=== PATIENT | female | born 1955 | race Caucasian/White ===

== ENCOUNTER → 2016-11-11 | Outpatient (CLI) | payer MEDICARE ==
--- NOTE | 2016-11-11 15:21 | XR ---
EXAMINATION TYPE: XR ankle complete RT DATE OF EXAM: 11/11/2016 2:45 PM CLINICAL HISTORY: Right ankle pain. TECHNIQUE: Frontal, lateral and oblique images of the right ankle are obtained. COMPARISON: None. FINDINGS: There is no acute fracture/dislocation evident in the right ankle. Some well-corticated o ssific fragments are medial malleolus likely reflect product of old avulsion type fracture. Similar s mall fracture fragments suspected near level of lateral malleolus favor old but are age indeterminate . The ankle mortise appears mildly narrowed medially . There is moderate subcutaneous edema with more focal moderate swelling over the lateral malleolus. Moderate inferior calcaneal spur is noted. IMPRESSION: There is diffuse subcutaneous edema and more focal lateral soft tissue swelling, there i s suspected old avulsion type fracture from the medial malleolus and more age indeterminate avulsion type fracture from the lateral malleolus. Ankle mortise asymmetry is noted raising concern for underl sol ligamentous tear.
== END | disposition home or self-care (01) ==
LOC: RADXRMAIN 14:11
PROVIDERS: ATTEND Family Medicine
DX: M79.89 Other specified soft tissue disorders (principal); R60.0 Localized edema; R93.7 Abnormal findings on diagnostic imaging of other parts of musculoskeletal system

== ENCOUNTER → 2016-11-14 | Outpatient (CLI) | payer MEDICARE ==
--- NOTE | 2016-11-14 15:05 | US ---
EXAMINATION TYPE: US venous doppler duplex LE RT DATE OF EXAM: 11/14/2016 2:55 PM COMPARISON: NONE CLINICAL HISTORY: M79.661 PAIN IN RT LOWER LIMB. SIDE PERFORMED: Right VESSELS IMAGED: External Iliac Vein (EIV) Common Femoral Vein Deep Femoral Vein Greater Saphenous Vein * Femoral Vein Popliteal Vein Small Saphenous Vein * Proximal Calf Veins (* superficial vessels) TECHNOLOGIST IMPRESSION: morbidly obese patient Right Leg: Negative for DVT No popliteal fossa lesion is seen. IMPRESSION: THIS EXAMINATION IS NEGATIVE FOR DVT WITHIN THE RIGHT LEG.
== END | disposition home or self-care (01) ==
LOC: RADUSWWP 14:13
PROVIDERS: ATTEND Family Medicine
DX: M79.661 Pain in right lower leg (principal); E66.01 Morbid (severe) obesity due to excess calories

== ENCOUNTER → 2016-11-25 | Outpatient (CLI) | payer MEDICARE | LOC: LABWHC1 13:54 | PROVIDERS: ATTEND Orthopaedic Surgery | DX: E55.9 Vitamin D deficiency, unspecified (principal) | CPT/HCPCS: 36415; 82306 ==

== ENCOUNTER → 2016-11-28 | Outpatient (CLI) | payer MEDICARE ==
[2016-11-28 11:35] LABS: Bilirubin, Delta 0.3 mg/dL (0.0-0.2); Total Bilirubin 1.3 mg/dL (0.2-1.3); Total Protein 7.3 g/dL (6.3-8.2)
== END | disposition home or self-care (01) ==
LOC: LABWHC1 10:35
PROVIDERS: ATTEND Family Medicine
DX: E78.00 Pure hypercholesterolemia, unspecified (principal); Z79.899 Other long term (current) drug therapy
CPT/HCPCS: 36415; 80061; 80076

== ENCOUNTER 2017-02-27 15:20 | Emergency (ER) | payer MEDICARE ==
[2017-02-27 15:41] VITALS: RESP 18
[2017-02-27] MEDS ORDERED: SODIUM CHLORIDE 0.9% 500 ML IV STA (16:07)
[2017-02-27 16:23] LABS: Basophils % (A) 0 %; CH 30.7; CHCM 32.3; Eosinophils # (A) 0.2 k/uL (0-0.7); Eosinophils % (A) 2 %; HCT 47.7 % (34.0-46.0); HDW 2.19; HGB 15.4 gm/dL (11.4-16.0); Luc # (Auto) 0.32; Luc % (Auto) 3; Lymphocytes % (A) 18 %; MCH 30.9 pg (25.0-35.0); MCHC 32.3 g/dL (31.0-37.0); MCV 95.6 fL (80.0-100.0); Mean Platelet Volume 7.7; Monocytes # (A) 0.9 k/uL (0-1.0); Monocytes % (A) 8 %; Neutrophils # (A) 7.6 k/uL (1.3-7.7); Neutrophils % (A) 69 %; RBC 4.99 m/uL (3.80-5.40); RDW 13.7 % (11.5-15.5); WBC (Perox) 10.81
[2017-02-27] MEDS ORDERED: ONDANSETRON 4 MG/2 ML VIAL IVP STA ×2 (16:28→18:44)
[2017-02-27] MEDS ORDERED: HYDROmorphone 1 MG/ML 1 ML SYRINGE IVP STA (16:28)
--- NOTE | 2017-02-27 16:35 | ED ---
Abdominal Pain HPI - General Chief Complaint: Abdominal Pain Stated Complaint: abdominal pain Time Seen by Provider: 02/27/17 16:06 Source: patient, RN notes reviewed Mode of arrival: ambulatory Limitations: no limitations - History of Present Illness Initial Comments: 61-year-old female presents emergency Department with chief complaint of abdominal pain. Patient states she felt some problems last week but states over the last 23 days she's had severe left lower quadrant abdominal pain with nausea vomiting. Patient states that she has a history of obstruction states it feels very similar in same spot. Patient states that she's had multiple surgeries secondary to cancer. Patient denies fever, chills, chest pain, shortness breath, diarrhea. She states that she did have 2 small hard stools. Patient denies any dysuria or hematuria. - Related Data Home Medications Medication Instructions Recorded Confirmed HYDROcodone/APAP 10-325MG [[place] 1 tab PO QID PRN 09/29/14 02/27/17 10-325] Calcium Carbonate/Vitamin D3 1 tab PO DAILY 02/27/17 02/27/17 [Calcium 600-Vit D3 400 Caplet] Previous Rx's Medication Instructions Recorded Dicyclomine [Bentyl] 20 mg PO TID #30 tablet 02/27/17 Allergies Allergy/AdvReac Type Severity Reaction Status Date / Time estrogens, conjugated Allergy severe Verified 02/27/17 15:53 [From Premarin] hand spasms Penicillins Allergy Rash/Hives Verified 02/27/17 15:53 tramadol HCl [From Ultram] Allergy Rash/Hives Verified 02/27/17 15:53 adhesive tape AdvReac Rash/Hives Verified 02/27/17 15:53 oxycodone AdvReac confusion Verified 02/27/17 15:53 and claustrophobia pregabalin [From Lyrica] AdvReac severe Verified 02/27/17 15:53 night terrors Review of Systems ROS Statement: Those systems with pertinent positive or pertinent negative responses have been documented in the HPI. ROS Other: All systems not noted in ROS Statement are negative. Past Medical History Past Medical History: Coronary Artery Disease (CAD), Cancer, Chest Pain / Angina , Heart Failure, GERD/Reflux, Hyperlipidemia, Memory Impairment, Myocardial Infarction ([place]), Osteoarthritis (OA), Pneumonia Additional Past Medical History / Comment(s): anemia, in wheelchair-to have lt hip replaced Thursday at [facility].OCC INCONT OF URINE, CHF WAS PREVIOUSLY CHARTED PT DOES'NT HAVE KNOWLEDGE OF THIS. ovarian cancer 1995 Last Myocardial Infarction Date:: 03/20/14 History of Any Multi-Drug Resistant Organisms: None Reported Past Surgical History: Bariatric Surgery, Heart Catheterization With Stent, Hernia Repair, Hysterectomy, Orthopedic Surgery Additional Past Surgical History / Comment(s): pannectomy during hernia repair, C5-C6 implant,sciatic ablation, DANNY KNEE REPLACMENTS, LT HIP COMPLETELY REBIULT , RT HIP REPLACEMENT.COLONOSOCPY, SKIN CANCER ON FACE REMOVED. PREVIOUS H&P FROM 2013 STATED HX BARIATRI SX- PT DENIES danny hip Past Anesthesia/Blood Transfusion Reactions: No Reported Reaction Date of Last Stent Placement:: 03/23/2014 Past Psychological History: Anxiety Smoking Status: Former smoker Past Alcohol Use History: None Reported Past Drug Use History: None Reported - Past Family History Father Family Medical History: Liver Disease Additional Family Medical History / Comment(s): alcoholic cirrhosis Mother Family Medical History: CVA/TIA Additional Family Medical History / Comment(s): complications from a hernia that went unreported. Son(s) Family Medical History: Asthma Sister(s) Family Medical History: Cancer Additional Family Medical History / Comment(s): breast General Exam Limitations: no limitations General appearance: alert, in no apparent distress, obese Respiratory exam: Present: normal lung sounds bilaterally. Absent: respiratory distress, wheezes, rales, rhonchi, stridor Cardiovascular Exam: Present: regular rate, normal rhythm, normal heart sounds. Absent: systolic murmur, diastolic murmur, rubs, gallop, clicks GI/Abdominal exam: Present: soft, tenderness (Moderate left lower quadrant tenderness), normal bowel sounds. Absent: distended, guarding, rebound, rigid Back exam: Absent: CVA tenderness (R), CVA tenderness (L) Neurological exam: Present: alert, oriented X3, CN II-XII intact Skin exam: Present: warm, dry, intact, normal color. Absent: rash Course Vital Signs 02/27/17 02/27/17 15:37 17:42 Temperature 97.7 F Pulse Rate 82 85 Respiratory 18 18 Rate Blood Pressure 131/77 131/77 O2 Sat by Pulse 97 97 Oximetry Medical Decision Making - Medical Decision Making 61-year-old female presented emergency department for left lower quadrant abdominal pain. There is no acute evidence of diverticulitis or bowel obstruction. Patient may be having bowel spasm. Patient will be discharged at this time case was discussed with Dr. Caro. Return parameters were discussed - Lab Data Result diagrams: 02/27/17 16:15 02/27/17 16:50 Lab Results 02/27/17 02/27/17 Range/Units 16:15 16:50 WBC 11.0 H (3.8-10.6) k/uL RBC 4.99 (3.80-5.40) m/uL Hgb 15.4 (11.4-16.0) gm/dL Hct 47.7 H (34.0-46.0) % MCV 95.6 (80.0-100.0) fL MCH 30.9 (25.0-35.0) pg MCHC 32.3 (31.0-37.0) g/dL RDW 13.7 (11.5-15.5) % Plt Count 205 (150-450) k/uL Neutrophils % 69 % Lymphocytes % 18 % Monocytes % 8 % Eosinophils % 2 % Basophils % 0 % Neutrophils # 7.6 (1.3-7.7) k/uL Lymphocytes # 2.0 (1.0-4.8) k/uL Monocytes # 0.9 (0-1.0) k/uL Eosinophils # 0.2 (0-0.7) k/uL Basophils # 0.0 (0-0.2) k/uL Sodium 142 (137-145) mmol/L Potassium 4.5 (3.5-5.1) mmol/L Chloride 109 H (98-107) mmol/L Carbon Dioxide 23 (22-30) mmol/L Anion Gap 10 mmol/L BUN 18 H (7-17) mg/dL Creatinine 0.80 (0.52-1.04) mg/dL Est GFR (MDRD) Af Amer >60 (>60 ml/min/1.73 sqM) Est GFR (MDRD) Non-Af >60 (>60 ml/min/1.73 sqM) Glucose 74 (74-99) mg/dL Calcium 8.8 (8.4-10.2) mg/dL Total Bilirubin 1.6 H (0.2-1.3) mg/dL AST 27 (14-36) U/L ALT 33 (9-52) U/L Alkaline Phosphatase 110 (38-126) U/L Total Protein 6.9 (6.3-8.2) g/dL Albumin 4.1 (3.5-5.0) g/dL Amylase <30 L (30-110) U/L Lipase 34 (23-300) U/L Disposition Clinical Impression: Abdominal pain Disposition: HOME SELF-CARE Condition: Stable Instructions: Abdominal Pain (ED) Additional Instructions: Please return to the Emergency Department if symptoms worsen or any other concerns. Prescriptions: Dicyclomine [Bentyl] 20 mg PO TID #30 tablet Referrals: Woody Pinedo MD [Primary Care Provider] - 1-2 days Time of Disposition: 19:11
[2017-02-27 17:27] LABS: ALT 33 U/L (9-52); AST 27 U/L (14-36); Alkaline Phosphatase 110 U/L (38-126); Amylase <30 U/L (30-110); Anion Gap 10 mmol/L; Blood Urea Nitrogen 18 mg/dL (7-17); Calcium 8.8 mg/dL (8.4-10.2); Carbon Dioxide 23 mmol/L (22-30); Chloride 109 mmol/L (98-107); Glucose 74 mg/dL (74-99); Non-African American GFR(MDRD) >60 (>60 ml/min/1.73 sqM); Potassium 4.5 mmol/L (3.5-5.1); Sodium 142 mmol/L (137-145); Total Bilirubin 1.6 mg/dL (0.2-1.3); Total Protein 6.9 g/dL (6.3-8.2)
--- NOTE | 2017-02-27 17:32 | XR ---
EXAMINATION TYPE: XR KUB DATE OF EXAM: 02/27/2017 COMPARISON: 06/28/2016 HISTORY: Abdominal pain TECHNIQUE: 2 views FINDINGS: There is no sign of intestinal obstruction or pneumoperitoneum. Fecal pattern is normal. Th ere are bilateral hip prosthesis. Lung bases are clear of consolidation. There are no pathologic calc ifications over the kidneys. There are numerous surgical clips in the pelvis. IMPRESSION: Nonacute abdomen. No change.
[2017-02-27] MEDS ORDERED: RX INFO: IV CONTRAST WAS GIVEN 1 EACH MISC MISCELLANE PRN (17:34)
--- NOTE | 2017-02-27 18:33 | CT ---
EXAMINATION TYPE: CT abdomen pelvis w con DATE OF EXAM: 02/27/2017 COMPARISON: 06/24/2016 HISTORY: Left lower quadrant pain with nausea and vomiting. CT DLP: 3835.40 mGycm Automated exposure control for dose reduction was used. TECHNIQUE: Helical acquisition of images was performed from the lung bases through the pelvis. CONTRAST: Performed without Oral Contrast and with IV Contrast, patient injected with 100 mL of Omnipaque 300. FINDINGS: The lung bases are clear. There is no pleural effusion. Liver spleen pancreas appear normal. Bile sindy ts are not dilated. Gallbladder is distended. I see no gallbladder wall thickening. Urographic there is no adrenal mass. Kidneys show satisfactory contrast opacification. There is no hydronephrosis. The re is no retroperitoneal adenopathy. There is no ascites. There is metal artifact from the bilateral hip prosthesis. Bladder is obscured by the metal artifact. I see no intestinal wall thickening. There are no dilated loops. Appendix appears normal. I see no fo verito bony destructive process. There is 10% anterior wedging of L2 vertebral body. Heart is enlarged. IMPRESSION: THERE IS OLD MILD COMPRESSION FRACTURE OF L2. MILD ATHEROSCLEROTIC VASCULAR DISEASE. CARDIOMEGALY. NO RMAL APPENDIX. NO SIGN OF ACUTE ABDOMEN AND PELVIS. NO ADVERSE CHANGE COMPARED TO OLD EXAM. THERE IS PROBABLY SOME SIGMOID DIVERTICULOSIS WITHOUT SIGN OF DIVERTICULITIS.
[2017-02-27 19:44] VITALS: BP 107/54; PULSE 73; TEMP 97.2
== END 2017-02-27 19:42 | disposition home or self-care (01) ==
LOC: EC 15:20
DX: R10.32 Left lower quadrant pain (principal); R11.2 Nausea with vomiting, unspecified; Z87.891 Personal history of nicotine dependence; Z79.899 Other long term (current) drug therapy; Z88.0 Allergy status to penicillin; Z88.5 Allergy status to narcotic agent; Z88.8 Allergy status to other drugs, medicaments and biological substances; Z91.09 Other allergy status, other than to drugs and biological substances
CPT/HCPCS: 36415; 80053; 82150; 83690; 85025; 74000; 74177; 99284; 96374; 96375; 96376; 96361; J2405; J1170; Q9967

== ENCOUNTER → 2017-09-09 | Outpatient (CLI) | payer MEDICARE ==
--- NOTE | 2017-09-10 00:09 | MR ---
EXAMINATION TYPE: MR foot RT wo/w con DATE OF EXAM: 09/09/2017 COMPARISON: NONE HISTORY: Osteomyelitis right great toe. Pain and infection, Gadavist 13ml CONTRAST: Standard multiplanar, multisequence MRI departmental protocol utilizing 13 mL intravenous Gadavist ga dolinium contrast. FINDINGS: There is moderate subcutaneous edema on the dorsum of the entire foot. There is subcutaneou s edema on the anterior lower leg. There is a plantar calcaneal spur. Plantar fascia is intact. The m etatarsals are intact. The signal pattern in the big toe is fairly normal without evidence of any fra cture or bone edema. There is mild soft tissue swelling around the end of the big toe. There is narro wing of first MP joint space with mild spurring. There is a small effusion of the first MP joint. I s ee no pathologic enhancement. IMPRESSION: Exam fails to demonstrate evidence of osteomyelitis. There is some osteoarthritis and synovitis evide nt at the first MP joint. No fracture. Subcutaneous edema and fluid seen on the dorsum of the foot. M ild soft tissue swelling around the end of the big toe. Plantar calcaneal spurring.
== END | disposition home or self-care (01) ==
LOC: RADMRIMAIN 17:06
PROVIDERS: ATTEND Family Medicine
DX: M19.071 Primary osteoarthritis, right ankle and foot (principal); M65.871 Other synovitis and tenosynovitis, right ankle and foot; R60.0 Localized edema
CPT/HCPCS: 73720; A9581

== ENCOUNTER → 2018-08-16 | Outpatient (CLI) | payer MEDICARE ==
[2018-08-16 14:39] LABS: Basophils % (A) 0 %; Eosinophils # (A) 0.2 k/uL (0-0.7); Eosinophils % (A) 2 %; HCT 46.1 % (34.0-46.0); HGB 14.5 gm/dL (11.4-16.0); Lymphocytes # (A) 1.7 k/uL (1.0-4.8); Lymphocytes % (A) 21 %; MCH 29.7 pg (25.0-35.0); MCHC 31.4 g/dL (31.0-37.0); MCV 94.4 fL (80.0-100.0); Mean Platelet Volume 7.4; Monocytes # (A) 0.5 k/uL (0-1.0); Monocytes % (A) 6 %; Neutrophils # (A) 5.6 k/uL (1.3-7.7); Neutrophils % (A) 68 %; Platelet Count 213 k/uL (150-450); RBC 4.88 m/uL (3.80-5.40); RDW 13.6 % (11.5-15.5); WBC 8.2 k/uL (3.8-10.6)
[2018-08-16 18:47] LABS: Albumin 4.2 g/dL (3.80-4.90); Albumin/Globulin Ratio 1.91 (1.20-2.10); Anion Gap 6.6 mmol/L (4.00-12.00); Calcium 9.4 mg/dL (8.7-10.3); Carbon Dioxide 30.4 mmol/L (21.6-31.8); Globulin 2.2 g/dL (2.1-3.7); LDL Cholesterol,Calculated 104.2 mg/dL (0.0-131.0); Potassium 4.7 mmol/L (3.5-5.5); Total Bilirubin 1.1 mg/dL (0.3-1.2); Total Protein 6.4 g/dL (6.2-8.2); VLDL Calculation 20.8 mg/dL (5.00-40.00)
[2018-08-16 18:54] LABS: T4, Free (Free Thyroxine) 1.1 ng/dL (0.80-1.80)
== END ==
LOC: LABWHC1 13:20
PROVIDERS: ATTEND Family Medicine
DX: E78.00 Pure hypercholesterolemia, unspecified (principal); I10 Essential (primary) hypertension; I25.2 Old myocardial infarction; Z79.899 Other long term (current) drug therapy
CPT/HCPCS: 36415; 80053; 80061; 84439; 84443; 85025

== ENCOUNTER → 2019-01-27 | Outpatient (CLI) | payer MEDICARE ==
--- NOTE | 2019-01-27 15:54 | XR ---
EXAMINATION TYPE: XR cervical spine comp DATE OF EXAM: 01/27/2019 TECHNIQUE: Frontal, lateral, oblique, swimmers, and open mouth view of the cervical spine are obtaine d. HISTORY: S13.9XXA sprain of neck. Neck pain after fall on 01/16/2019. COMPARISON: 05/27/2011 FINDINGS: The cervical spine is visualized in its entirety from C1 thru the top of T1 level. There i s persistent grade 1 anterolisthesis of C4 and C5 as seen on the prior exam of 2010. Anterior cervica l fusion device traverses the C5-C6 vertebral level with large protuberant osteophyte of C4 developed in the interim. Intervertebral disc space narrowing at the postsurgical site is seen with multilevel uncovertebral hypertrophy and facet arthropathy. No abnormal prevertebral soft tissue swelling is se en. No malalignment within the remainder of the cervical spine. The oblique images demonstrate neural foraminal narrowing at C4-C5 and C5-C6 on the right and at C5-C 6 on the left at least moderate. Incidentally noted left carotid atherosclerosis. Lung apices are poo rly visualized. C1-C2 articulation is within normal limits. IMPRESSION: No acute fracture of the cervical spine. Chronic malalignment and postsurgical change of the mid cervical spine. Degenerative disc disease has worsened in the interim creating at least mode rate multilevel neural foraminal narrowing.
== END ==
LOC: RADXRMAIN 14:46
PROVIDERS: ATTEND Family Medicine
DX: M48.02 Spinal stenosis, cervical region (principal); M50.30 Other cervical disc degeneration, unspecified cervical region
CPT/HCPCS: 72050

== ENCOUNTER → 2019-05-19 | Outpatient (CLI) | payer MEDICARE ==
[2019-05-19 12:44] LABS: Basophils # (A) 0.1 k/uL (0-0.2); Basophils % (A) 1 %; Eosinophils # (A) 0.2 k/uL (0-0.7); Eosinophils % (A) 2 %; HCT 44.6 % (34.0-46.0); HGB 14.1 gm/dL (11.4-16.0); Lymphocytes # (A) 1.6 k/uL (1.0-4.8); Lymphocytes % (A) 21 %; MCH 29.8 pg (25.0-35.0); MCHC 31.7 g/dL (31.0-37.0); MCV 94.1 fL (80.0-100.0); Mean Platelet Volume 7.6; Monocytes # (A) 0.6 k/uL (0-1.0); Monocytes % (A) 8 %; Neutrophils % (A) 65 %; Platelet Count 217 k/uL (150-450); RBC 4.74 m/uL (3.80-5.40); RDW 13.8 % (11.5-15.5); WBC 7.7 k/uL (3.8-10.6)
--- NOTE | 2019-05-19 13:04 | XR ---
EXAMINATION TYPE: XR lumbar spine 2 or 3V DATE OF EXAM: 05/19/2019 CLINICAL HISTORY: Low back pain TECHNIQUE: Frontal and lateral images of the lumbar spine are obtained. COMPARISON: X-ray from November 07, 2014. CT abdomen and pelvis from February 27, 2017. FINDINGS: There are 5 lumbar type vertebral bodies redemonstrated. There is persistent mild compress ion type fracture deformity involving the anterior and superior endplates at L2 level. There is strai ghtening of lumbar spine. Mild to moderate disc space narrowing L2-L3 level is present. Mild to moder ate multilevel anterior and lateral spurring. Numerous surgical clips overlie the bilateral upper pel vis along the iliac vessel distribution. IMPRESSION: As above.
[2019-05-19 19:04] LABS: African American GFR (CKD) 78.3 (60.0-200.0); Anion Gap 9.2 mmol/L (4.00-12.00); BUN/Creat Ratio 23.33 Ratio (12.00-20.00); Calcium 9.1 mg/dL (8.7-10.3); Carbon Dioxide 29.8 mmol/L (21.6-31.8); Potassium 4.7 mmol/L (3.5-5.5)
== END ==
LOC: LABWHC1 12:10
PROVIDERS: ATTEND Family Medicine
DX: S32.000A Wedge compression fracture of unspecified lumbar vertebra, initial encounter for closed fracture (principal); E66.01 Morbid (severe) obesity due to excess calories; I10 Essential (primary) hypertension; E78.00 Pure hypercholesterolemia, unspecified; F33.1 Major depressive disorder, recurrent, moderate; Z79.891 Long term (current) use of opiate analgesic
CPT/HCPCS: 36415; 72100; 80048; 82306; 85025

== ENCOUNTER → 2019-11-05 | Outpatient (CLI) | payer OTHER | END | disposition home or self-care (01) | LOC: RADMRIMAIN 14:51 | PROVIDERS: ATTEND Orthopaedic Surgery | DX: Z53.9 Procedure and treatment not carried out, unspecified reason (principal) ==

== ENCOUNTER → 2021-06-05 | Outpatient (CLI) | payer MEDICARE ==
--- NOTE | 2021-06-06 12:15 | XR ---
EXAMINATION TYPE: XR humerus RT DATE OF EXAM: 06/05/2021 COMPARISON: NONE HISTORY: 65-year-old female M79.601 TECHNIQUE: 2 views FINDINGS: Moderate degenerative change AC joint with joint space narrowing. On the view centered at the humerus , there appears to be Jaclyn general exchange of the glenohumeral joint and loss of the subacromial spa ce. No acute fracture. Degenerative change at the radiocapitellar and ulnotrochlear joints as well wi th small joint effusion likely reactive. IMPRESSION: 1. Suspect moderate rotator cuff arthropathy at the shoulder along with moderate AC joint OA. 2. Additional underlying radiocapitellar and ulnotrochlear joint OA at the elbow. A small elbow joint effusion is probably reactive. 3. No acute osseous abnormality seen.
== END | disposition home or self-care (01) ==
LOC: RADXRMAIN 17:23
PROVIDERS: ATTEND Family Medicine
DX: M19.011 Primary osteoarthritis, right shoulder (principal); M25.421 Effusion, right elbow

== ENCOUNTER 2021-10-20 16:52 | Inpatient (IN) | payer MEDICARE ==
[2021-10-20] MEDS ORDERED: DEXAMETHASONE SOD PHOSPHATE 10 MG/ML 1 ML VIAL IV STA (17:48)
[2021-10-20] MEDS ORDERED: ACETAMINOPHEN TAB 500 MG TAB PO STA (17:48)
[2021-10-20] MEDS ORDERED: SODIUM CHLORIDE 0.9% 1,000 ML IV STA (17:48)
[2021-10-20] MEDS ORDERED: diphenhydrAMINE 50 MG/ML 1 ML VIAL IVP STA (17:48)
[2021-10-20] MEDS ORDERED: METOCLOPRAMIDE 5 MG/ML 2 ML VIAL IVP STA (17:48)
--- NOTE | 2021-10-20 17:48 | ED ---
Headache HPI - General Chief Complaint: Headache Stated Complaint: Headache Time Seen by Provider: 10/20/21 17:15 Mode of arrival: wheelchair Limitations: no limitations - History of Present Illness Initial Comments: EKG 6-year-old female with past history of coronary artery disease, hyperlipidemia presents to the emergency department with headache. She was seen in the emergency department yesterday for nausea vomiting abdominal pain. Workup was unremarkable and the patient was sent home. Patient continued to have nausea. She developed a headache today. Describes it as global without visual changes. Also has some neck pain. Patient found to have a fever upon hospital arrival. Oxygenation also low. She is saturating 87% on room air. Patient denies any sick contacts. She is not vaccinated against Covid. Was not evaluated for Covid yesterday. She denies any unilateral numbness or weakness. Does have some chest pressure. No cough. Patient does admittedly feel short of breath. No other alleviating, precipitating or modifying factors - Related Data Home Medications Medication Instructions Recorded Confirmed HYDROcodone/APAP 10-325MG [[place] 1 tab PO Q6H PRN 09/29/14 10/20/21 10-325] [place] Vitamin 1 tab PO DAILY 10/19/21 10/20/21 Turmeric Root Extract [Turmeric] 500 mg PO DAILY 10/19/21 10/20/21 [place] 4 1 tab PO DAILY 10/19/21 10/20/21 Zinc 50 mg PO DAILY 10/19/21 10/20/21 Previous Rx's Medication Instructions Recorded Ondansetron [Zofran] 4 mg PO Q8HR PRN #10 tab 10/19/21 Allergies Allergy/AdvReac Type Severity Reaction Status Date / Time estrogens, conjugated Allergy severe Verified 10/20/21 17:03 [From Premarin] hand spasms Penicillins Allergy Rash/Hives Verified 10/20/21 17:03 tramadol HCl [From Ultram] Allergy Rash/Hives Verified 10/20/21 17:03 adhesive tape AdvReac Rash/Hives Verified 10/20/21 17:03 oxycodone AdvReac confusion Verified 10/20/21 17:03 and claustrophobia pregabalin [From Lyrica] AdvReac severe Verified 10/20/21 17:03 night terrors Review of Systems ROS Statement: Those systems with pertinent positive or pertinent negative responses have been documented in the HPI. ROS Other: All systems not noted in ROS Statement are negative. Past Medical History Past Medical History: Coronary Artery Disease (CAD), Cancer, Chest Pain / Angina, Heart Failure, GERD/Reflux, Hyperlipidemia, Memory Impairment, Myocardial Infarction ([place]), Osteoarthritis (OA), Pneumonia Additional Past Medical History / Comment(s): anemia, in wheelchair-to have lt hip replaced Thursday at [facility].OCC INCONT OF URINE, CHF WAS PREVIOUSLY CHARTED PT DOES'NT HAVE KNOWLEDGE OF THIS. ovarian cancer 1995. Wound on Right great toe Last Myocardial Infarction Date:: 03/20/14 History of Any Multi-Drug Resistant Organisms: None Reported Past Surgical History: Bariatric Surgery, Heart Catheterization With Stent, Hernia Repair, Hysterectomy, Orthopedic Surgery Additional Past Surgical History / Comment(s): pannectomy during hernia repair,C5-C6 implant,sciatic ablation, DANNY KNEE REPLACMENTS, LT HIP COMPLETELY REBIULT, RT HIP REPLACEMENT.COLONOSOCPY, SKIN CANCER ON FACE REMOVED. PREVIOUS H&P FROM 2013 STATED HX BARIATRI SX- PT DENIES danny hip Past Anesthesia/Blood Transfusion Reactions: No Reported Reaction Date of Last Stent Placement:: 03/23/2014 Past Psychological History: Anxiety Smoking Status: Never smoker Past Alcohol Use History: None Reported Past Drug Use History: None Reported - Past Family History Father Family Medical History: Liver Disease Additional Family Medical History / Comment(s): alcoholic cirrhosis Mother Family Medical History: CVA/TIA Additional Family Medical History / Comment(s): complications from a hernia that went unreported. Son(s) Family Medical History: Asthma Sister(s) Family Medical History: Cancer Additional Family Medical History / Comment(s): breast General Exam Limitations: no limitations Course Vital Signs 10/20/21 10/20/21 10/20/21 17:03 17:37 17:38 Temperature 100.5 F H Pulse Rate 85 Respiratory 20 Rate Blood Pressure 150/85 O2 Sat by Pulse 91 L 88 L 93 L Oximetry 10/20/21 18:04 Temperature Pulse Rate 77 Respiratory 18 Rate Blood Pressure 161/75 O2 Sat by Pulse 97 Oximetry Medical Decision Making - Medical Decision Making Upon arrival patient is placed in room 2. Thorough history and physical exam was performed. IV access is established and the patient was given a liter bolus of normal saline, 10 mg Reglan, 25 mg of Benadryl, 10 mg of dexamethasone and a gram of Tylenol. Patient does have laboratory studies as she is not reporting chest pain. Troponin is negative. Covid is detected. Chest x-ray is limited due to patient's body habitus however demonstrates no acute process. CT of the brain feels demonstrate any acute intracranial process. As the patient is hypoxic I did recommend admission. Spoke with Dr. Pinedo who agreed to admit the patient. - Lab Data Result diagrams: 10/20/21 17:55 10/20/21 17:55 Lab Results 10/20/21 10/20/21 10/20/21 Range/Units 17:18 17:55 17:55 WBC 4.5 (3.8-10.6) k/uL RBC 4.71 (3.80-5.40) m/uL Hgb 15.0 (11.4-16.0) gm/dL Hct 46.2 H (34.0-46.0) % MCV 98.1 (80.0-100.0) fL MCH 31.8 (25.0-35.0) pg MCHC 32.4 (31.0-37.0) g/dL RDW 13.7 (11.5-15.5) % Plt Count 195 (150-450) k/uL MPV 8.5 Neutrophils % 67 % Lymphocytes % 14 % Monocytes % 14 % Eosinophils % 0 % Basophils % 1 % Neutrophils # 3.0 (1.3-7.7) k/uL Lymphocytes # 0.6 L (1.0-4.8) k/uL Monocytes # 0.6 (0-1.0) k/uL Eosinophils # 0.0 (0-0.7) k/uL Basophils # 0.0 (0-0.2) k/uL PT 10.1 (9.0-12.0) sec INR 0.9 (<1.2) APTT 24.8 (22.0-30.0) sec Sodium (137-145) mmol/L Potassium (3.5-5.1) mmol/L Chloride (98-107) mmol/L Carbon Dioxide (22-30) mmol/L Anion Gap mmol/L BUN (7-17) mg/dL Creatinine (0.52-1.04) mg/dL Est GFR (CKD-EPI)AfAm (>60 ml/min/1.73 sqM) Est GFR (CKD-EPI)NonAf (>60 ml/min/1.73 sqM) Glucose (74-99) mg/dL Plasma Lactic Acid Guilherme (0.7-2.0) mmol/L Calcium (8.4-10.2) mg/dL Magnesium (1.6-2.3) mg/dL Total Bilirubin (0.2-1.3) mg/dL AST (14-36) U/L ALT (4-34) U/L Alkaline Phosphatase (38-126) U/L Troponin I (0.000-0.034) ng/mL Total Protein (6.3-8.2) g/dL Albumin (3.5-5.0) g/dL Coronavirus (PCR) Detected A (Not Detectd) 10/20/21 10/20/21 10/20/21 Range/Units 17:55 17:55 17:55 WBC (3.8-10.6) k/uL RBC (3.80-5.40) m/uL Hgb (11.4-16.0) gm/dL Hct (34.0-46.0) % MCV (80.0-100.0) fL MCH (25.0-35.0) pg MCHC (31.0-37.0) g/dL RDW (11.5-15.5) % Plt Count (150-450) k/uL MPV Neutrophils % % Lymphocytes % % Monocytes % % Eosinophils % % Basophils % % Neutrophils # (1.3-7.7) k/uL Lymphocytes # (1.0-4.8) k/uL Monocytes # (0-1.0) k/uL Eosinophils # (0-0.7) k/uL Basophils # (0-0.2) k/uL PT (9.0-12.0) sec INR (<1.2) APTT (22.0-30.0) sec Sodium 139 (137-145) mmol/L Potassium 4.3 (3.5-5.1) mmol/L Chloride 103 (98-107) mmol/L Carbon Dioxide 29 (22-30) mmol/L Anion Gap 7 mmol/L BUN 12 (7-17) mg/dL Creatinine 0.87 (0.52-1.04) mg/dL Est GFR (CKD-EPI)AfAm 80 (>60 ml/min/1.73 sqM) Est GFR (CKD-EPI)NonAf 69 (>60 ml/min/1.73 sqM) Glucose 122 H (74-99) mg/dL Plasma Lactic Acid Guilherme 1.1 (0.7-2.0) mmol/L Calcium 7.8 L (8.4-10.2) mg/dL Magnesium 1.9 (1.6-2.3) mg/dL Total Bilirubin 0.6 (0.2-1.3) mg/dL AST 39 H (14-36) U/L ALT 26 (4-34) U/L Alkaline Phosphatase 109 (38-126) U/L Troponin I <0.012 (0.000-0.034) ng/mL Total Protein 7.1 (6.3-8.2) g/dL Albumin 3.7 (3.5-5.0) g/dL Coronavirus (PCR) (Not Detectd) - EKG Data EKG Comments: Twelve-lead EKG demonstrates a sinus rhythm with a ventricular rate of 72. IL interval 129. QRS 103. QTC of 416. No acute ST segment elevations or depressions concerning for ischemic changes. Disposition Clinical Impression: Headache, COVID-19, Pyrexia, Hypoxia Disposition: ADMITTED IP TO THIS HOSP Condition: Stable Is patient prescribed a controlled substance at d/c from ED?: No Referrals: Woody Pinedo MD [Primary Care Provider] - 1-2 days Decision to Admit Reason: Admit from EC Decision Date: 10/20/21 Decision Time: 19:34
[2021-10-20 18:15] LABS: INR 0.9 (<1.2); Partial Thromboplastin Time 24.8 sec (22.0-30.0); Prothrombin Time 10.1 sec (9.0-12.0)
[2021-10-20 18:16] LABS: Basophils % (A) 1 %; Eosinophils % (A) 0 %; HCT 46.2 % (34.0-46.0); Lymphocytes # (A) 0.6 k/uL (1.0-4.8); Lymphocytes % (A) 14 %; MCH 31.8 pg (25.0-35.0); MCHC 32.4 g/dL (31.0-37.0); MCV 98.1 fL (80.0-100.0); Mean Platelet Volume 8.5; Monocytes # (A) 0.6 k/uL (0-1.0); Monocytes % (A) 14 %; Neutrophils % (A) 67 %; Platelet Count 195 k/uL (150-450); RBC 4.71 m/uL (3.80-5.40); RDW 13.7 % (11.5-15.5); WBC 4.5 k/uL (3.8-10.6)
[2021-10-20 18:18] LABS: Albumin 3.7 g/dL (3.5-5.0); Calcium 7.8 mg/dL (8.4-10.2); Magnesium 1.9 mg/dL (1.6-2.3); Potassium 4.3 mmol/L (3.5-5.1); Total Bilirubin 0.6 mg/dL (0.2-1.3); Total Protein 7.1 g/dL (6.3-8.2)
--- NOTE | 2021-10-20 19:08 | XR ---
EXAMINATION TYPE: XR chest 1V portable DATE OF EXAM: 10/20/2021 COMPARISON: 06/26/2016 HISTORY: Pneumonia TECHNIQUE: Single view FINDINGS: Exam limited by patient size. There is no sign of heart failure or confluent pneumonic infi ltrate. Costophrenic angles are fairly clear. Bony thorax appears intact. IMPRESSION: No active cardiopulmonary disease. Limited exam.
--- NOTE | 2021-10-20 19:27 | CT ---
EXAMINATION TYPE: CT brain wo con DATE OF EXAM: 10/20/2021 COMPARISON: 12/05/2011 HISTORY: Headache. CT DLP: 1127.4 mGycm Automated exposure control for dose reduction was used. Images of the brain obtained without contrast. Ventricles have normal size. There is no mass effect or midline shift. There is no sign of intracrani al hemorrhage. The calvarium is intact there is normal aeration of the mastoid sinuses. The skull bas e is intact. IMPRESSION: Negative CT scan of the brain.
[2021-10-20] MEDS ORDERED: IBUPROFEN 400 MG TAB PO PRN (19:34)
[2021-10-20] MEDS ORDERED: ACETAMINOPHEN TAB 325 MG TAB PO PRN (19:34)
[2021-10-20] MEDS ORDERED: NALOXONE 0.4 MG/ML 1 ML VIAL IV PRN (19:34)
[2021-10-20] MEDS ORDERED: ONDANSETRON 4 MG/2 ML VIAL IVP PRN (19:34)
[2021-10-20] MEDS: PANTOPRAZOLE 40 MG/10 ML VIAL IV SCH (20:54)
[2021-10-20] MEDS: HYDROcodone/APAP 10-325MG 1 EACH TAB PO PRN (21:39)
[2021-10-21] MEDS: SODIUM CHLORIDE 0.9% 1,000 ML IV SCH ×2 (02:55→12:38)
[2021-10-21] MEDS: HYDROcodone/APAP 10-325MG 1 EACH TAB PO PRN ×2 (03:02→08:26)
[2021-10-21 06:10] VITALS: RESP 18
[2021-10-21] MEDS: PANTOPRAZOLE 40 MG/10 ML VIAL IV SCH (08:03)
[2021-10-21] MEDS ORDERED: NON FORMULARY DRUG (Turmeric Root Extract [Turmeric] 500 MG Capsule) PO SCH (09:00)
[2021-10-21] MEDS ORDERED: DEXAMETHASONE SOD PHOSPHATE 10 MG/ML 1 ML VIAL IVP SCH (09:00)
[2021-10-21] MEDS ORDERED: ZINC SULFATE 220 MG CAP PO SCH (09:00)
[2021-10-21] MEDS ORDERED: VITA PO SCH (09:00)
[2021-10-21] MEDS ORDERED: MULTIVITAMINS, THERA 1 EACH TAB PO SCH (09:00)
[2021-10-21 09:06] LABS: Basophils # (A) 0.02 X 10*3/uL (0.00-0.10); Basophils % (A) 0.5 %; Eosinophils # (A) 0 X 10*3/uL (0.04-0.35); Eosinophils % (A) 0 %; HCT 48.6 % (37.2-46.3); HGB 14.5 g/dL (12.0-15.0); Immature Grans, Automated 2.4 %; Lymphocytes # (A) 0.65 X 10*3/uL (0.90-5.00); Lymphocytes % (A) 17.1 %; MCH 29.9 pg (27.0-32.0); MCHC 29.8 g/dL (32.0-37.0); MCV 100.2 fL (80.0-97.0); Mean Platelet Volume 11.2 fL (9.5-12.2); Monocytes # (A) 0.55 X 10*3/uL (0.20-1.00); Monocytes % (A) 14.4 %; NRBC Per 100 WBC 0 /100 WBCS (0.0-0.0); Neutrophils % (A) 65.6 %; Platelet Count 162 X 10*3/uL (140-440); RBC 4.85 X 10*6/uL (4.10-5.20); RDW 13.8 % (11.5-14.5); WBC 3.81 X 10*3/uL (4.50-10.00)
[2021-10-21 09:10] LABS: African American GFR (CKD) 76.7 (60.0-200.0); Anion Gap 12.7 mmol/L (10.00-18.00); BUN/Creat Ratio 12.22 Ratio (12.00-20.00); Calcium 7.6 mg/dL (8.7-10.3); Carbon Dioxide 24.3 mmol/L (20.0-27.5); Non-African American GFR(CKD) 66.2 (60.0-200.0); Potassium 4.7 mmol/L (3.5-5.5)
--- NOTE | 2021-10-21 10:53 | P.CNPUL ---
History of Present Illness Consult date: 10/21/21 Requesting physician: Woody Pinedo Reason for consult: dyspnea, cough, pneumonia, abnormal CXR/CT, other Chief complaint: Shortness of breath, nausea, headache, vomiting. History of present illness: Pulmonary consult dated 10/21/2021. 66-year-old female with a history of CAD, hyperlipidemia, who presented to the emergency department on 10/20/21, with severe headache. The patient was seen in the emergency department the day before, nausea, vomiting, and abdominal pain. Her workup was apparently negative and she was discharged home. Because of worsening headache, and ongoing vomiting, she came back to the hospital to be evaluated. Upon arrival, her saturations were low, 87% on room air. She is currently not vaccinated. She did test positive for coronavirus. She was not tested on her first trip to the emergency room. The patient in the emergency room, room 21. That is where I see her. Currently she is on 2 L nasal cannula. She is not in any respiratory distress. She's not receiving any IV fluids. The patient feels a bit better today than she did yesterday. White count is 3.81, hemoglobin 14.5, hematocrit 48.6, platelet count 162,000. Sodium is 139, potassium 4.7, chlorides 102, due to 24, anion gap 13, BUN 11, creatinine 0.9. Calcium 7.6. Troponin was negative 3. Testing for coronavirus was positive. Brain computed tomography scan was negative. Chest x-ray showed no active cardiopulmonary disease. Review of Systems REVIEW OF SYSTEMS: CONSTITUTIONAL: Weakness. NEUROLOGIC: Headache. HEENT: [ Negative.] CARDIAC: [Negative.] PULMONARY: Mild shortness of breath. GI: Nausea and vomiting, and dehydration. : [Negative.] RHEUMATOLOGIC: [ Negative.] IMMUNOLOGIC: [ Negative.] ENDOCRINE: [Negative. ] DERMATOLOGIC: [Negative.] Past Medical History Past Medical History: Coronary Artery Disease (CAD), Cancer, Chest Pain / Angina, Heart Failure, GERD/Reflux, Hyperlipidemia, Memory Impairment, Myocardial Infarction ([place]), Osteoarthritis (OA), Pneumonia Additional Past Medical History / Comment(s): anemia, in wheelchair-to have lt hip replaced Thursday at [facility].OCC INCONT OF URINE, CHF WAS PREVIOUSLY CHARTED PT DOES'NT HAVE KNOWLEDGE OF THIS. ovarian cancer 1995. Wound on Right great toe Last Myocardial Infarction Date:: 03/20/14 History of Any Multi-Drug Resistant Organisms: None Reported Past Surgical History: Bariatric Surgery, Heart Catheterization With Stent, Hernia Repair, Hysterectomy, Orthopedic Surgery Additional Past Surgical History / Comment(s): pannectomy during hernia repair,C5-C6 implant,sciatic ablation, DANNY KNEE REPLACMENTS, LT HIP COMPLETELY REBIULT, RT HIP REPLACEMENT.COLONOSOCPY, SKIN CANCER ON FACE REMOVED. PREVIOUS H&P FROM 2013 STATED HX BARIATRI SX- PT DENIES danny hip Past Anesthesia/Blood Transfusion Reactions: No Reported Reaction Date of Last Stent Placement:: 03/23/2014 Past Psychological History: Anxiety Smoking Status: Never smoker Past Alcohol Use History: None Reported Past Drug Use History: None Reported - Past Family History Father Family Medical History: Liver Disease Additional Family Medical History / Comment(s): alcoholic cirrhosis Mother Family Medical History: CVA/TIA Additional Family Medical History / Comment(s): complications from a hernia that went unreported. Son(s) Family Medical History: Asthma Sister(s) Family Medical History: Cancer Additional Family Medical History / Comment(s): breast Medications and Allergies Home Medications Medication Instructions Recorded Confirmed Type HYDROcodone/APAP 10-325MG [[place] 1 tab PO Q6H PRN 09/29/14 10/20/21 History 10-325] Ondansetron [Zofran] 4 mg PO Q8HR PRN #10 tab 10/19/21 10/20/21 Rx [place] Vitamin 1 tab PO DAILY 10/19/21 10/20/21 History Turmeric Root Extract [Turmeric] 500 mg PO DAILY 10/19/21 10/20/21 History Idania 4 1 tab PO DAILY 10/19/21 10/20/21 History Zinc 50 mg PO DAILY 10/19/21 10/20/21 History Allergies Allergy/AdvReac Type Severity Reaction Status Date / Time estrogens, conjugated Allergy severe Verified 10/20/21 17:03 [From Premarin] hand spasms Penicillins Allergy Rash/Hives Verified 10/20/21 17:03 tramadol HCl [From Ultram] Allergy Rash/Hives Verified 10/20/21 17:03 adhesive tape AdvReac Rash/Hives Verified 10/20/21 17:03 oxycodone AdvReac confusion Verified 10/20/21 17:03 and claustrophobia pregabalin [From Lyrica] AdvReac severe Verified 10/20/21 17:03 night terrors Physical Exam Osteopathic Statement: *. No significant issues noted on an osteopathic structural exam other than those noted in the History and Physical/Consult. Vitals: Vital Signs Temp Pulse Resp BP Pulse Ox 10/21/21 06:08 72 18 133/74 75 L 10/21/21 03:09 66 20 133/74 93 L 10/21/21 00:58 80 18 159/88 94 L 10/20/21 23:42 79 18 149/77 94 L 10/20/21 22:16 72 18 144/75 95 10/20/21 20:47 65 16 165/76 95 10/20/21 19:59 88 18 171/69 94 L 10/20/21 19:27 97 18 161/75 96 10/20/21 18:04 77 18 161/75 97 10/20/21 17:38 93 L 10/20/21 17:37 88 L 10/20/21 17:03 100.5 F H 85 20 150/85 91 L Intake and Output 10/20/21 10/21/21 10/21/21 22:59 06:59 14:59 Other: Weight 156.489 kg No acute distress, oriented 3. No evidence of respiratory difficulty such as use of accessory muscles or conversational dyspnea. The patient is on 2 L. HEENT examination is grossly unremarkable. Neck supple. Full range of motion. No adenopathy thyromegaly or neck vein distention. Cardiovascular examination reveals regular rhythm rate. S1-S2 normal. No S3 or S4. No discernible murmur noted. Heart sounds are bit distant. Heart rate 72 bpm. Lungs reveal mostly clear breath sounds. Minimal scattered rhonchi. No wheezes or crackles. Breath sounds equal. 2 L saturation is 94%. Abdomen soft bowel sounds are heard. No masses or tenderness. Extremities are intact. No cyanosis clubbing or edema. Skin is without rash or lesion. Neurologic examination is brief but nonfocal. Results - Laboratory Findings CBC and BMP: 10/21/21 06:06 10/21/21 06:06 PT/INR, D-dimer PT 10.1 sec (9.0-12.0) 10/20/21 17:55 INR 0.9 (<1.2) 10/20/21 17:55 Abnormal lab findings: Abnormal Labs 10/20/21 10/20/21 10/20/21 17:18 17:55 17:55 WBC Hct 46.2 H MCV MCHC Immature Gran # Lymphocytes # 0.6 L Eosinophils # Glucose 122 H Calcium 7.8 L AST 39 H Coronavirus (PCR) Detected A 10/21/21 10/21/21 06:06 06:06 WBC 3.81 L Hct 48.6 H MCV 100.2 H MCHC 29.8 L Immature Gran # 0.09 H Lymphocytes # 0.65 L Eosinophils # 0 L Glucose 142 H Calcium 7.6 L AST Coronavirus (PCR) - Diagnostic Findings Chest x-ray: image reviewed Assessment and Plan Assessment: Coronavirus infection, with minimal pulmonary issues, and a normal chest x-ray. CAD, with previous stent placement. History of bariatric surgery. History of ovarian cancer, 1995. History of CHF. History of gastroesophageal reflux disease. History of hyperlipidemia. History of memory impairment. History of myocardial infarction, 2013. Plan: Plan dated 10/21/2021. The patient is not really having much or any lung issues at this time. I note that the patient is on Decadron. The patient's also receiving Reglan, and Zofran for her nausea and vomiting. The patient's 2 L saturation is in the mid 90s. Lung sounds are relatively clear. Chest x-ray shows no active pulmonary disease. We will continue to follow make recommendations where appropriate. Not sure why the patient is actually being admitted to the hospital. Time with Patient: Greater than 30
[2021-10-21] MEDS ORDERED: ASCORBIC ACID 500 MG TAB PO SCH (12:15)
[2021-10-21] MEDS ORDERED: CHOLECALCIFEROL 25 MCG (1000 IU) TABLET PO SCH (12:15)
[2021-10-21 13:07] VITALS: BP 138/73; PULSE 71; TEMP 97.8
[2021-10-22] MEDS ORDERED: PANTOPRAZOLE 40 MG TABLET PO SCH (07:30)
--- NOTE | 2021-10-22 10:53 | P.HPIM ---
History of Present Illness H&P Date: 10/21/21 Chief Complaint: Dyspnea, headache History and Physical and Discharge Summary: This is a 66-year-old female with past medical history of CAD, gastroesophageal reflux disease, morbid obesity, ovarian cancer, and multiple other medical issues presented to the ER with complaints of worsening shortness of breath, headache and some nausea. On admission, respiratory rate 18-20, O2 sats of 88- 91% on room air, 2-3 L of nasal cannula later required to maintain O2 sats in the 90s which has since been weaned off. T-max 100.5, currently afebrile, WBC 3.81. Coronavirus PCR detected. Chest x-ray reported no active cardiopulmonary disease . Brain CT reported negative. Hemoglobin 14.5, platelets 162, normal INR, Electrolytes within normal limits. Received IV fluid hydration, covid cocktail initiated. Troponins negative 3, EKG reporting sinus rhythm, incomplete right bundle branch block. Evaluated and cleared by pulmonary. Review of Systems ROS Statement: Those systems with pertinent positive or pertinent negative responses have been documented in the HPI. ROS Other: All systems not noted in ROS Statement are negative. Past Medical History Past Medical History: Coronary Artery Disease (CAD), Cancer, Chest Pain / Angina, GERD/Reflux, Hyperlipidemia, Memory Impairment, Myocardial Infarction ([place]), Osteoarthritis (OA), Pneumonia Additional Past Medical History / Comment(s): Ovarian cancer with total hyst erctomy/BSO, compression lumbar fracture/chronic R lower back pain, diverticular disease, SBO, anemia, occasional urine incontinence. Last Myocardial Infarction Date:: 03/20/14 History of Any Multi-Drug Resistant Organisms: None Reported Past Surgical History: Heart Catheterization With Stent, Hernia Repair, Hysterectomy, Orthopedic Surgery Additional Past Surgical History / Comment(s): Total bilateral hip replacements, bilateral total knee replacements, C5-6 surgeries, ventral hernia repair with panniculectomy, colonosocpy, hysterectomy with bilateral BSO. Past Anesthesia/Blood Transfusion Reactions: No Reported Reaction Additional Past Anesthesia/Blood Transfusion Reaction / Comment(s): Stupor for days after Date of Last Stent Placement:: 03/23/2014 Smoking Status: Former smoker - Past Family History Father Family Medical History: Liver Disease Additional Family Medical History / Comment(s): alcoholic cirrhosis Mother Family Medical History: CVA/TIA Additional Family Medical History / Comment(s): complications from a hernia that went unreported. Son(s) Family Medical History: Asthma Sister(s) Family Medical History: Cancer Additional Family Medical History / Comment(s): breast Medications and Allergies Home Medications Medication Instructions Recorded Confirmed Type HYDROcodone/APAP 10-325MG [[employer] 1 tab PO Q6H PRN 09/29/14 10/20/21 History 10-325] Ondansetron [Zofran] 4 mg PO Q8HR PRN #10 tab 10/19/21 10/20/21 Rx [place] Vitamin 1 tab PO DAILY 10/19/21 10/20/21 History Turmeric Root Extract [Turmeric] 500 mg PO DAILY 10/19/21 10/20/21 History Idania 4 1 tab PO DAILY 10/19/21 10/20/21 History Albuterol Inhaler [Ventolin Hfa 2 puff INHALATION RT-QID PRN #8 gm 10/21/21 Rx Inhaler] Ascorbic Acid [Vitamin C] 500 mg PO BID #60 tab 10/21/21 Rx Aspirin EC [Ecotrin Low Dose] 81 mg PO DAILY 60 Days #60 tab 10/21/21 Rx Cholecalciferol [Vitamin D3 (25 50 mcg PO DAILY #30 tablet 10/21/21 Rx Mcg = 1000 Iu)] Zinc Sulfate [Orazinc] 220 mg PO DAILY #30 cap 10/21/21 Rx Allergies Allergy/AdvReac Type Severity Reaction Status Date / Time estrogens, conjugated Allergy severe Verified 10/20/21 17:03 [From Premarin] hand spasms Penicillins Allergy Rash/Hives Verified 10/20/21 17:03 tramadol HCl [From Ultram] Allergy Rash/Hives Verified 10/20/21 17:03 adhesive tape AdvReac Rash/Hives Verified 10/20/21 17:03 oxycodone AdvReac confusion Verified 10/20/21 17:03 and claustrophobia pregabalin [From Lyrica] AdvReac severe Verified 10/20/21 17:03 night terrors Physical Exam Vitals: Vital Signs Temp Pulse Pulse Resp BP BP Pulse Ox 10/21/21 13:00 97.8 F 71 18 138/73 92 L 10/21/21 06:08 72 18 133/74 75 L 10/21/21 03:09 66 20 133/74 93 L 10/21/21 00:58 80 18 159/88 94 L 10/20/21 23:42 79 18 149/77 94 L 10/20/21 22:16 72 18 144/75 95 10/20/21 20:47 65 16 165/76 95 10/20/21 19:59 88 18 171/69 94 L 10/20/21 19:27 97 18 161/75 96 10/20/21 18:04 77 18 161/75 97 10/20/21 17:38 93 L 10/20/21 17:37 88 L 10/20/21 17:03 100.5 F H 85 20 150/85 91 L Intake and Output 10/20/21 10/21/21 10/21/21 22:59 06:59 14:59 Other: Weight 156.489 kg 156.489 kg PHYSICAL EXAM: VITAL SIGNS: [As above] GENERAL: Sitting up in stretcher, in no acute distress. HEENT: Conjunctivae normal. eyes normal. NECK: No JVD. No thyroid enlargement. No LNs CARDIOVASCULAR: S1, S2 regular. No murmur RESPIRATION: Essentially clear, mild scattered rhonchi, bilateral diminished bases. ABDOMEN: Soft, nontender. No guarding. no masses palpable. No ascites, No hepatosplenomegaly.Bowel sounds heard. LEGS: No edema. no swelling. PSYCHIATRY: Alert and oriented X3, mood and affect normal. NERVOUS SYSTEM: Cranial N 2-12 grossly normal. Moves all 4 limbs.No focal deficits.Strength and sensation grossly intact. Skin: Warm and dry, no rash. Results CBC & Chem 7: 10/21/21 06:06 10/21/21 06:06 Labs: Abnormal Lab Results - Last 24 Hours (Table) 10/20/21 10/20/21 10/20/21 Range/Units 17:18 17:55 17:55 WBC (4.50-10.00) X 10*3/uL Hct 46.2 H (34.0-46.0) % MCV (80.0-97.0) fL MCHC (32.0-37.0) g/dL Immature Gran # (0.00-0.04) X 10*3/uL Lymphocytes # 0.6 L (1.0-4.8) k/uL Eosinophils # (0.04-0.35) X 10*3/uL Glucose 122 H (74-99) mg/dL Calcium 7.8 L (8.4-10.2) mg/dL AST 39 H (14-36) U/L Coronavirus (PCR) Detected A (Not Detectd) 10/21/21 10/21/21 Range/Units 06:06 06:06 WBC 3.81 L (4.50-10.00) X 10*3/uL Hct 48.6 H (34.0-46.0) % MCV 100.2 H (80.0-97.0) fL MCHC 29.8 L (32.0-37.0) g/dL Immature Gran # 0.09 H (0.00-0.04) X 10*3/uL Lymphocytes # 0.65 L (1.0-4.8) k/uL Eosinophils # 0 L (0.04-0.35) X 10*3/uL Glucose 142 H (74-99) mg/dL Calcium 7.6 L (8.4-10.2) mg/dL AST (14-36) U/L Coronavirus (PCR) (Not Detectd) Thrombosis Risk Factor Assmnt - Choose All That Apply Any of the Below Risk Factors Present?: Yes Each Factor Represents 1 point: Obesity (BMI >25), Serious lung disease incl. pneumonia (< 1month) Other Risk Factors: Yes Each Risk Factor Represents 2 Points: Age 61-74 years, Malignancy Other congenital or acquired thrombophilia - If yes, enter type in comment: No Thrombosis Risk Factor Assessment Total Risk Factor Score: 6 Thrombosis Risk Factor Assessment Level: High Risk Assessment and Plan Assessment: Acute Covid infection Acute hypoxic respiratory failure secondary to the above, resolved. Currently maintaining O2 sats of 94% on room air. CAD, Hx of [place],stenting Chronic systolic heart failure Hypertension Hyperlipidemia Gastroesophageal reflux disease Morbid obesity, BMI 59.2 Osteoarthritis Former nicotine dependence History of ovarian cancer Plan: Continue on current medication regime, monitoring and symptomatically treatment. Patient reports she has a good support system at home, her adult son lives with her and is able to assist her. Significant clinical improvement. Currently denies nausea vomiting or diarrhea. Denies chest pain, palpitations or shortness of breath. Denies lightheadedness, dizziness or focal deficits. Patient will be discharged home today in a stable condition with guarded prognosis on Covid cocktail with the Tele Visits every other day with Dr. Almeida until office visit next week. Discharge Medication List HYDROcodone/APAP 10-325MG [[employer] 10-325] 1 tab PO Q6H PRN 09/29/14 [History] Ondansetron [Zofran] 4 mg PO Q8HR PRN #10 tab 10/19/21 [Rx] [place] Vitamin 1 tab PO DAILY 10/19/21 [History] Turmeric Root Extract [Turmeric] 500 mg PO DAILY 10/19/21 [History] Idania 4 1 tab PO DAILY 10/19/21 [History] Albuterol Inhaler [Ventolin Hfa Inhaler] 2 puff INHALATION RT-QID PRN #8 gm 10/21/21 [Rx] Ascorbic Acid [Vitamin C] 500 mg PO BID #60 tab 10/21/21 [Rx] Aspirin EC [Ecotrin Low Dose] 81 mg PO DAILY 60 Days #60 tab 10/21/21 [Rx] Cholecalciferol [Vitamin D3 (25 Mcg = 1000 Iu)] 50 mcg PO DAILY #30 tablet 10/21/21 [Rx] Zinc Sulfate [Orazinc] 220 mg PO DAILY #30 cap 10/21/21 [Rx] Dexamethasone [Decadron] 6 mg PO DAILY #8 tablet 10/22/21 [Rx] The impression and plan of care has been dictated as directed. : I performed a history and examination of this patient, discussed the same with the dictator. I agree with the dictator's note ,documented as a scribe. Any additional findings or plans will be noted.
== END 2021-10-21 15:17 | disposition home or self-care (01) | DRG 177 ==
LOC: EC 16:52 → 4SSUR 19:34
PROVIDERS: ADMIT Family Medicine; ATTEND Family Medicine
PROC: 3E0333Z Introduction of Anti-inflammatory into Peripheral Vein, Percutaneous Approach (ICD-10-PCS; principal; 2021-10-20)
DX: U07.1 COVID-19 (principal); J96.01 Acute respiratory failure with hypoxia; Z68.43 Body mass index [BMI] 50.0-59.9, adult; I50.22 Chronic systolic (congestive) heart failure; E66.01 Morbid (severe) obesity due to excess calories; E78.5 Hyperlipidemia, unspecified; I25.2 Old myocardial infarction; I11.0 Hypertensive heart disease with heart failure; I25.10 Atherosclerotic heart disease of native coronary artery without angina pectoris; I45.10 Unspecified right bundle-branch block; K21.9 Gastro-esophageal reflux disease without esophagitis; M19.90 Unspecified osteoarthritis, unspecified site; R41.3 Other amnesia; Z79.82 Long term (current) use of aspirin; Z79.899 Other long term (current) drug therapy; Z82.3 Family history of stroke; Z82.5 Family history of asthma and other chronic lower respiratory diseases; Z85.43 Personal history of malignant neoplasm of ovary; Z85.828 Personal history of other malignant neoplasm of skin; Z87.891 Personal history of nicotine dependence; Z90.710 Acquired absence of both cervix and uterus; Z96.643 Presence of artificial hip joint, bilateral; Z96.653 Presence of artificial knee joint, bilateral; Z98.84 Bariatric surgery status; Z88.0 Allergy status to penicillin; Z88.5 Allergy status to narcotic agent; Z88.8 Allergy status to other drugs, medicaments and biological substances; Z95.5 Presence of coronary angioplasty implant and graft
CPT/HCPCS: 36415; 70450; 71045; 80048; 80053; 83605; 83735; 84484; 85025; 85610; 85730; 87635; 93005; 96361; 96374; 96375; 99285

== ENCOUNTER 2021-10-25 17:43 | Emergency (ER) | payer MEDICARE ==
[2021-10-25] MEDS ORDERED: DICYCLOMINE 10 MG/ML 2 ML AMP IM STA (18:23)
[2021-10-25] MEDS ORDERED: ONDANSETRON 4 MG/2 ML VIAL IVP STA (18:23)
[2021-10-25] MEDS ORDERED: SODIUM CHLORIDE 0.9% 1,000 ML IV STA (18:23)
[2021-10-25 18:51] LABS: Albumin 3.4 g/dL (3.5-5.0); Calcium 6.6 mg/dL (8.4-10.2); Potassium 3.7 mmol/L (3.5-5.1); Total Bilirubin 0.6 mg/dL (0.2-1.3); Total Protein 6.7 g/dL (6.3-8.2)
[2021-10-25 19:05] LABS: C Reactive Protein 13.6 mg/dL (<1.0)
[2021-10-25 19:14] LABS: Basophils % (A) 1 %; Eosinophils % (A) 0 %; HCT 47.1 % (34.0-46.0); HGB 15.4 gm/dL (11.4-16.0); Lymphocytes # (A) 0.8 k/uL (1.0-4.8); Lymphocytes % (A) 16 %; MCH 31.2 pg (25.0-35.0); MCHC 32.7 g/dL (31.0-37.0); MCV 95.4 fL (80.0-100.0); Mean Platelet Volume 9.1; Monocytes # (A) 0.5 k/uL (0-1.0); Monocytes % (A) 10 %; Neutrophils # (A) 3.4 k/uL (1.3-7.7); Neutrophils % (A) 71 %; Platelet Count 129 k/uL (150-450); RBC 4.94 m/uL (3.80-5.40); RDW 13.9 % (11.5-15.5); WBC 4.8 k/uL (3.8-10.6)
--- NOTE | 2021-10-25 19:36 | ED ---
General Adult HPI - General Chief complaint: Nausea/Vomiting/Diarrhea Stated complaint: Covid+ Time Seen by Provider: 10/25/21 18:01 Source: EMS Mode of arrival: EMS Limitations: no limitations - History of Present Illness Initial comments: 66-year-old female patient diagnosed with COVID-19 on 10/20/21 presents today for evaluation of increased shortness of breath, vomiting, and diarrhea. She was discharged from the hospital on Thursday after a two day stay for hypoxia. She states that the day after she was discharged she felt very dry and felt like it was making it more difficult to breathe. States that she was given imodium today for diarrhea but has not taken it yet. States she has had minimal food and fluids due to nausea. She reports cough. Denies any chest pain. Denies leg pain or swelling. Patient denies any recent rash, abdominal pain, constipation, back pain, numbness, tingling, dizziness, weakness, hematuria, dysuria, urinary urgency, urinary frequency, headache, visual changes, or any other complaints. - Related Data Home Medications Medication Instructions Recorded Confirmed HYDROcodone/APAP 10-325MG [[place] 1 tab PO Q6H PRN 09/29/14 10/20/21 10-325] [place] Vitamin 1 tab PO DAILY 10/19/21 10/20/21 Turmeric Root Extract [Turmeric] 500 mg PO DAILY 10/19/21 10/20/21 Idania 4 1 tab PO DAILY 10/19/21 10/20/21 Previous Rx's Medication Instructions Recorded Ondansetron [Zofran] 4 mg PO Q8HR PRN #10 tab 10/19/21 Albuterol Inhaler [Ventolin Hfa 2 puff INHALATION RT-QID PRN #8 gm 10/21/21 Inhaler] Ascorbic Acid [Vitamin C] 500 mg PO BID #60 tab 10/21/21 Aspirin EC [Ecotrin Low Dose] 81 mg PO DAILY 60 Days #60 tab 10/21/21 Cholecalciferol [Vitamin D3 (25 50 mcg PO DAILY #30 tablet 10/21/21 Mcg = 1000 Iu)] Zinc Sulfate [Orazinc] 220 mg PO DAILY #30 cap 10/21/21 Dexamethasone [Decadron] 6 mg PO DAILY #8 tablet 10/22/21 Ondansetron [Zofran ODT] 4 mg PO Q8HR PRN #20 tab 10/25/21 Allergies Allergy/AdvReac Type Severity Reaction Status Date / Time estrogens, conjugated Allergy severe Verified 10/25/21 18:15 [From Premarin] hand spasms Penicillins Allergy Rash/Hives Verified 10/25/21 18:15 tramadol HCl [From Ultram] Allergy Rash/Hives Verified 10/25/21 18:15 adhesive tape AdvReac Rash/Hives Verified 10/25/21 18:15 oxycodone AdvReac confusion Verified 10/25/21 18:15 and claustrophobia pregabalin [From Lyrica] AdvReac severe Verified 10/25/21 18:15 night terrors Review of Systems ROS Statement: Those systems with pertinent positive or pertinent negative responses have been documented in the HPI. ROS Other: All systems not noted in ROS Statement are negative. Past Medical History Past Medical History: Coronary Artery Disease (CAD), Cancer, Chest Pain / Angina, GERD/Reflux, Hyperlipidemia, Memory Impairment, Myocardial Infarction ([place]), Osteoarthritis (OA), Pneumonia Additional Past Medical History / Comment(s): Ovarian cancer with total hysterctomy/BSO, compression lumbar fracture/chronic R lower back pain, diverticular disease, SBO, anemia, occasional urine incontinence. Last Myocardial Infarction Date:: 03/20/14 History of Any Multi-Drug Resistant Organisms: None Reported Past Surgical History: Heart Catheterization With Stent, Hernia Repair, Hysterectomy, Orthopedic Surgery Additional Past Surgical History / Comment(s): Total bilateral hip replacements, bilateral total knee replacements, C5-6 surgeries, ventral hernia repair with panniculectomy, colonosocpy, hysterectomy with bilateral BSO. Past Anesthesia/Blood Transfusion Reactions: No Reported Reaction Additional Past Anesthesia/Blood Transfusion Reaction / Comment(s): Stupor for d ays after Date of Last Stent Placement:: 03/23/2014 Past Psychological History: Anxiety, Depression Smoking Status: Former smoker Past Alcohol Use History: Rare Past Drug Use History: None Reported - Past Family History Father Family Medical History: Liver Disease Additional Family Medical History / Comment(s): alcoholic cirrhosis Mother Family Medical History: CVA/TIA Additional Family Medical History / Comment(s): complications from a hernia that went unreported. Son(s) Family Medical History: Asthma Sister(s) Family Medical History: Cancer Additional Family Medical History / Comment(s): breast General Exam Limitations: no limitations General appearance: alert, in no apparent distress, other (This is a well developed, well nourished adult female in mild respiratory distress.) ENT exam: Present: normal exam, normal oropharynx, mucous membranes moist Respiratory exam: Present: normal lung sounds bilaterally, other (tachypnea). Absent: respiratory distress, wheezes, rales, rhonchi, stridor Cardiovascular Exam: Present: regular rate, normal rhythm, normal heart sounds. Absent: systolic murmur, diastolic murmur, rubs, gallop, clicks GI/Abdominal exam: Present: soft, normal bowel sounds. Absent: distended, tenderness, guarding, rebound, rigid Neurological exam: Present: alert, oriented X3, CN II-XII intact Psychiatric exam: Present: normal affect, normal mood Skin exam: Present: warm, dry, intact, normal color. Absent: rash Course Vital Signs 10/25/21 10/25/21 10/25/21 18:09 19:37 21:33 Temperature 101.1 F H 98.6 F Pulse Rate 90 90 84 Respiratory 22 22 16 Rate Blood Pressure 138/77 124/70 124/70 O2 Sat by Pulse 93 L 95 97 Oximetry Medical Decision Making - Medical Decision Making 66 year-old female patient presents to the emergency department for evaluation of increased shortness of breath, vomiting, and diarrhea. She was recently admitted after being diagnosed with COVID-19. Physical examination does reveal tachypnea, able to speak only 2-3 word sentences. Mucous membranes are dry. She was febrile upon arrival. Labs reviewed and showed elevated LDH and CRP. Chest xray shows increased interstitial densities. He is given IV fluids. Nausea medication. No vomiting since arrival. Plan was to admit to the hospital, I did speak to Dr. Almeida who refused admission believes patient would be best treated at home. I did give prescription for zofran for vomiting. She is instructed to start with clear liquid diet and advance as tolerated. Return par ameters were discussed in detail. She verbalizes understanding and agrees with this plan. My attending is Dr. Jeffrey. - Lab Data Result diagrams: 10/25/21 18:33 10/25/21 18:33 Lab Results 10/25/21 10/25/21 Range/Units 18:33 18:33 WBC 4.8 (3.8-10.6) k/uL RBC 4.94 (3.80-5.40) m/uL Hgb 15.4 (11.4-16.0) gm/dL Hct 47.1 H (34.0-46.0) % MCV 95.4 (80.0-100.0) fL MCH 31.2 (25.0-35.0) pg MCHC 32.7 (31.0-37.0) g/dL RDW 13.9 (11.5-15.5) % Plt Count 129 L (150-450) k/uL MPV 9.1 Neutrophils % 71 % Lymphocytes % 16 % Monocytes % 10 % Eosinophils % 0 % Basophils % 1 % Neutrophils # 3.4 (1.3-7.7) k/uL Lymphocytes # 0.8 L (1.0-4.8) k/uL Monocytes # 0.5 (0-1.0) k/uL Eosinophils # 0.0 (0-0.7) k/uL Basophils # 0.0 (0-0.2) k/uL Sodium 138 (137-145) mmol/L Potassium 3.7 (3.5-5.1) mmol/L Chloride 101 (98-107) mmol/L Carbon Dioxide 27 (22-30) mmol/L Anion Gap 10 mmol/L BUN 17 (7-17) mg/dL Creatinine 0.92 (0.52-1.04) mg/dL Est GFR (CKD-EPI)AfAm 75 (>60 ml/min/1.73 sqM) Est GFR (CKD-EPI)NonAf 65 (>60 ml/min/1.73 sqM) Glucose 105 H (74-99) mg/dL Calcium 6.6 L (8.4-10.2) mg/dL Total Bilirubin 0.6 (0.2-1.3) mg/dL AST 58 H (14-36) U/L ALT 31 (4-34) U/L Alkaline Phosphatase 97 (38-126) U/L Lactate Dehydrogenase 850 H (313-618) U/L C-Reactive Protein 13.6 H (<1.0) mg/dL Total Protein 6.7 (6.3-8.2) g/dL Albumin 3.4 L (3.5-5.0) g/dL Lipase 188 (23-300) U/L - Radiology Data Radiology results: report reviewed, image reviewed 1 view of the chest is obtained. Report was reviewed in its entirety, impression by Dr. Whiting shows evidence for some volume loss on the left side with some probably atelectasis in the left lower lobe. There is increased pulmonary interstitial density compared to old exam. Limited exam due to patient's size. No obvious heart failure. Disposition Clinical Impression: COVID-19, Vomiting Disposition: HOME SELF-CARE Condition: Good Instructions (If sedation given, give patient instructions): Coronavirus Disease 2019 (COVID-19), Acute Nausea and Vomiting (ED) Additional Instructions: Take medications as directed. Start clear liquids and advance as tolerated. Follow-up with the primary care physician for recheck in 1-2 days. Return to the emergency department for any new, worsening, or concerning symptoms. Prescriptions: Ondansetron [Zofran ODT] 4 mg PO Q8HR PRN #20 tab PRN Reason: Nausea Is patient prescribed a controlled substance at d/c from ED?: No Referrals: Woody Pinedo MD [Primary Care Provider] - 1-2 days Time of Disposition: 22:29
[2021-10-25 19:39] VITALS: TEMP 98.6
[2021-10-25] MEDS ORDERED: IBUPROFEN 600 MG TAB PO STA (19:40)
[2021-10-25] MEDS ORDERED: ACETAMINOPHEN TAB 500 MG TAB PO STA (19:40)
--- NOTE | 2021-10-25 20:26 | XR ---
EXAMINATION TYPE: XR chest 1V DATE OF EXAM: 10/25/2021 COMPARISON: 10/20/2021 HISTORY: Short of breath TECHNIQUE: FINDINGS: Heart size is normal. Heart appears shifted to the left side. There is coarse interstitial density in the lungs. Bony thorax appears intact. Exam limited by patient size. There is slight blunt ing left costophrenic angle. IMPRESSION: There is evidence for some volume loss on the left side with probably atelectasis in the left lower lobe. There is increased pulmonary interstitial density compared to old exam. Limited exam due to patient's size. No obvious heart failure.
[2021-10-25 23:23] VITALS: BP 128/77; PULSE 73; RESP 18
== END 2021-10-26 00:06 | disposition home or self-care (01) ==
LOC: EC 17:43
DX: U07.1 COVID-19 (principal); I25.10 Atherosclerotic heart disease of native coronary artery without angina pectoris; K21.9 Gastro-esophageal reflux disease without esophagitis; E78.5 Hyperlipidemia, unspecified; I25.2 Old myocardial infarction; M19.90 Unspecified osteoarthritis, unspecified site; F41.9 Anxiety disorder, unspecified; F32.A Depression, unspecified; Z79.82 Long term (current) use of aspirin; Z88.1 Allergy status to other antibiotic agents; Z88.0 Allergy status to penicillin; Z88.5 Allergy status to narcotic agent; Z85.43 Personal history of malignant neoplasm of ovary; Z90.710 Acquired absence of both cervix and uterus; Z96.643 Presence of artificial hip joint, bilateral; Z96.653 Presence of artificial knee joint, bilateral; Z87.891 Personal history of nicotine dependence
CPT/HCPCS: 99285; 96374; 96361; 96372; 36415; 80053; 83615; 83690; 85025; 86140; 71045; J0500; J2405

== ENCOUNTER 2021-10-30 13:17 | Inpatient (IN) | payer MEDICARE ==
[2021-10-30] MEDS ORDERED: ALBUTEROL HFA INHALER INHALATION STA (13:38)
[2021-10-30] MEDS ORDERED: ALBUTEROL HFA INHALER INHALATION PRN (13:38)
--- NOTE | 2021-10-30 13:41 | ED ---
General Adult HPI - General Stated complaint: [place] Time Seen by Provider: 10/30/21 13:28 Source: patient, RN notes reviewed, old records reviewed Mode of arrival: EMS Limitations: no limitations - History of Present Illness Initial comments: Patient is a pleasant 66-year-old female presenting to the emergency department difficulty breathing. Onset of symptoms was over 10 days ago. Patient was diagnosed with COVID-19 infection 10 days ago. Since have progressively worsened over the last few days. Patient has not been eating or drinking well. Patient has mild cough. He should does feel more short of breath. Patient has been very fatigued. Patient does have loss of taste and smell. EMS found oxygen saturation in the 70s. - Related Data Home Medications Medication Instructions Recorded Confirmed HYDROcodone/APAP 10-325MG [[place] 1 tab PO Q6H PRN 09/29/14 10/30/21 10-325] [place] Vitamin 1 tab PO DAILY 10/19/21 10/30/21 Turmeric Root Extract [Turmeric] 500 mg PO DAILY 10/19/21 10/30/21 [place] 4 1 tab PO DAILY 10/19/21 10/30/21 Loperamide [Imodium] 2 - 4 mg PO QID PRN 10/30/21 10/30/21 Nitrofurantoin Monohyd/M-Cryst 100 mg PO BID 10/30/21 10/30/21 [Macrobid] Previous Rx's Medication Instructions Recorded Albuterol Inhaler [Ventolin Hfa 2 puff INHALATION RT-QID PRN #8 gm 10/21/21 Inhaler] Ascorbic Acid [Vitamin C] 500 mg PO BID #60 tab 10/21/21 Aspirin EC [Ecotrin Low Dose] 81 mg PO DAILY 60 Days #60 tab 10/21/21 Cholecalciferol [Vitamin D3 (25 50 mcg PO DAILY #30 tablet 10/21/21 Mcg = 1000 Iu)] Zinc Sulfate [Orazinc] 220 mg PO DAILY #30 cap 10/21/21 Dexamethasone [Decadron] 6 mg PO DAILY #8 tablet 10/22/21 Ondansetron [Zofran ODT] 4 mg PO Q8HR PRN #20 tab 10/25/21 Allergies Allergy/AdvReac Type Severity Reaction Status Date / Time estrogens, conjugated Allergy severe Verified 10/30/21 14:18 [From Premarin] hand spasms Penicillins Allergy Rash/Hives Verified 10/30/21 14:18 tramadol HCl [From Ultram] Allergy Rash/Hives Verified 10/30/21 14:18 adhesive tape AdvReac Rash/Hives Verified 10/30/21 14:18 oxycodone AdvReac confusion Verified 10/30/21 14:18 and claustrophobia pregabalin [From Lyrica] AdvReac severe Verified 10/30/21 14:18 night terrors Review of Systems ROS Statement: Those systems with pertinent positive or pertinent negative responses have been documented in the HPI. ROS Other: All systems not noted in ROS Statement are negative. Constitutional: Denies: fever Eyes: Denies: eye pain ENT: Denies: ear pain Respiratory: Reports: cough, dyspnea Cardiovascular: Denies: chest pain Endocrine: Reports: fatigue Gastrointestinal: Denies: vomiting Genitourinary: Denies: dysuria Musculoskeletal: Denies: back pain Skin: Denies: rash Neurological: Denies: weakness Past Medical History Past Medical History: Coronary Artery Disease (CAD), Cancer, Chest Pain / Angina , GERD/Reflux, Hyperlipidemia, Memory Impairment, Myocardial Infarction ([place]), Osteoarthritis (OA), Pneumonia Additional Past Medical History / Comment(s): Ovarian cancer with total hysterctomy/BSO, compression lumbar fracture/chronic R lower back pain, diverticular disease, SBO, anemia, occasional urine incontinence. Last Myocardial Infarction Date:: 03/20/14 History of Any Multi-Drug Resistant Organisms: None Reported Past Surgical History: Heart Catheterization With Stent, Hernia Repair, Hyster ectomy, Orthopedic Surgery Additional Past Surgical History / Comment(s): Total bilateral hip replacements, bilateral total knee replacements, C5-6 surgeries, ventral hernia repair with panniculectomy, colonosocpy, hysterectomy with bilateral BSO. Past Anesthesia/Blood Transfusion Reactions: No Reported Reaction Additional Past Anesthesia/Blood Transfusion Reaction / Comment(s): Stupor for days after Date of Last Stent Placement:: 03/23/2014 Past Psychological History: Anxiety, Depression Smoking Status: Former smoker Past Alcohol Use History: Rare Past Drug Use History: None Reported - Past Family History Father Family Medical History: Liver Disease Additional Family Medical History / Comment(s): alcoholic cirrhosis Mother Family Medical History: CVA/TIA Additional Family Medical History / Comment(s): complications from a hernia that went unreported. Son(s) Family Medical History: Asthma Sister(s) Family Medical History: Cancer Additional Family Medical History / Comment(s): breast General Exam Limitations: no limitations General appearance: alert Head exam: Present: normocephalic Eye exam: Present: normal appearance Neck exam: Present: normal inspection Respiratory exam: Present: wheezes (Mild except), other (Patient with mild respiratory distress when oxygen was taken off to assess pulse ox) Cardiovascular Exam: Present: regular rate, normal rhythm GI/Abdominal exam: Present: soft. Absent: tenderness Extremities exam: Present: normal inspection Neurological exam: Present: alert Psychiatric exam: Present: normal affect, normal mood Skin exam: Present: normal color Course Vital Signs 10/30/21 10/30/21 10/30/21 13:44 14:30 15:00 Temperature 98.8 F Pulse Rate 101 H 96 Respiratory 28 H 29 H 27 H Rate Blood Pressure 109/64 97/76 O2 Sat by Pulse 81 L 93 L Oximetry 10/30/21 16:00 Temperature Pulse Rate 96 Respiratory 25 H Rate Blood Pressure 122/94 O2 Sat by Pulse 95 Oximetry EKG Findings - EKG Comments: EKG Findings:: Sinus tachycardia 101. AK 135. QRS 99. QT 357. QTC 4:15. Normal axis. Normal QRS. No acute ST change. Medical Decision Making - Medical Decision Making Patient reevaluated and updated. Patient is improved with high flow nasal cannula. Case discussed with Dr. Pinedo, who will admit his patient. - Lab Data Result diagrams: 10/30/21 14:10 10/30/21 14:10 Lab Results 10/30/21 10/30/21 10/30/21 Range/Units 14:10 14:10 14:10 WBC 7.0 (3.8-10.6) k/uL RBC 4.93 (3.80-5.40) m/uL Hgb 15.2 (11.4-16.0) gm/dL Hct 47.9 H (34.0-46.0) % MCV 97.3 (80.0-100.0) fL MCH 30.9 (25.0-35.0) pg MCHC 31.8 (31.0-37.0) g/dL RDW 14.2 (11.5-15.5) % Plt Count 188 (150-450) k/uL MPV 8.8 Neutrophils % 81 % Lymphocytes % 10 % Monocytes % 5 % Eosinophils % 1 % Basophils % 1 % Neutrophils # 5.7 (1.3-7.7) k/uL Lymphocytes # 0.7 L (1.0-4.8) k/uL Monocytes # 0.4 (0-1.0) k/uL Eosinophils # 0.0 (0-0.7) k/uL Basophils # 0.1 (0-0.2) k/uL PT 10.8 (9.0-12.0) sec INR 1.0 (<1.2) APTT 25.1 (22.0-30.0) sec D-Dimer 1.66 H (<0.60) mg/L FEU Sodium 140 (137-145) mmol/L Potassium 3.9 (3.5-5.1) mmol/L Chloride 100 (98-107) mmol/L Carbon Dioxide 29 (22-30) mmol/L Anion Gap 11 mmol/L BUN 26 H (7-17) mg/dL Creatinine 1.38 H (0.52-1.04) mg/dL Est GFR (CKD-EPI)AfAm 46 (>60 ml/min/1.73 sqM) Est GFR (CKD-EPI)NonAf 40 (>60 ml/min/1.73 sqM) Glucose 102 H (74-99) mg/dL Lactic Ac Sepsis Rflx Plasma Lactic Acid [place] (0.7-2.0) mmol/L Calcium 6.5 L (8.4-10.2) mg/dL Magnesium 2.0 (1.6-2.3) mg/dL Total Bilirubin 1.1 (0.2-1.3) mg/dL AST 79 H (14-36) U/L ALT 41 H (4-34) U/L Alkaline Phosphatase 106 (38-126) U/L Lactate Dehydrogenase 1713 H (313-618) U/L C-Reactive Protein 32.8 H (<1.0) mg/dL Total Protein 7.0 (6.3-8.2) g/dL Albumin 3.5 (3.5-5.0) g/dL 10/30/21 10/30/21 Range/Units 14:10 14:42 WBC (3.8-10.6) k/uL RBC (3.80-5.40) m/uL Hgb (11.4-16.0) gm/dL Hct (34.0-46.0) % MCV (80.0-100.0) fL MCH (25.0-35.0) pg MCHC (31.0-37.0) g/dL RDW (11.5-15.5) % Plt Count (150-450) k/uL MPV Neutrophils % % Lymphocytes % % Monocytes % % Eosinophils % % Basophils % % Neutrophils # (1.3-7.7) k/uL Lymphocytes # (1.0-4.8) k/uL Monocytes # (0-1.0) k/uL Eosinophils # (0-0.7) k/uL Basophils # (0-0.2) k/uL PT (9.0-12.0) sec INR (<1.2) APTT (22.0-30.0) sec D-Dimer (<0.60) mg/L FEU Sodium (137-145) mmol/L Potassium (3.5-5.1) mmol/L Chloride (98-107) mmol/L Carbon Dioxide (22-30) mmol/L Anion Gap mmol/L BUN (7-17) mg/dL Creatinine (0.52-1.04) mg/dL Est GFR (CKD-EPI)AfAm (>60 ml/min/1.73 sqM) Est GFR (CKD-EPI)NonAf (>60 ml/min/1.73 sqM) Glucose (74-99) mg/dL Lactic Ac Sepsis Rflx Y Plasma Lactic Acid [place] 2.2 H* (0.7-2.0) mmol/L Calcium (8.4-10.2) mg/dL Magnesium (1.6-2.3) mg/dL Total Bilirubin (0.2-1.3) mg/dL AST (14-36) U/L ALT (4-34) U/L Alkaline Phosphatase (38-126) U/L Lactate Dehydrogenase (313-618) U/L C-Reactive Protein (<1.0) mg/dL Total Protein (6.3-8.2) g/dL Albumin (3.5-5.0) g/dL - Radiology Data Radiology results: report reviewed (CT negative for pulmonary embolism. Interstitial pneumonia.), image reviewed (Chest x-ray shows bilateral interstitial changes) Disposition Clinical Impression: COVID-19, Hypoxia Disposition: ADMITTED IP TO THIS HOSP Is patient prescribed a controlled substance at d/c from ED?: No Referrals: Woody Pinedo MD [Primary Care Provider] - 1-2 days Decision Time: 17:24
[2021-10-30 14:21] LABS: Basophils # (A) 0.1 k/uL (0-0.2); Basophils % (A) 1 %; Eosinophils % (A) 1 %; HCT 47.9 % (34.0-46.0); HGB 15.2 gm/dL (11.4-16.0); Lymphocytes # (A) 0.7 k/uL (1.0-4.8); Lymphocytes % (A) 10 %; MCH 30.9 pg (25.0-35.0); MCHC 31.8 g/dL (31.0-37.0); MCV 97.3 fL (80.0-100.0); Mean Platelet Volume 8.8; Monocytes # (A) 0.4 k/uL (0-1.0); Monocytes % (A) 5 %; Neutrophils # (A) 5.7 k/uL (1.3-7.7); Neutrophils % (A) 81 %; Platelet Count 188 k/uL (150-450); RBC 4.93 m/uL (3.80-5.40); RDW 14.2 % (11.5-15.5)
[2021-10-30 14:39] LABS: Partial Thromboplastin Time 25.1 sec (22.0-30.0); Prothrombin Time 10.8 sec (9.0-12.0)
[2021-10-30 14:40] LABS: Albumin 3.5 g/dL (3.5-5.0); Calcium 6.5 mg/dL (8.4-10.2); Potassium 3.9 mmol/L (3.5-5.1); Total Bilirubin 1.1 mg/dL (0.2-1.3)
[2021-10-30] MEDS: ALBUTEROL HFA INHALER INHALATION SCH ×2 (14:44→20:51)
--- NOTE | 2021-10-30 15:10 | XR ---
EXAMINATION TYPE: XR chest 1V portable DATE OF EXAM: 10/30/2021 COMPARISON: 10/25/2021 INDICATION: Dyspnea TECHNIQUE: Single frontal view of the chest is obtained. FINDINGS: The heart size is upper limits of normal. The pulmonary vasculature is normal. Diffuse increased central lung markings are present. Correlate for atypical pneumonia. Findings may b e slightly progressive from comparison. IMPRESSION: 1. Progressive mild scattered bilateral lung infiltrates. Correlate for atypical pneumonia.
[2021-10-30 15:12] LABS: C Reactive Protein 32.8 mg/dL (<1.0)
--- NOTE | 2021-10-30 17:07 | CT ---
EXAMINATION TYPE: CT angio chest DATE OF EXAM: 10/30/2021 4:52 PM COMPARISON: Same-day radiograph. HISTORY: Dyspnea. CT DLP: 778.7 mGycm Automated exposure control for dose reduction was used. CONTRAST: CTA scan of the thorax is performed with IV Contrast, patient injected with 80 mL of Isovue 370, pulm onary embolism protocol. MIP images are created and reviewed. FINDINGS: LUNGS: There are bilateral diffuse moderate to marked patchy groundglass opacities. There is no pleur al effusion or pneumothorax seen. The tracheobronchial tree is patent. MEDIASTINUM: There is limited evaluation of the pulmonary artery segmental and subsegmental branches. No CT evidence for central pulmonary embolism. There are no greater than 1 cm hilar or mediastinal lymph nodes. No pericardial effusion is seen. OTHER: Hepatic steatosis seen. No additional significant abnormality is seen. IMPRESSION: NO ACUTE PE WITHIN THE LIMITATIONS OF THE STUDY. FINDINGS CONSISTENT WITH ATYPICAL PNEUMONIA, INCLUDING COVID.
[2021-10-30] MEDS ORDERED: NALOXONE 0.4 MG/ML 1 ML VIAL IV PRN (17:24)
[2021-10-30] MEDS: DEXAMETHASONE SOD PHOSPHATE 10 MG/ML 1 ML VIAL IVP SCH (18:21)
[2021-10-30] MEDS: PANTOPRAZOLE 40 MG/10 ML VIAL IVP SCH (18:21)
[2021-10-30] MEDS: SODIUM CHLORIDE 0.9% 1,000 ML IV SCH (18:21)
[2021-10-30] MEDS: ASCORBIC ACID 500 MG TAB PO SCH (21:04)
[2021-10-31] MEDS: ALBUTEROL HFA INHALER INHALATION SCH ×3 (02:14→17:00)
[2021-10-31 07:23] LABS: Basophils # (A) 0.1 k/uL (0-0.2); Basophils % (A) 1 %; Eosinophils % (A) 0 %; HCT 45.7 % (34.0-46.0); HGB 14.4 gm/dL (11.4-16.0); Hypochromasia Slight; Lymphocytes # (A) 0.3 k/uL (1.0-4.8); Lymphocytes % (A) 5 %; MCH 30.7 pg (25.0-35.0); MCHC 31.6 g/dL (31.0-37.0); MCV 97.4 fL (80.0-100.0); Mean Platelet Volume 9.4; Monocytes # (A) 0.3 k/uL (0-1.0); Monocytes % (A) 6 %; Neutrophils # (A) 5.3 k/uL (1.3-7.7); Neutrophils % (A) 87 %; Platelet Count 179 k/uL (150-450); RBC 4.69 m/uL (3.80-5.40); RDW 13.6 % (11.5-15.5); WBC 6.2 k/uL (3.8-10.6)
[2021-10-31 07:43] LABS: Calcium 6.5 mg/dL (8.4-10.2); Magnesium 2.2 mg/dL (1.6-2.3); Potassium 4.6 mmol/L (3.5-5.1)
--- NOTE | 2021-10-31 08:48 | P.CNPUL ---
History of Present Illness Consult date: 10/31/21 Reason for consult: dyspnea, cough, hypoxemia, abnormal CXR/CT Chief complaint: Weakness, shortness of breath, cough History of present illness: This is 66-year-old white female patient of Dr. Torin Pinedo with history of COVID-19 infection, patient was briefly hospitalized and was discharged home on 10/21/2021. During her last admission chest x-ray showed no evidence of acute cardiopulmonary disease, and patient did not require oxygen at discharge. She was discharged home to complete 8 more days of Decadron. Patient has extensive medical history including coronary artery disease with previous stenting, hype rlipidemia, previous history of myocardial infarction, liver/reflux, history of ovarian cancer status post total hysterectomy, compression fracture of the lumbar vertebrae, and chronic back pain, patient is able to walk but does use a wheelchair to get around for the most part, osteoarthritis a previous history of bilateral hip replacements and bilateral knee replacements, anxiety, depression, remote history of smoking but no history of chronic lung disease. Patient states after she went home she was extremely weak she had trouble getting around the house, and she had little to no help at home from her son. Reports worsening shortness of breath, fever, ongoing diarrhea. Denied any nausea or vomiting, no compressive chest pain swelling or tenderness in calves. She was brought into the hospital by EMS for evaluation. She has a mild cough, she has a poor appetite, ongoing fatigue, she has loss of taste and smell. EMS found oxygen saturation in the 70s. Her chest x-ray in the emergency department with progressive mild scattered bilateral lung infiltrates the possibility of atypica l pneumonia. Admission blood work showed a white count of 7.0, hemoglobin of 15.2, platelet count of 188, d-dimer of 1.66, electrolytes are within normal limits, BUN is 26 creatinine 1.38, mild lactic acidosis with a lactic acid of 2.2, ferritin of 883, AST of 79, [place] 41[place] [address], CRP is 32.8, pro calcitonin level was 0.20. Patient tested negative for COVID-19 by PCR test. CTA chest was completed, showing no acute pulmonary embolism within the limitations of the study, and lung windows showed bilateral diffuse moderate to marked patchy round glass opacities. Patient was started on Decadron 6 blood gram daily, multivitamins, inhaled bronchodilators, she was given IV hydration, she is awake alert this morning she is currently on 10 L of oxygen, she is short of breath with exertion but appears to be in no acute distress. She remains weak and she still having diarrhea. No abdominal pain, abdomen is nontender. Review of Systems All systems: negative Constitutional: Reports anorexia, Reports fever, Reports malaise, Reports poor appetite, Reports weakness, Denies chills Eyes: denies blurred vision, denies pain Ears, nose, mouth and throat: Denies headache, Denies sore throat Cardiovascular: Denies chest pain, Denies shortness of breath Respiratory: Reports cough, Reports dyspnea Gastrointestinal: Denies abdominal pain, Denies diarrhea, Denies nausea, Denies vomiting Genitourinary: Denies dysuria, Denies hematuria Musculoskeletal: Denies myalgias Integumentary: Denies pruritus, Denies rash Neurological: Denies numbness, Denies weakness Psychiatric: Denies anxiety, Denies depression Endocrine: Denies fatigue, Denies weight change Past Medical History Past Medical History: Coronary Artery Disease (CAD), Cancer, Chest Pain / Angina, GERD/Reflux, Hyperlipidemia, Memory Impairment, Myocardial Infarction ([place]), Osteoarthritis (OA), Pneumonia Additional Past Medical History / Comment(s): Ovarian cancer with total hysterctomy/BSO, compression lumbar fracture/chronic R lower back pain, diverticular disease, SBO, anemia, occasional urine incontinence. Last Myocardial Infarction Date:: 03/20/14 History of Any Multi-Drug Resistant Organisms: None Reported Past Surgical History: Heart Catheterization With Stent, Hernia Repair, Hysterectomy, Orthopedic Surgery Additional Past Surgical History / Comment(s): Total bilateral hip replacements, bilateral total knee replacements, C5-6 surgeries, ventral hernia repair with panniculectomy, colonosocpy, hysterectomy with bilateral BSO. Past Anesthesia/Blood Transfusion Reactions: No Reported Reaction Additional Past Anesthesia/Blood Transfusion Reaction / Comment(s): Stupor for days after Date of Last Stent Placement:: 03/23/2014 Past Psychological History: Anxiety, Depression Additional Psychological History / Comment(s): Pt recently had an adult son move in with her. Pt uses a cane or walker. She does not drive, family member takes her to appts. Smoking Status: Never smoker Past Alcohol Use History: Rare Additional Past Alcohol Use History / Comment(s): occasional drink on special occasions and communion, SMOKED OFF AND ON FROM TEEANGER TO TWENTIES. Past Drug Use History: None Reported - Past Family History Father Family Medical History: Liver Disease Additional Family Medical History / Comment(s): alcoholic cirrhosis Mother Family Medical History: CVA/TIA Additional Family Medical History / Comment(s): complications from a hernia that went unreported. Son(s) Family Medical History: Asthma Sister(s) Family Medical History: Cancer Additional Family Medical History / Comment(s): breast Medications and Allergies Home Medications Medication Instructions Recorded Confirmed Type HYDROcodone/APAP 10-325MG [[place] 1 tab PO Q6H PRN 09/29/14 10/30/21 History 10-325] [place] Vitamin 1 tab PO DAILY 10/19/21 10/30/21 History Turmeric Root Extract [Turmeric] 500 mg PO DAILY 10/19/21 10/30/21 History Idania 4 1 tab PO DAILY 10/19/21 10/30/21 History Albuterol Inhaler [Ventolin Hfa 2 puff INHALATION RT-QID PRN #8 gm 10/21/21 10/30/21 Rx Inhaler] Ascorbic Acid [Vitamin C] 500 mg PO BID #60 tab 10/21/21 10/30/21 Rx Aspirin EC [Ecotrin Low Dose] 81 mg PO DAILY 60 Days #60 tab 10/21/21 10/30/21 Rx Cholecalciferol [Vitamin D3 (25 50 mcg PO DAILY #30 tablet 10/21/21 10/30/21 Rx Mcg = 1000 Iu)] Zinc Sulfate [Orazinc] 220 mg PO DAILY #30 cap 10/21/21 10/30/21 Rx Dexamethasone [Decadron] 6 mg PO DAILY #8 tablet 10/22/21 10/30/21 Rx Ondansetron [Zofran ODT] 4 mg PO Q8HR PRN #20 tab 10/25/21 10/30/21 Rx Loperamide [Imodium] 2 - 4 mg PO QID PRN 10/30/21 10/30/21 History Nitrofurantoin Monohyd/M-Cryst 100 mg PO BID 10/30/21 10/30/21 History [Macrobid] Allergies Allergy/AdvReac Type Severity Reaction Status Date / Time estrogens, conjugated Allergy severe Verified 10/30/21 14:18 [From Premarin] hand spasms Penicillins Allergy Rash/Hives Verified 10/30/21 14:18 tramadol HCl [From Ultram] Allergy Rash/Hives Verified 10/30/21 14:18 adhesive tape AdvReac Rash/Hives Verified 10/30/21 14:18 oxycodone AdvReac confusion Verified 10/30/21 14:18 and claustrophobia pregabalin [From Lyrica] AdvReac severe Verified 10/30/21 14:18 night terrors Physical Exam Vitals: Vital Signs Temp Pulse Pulse Resp BP BP Pulse Ox 10/31/21 04:00 98.7 F 88 18 128/64 95 10/31/21 02:16 90 L 10/31/21 01:56 88 20 10/30/21 23:31 91 L 10/30/21 23:04 88 20 106/77 93 L 10/30/21 20:00 98.8 F 90 20 98/57 92 L 10/30/21 18:00 89 22 100/49 96 10/30/21 17:41 98.8 F 90 20 98/57 92 L 10/30/21 16:00 96 25 H 122/94 95 10/30/21 15:00 96 27 H 97/76 93 L 10/30/21 14:30 29 H 10/30/21 13:44 98.8 F 101 H 28 H 109/64 81 L Intake and Output 10/30/21 10/31/21 10/31/21 22:59 06:59 14:59 Intake Total 540 250 Balance 540 250 Intake: Oral 540 Blood Product 250 Other: # Voids 1 Weight 156.489 kg GENERAL EXAM: Alert, very pleasant, 66-year-old morbidly obese white female, on 10 L of oxygen, mildly short of breath, with a dry cough, short of breath with exertion but in no acute distress HEAD: Normocephalic/atraumatic. EYES: Normal reaction of pupils, equal size. Conjunctiva pink, sclera white. NOSE: Clear with pink turbinates. THROAT: No erythema or exudates. NECK: No masses, no JVD, no thyroid enlargement, no adenopathy. CHEST: No chest wall deformity. Symmetrical expansion. LUNGS: Equal air entry with fine basilar crackles CVS: Regular rate and rhythm, normal S1 and S2, no gallops, no murmurs, no rubs ABDOMEN: Soft, nontender. No hepatosplenomegaly, normal bowel sounds, no guarding or rigidity. EXTREMITIES: No clubbing, no edema, no cyanosis, 2+ pulses and upper and lower extremities. MUSCULOSKELETAL: Muscle strength and tone normal. SPINE: No scoliosis or deformity SKIN: No rashes CENTRAL NERVOUS SYSTEM: Alert and oriented -3. No focal deficits, tone is normal in all 4 extremities. PSYCHIATRIC: Alert and oriented -3. Appropriate affect. Intact judgment and insight. Results - Laboratory Findings CBC and BMP: 10/31/21 06:49 10/31/21 06:49 PT/INR, D-dimer PT 10.8 sec (9.0-12.0) 10/30/21 14:10 INR 1.0 (<1.2) 10/30/21 14:10 D-Dimer 1.66 mg/L FEU (<0.60) H 10/30/21 14:10 Abnormal lab findings: Abnormal Labs 10/30/21 10/30/21 10/30/21 14:10 14:10 14:10 Hct 47.9 H Lymphocytes # 0.7 L D-Dimer 1.66 H BUN 26 H Creatinine 1.38 H Glucose 102 H Plasma Lactic Acid Guilherme Calcium 6.5 L Ferritin 883.0 H AST 79 H ALT 41 H Lactate Dehydrogenase 1713 H C-Reactive Protein 32.8 H Procalcitonin 10/30/21 10/30/21 10/31/21 14:10 14:10 06:49 Hct Lymphocytes # 0.3 L D-Dimer BUN Creatinine Glucose Plasma Lactic Acid Guilherme 2.2 H* Calcium Ferritin AST ALT Lactate Dehydrogenase C-Reactive Protein Procalcitonin 0.20 H 10/31/21 06:49 Hct Lymphocytes # D-Dimer BUN 25 H Creatinine 1.19 H Glucose 171 H Plasma Lactic Acid Guilherme Calcium 6.5 L Ferritin AST ALT Lactate Dehydrogenase C-Reactive Protein Procalcitonin - Diagnostic Findings Chest x-ray: report reviewed, image reviewed CT scan - chest: report reviewed, image reviewed Assessment and Plan Plan: #1. Acute Hypoxic respiratory failure related to COVID 19 pneumonia. Symptom onset was greater than 10 days ago, patient is outside the window for Remdesivir or Sotrovimab. Patient had a recent hospitalization for COVID-19 infection with symptoms of nausea vomiting and diarrhea,. Patient's chest x-ray during her last admission showed no acute cardiopulmonary disease, she was discharged home on 10/21/2021 and did not require oxygen at discharge. Patient was discharged home to complete a day course of Decadron. Patient is a non-vaccinated adult. #2. Weakness, fatigue, diarrhea related to recent history of COVID-19 infection #3. Limited inflammatory markers related to COVID-19 infection #4. Acute kidney injury related to dehydration and diarrhea #5. Mild lactic acidosis related to dehydration improved with fluid resuscitation #6. Morbid obesity with BMI 57.4 kg/m #7. Coronary artery disease with previous stenting #8. History of ovarian cancer status post total hysterectomy #9. Chronic back pain #10. History of compression fractures of lumbar vertebrae #11. Gait dysfunction, patient is wheelchair bound for the most part #12. HyperLipidemia #13. Remote history of smoking #14. GERD/reflux #15. Anxiety and depression Plan: Continue Decadron 6 mg daily Continue multivitamins We will add Lovenox 40 mg daily We'll obtain follow-up inflammatory markers and a d-dimer We'll obtain lower extremity Dopplers Continue IV hydration Send a stool for C. diff Continue to follow her clinical course and make recommendations accordingly I performed a history & physical examination of the patient and discussed their management with my nurse practitioner, Sydnee Mar. I reviewed the nurse practitioner's note and agree with the documented findings and plan of care. Lung sounds are positive for diffuse crackles throughout the lung [place]. The findings and the impression was discussed with the patient. I attest to the documentation by the nurse practitioner. I have personally seen and examined the patient, performed the documentation and the assessment and plan as written. Number of minutes spent on the visit: [20] Time with Patient: Greater than 30
[2021-10-31 08:52] LABS: Basophils # (A) 0.1 k/uL (0-0.2); Basophils % (A) 2 %; Eosinophils % (A) 0 %; HCT 47.7 % (34.0-46.0); HGB 15.3 gm/dL (11.4-16.0); Lymphocytes # (A) 0.3 k/uL (1.0-4.8); Lymphocytes % (A) 5 %; MCH 31.3 pg (25.0-35.0); MCHC 32.1 g/dL (31.0-37.0); MCV 97.2 fL (80.0-100.0); Monocytes # (A) 0.3 k/uL (0-1.0); Monocytes % (A) 6 %; Neutrophils # (A) 4.8 k/uL (1.3-7.7); Neutrophils % (A) 85 %; Platelet Count 170 k/uL (150-450); RBC 4.91 m/uL (3.80-5.40); RDW 13.7 % (11.5-15.5); WBC 5.6 k/uL (3.8-10.6)
[2021-10-31 09:12] LABS: Albumin 3.4 g/dL (3.5-5.0); Calcium 6.5 mg/dL (8.4-10.2); Potassium 4.3 mmol/L (3.5-5.1)
[2021-10-31] MEDS: ENOXAPARIN 40 MG/0.4 ML SYRINGE SQ SCH (09:16)
[2021-10-31] MEDS: PANTOPRAZOLE 40 MG/10 ML VIAL IVP SCH (09:16)
[2021-10-31] MEDS: DEXAMETHASONE SOD PHOSPHATE 10 MG/ML 1 ML VIAL IVP SCH (09:16)
[2021-10-31] MEDS: SODIUM CHLORIDE 0.9% 1,000 ML IV SCH (09:16)
[2021-10-31] MEDS: ASCORBIC ACID 500 MG TAB PO SCH ×2 (09:17→20:49)
[2021-10-31] MEDS: CHOLECALCIFEROL 25 MCG (1000 IU) TABLET PO SCH (09:17)
[2021-10-31] MEDS: ASPIRIN 81 MG PO SCH (09:17)
[2021-10-31] MEDS: ZINC SULFATE 220 MG CAP PO SCH (09:17)
[2021-10-31 09:42] LABS: C Reactive Protein 33.7 mg/dL (<1.0)
--- NOTE | 2021-10-31 11:54 | US ---
EXAMINATION TYPE: US venous doppler duplex LE BI DATE OF EXAM: 10/31/2021 8:59 AM COMPARISON: Right lower extremity 11/14/2016 CLINICAL HISTORY: 66-year-old female elevated d-dimer, COVID infection. SIDE PERFORMED: Bilateral TECHNIQUE: The lower extremity deep venous system is examined utilizing real time linear array sonog summer with graded compression, doppler sonography and color-flow sonography. Striping Machine Operator notes: Exam done portable on covid patient FINDINGS: VESSELS IMAGED: Common Femoral Vein Deep Femoral Vein Greater Saphenous Vein * Femoral Vein Popliteal Vein Small Saphenous Vein * Proximal Calf Veins (* superficial vessels) Striping Machine Operator notes:Difficult and limited study due to morbidly obese patient Bilateral EIV, GSV, CFV and DFV not seen due to patient body habitus, bilateral femoral vein compre ssions not done due to patient unable to tolerate pressure Right Leg: Visualized portions appear negative for DVT Left Leg: Visualized portions appear negative for DVT IMPRESSION: 1. Portable exam with further limitations as above. 2. Unable to adequately evaluate the bilateral EIV, GSV, CFV, and DFV. 3. No DVT visualized within the femoral vein down into the upper calf on either side.
--- NOTE | 2021-10-31 14:19 | P.HPIM ---
History of Present Illness H&P Date: 10/31/21 Chief Complaint: Worsening dyspnea, recent covid This is a 66-year-old female with past medical history of recent covid, , CAD, gastroesophageal reflux disease, morbid obesity, ovarian cancer, and multiple other medical issues presented to the ER with complaints of worsening shortness of breath. Recently admitted with Covid, respiratory status stable, did not require any oxygen ,discharged on Covid cocktail including Decadron. Reporting she had no help at home from her son, reporting multiple social issues being addressed by case management/social work. Shortness of breath worsened, loss of taste and smell with appetite decreased, developed diarrhea. Denies nausea vomiting or abdominal pain. EMS per ER reported O2 sat of the 70s. Chest x-ray reported progressive mild scattered bilateral lung infiltrates with possibility of atypical pneumonia. Chest CTA Limited study, reported negative for PE, bilateral diffuse moderate to marked patchy groundglass opacity's, no pleural effusion. Doppler pending. Afebrile, WBC WNL, hemoglobin 15.2, platelets 188, d-dimer 166, electrolytes WNL, BUN 26, creatinine 1.38( baseline 0.9), lactic acid 2.2, ferritin 883, AST 79, ALT 41, LDH 1713, CRP 32.8, pro- calcitonin 0.2. [place] virus PCR reported negative. Covid cocktail initiated including Decadron IV, IV fluid hydration. Currently maintaining O2 sats in the 90s on 10 L high flow nasal cannula. Review of Systems ROS Statement: Those systems with pertinent positive or pertinent negative responses have been documented in the HPI. ROS Other: All systems not noted in ROS Statement are negative. Past Medical History Past Medical History: Coronary Artery Disease (CAD), Cancer, Chest Pain / Angina, GERD/Reflux, Hyperlipidemia, Memory Impairment, Myocardial Infarction ([place]), Osteoarthritis (OA), Pneumonia Additional Past Medical History / Comment(s): Ovarian cancer with total hysterctomy/BSO, compression lumbar fracture/chronic R lower back pain, diverticular disease, SBO, anemia, occasional urine incontinence. Last Myocardial Infarction Date:: 03/20/14 History of Any Multi-Drug Resistant Organisms: None Reported Past Surgical History: Heart Catheterization With Stent, Hernia Repair, Hysterectomy, Orthopedic Surgery Additional Past Surgical History / Comment(s): Total bilateral hip replacements, bilateral total knee replacements, C5-6 surgeries, ventral hernia repair with panniculectomy, colonosocpy, hysterectomy with bilateral BSO. Past Anesthesia/Blood Transfusion Reactions: No Reported Reaction Additional Past Anesthesia/Blood Transfusion Reaction / Comment(s): Stupor for days after Date of Last Stent Placement:: 03/23/2014 Past Psychological History: Anxiety, Depression Additional Psychological History / Comment(s): Pt recently had an adult son move in with her. Pt uses a cane or walker. She does not drive, family member takes her to [facility]. Smoking Status: Never smoker Past Alcohol Use History: Rare Additional Past Alcohol Use History / Comment(s): occasional drink on special occasions and communion, SMOKED OFF AND ON FROM TEEANGER TO TWENTIES. Past Drug Use History: None Reported - Past Family History Father Family Medical History: Liver Disease Additional Family Medical History / Comment(s): alcoholic cirrhosis Mother Family Medical History: CVA/TIA Additional Family Medical History / Comment(s): complications from a hernia that went unreported. Son(s) Family Medical History: Asthma Sister(s) Family Medical History: Cancer Additional Family Medical History / Comment(s): breast Medications and Allergies Home Medications Medication Instructions Recorded Confirmed Type HYDROcodone/APAP 10-325MG [[place] 1 tab PO Q6H PRN 09/29/14 10/30/21 History 10-325] [place] Vitamin 1 tab PO DAILY 10/19/21 10/30/21 History Turmeric Root Extract [Turmeric] 500 mg PO DAILY 10/19/21 10/30/21 History [place] 4 1 tab PO DAILY 10/19/21 10/30/21 History Albuterol Inhaler [Ventolin Hfa 2 puff INHALATION RT-QID PRN #8 gm 10/21/21 10/30/21 Rx Inhaler] Ascorbic Acid [Vitamin C] 500 mg PO BID #60 tab 10/21/21 10/30/21 Rx Aspirin EC [Ecotrin Low Dose] 81 mg PO DAILY 60 Days #60 tab 10/21/21 10/30/21 Rx Cholecalciferol [Vitamin D3 (25 50 mcg PO DAILY #30 tablet 10/21/21 10/30/21 Rx Mcg = 1000 Iu)] Zinc Sulfate [Orazinc] 220 mg PO DAILY #30 cap 10/21/21 10/30/21 Rx Dexamethasone [Decadron] 6 mg PO DAILY #8 tablet 10/22/21 10/30/21 Rx Ondansetron [Zofran ODT] 4 mg PO Q8HR PRN #20 tab 10/25/21 10/30/21 Rx Loperamide [Imodium] 2 - 4 mg PO QID PRN 10/30/21 10/30/21 History Nitrofurantoin Monohyd/M-Cryst 100 mg PO BID 10/30/21 10/30/21 History [Macrobid] Allergies Allergy/AdvReac Type Severity Reaction Status Date / Time estrogens, conjugated Allergy severe Verified 10/30/21 14:18 [From Premarin] hand spasms Penicillins Allergy Rash/Hives Verified 10/30/21 14:18 tramadol HCl [From Ultram] Allergy Rash/Hives Verified 10/30/21 14:18 adhesive tape AdvReac Rash/Hives Verified 10/30/21 14:18 oxycodone AdvReac confusion Verified 10/30/21 14:18 and claustrophobia pregabalin [From Lyrica] AdvReac severe Verified 10/30/21 14:18 night terrors Physical Exam Vitals: Vital Signs Temp Pulse Pulse Resp BP BP Pulse Ox 10/31/21 04:00 98.7 F 88 18 128/64 95 10/31/21 02:16 90 L 10/31/21 01:56 88 20 10/30/21 23:31 91 L 10/30/21 23:04 88 20 106/77 93 L 10/30/21 20:00 98.8 F 90 20 98/57 92 L 10/30/21 18:00 89 22 100/49 96 10/30/21 17:41 98.8 F 90 20 98/57 92 L 10/30/21 16:00 96 25 H 122/94 95 10/30/21 15:00 96 27 H 97/76 93 L 10/30/21 14:30 29 H 10/30/21 13:44 98.8 F 101 H 28 H 109/64 81 L Intake and Output 10/30/21 10/31/21 10/31/21 22:59 06:59 14:59 Intake Total 540 250 240 Output Total 250 Balance 540 250 -10 Intake: Oral 540 240 Blood Product 250 Output: Urine 250 Other: # Voids 1 Weight 156.489 kg PHYSICAL EXAM: VITAL SIGNS: [As above] GENERAL: Sitting up in bed, respiratory effort increased HEENT: Conjunctivae normal. eyes normal. NECK: No JVD. No thyroid enlargement. No LNs CARDIOVASCULAR: S1, S2 regular. No murmur RESPIRATION: Coarse, bilateral diminished bases with fine bibasilar crackles. ABDOMEN: Soft, nontender. No guarding. no masses palpable. No ascites, No hepatosplenomegaly.Bowel sounds heard. LEGS: No edema. no swelling. PSYCHIATRY: Alert and oriented X3, mood and affect normal. NERVOUS SYSTEM: Cranial N 2-12 grossly normal. Moves all 4 limbs.No focal deficits.Strength and sensation grossly intact. Skin: Warm and dry, no rash. Results CBC & Chem 7: 10/31/21 08:35 10/31/21 08:35 Labs: Abnormal Lab Results - Last 24 Hours (Table) 10/30/21 10/30/21 10/30/21 Range/Units 14:10 14:10 14:10 Hct 47.9 H (34.0-46.0) % Lymphocytes # 0.7 L (1.0-4.8) k/uL D-Dimer 1.66 H (<0.60) mg/L FEU BUN 26 H (7-17) mg/dL Creatinine 1.38 H (0.52-1.04) mg/dL Glucose 102 H (74-99) mg/dL Plasma Lactic Acid Guilherme (0.7-2.0) mmol/L Calcium 6.5 L (8.4-10.2) mg/dL Ferritin 883.0 H (10.0-291.0) ng/mL AST 79 H (14-36) U/L ALT 41 H (4-34) U/L Lactate Dehydrogenase 1713 H (313-618) U/L C-Reactive Protein 32.8 H (<1.0) mg/dL Albumin (3.5-5.0) g/dL Procalcitonin (0.02-0.09) ng/mL 10/30/21 10/30/21 10/31/21 Range/Units 14:10 14:10 06:49 Hct (34.0-46.0) % Lymphocytes # 0.3 L (1.0-4.8) k/uL D-Dimer (<0.60) mg/L FEU BUN (7-17) mg/dL Creatinine (0.52-1.04) mg/dL Glucose (74-99) mg/dL Plasma Lactic Acid Guilherme 2.2 H* (0.7-2.0) mmol/L Calcium (8.4-10.2) mg/dL Ferritin (10.0-291.0) ng/mL AST (14-36) U/L ALT (4-34) U/L Lactate Dehydrogenase (313-618) U/L C-Reactive Protein (<1.0) mg/dL Albumin (3.5-5.0) g/dL Procalcitonin 0.20 H (0.02-0.09) ng/mL 10/31/21 10/31/21 10/31/21 Range/Units 06:49 08:35 08:35 Hct 47.7 H (34.0-46.0) % Lymphocytes # 0.3 L (1.0-4.8) k/uL D-Dimer 1.59 H (<0.60) mg/L FEU BUN 25 H (7-17) mg/dL Creatinine 1.19 H (0.52-1.04) mg/dL Glucose 171 H (74-99) mg/dL Plasma Lactic Acid Guilherme (0.7-2.0) mmol/L Calcium 6.5 L (8.4-10.2) mg/dL Ferritin (10.0-291.0) ng/mL AST (14-36) U/L ALT (4-34) U/L Lactate Dehydrogenase (313-618) U/L C-Reactive Protein (<1.0) mg/dL Albumin (3.5-5.0) g/dL Procalcitonin (0.02-0.09) ng/mL 10/31/21 Range/Units 08:35 Hct (34.0-46.0) % Lymphocytes # (1.0-4.8) k/uL D-Dimer (<0.60) mg/L FEU BUN 26 H (7-17) mg/dL Creatinine 1.25 H (0.52-1.04) mg/dL Glucose 209 H (74-99) mg/dL Plasma Lactic Acid Guilherme (0.7-2.0) mmol/L Calcium 6.5 L (8.4-10.2) mg/dL Ferritin (10.0-291.0) ng/mL AST 60 H (14-36) U/L ALT 39 H (4-34) U/L Lactate Dehydrogenase 1410 H (313-618) U/L C-Reactive Protein 33.7 H (<1.0) mg/dL Albumin 3.4 L (3.5-5.0) g/dL Procalcitonin (0.02-0.09) ng/mL Thrombosis Risk Factor Assmnt - Choose All That Apply Any of the Below Risk Factors Present?: Yes Each Factor Represents 1 point: Abnormal pulmonary function (COPD) Other Risk Factors: Yes Each Risk Factor Represents 2 Points: Age 61-74 years Other congenital or acquired thrombophilia - If yes, enter type in comment: No Thrombosis Risk Factor Assessment Total Risk Factor Score: 3 Thrombosis Risk Factor Assessment Level: Moderate Risk Assessment and Plan Assessment: Acute hypoxic respiratory failure related to recent covid 19 pneumonia on . Nonvaccinated. Acute renal failure secondary to dehydration Lactic acidosis, mild secondary to all the above, improved with IV fluids CAD, Hx of OR,stenting Chronic systolic heart failure Hypertension Hyperlipidemia Gastroesophageal reflux disease Morbid obesity, BMI 57.4 Osteoarthritis Former nicotine dependence History of ovarian cancer Gait dysfunction, wheelchair-bound Plan: Continue on current medication regime ,monitoring and symptomatic treatment. Diarrhea, stool for C. diff pending. Maintain IV fluid hydration .Covid cocktail initiated. PPI for GI prophylaxis. Lovenox for DVT prophylaxis. Evaluated by pulmonary with recommendations noted and appreciated. Case management/social work assisting with social issues. PT/OT. Prognosis guarded given multiple complex medical issues. The impression and plan of care has been dictated as directed. : I performed a history and examination of this patient, discussed the same with the dictator. I agree with the dictator's note ,documented as a scribe. Any additional findings or plans will be noted.
[2021-11-01] MEDS: HYDROcodone/APAP 10-325MG 1 EACH TAB PO PRN ×2 (02:36→08:28)
[2021-11-01] MEDS: SODIUM CHLORIDE 0.9% 1,000 ML IV SCH (04:24)
[2021-11-01] MEDS: PANTOPRAZOLE 40 MG/10 ML VIAL IVP SCH (08:28)
[2021-11-01] MEDS: DEXAMETHASONE SOD PHOSPHATE 10 MG/ML 1 ML VIAL IVP SCH (08:28)
[2021-11-01] MEDS: ASPIRIN 81 MG PO SCH (08:29)
[2021-11-01] MEDS: CHOLECALCIFEROL 25 MCG (1000 IU) TABLET PO SCH (08:29)
[2021-11-01] MEDS: ASCORBIC ACID 500 MG TAB PO SCH ×2 (08:29→21:30)
[2021-11-01] MEDS: ENOXAPARIN 40 MG/0.4 ML SYRINGE SQ SCH (08:29)
[2021-11-01] MEDS: ZINC SULFATE 220 MG CAP PO SCH (08:29)
[2021-11-01 08:53] LABS: Basophils # (A) 0.1 k/uL (0-0.2); Basophils % (A) 1 %; Eosinophils % (A) 0 %; HCT 48.8 % (34.0-46.0); HGB 15.3 gm/dL (11.4-16.0); Hypochromasia Moderate; Lymphocytes # (A) 0.4 k/uL (1.0-4.8); Lymphocytes % (A) 5 %; MCH 30.9 pg (25.0-35.0); MCHC 31.3 g/dL (31.0-37.0); MCV 98.7 fL (80.0-100.0); Monocytes # (A) 0.6 k/uL (0-1.0); Monocytes % (A) 7 %; Neutrophils # (A) 7.1 k/uL (1.3-7.7); Neutrophils % (A) 84 %; Platelet Count 223 k/uL (150-450); RBC 4.95 m/uL (3.80-5.40); WBC 8.4 k/uL (3.8-10.6)
[2021-11-01 09:11] LABS: Albumin 3.4 g/dL (3.5-5.0); Calcium 6.8 mg/dL (8.4-10.2); Potassium 4.4 mmol/L (3.5-5.1); Total Bilirubin 0.9 mg/dL (0.2-1.3); Total Protein 6.9 g/dL (6.3-8.2)
[2021-11-01] MEDS: ALBUTEROL HFA INHALER INHALATION SCH ×5 (09:35→20:40)
[2021-11-01 09:56] LABS: C Reactive Protein 20.6 mg/dL (<1.0)
--- NOTE | 2021-11-01 14:16 | P.PN ---
<Sydnee Mar M - Last Filed: 11/01/21 14:05> Subjective Progress Note Date: 11/01/21 Principal diagnosis: Dyspnea, hypoxia This is 66-year-old white female patient of Dr. Torin Pinedo with history of COVID-19 infection, patient was briefly hospitalized and was discharged home on 10/21/2021. During her last admission chest x-ray showed no evidence of acute cardiopulmonary disease, and patient did not require oxygen at discharge. She was discharged home to complete 8 more days of Decadron. Patient has extensive medical history including coronary artery disease with previous stenting, hyperlipidemia, previous history of myocardial infarction, liver/reflux, history of ovarian cancer status post total hysterectomy, compression fracture of the lumbar vertebrae, and chronic back pain, patient is able to walk but does use a wheelchair to get around for the most part, osteoarthritis a previous history of bilateral hip replacements and bilateral knee replacements, anxiety, depression, remote history of smoking but no history of chronic lung disease. Patient states after she went home she was extremely weak she had trouble getting around the house, and she had little to no help at home from her son. Reports worsening shortness of breath, fever, ongoing diarrhea. Denied any nausea or vomiting, no compressive chest pain swelling or tenderness in calves. She was brought into the hospital by EMS for evaluation. She has a mild cough, she has a poor appetite, ongoing fatigue, she has loss of taste and smell. EMS found oxygen saturation in the 70s. Her chest x-ray in the emergency department with progressive mild scattered bilateral lung infiltrates the possibility of atypical pneumonia. Admission blood work showed a white count of 7.0, hemoglobin of 15.2, platelet count of 188, d-dimer of 1.66, electrolytes are within normal limits, BUN is 26 creatinine 1.38, mild lactic acidosis with a lactic acid of 2.2, ferritin of 883, AST of 79, [place] 41[place] [address], CRP is 32.8, pro calcitonin level was 0.20. Patient tested negative for COVID-19 by PCR test. CTA chest was completed, showing no acute pulmonary embolism within the limitations of the study, and lung windows showed bilateral diffuse moderate to marked patchy round glass opacities. Patient was started on Decadron 6 blood gram daily, multivitamins, inhaled bronchodilators, she was given IV hydration, she is awake alert this morning she is currently on 10 L of oxygen, she is short of breath with exertion but appears to be in no acute distress. She remains weak and she still having diarrhea. No abdominal pain, abdomen is nontender. On 11/01/2021 patient seen in follow-up on selective care unit. She still remains on high flow oxygen, at 15 L/m, and 100 percent nonrebreather mask, does not appear to be in any acute distress, mild dry cough, low-grade fevers with a temp of 99.1F. No complaints of chest discomfort, she is awake and alert, she was able to get up in the chair with physical therapy, breathing comfortably. Lungs reveal diminished breath sounds with some minimal crackles at bilateral bases, his labs have been reviewed with blood cell count is 8.4, hemoglobin is 15.3, d-dimer is improving and is down to 1.16, electrolytes are within normal limits, BUN is 38 and creatinine is 1.54, her renal function has further worsened. She states her diarrhea has improved and she has not had any diarrhea episodes while in the hospital. Currently remains on Decadron 6 mg daily, she is on prophylactic Lovenox, CTA chest and lower extremity Dopplers were negative for PE or DVT within the limitations of the study. Inflammatory markers are still quite elevated, with LDH of 1336 and CRP of 20.6, patient's proBNP was within normal limits at 118. Her appetite remains suboptimal, she states she is able to consume cold and soft consistencies. But has had no nausea vomiting or diarrhea since in the hospital. Objective - Vital Signs Vital signs: Vital Signs Temp 99.1 F 11/01/21 12:00 Pulse 89 11/01/21 12:00 Resp 26 H 11/01/21 12:00 BP 126/68 11/01/21 12:00 Pulse Ox 89 L 11/01/21 09:35 Intake & Output 10/31/21 11/01/21 11/01/21 18:59 06:59 18:59 Intake Total 1450 485 Output Total 450 Balance 1000 485 Intake: Intake, IV Titration 250 Amount Sodium Chloride 0.9% 1, 250 000 ml @ 25 mls/hr IV . Q24H [facility] Rx#:[id number] Oral 1200 485 Output: Urine 450 Other: Voiding Method Bedside Commode # Voids 1 1 - Exam GENERAL EXAM: Alert, very pleasant, 66-year-old morbidly obese white female, 100% nonrebreather, mildly short of breath, with a dry cough, short of breath with exertion but in no acute distress HEAD: Normocephalic/atraumatic. EYES: Normal reaction of pupils, equal size. Conjunctiva pink, sclera white. NOSE: Clear with pink turbinates. THROAT: No erythema or exudates. NECK: No masses, no JVD, no thyroid enlargement, no adenopathy. CHEST: No chest wall deformity. Symmetrical expansion. LUNGS: Equal air entry with fine basilar crackles CVS: Regular rate and rhythm, normal S1 and S2, no gallops, no murmurs, no rubs ABDOMEN: Soft, nontender. No hepatosplenomegaly, normal bowel sounds, no guarding or rigidity. EXTREMITIES: No clubbing, no edema, no cyanosis, 2+ pulses and upper and lower extremities. MUSCULOSKELETAL: Muscle strength and tone normal. SPINE: No scoliosis or deformity SKIN: No rashes CENTRAL NERVOUS SYSTEM: Alert and oriented -3. No focal deficits, tone is normal in all 4 extremities. PSYCHIATRIC: Alert and oriented -3. Appropriate affect. Intact judgment and insight. - Labs CBC & Chem 7: 11/01/21 08:04 11/01/21 08:04 Labs: Abnormal Lab Results - Last 24 Hours (Table) 10/31/21 11/01/21 11/01/21 Range/Units 08:35 08:04 08:04 Hct 48.8 H (34.0-46.0) % Lymphocytes # 0.4 L (1.0-4.8) k/uL D-Dimer 1.16 H (<0.60) mg/L FEU BUN (7-17) mg/dL Creatinine (0.52-1.04) mg/dL Glucose (74-99) mg/dL Calcium (8.4-10.2) mg/dL Ferritin 860.0 H (10.0-291.0) ng/mL AST (14-36) U/L ALT (4-34) U/L Lactate Dehydrogenase (313-618) U/L C-Reactive Protein (<1.0) mg/dL Albumin (3.5-5.0) g/dL 11/01/21 Range/Units 08:04 Hct (34.0-46.0) % Lymphocytes # (1.0-4.8) k/uL D-Dimer (<0.60) mg/L FEU BUN 38 H (7-17) mg/dL Creatinine 1.54 H (0.52-1.04) mg/dL Glucose 153 H (74-99) mg/dL Calcium 6.8 L (8.4-10.2) mg/dL Ferritin (10.0-291.0) ng/mL AST 49 H (14-36) U/L ALT 38 H (4-34) U/L Lactate Dehydrogenase 1336 H (313-618) U/L C-Reactive Protein 20.6 H (<1.0) mg/dL Albumin 3.4 L (3.5-5.0) g/dL Assessment and Plan Plan: #1. Acute Hypoxic respiratory failure related to COVID 19 pneumonia. Symptom onset was greater than 10 days ago, patient is outside the window for Remdesivir or Sotrovimab. Patient had a recent hospitalization for COVID-19 infection with symptoms of nausea vomiting and diarrhea,. Patient's chest x-ray during her last admission showed no acute cardiopulmonary disease, she was discharged home on 10/21/2021 and did not require oxygen at discharge. Patient was discharged home to complete a day course of Decadron. Patient is a non-vaccinated adult. #2. Weakness, fatigue, diarrhea related to recent history of COVID-19 infection #3. Limited inflammatory markers related to COVID-19 infection #4. Acute kidney injury related to dehydration and diarrhea #5. Mild lactic acidosis related to dehydration improved with fluid resuscitation #6. Morbid obesity with BMI 57.4 kg/m #7. Coronary artery disease with previous stenting #8. History of ovarian cancer status post total hysterectomy #9. Chronic back pain #10. History of compression fractures of lumbar vertebrae #11. Gait dysfunction, patient is wheelchair bound for the most part #12. HyperLipidemia #13. Remote history of smoking #14. GERD/reflux #15. Anxiety and depression Plan: Continue current medical treatment Continue Decadron 6 mg daily Continue multivitamins Continue Lovenox 40 mg daily Today's labs reviewed CTA chest lower extremity Dopplers reviewed We'll add IV fluids at 75 ML per hour We'll continue to follow clinical course I performed a history & physical examination of the patient and discussed their management with my nurse practitioner, Sydnee Mar. I reviewed the nurse practitioner's note and agree with the documented findings and plan of care. Lung sounds are positive for diffuse crackles throughout the lung [place]. The findings and the impression was discussed with the patient. I attest to the documentation by the nurse practitioner. I have personally seen and examined the patient, performed the documentation and the assessment and plan as written. Number of minutes spent on the visit: [10] Time with Patient: Less than 30 <Alonzo Landa - Last Filed: 11/01/21 19:01> Objective - Vital Signs Vital signs: Vital Signs Temp 98.9 F 11/01/21 16:00 Pulse 85 11/01/21 16:00 Resp 24 11/01/21 16:00 BP 153/75 11/01/21 16:00 Pulse Ox 89 L 11/01/21 16:00 Intake & Output 11/01/21 11/01/21 11/02/21 06:59 18:59 06:59 Intake Total 485 700 Balance 485 700 Intake: Intake, IV Titration 500 Amount Sodium Chloride 0.9% 1, 500 000 ml @ 75 mls/hr IV . [id number] [facility] Rx#:[id number] Oral 485 200 Other: Voiding Method Bedside Commode # Voids 1 2 - Labs CBC & Chem 7: 11/01/21 08:04 11/01/21 08:04 Labs: Abnormal Lab Results - Last 24 Hours (Table) 10/31/21 11/01/21 11/01/21 Range/Units 08:35 08:04 08:04 Hct 48.8 H (34.0-46.0) % Lymphocytes # 0.4 L (1.0-4.8) k/uL D-Dimer 1.16 H (<0.60) mg/L FEU BUN (7-17) mg/dL Creatinine (0.52-1.04) mg/dL Glucose (74-99) mg/dL Calcium (8.4-10.2) mg/dL Ferritin 860.0 H (10.0-291.0) ng/mL AST (14-36) U/L ALT (4-34) U/L Lactate Dehydrogenase (313-618) U/L C-Reactive Protein (<1.0) mg/dL Albumin (3.5-5.0) g/dL 11/01/21 Range/Units 08:04 Hct (34.0-46.0) % Lymphocytes # (1.0-4.8) k/uL D-Dimer (<0.60) mg/L FEU BUN 38 H (7-17) mg/dL Creatinine 1.54 H (0.52-1.04) mg/dL Glucose 153 H (74-99) mg/dL Calcium 6.8 L (8.4-10.2) mg/dL Ferritin 766.0 H (10.0-291.0) ng/mL AST 49 H (14-36) U/L ALT 38 H (4-34) U/L Lactate Dehydrogenase 1336 H (313-618) U/L C-Reactive Protein 20.6 H (<1.0) mg/dL Albumin 3.4 L (3.5-5.0) g/dL Assessment and Plan Plan: This is a joint evaluation was done along with the nurse practitioner. This evaluation was done more than 20 minutes. The patient is a case of COVID 19 pneumonia. The patient is still on Decadron and she is also on Lovenox 40 mg subcu on a daily basis. CT angiogram of the lower extremity Dopplers showed no this of any pulmonary embolism or DVT. The patient is stable for now. The patient was having some limited diarrhea and acute kidney injury and for that reason IV fluids was also added at a normal saline at the rate of 75 mL an hour. Monitor renal function. Monitor respiratory status. We'll continue to follow.
--- NOTE | 2021-11-01 14:40 | P.PN ---
Subjective Progress Note Date: 11/01/21 This is a 66-year-old female with past medical history of recent covid, , CAD, gastroesophageal reflux disease, morbid obesity, ovarian cancer, and multiple other medical issues presented to the ER with complaints of worsening shortness of breath. Recently admitted with Covid, respiratory status stable, did not require any oxygen ,discharged on Covid cocktail including Decadron. Reporting she had no help at home from her son, reporting multiple social issues being addressed by case management/social work. Shortness of breath worsened, loss of taste and smell with appetite decreased, developed diarrhea. Denies nausea vomiting or abdominal pain. EMS per ER reported O2 sat of the 70s. Chest x-ray reported progressive mild scattered bilateral lung infiltrates with possibility of atypical pneumonia. Chest CTA Limited study, reported negative for PE, bilateral diffuse moderate to marked patchy groundglass opacity's, no pleural effusion. Doppler pending. Afebrile, WBC WNL, hemoglobin 15.2, platelets 188, d-dimer 166, electrolytes WNL, BUN 26, creatinine 1.38( baseline 0.9), lactic acid 2.2, ferritin 883, AST 79, ALT 41, LDH 1713, CRP 32.8, pro- calcitonin 0.2. [place] virus PCR reported negative. Covid cocktail initiated including Decadron IV, IV fluid hydration. Currently maintaining O2 sats in the 90s on 10 L high flow nasal cannula. 11/01/2021 maintaining O2 sats in the high 80s on 15 L high flow nasal cannula with nonrebreather mask on standby, while attempting to eat bites of breakfast. Denies nausea, vomiting or diarrhea-none since admission. T-max 99.1, normal WB C. Renal function worsening, BUN 38, creatinine 1.54. Inflammatory markers : d-dimer, LDH and CRP elevated and decreasing with ferritin pending. ProBNP within normal limits. AST, ALT trending down. Denies chest pain, palpitations or chest pressure. Doppler of Lower extremities reviewed. Objective - Vital Signs Vital signs: Vital Signs Temp 99.1 F 11/01/21 12:00 Pulse 89 11/01/21 12:00 Resp 26 H 11/01/21 12:00 BP 126/68 11/01/21 12:00 Pulse Ox 89 L 11/01/21 09:35 Intake & Output 10/31/21 11/01/21 11/01/21 18:59 06:59 18:59 Intake Total 1450 485 Output Total 450 Balance 1000 485 Intake: Intake, IV Titration 250 Amount Sodium Chloride 0.9% 1, 250 000 ml @ 25 mls/hr IV . Q24H [facility] Rx#:[id number] Oral 1200 485 Output: Urine 450 Other: Voiding Method Bedside Commode # Voids 1 1 - Exam PHYSICAL EXAM: VITAL SIGNS: [As above] GENERAL: Alert and oriented 3, Sitting up in chair, respiratory effort increased HEENT: Conjunctivae normal. eyes normal. NECK: No JVD. No thyroid enlargement. No LNs CARDIOVASCULAR: S1, S2 regular. No murmur RESPIRATION: Coarse, bilateral diminished bases with fine bibasilar crackles. ABDOMEN: Soft, nontender. No guarding. no masses palpable. Positive Bowel sounds. LEGS: No edema. no swelling. NERVOUS SYSTEM: Cranial N 2-12 grossly normal. Moves all 4 limbs.No focal deficits.Strength and sensation grossly intact. Skin: Warm and dry, no rash. - Labs CBC & Chem 7: 11/01/21 08:04 11/01/21 08:04 Labs: Abnormal Lab Results - Last 24 Hours (Table) 10/31/21 11/01/21 11/01/21 Range/Units 08:35 08:04 08:04 Hct 48.8 H (34.0-46.0) % Lymphocytes # 0.4 L (1.0-4.8) k/uL D-Dimer 1.16 H (<0.60) mg/L FEU BUN (7-17) mg/dL Creatinine (0.52-1.04) mg/dL Glucose (74-99) mg/dL Calcium (8.4-10.2) mg/dL Ferritin 860.0 H (10.0-291.0) ng/mL AST (14-36) U/L ALT (4-34) U/L Lactate Dehydrogenase (313-618) U/L C-Reactive Protein (<1.0) mg/dL Albumin (3.5-5.0) g/dL 11/01/21 Range/Units 08:04 Hct (34.0-46.0) % Lymphocytes # (1.0-4.8) k/uL D-Dimer (<0.60) mg/L FEU BUN 38 H (7-17) mg/dL Creatinine 1.54 H (0.52-1.04) mg/dL Glucose 153 H (74-99) mg/dL Calcium 6.8 L (8.4-10.2) mg/dL Ferritin (10.0-291.0) ng/mL AST 49 H (14-36) U/L ALT 38 H (4-34) U/L Lactate Dehydrogenase 1336 H (313-618) U/L C-Reactive Protein 20.6 H (<1.0) mg/dL Albumin 3.4 L (3.5-5.0) g/dL Assessment and Plan Assessment: Acute hypoxic respiratory failure related to recent covid 19 pneumonia on . Nonvaccinated. Acute renal failure secondary to dehydration, Lactic acidosis, mild secondary to all the above, improved with IV fluids CAD, Hx of [place],stenting Chronic systolic heart failure Hypertension Hyperlipidemia Gastroesophageal reflux disease Morbid obesity, BMI 57.4 Osteoarthritis Former nicotine dependence History of ovarian cancer Gait dysfunction, wheelchair-bound Plan: Continue on current medication regime ,monitoring and symptomatic treatment. Worsening renal function, IV fluid hydration increased. Continue on Covid cocktail, PPI, lovenox. Prognosis guarded given multiple complex medical issues. The impression and plan of care has been dictated as directed. : I performed a history and examination of this patient, discussed the same with the dictator. I agree with the dictator's note ,documented as a scribe. Any additional findings or plans will be noted.
[2021-11-02] MEDS: SODIUM CHLORIDE 0.9% 1,000 ML IV SCH ×2 (00:06→23:30)
[2021-11-02] MEDS: HYDROcodone/APAP 10-325MG 1 EACH TAB PO PRN (01:20)
[2021-11-02] MEDS: PANTOPRAZOLE 40 MG TABLET PO SCH (06:24)
[2021-11-02] MEDS: ALBUTEROL HFA INHALER INHALATION SCH ×4 (07:39→20:14)
[2021-11-02] MEDS: CHOLECALCIFEROL 25 MCG (1000 IU) TABLET PO SCH (09:40)
[2021-11-02] MEDS: ZINC SULFATE 220 MG CAP PO SCH (09:40)
[2021-11-02] MEDS: ASPIRIN 81 MG PO SCH (09:40)
[2021-11-02] MEDS: ENOXAPARIN 40 MG/0.4 ML SYRINGE SQ SCH (09:40)
[2021-11-02] MEDS: ASCORBIC ACID 500 MG TAB PO SCH ×2 (09:40→20:29)
[2021-11-02] MEDS: DEXAMETHASONE SOD PHOSPHATE 10 MG/ML 1 ML VIAL IVP SCH ×2 (09:40→20:29)
[2021-11-02 09:48] LABS: Calcium 6.7 mg/dL (8.4-10.2); Potassium 4.5 mmol/L (3.5-5.1)
--- NOTE | 2021-11-02 10:43 | P.PN ---
Subjective This is a 66-year-old female with past medical history of recent covid, , CAD, gastroesophageal reflux disease, morbid obesity, ovarian cancer, and multiple other medical issues presented to the ER with complaints of worsening shortness of breath. Recently admitted with Covid, respiratory status stable, did not require any oxygen ,discharged on Covid cocktail including Decadron. Reporting she had no help at home from her son, reporting multiple social issues being addressed by case management/social work. Shortness of breath worsened, loss of taste and smell with appetite decreased, developed diarrhea. Denies nausea vomiting or abdominal pain. EMS per ER reported O2 sat of the 70s. Chest x-ray reported progressive mild scattered bilateral lung infiltrates with possibility of atypical pneumonia. Chest CTA Limited study, reported negative for PE, bilateral diffuse moderate to marked patchy groundglass opacity's, no pleural effusion. Doppler pending. Afebrile, WBC WNL, hemoglobin 15.2, platelets 188, d-dimer 166, electrolytes WNL, BUN 26, creatinine 1.38( baseline 0.9), lactic acid 2.2, ferritin 883, AST 79, ALT 41, LDH 1713, CRP 32.8, pro- calcitonin 0.2. [place]berg virus PCR reported negative. Covid cocktail initiated including Decadron IV, IV fluid hydration. Currently maintaining O2 sats in the 90s on 10 L high flow nasal cannula. 11/01/2021 maintaining O2 sats in the high 80s on 15 L high flow nasal cannula with nonrebreather mask on standby, while attempting to eat bites of breakfast. Denies nausea, vomiting or diarrhea-none since admission. T-max 99.1, normal WBC. Renal function worsening, BUN 38, creatinine 1.54. Inflammatory markers : d-dimer, LDH and CRP elevated and decreasing with ferritin pending. ProBNP within normal limits. AST, ALT trending down. Denies chest pain, palpitations or chest pressure. Doppler of Lower extremities reviewed. 11/02/2021: Significantly morbidly obese 66-year-old female is well-known to me. She is not immunized for Covid. She was positive several weeks ago. She has now developed a significant Covid 19 pneumonia. Patient remains on airflow high flow nasal cannula oxygen along with a nonrebreather mask. Using both of these her pulse oximetry was 92%. She is eating little but thirsty. She denies any chest pains or pressures. She is complaining of neck and back pain. Heart rate is controlled sinus rhythm and regular, respiratory rate is slightly elevated. Blood pressure stable. I's and O's show intake of 1485 ML's. Her weight is 156.49 kg. Laboratory studies show chemistries with a BUN 30 and creatinine 1.24 today. GFR is now 45. Other labs are pending for this morning. Pulmonology consult from yesterday was reviewed. She remains on albuterol along with vitamin C and D and zinc and dexamethasone. She is anticoagulated with Lovenox 40 mg daily. She has [place] ordered for pain. Protonix for GI prophylaxis. Objective - Vital Signs Vital signs: Vital Signs Temp 97.9 F 11/01/21 20:00 Pulse 83 11/02/21 04:00 Resp 25 H 11/02/21 04:00 BP 167/82 11/02/21 04:00 Pulse Ox 89 L 11/02/21 07:39 Intake & Output 11/01/21 11/02/21 11/02/21 18:59 06:59 18:59 Intake Total 700 1485 Balance 700 1485 Intake: Intake, IV Titration 500 1000 Amount Sodium Chloride 0.9% 1, 500 1000 000 ml @ 75 mls/hr IV . [id number] [facility] Rx#:[id number] Oral 200 485 Other: Voiding Method Bedside Commode # Voids 2 1 - Exam GENERAL: Alert and oriented 3, lying in the left lateral decubitus position respiratory effort increased, airvo and nonrebreather in place NECK: No JVD. No thyroid enlargement. No LNs CARDIOVASCULAR: S1, S2 regular. No murmur RESPIRATION: Coarse, bilateral diminished bases with fine bibasilar crackles. ABDOMEN: Soft, nontender. No guarding. no masses palpable. Positive Bowel sounds. LEGS: No edema. no swelling. NERVOUS SYSTEM: Cranial N 2-12 grossly normal. Moves all 4 limbs.No focal deficits.Strength and sensation grossly intact. Skin: Warm and dry, no rash. - Labs CBC & Chem 7: 11/01/21 08:04 11/02/21 09:21 Labs: Abnormal Lab Results - Last 24 Hours (Table) 11/01/21 11/02/21 Range/Units 08:04 09:21 BUN 39 H (7-17) mg/dL Creatinine 1.24 H (0.52-1.04) mg/dL Glucose 111 H (74-99) mg/dL Calcium 6.7 L (8.4-10.2) mg/dL Ferritin 766.0 H (10.0-291.0) ng/mL Assessment and Plan (1) Acute respiratory failure with hypoxia Current Visit: Yes Status: Acute Code(s): J96.01 - ACUTE RESPIRATORY FAILURE WITH HYPOXIA SNOMED Code(s): 21276492 (2) Pneumonia due to COVID-19 virus Current Visit: Yes Status: Acute Code(s): U07.1 - COVID-19; J12.82 - PNEUMONIA DUE TO CORONAVIRUS DISEASE 2018 SNOMED Code(s): 169553007867445000 (3) Acute renal failure Current Visit: Yes Status: Acute Code(s): N17.9 - ACUTE KIDNEY FAILURE, UNSPECIFIED SNOMED Code(s): 12387697 (4) COVID-19 Current Visit: Yes Status: Acute Code(s): U07.1 - COVID-19 SNOMED Code(s): 940151739 (5) CAD (coronary artery disease) Current Visit: No Status: Acute Code(s): I25.10 - ATHSCL HEART DISEASE OF [place] CORONARY ARTERY W/O ANG PCTRS SNOMED Code(s): 35068145 (6) H/O myocardial infarction, greater than 8 weeks Current Visit: Yes Status: Acute Code(s): I25.2 - OLD MYOCARDIAL INFARCTION SNOMED Code(s): 4550514 (7) Morbid obesity with BMI of 50.0-59.9, adult Current Visit: Yes Status: Acute Code(s): E66.01 - MORBID (SEVERE) OBESITY DUE TO EXCESS CALORIES; Z68.43 - BODY MASS INDEX [BMI] 50.0-59.9, ADULT SNOMED Code(s): 306130590 (8) H/O ovarian cancer Current Visit: Yes Status: Acute Code(s): Z85.43 - PERSONAL HISTORY OF MALIGNANT NEOPLASM OF [place] SNOMED Code(s): 303225551 (9) Gait abnormality Current Visit: Yes Status: Acute Code(s): R26.9 - UNSPECIFIED ABNORMALITIES OF GAIT AND MOBILITY SNOMED Code(s): 36227997 (10) Wheelchair dependence Current Visit: Yes Status: Acute Code(s): Z99.3 - DEPENDENCE ON WHEELCHAIR SNOMED Code(s): 504357240 (11) GERD (gastroesophageal reflux disease) Current Visit: Yes Status: Acute Code(s): K21.9 - GASTRO-ESOPHAGEAL REFLUX DISEASE WITHOUT ESOPHAGITIS SNOMED Code(s): 671316716 (12) Essential (primary) hypertension Current Visit: Yes Status: Acute Code(s): I10 - ESSENTIAL (PRIMARY) HYPERTENSION SNOMED Code(s): 32092823 (13) Mixed hyperlipidemia Current Visit: Yes Status: Acute Code(s): E78.2 - MIXED HYPERLIPIDEMIA SNOMED Code(s): 814312353 Plan: I will add lidocaine patches to her painful areas of her neck and back. In an attempt to help with inflammation generated by COVID-19, I'll start her on colchicine 0.6 mg twice a day She'll continue on Gentle IV Fluid Rehydration. She'll Continue Anticoagulation with Lovenox. She'll Continue [place] for Pain. She'll Continue on Current Cocktail Vitamin C D and Zinc along with Dexamethasone. Wait on Further Recommendations Pulmonology. She'll Repeat Labs in A.M. She'll Be Reevaluated Next 24 Hours.
[2021-11-02 12:34] LABS: Glucose,Whole Blood 119 mg/dL (75-99)
--- NOTE | 2021-11-02 12:58 | P.PN ---
Subjective Progress Note Date: 11/02/21 This is 66-year-old white female patient of Dr. Torin Pinedo with history of COVID-19 infection, patient was briefly hospitalized and was discharged home on 10/21/2021. During her last admission chest x-ray showed no evidence of acute cardiopulmonary disease, and patient did not require oxygen at discharge. She was discharged home to complete 8 more days of Decadron. Patient has extensive medical history including coronary artery disease with previous stenting, hyperlipidemia, previous history of myocardial infarction, liver/reflux, history of ovarian cancer status post total hysterectomy, compression fracture of the lumbar vertebrae, and chronic back pain, patient is able to walk but does use a wheelchair to get around for the most part, osteoarthritis a previous history of bilateral hip replacements and bilateral knee replacements, anxiety, depression, remote history of smoking but no history of chronic lung disease. Patient states after she went home she was extremely weak she had trouble getting around the house, and she had little to no help at home from her son. Reports worse savana shortness of breath, fever, ongoing diarrhea. Denied any nausea or vomiting, no compressive chest pain swelling or tenderness in calves. She was brought into the hospital by EMS for evaluation. She has a mild cough, she has a poor appetite, ongoing fatigue, she has loss of taste and smell. EMS found oxygen saturation in the 70s. Her chest x-ray in the emergency department with progressive mild scattered bilateral lung infiltrates the possibility of atypical pneumonia. Admission blood work showed a white count of 7.0, hemoglobin of 15.2, platelet count of 188, d-dimer of 1.66, electrolytes are within normal limits, BUN is 26 creatinine 1.38, mild lactic acidosis with a lactic acid of 2.2, ferritin of 883, AST of 79, ALT 41[place] [address], CRP is 32.8, pro calcitonin level was 0.20. Patient tested negative for COVID-19 by PCR test. CTA chest was completed, showing no acute pulmonary embolism within the limitations of the study, and lung windows showed bilateral diffuse moderate to marked patchy round glass opacities. Patient was started on Decadron 6 blood gram daily, multivitamins, inhaled bronchodilators, she was given IV hydration, she is awake alert this morning she is currently on 10 L of oxygen, she is short of breath with exertion but appears to be in no acute distress. She remains weak and she still having diarrhea. No abdominal pain, abdomen is nontender. On 11/01/2021 patient seen in follow-up on selective care unit. She still remains on high flow oxygen, at 15 L/m, and 100 percent nonrebreather mask, does not appear to be in any acute distress, mild dry cough, low-grade fevers with a temp of 99.1F. No complaints of chest discomfort, she is awake and alert, she was able to get up in the chair with physical therapy, breathing comfortably. Lungs reveal diminished breath sounds with some minimal crackles at bilateral bases, his labs have been reviewed with blood cell count is 8.4, hemoglobin is 15.3, d-dimer is improving and is down to 1.16, electrolytes are within normal limits, BUN is 38 and creatinine is 1.54, her renal function has further worsened. She states her diarrhea has improved and she has not had any diarrhea episodes while in the hospital. Currently remains on Decadron 6 mg daily, she is on prophylactic Lovenox, CTA chest and lower extremity Dopplers were negative for PE or DVT within the limitations of the study. Inflammatory markers are still quite elevated, with LDH of 1336 and CRP of 20.6, patient's proBNP was within normal limits at 118. Her appetite remains suboptimal, she states she is able to consume cold and soft consistencies. But has had no nausea vomiting or diarrhea since in the hospital. On today's evaluation of 11/02/2021, the patient is still struggling with her breathing. The patient remains on a high flow oxygen at 15 L along with 100% nonrebreather facemask. She has short of breath at rest. She is short of breath while talking long sentences and she easily desaturates yet she recover speech is able to maintain a pulse ox is above 88%. She remains on Decadron. No nausea. No vomiting. No diarrhea for now. No abdominal pain. The patient had developed an acute kidney injury yesterday and the creatinine was up to 1.54 and then it dropped to 1.24 and the rest of the electrodes are all within normal limits. In terms of the inflammatory markers, the patient had a elevated LDH level of 1336 and the CRP level was at 20.6. Bilirubin was at 0.9. D-dimer is at 1.16. Altered mentation. No other complaints otherwise speech is obese elderly female patient with a body mass index of 57.4. Venous Dopplers obtained on 10/31/2021 were negative and the patient had a CT angiogram at time of admission that was also negative for any pulmonary embolism that showed some cardiomegaly with diffuse bilateral pulmonary infiltrates consistent with COVID 90 related pneumonia Objective - Vital Signs Vital signs: Vital Signs Temp 97.7 F 11/02/21 08:00 Pulse 86 11/02/21 08:00 Resp 24 11/02/21 08:00 BP 107/68 11/02/21 08:00 Pulse Ox 90 L 11/02/21 08:00 Intake & Output 11/01/21 11/02/21 11/02/21 18:59 06:59 18:59 Intake Total 700 1485 Balance 700 1485 Intake: Intake, IV Titration 500 1000 Amount Sodium Chloride 0.9% 1, 500 1000 000 ml @ 75 mls/hr IV . [id number] [facility] Rx#:[id number] Oral 200 485 Other: Voiding Method Bedside Commode # Voids 2 1 - Exam GENERAL EXAM: Alert, very pleasant, 66-year-old morbidly obese white female, 100% nonrebreather, mildly short of breath, with a dry cough, short of breath with exertion but in no acute distress HEAD: Normocephalic/atraumatic. EYES: Normal reaction of pupils, equal size. Conjunctiva pink, sclera white. NOSE: Clear with pink turbinates. THROAT: No erythema or exudates. NECK: No masses, no JVD, no thyroid enlargement, no adenopathy. CHEST: No chest wall deformity. Symmetrical expansion. LUNGS: Equal air entry with fine basilar crackles CVS: Regular rate and rhythm, normal S1 and S2, no gallops, no murmurs, no rubs ABDOMEN: Soft, nontender. No hepatosplenomegaly, normal bowel sounds, no guarding or rigidity. EXTREMITIES: No clubbing, no edema, no cyanosis, 2+ pulses and upper and lower extremities. MUSCULOSKELETAL: Muscle strength and tone normal. SPINE: No scoliosis or deformity SKIN: No rashes CENTRAL NERVOUS SYSTEM: Alert and oriented -3. No focal deficits, tone is normal in all 4 extremities. PSYCHIATRIC: Alert and oriented -3. Appropriate affect. Intact judgment and insight. - Labs CBC & Chem 7: 11/01/21 08:04 11/02/21 09:21 Labs: Abnormal Lab Results - Last 24 Hours (Table) 11/01/21 11/02/21 11/02/21 Range/Units 08:04 09:21 12:32 BUN 39 H (7-17) mg/dL Creatinine 1.24 H (0.52-1.04) mg/dL Glucose 111 H (74-99) mg/dL POC Glucose (mg/dL) 119 H (75-99) mg/dL Calcium 6.7 L (8.4-10.2) mg/dL Ferritin 766.0 H (10.0-291.0) ng/mL Assessment and Plan Plan: #1. Acute Hypoxic respiratory failure related to COVID 19 pneumonia. Symptom onset was greater than 10 days ago, patient is outside the window for Remdesivir or Sotrovimab. Patient had a recent hospitalization for COVID-19 infection with symptoms of nausea vomiting and diarrhea,. Patient's chest x-ray during her last admission showed no acute cardiopulmonary disease, she was discharged home on 10/21/2021 and did not require oxygen at discharge. Patient was discharged home to complete a day course of Decadron. Patient is a non-vaccinated adult. Inflammatory markers are elevated including LDH. The patient continues to be hypoxic requiring high flow oxygen in addition to 100% on a beta facemasks. Clinically stable, yet the condition is quite borderline and the patient desaturates easily with mobility and activity. #2. Weakness, fatigue, diarrhea related to recent history of COVID-19 infection #3. Limited inflammatory markers related to COVID-19 infection #4. Acute kidney injury related to dehydration and diarrhea, creatinine is impr oving on today's evaluation #5. Mild lactic acidosis related to dehydration improved with fluid re suscitation #6. Morbid obesity with BMI 57.4 kg/m #7. Coronary artery disease with previous stenting #8. History of ovarian cancer status post total hysterectomy #9. Chronic back pain #10. History of compression fractures of lumbar vertebrae #11. Gait dysfunction, patient is wheelchair bound for the most part #12. HyperLipidemia #13. Remote history of smoking #14. GERD/reflux #15. Anxiety and depression Plan Continue Decadron increase the dose up to 6 mg IV every 12 hours. Start the patient on Baricitinib per protocol Keep the patient on high flow oxygen at 15 L along with 100% nonrebreather facemask May need to transfer to ICU if there is any worsening her respiratory status Continue on Lovenox 40 mg subcu every 24 hours monitor inflammatory markers Continue IV fluids and the patient's renal function continues to improve as the patient is recovering from acute kidney injury We'll continue to follow make further recommendations based on her progress.
[2021-11-02] MEDS: INSULIN ASPART (NovoLOG) 100 UNIT/ML VIAL SQ SCH ×3 (13:16→20:56)
[2021-11-02] MEDS: BARICITINIB 2 MG TABLET PO SCH (13:47)
[2021-11-02] MEDS: LIDOCAINE 5% PATCH TOPICAL SCH (13:48)
[2021-11-02] MEDS: COLCHICINE 0.6 MG EACH PO SCH ×2 (13:48→20:29)
[2021-11-02 16:36] LABS: Glucose,Whole Blood 170 mg/dL (75-99)
[2021-11-02 20:51] LABS: Glucose,Whole Blood 152 mg/dL (75-99)
[2021-11-02 22:14] LABS: Glucose,Whole Blood 151 mg/dL (75-99)
[2021-11-03] MEDS: DEXMEDETOMIDINE/0.9% NACL(PMX) 400 MCG in EMPTY BAG 1 BAG IV SCH ×6 (00:27→21:36)
[2021-11-03 03:36] LABS: ABG Base Excess 5.8 mmol/L; ABG HCO3 30 mmol/L (21-25); ABG Oxygen Saturation 88.9 % (94-97); ABG PCO2 44 mmHg (35-45); ABG PH 7.45 (7.35-7.45); ABG TCO2 31 mmol/L (19-24); Allen Test Performed? Yes
[2021-11-03 03:40] LABS: ABG PO2 55 mmHg (83-108)
[2021-11-03] MEDS: HYDROcodone/APAP 10-325MG 1 EACH TAB PO PRN (03:53)
[2021-11-03 04:21] LABS: Appearance,Urine Cloudy (Clear); Bacteria,Urine Occasional /hpf; Bilirubin,Urine Negative (Negative); Blood,Urine Large (Negative); Color,Urine Yellow; Glucose,Urine (UA) Negative (Negative); Ketones,Urine Trace (Negative); Leukocyte Esterase,Urine Large (Negative); Mucus,Urine Rare /hpf; Nitrite,Urine Negative (Negative); Protein,Urine 1+ (Negative); RBC,Urine 49 /hpf (0-5); Specific Gravity,Urine 1.019 (1.001-1.035); Squamous Epithelial Cell,Urine 3 /hpf (0-4); Urobilinogen,Urine <2.0 mg/dL (<2.0); WBC,Urine >182 /hpf (0-5)
[2021-11-03 06:25] LABS: Basophils % (A) 0 %; Eosinophils % (A) 0 %; HGB 14.5 gm/dL (11.4-16.0); Hypochromasia Slight; Lymphocytes # (A) 0.4 k/uL (1.0-4.8); Lymphocytes % (A) 5 %; MCH 30.9 pg (25.0-35.0); MCHC 31.4 g/dL (31.0-37.0); MCV 98.4 fL (80.0-100.0); Mean Platelet Volume 9.1; Monocytes # (A) 0.5 k/uL (0-1.0); Monocytes % (A) 6 %; Neutrophils # (A) 7.4 k/uL (1.3-7.7); Neutrophils % (A) 86 %; Platelet Count 237 k/uL (150-450); RBC 4.68 m/uL (3.80-5.40); RDW 13.9 % (11.5-15.5); WBC 8.6 k/uL (3.8-10.6)
[2021-11-03] MEDS: PANTOPRAZOLE 40 MG TABLET PO SCH (06:30)
[2021-11-03 06:42] LABS: Albumin 3.2 g/dL (3.5-5.0); Calcium 6.5 mg/dL (8.4-10.2); Total Bilirubin 1.2 mg/dL (0.2-1.3); Total Protein 6.7 g/dL (6.3-8.2)
[2021-11-03 06:42] LABS: Glucose,Whole Blood 205 mg/dL (75-99)
[2021-11-03] MEDS: INSULIN ASPART (NovoLOG) 100 UNIT/ML VIAL SQ SCH ×3 (06:43→18:48)
[2021-11-03 07:30] LABS: C Reactive Protein 14.4 mg/dL (<1.0)
--- NOTE | 2021-11-03 07:46 | XR ---
EXAMINATION TYPE: XR chest 1V DATE OF EXAM: 11/03/2021 COMPARISON: Chest x-ray and CT dated 10/30/2021 HISTORY: Shortness of breath TECHNIQUE: Single frontal view of the chest is obtained. FINDINGS: There has been progression of bilateral airspace disease. No evident pneumothorax or pleur al effusion. The heart is obscured but thought to be enlarged. Bones are unchanged. IMPRESSION: Correlate for pneumonia, edema not excluded
[2021-11-03] MEDS: ASPIRIN 81 MG PO SCH ×2 (07:47→09:25)
[2021-11-03] MEDS: CHOLECALCIFEROL 25 MCG (1000 IU) TABLET PO SCH ×2 (07:47→09:25)
[2021-11-03] MEDS: ASCORBIC ACID 500 MG TAB PO SCH ×3 (07:48→20:21)
[2021-11-03] MEDS: ENOXAPARIN 40 MG/0.4 ML SYRINGE SQ SCH (07:48)
[2021-11-03] MEDS: BARICITINIB 2 MG TABLET PO SCH ×2 (07:48→09:25)
[2021-11-03] MEDS: DEXAMETHASONE SOD PHOSPHATE 10 MG/ML 1 ML VIAL IVP SCH ×2 (07:48→20:18)
[2021-11-03] MEDS: ZINC SULFATE 220 MG CAP PO SCH ×2 (07:48→09:25)
[2021-11-03] MEDS: COLCHICINE 0.6 MG EACH PO SCH ×3 (07:49→20:21)
[2021-11-03] MEDS ORDERED: FUROSEMIDE 10 MG/ML 2 ML VIAL IV ONE (08:15)
[2021-11-03] MEDS: ALBUTEROL HFA INHALER INHALATION SCH ×4 (08:20→20:08)
[2021-11-03 09:46] LABS: Appearance,Urine Cloudy (Clear); Bacteria,Urine Many /hpf; Bilirubin,Urine Negative (Negative); Blood,Urine Large (Negative); Color,Urine Yellow; Glucose,Urine (UA) Negative (Negative); Hyaline Casts,Urine 19 /lpf (0-2); Ketones,Urine Negative (Negative); Leukocyte Esterase,Urine Large (Negative); Mucus,Urine Occasional /hpf; Nitrite,Urine Negative (Negative); Protein,Urine 1+ (Negative); RBC,Urine 88 /hpf (0-5); Squamous Epithelial Cell,Urine 1 /hpf (0-4); WBC,Urine >182 /hpf (0-5)
--- NOTE | 2021-11-03 11:17 | P.PN ---
Subjective This is a 66-year-old female with past medical history of recent covid, , CAD, gastroesophageal reflux disease, morbid obesity, ovarian cancer, and multiple other medical issues presented to the ER with complaints of worsening shortness of breath. Recently admitted with Covid, respiratory status stable, did not require any oxygen ,discharged on Covid cocktail including Decadron. Reporting she had no help at home from her son, reporting multiple social issues being addressed by case management/social work. Shortness of breath worsened, loss of taste and smell with appetite decreased, developed diarrhea. Denies nausea vomiting or abdominal pain. EMS per ER reported O2 sat of the 70s. Chest x-ray reported progressive mild scattered bilateral lung infiltrates with possibility of atypical pneumonia. Chest CTA Limited study, reported negative for PE, bilateral diffuse moderate to marked patchy groundglass opacity's, no pleural effusion. Doppler pending. Afebrile, WBC WNL, hemoglobin 15.2, platelets 188, d-dimer 166, electrolytes WNL, BUN 26, creatinine 1.38( baseline 0.9), lactic acid 2.2, ferritin 883, AST 79, ALT 41, LDH 1713, CRP 32.8, pro- calcitonin 0.2. [place] virus PCR reported negative. Covid cocktail initiated including Decadron IV, IV fluid hydration. Currently maintaining O2 sats in the 90s on 10 L high flow nasal cannula. 11/01/2021 maintaining O2 sats in the high 80s on 15 L high flow nasal cannula with nonrebreather mask on standby, while attempting to eat bites of breakfast. Denies nausea, vomiting or diarrhea-none since admission. T-max 99.1, normal WBC. Renal function worsening, BUN 38, creatinine 1.54. Inflammatory markers : d-dimer, LDH and CRP elevated and decreasing with ferritin pending. ProBNP within normal limits. AST, ALT trending down. Denies chest pain, palpitations or chest pressure. Doppler of Lower extremities reviewed. 11/02/2021: Significantly morbidly obese 66-year-old female is well-known to me. She is not immunized for Covid. She was positive several weeks ago. She has now developed a significant Covid 19 pneumonia. Patient remains on airflow high flow nasal cannula oxygen along with a nonrebreather mask. Using both of these her pulse oximetry was 92%. She is eating little but thirsty. She denies any chest pains or pressures. She is complaining of neck and back pain. Heart rate is controlled sinus rhythm and regular, respiratory rate is slightly elevated. Blood pressure stable. I's and O's show intake of 1485 ML's. Her weight is 156.49 kg. Laboratory studies show chemistries with a BUN 30 and creatinine 1.24 today. GFR is now 45. Other labs are pending for this morning. Pulmonology consult from yesterday was reviewed. She remains on albuterol along with vitamin C and D and zinc and dexamethasone. She is anticoagulated with Lovenox 40 mg daily. She has [place] ordered for pain. Protonix for GI prophylaxis. 11/03/2021: Patient is now sedated in the intensive care unit. She is on nonrebreather and AIRVO high flow nasal cannula oxygen.She had made herself a DNR and does not wish to be intubated. Her family is aware. Vital show the pulse in the 50s, respiratory rate is in the upper 20s and shallow slightly tachypnea. Blood pressure remains stable. Pulse oximetry is 87% currently on 100% FiO2. I's and O shoe she is receiving normal saline at 75 mL, Dexmedetomidine drip for agitation, no balance is 40 ML's in. CBC this morning shows anicteric sclerae 0.6, he mowed 14.5, platelets are 237. D-dimer 1.97, chemistries were essentially normal exception of a BUN 33. Calcium 6.5, lactate dehydrogenase 1829, CRP 14.4, urinalysis shows large leukocyte occasional mucus and hyaline casts, many bacteria. Chest x-ray morning shows percussion of bilateral airspace disease She remains on albuterol, my aunts, Rocephin now for coverage, code cocktail, dexamethasone, [place] for anticoagulation, NovoLog scale and lidocaine patch for pain, and pantoprazole for GI prophylaxis. She is clearly sedated but will open her eyes when speaking to her. She is mumbling when answering me. Objective - Vital Signs Vital signs: Vital Signs Temp 97.6 F 11/03/21 08:00 Pulse 52 L 11/03/21 10:00 Resp 28 H 11/03/21 10:00 BP 154/102 11/03/21 10:00 Pulse Ox 87 L 11/03/21 10:00 Intake & Output 11/02/21 11/03/21 11/03/21 18:59 06:59 18:59 Intake Total 269.668 130.332 Output Total 120 500 90 Balance -120 -230.332 40.332 Intake: IV 140 60 Sodium Chloride 0.9% 1, 140 60 000 ml @ 20 mls/hr IV . Q24H [facility] Rx#:[id number] Intake, IV Titration 129.668 70.332 Amount Dexmedetomidine/0.9% NaCl 129.668 70.332 (Pmx) 400 mcg In Empty Bag 1 bag @ 0.2 MCG/KG/HR 7.824 mls/hr IV .[id number] [facility] Rx#:[id number] Output: Urine 120 500 90 Other: Voiding Method External Catheter Indwelling Catheter - Exam GENERAL: Somnolent, but arousable, morbidly obese female currently on airvo and nonrebreather in place NECK: No JVD. No thyroid enlargement. No LNs CARDIOVASCULAR: S1, S2 regular. No murmur RESPIRATION: Coarse, bilateral diminished bases with fine bibasilar crackles. Significantly decreased air exchange. ABDOMEN: Soft, nontender. No guarding. no masses palpable. Positive Bowel sounds. LEGS: No edema. no swelling. NERVOUS SYSTEM: Patient is sedated but opens her eyes and looks at me when spoken to. She seems to be moving all her extremities. Sternal rub does elicit a response Skin: Warm and dry, no rash. - Labs CBC & Chem 7: 11/03/21 05:51 11/03/21 05:51 Labs: Abnormal Lab Results - Last 24 Hours (Table) 11/02/21 11/02/21 11/02/21 Range/Units 09:21 12:32 16:34 Lymphocytes # (1.0-4.8) k/uL D-Dimer (<0.60) mg/L FEU ABG pO2 (83-108) mmHg ABG HCO3 (21-25) mmol/L ABG Total CO2 (19-24) mmol/L ABG O2 Saturation (94-97) % Chloride (98-107) mmol/L BUN (7-17) mg/dL Glucose (74-99) mg/dL POC Glucose (mg/dL) 119 H 170 H (75-99) mg/dL Calcium (8.4-10.2) mg/dL AST (14-36) U/L Lactate Dehydrogenase (313-618) U/L C-Reactive Protein (<1.0) mg/dL Albumin (3.5-5.0) g/dL Procalcitonin 0.11 H (0.02-0.09) ng/mL Urine Appearance (Clear) Urine Protein (Negative) Urine Ketones (Negative) Urine Blood (Negative) Ur Leukocyte Esterase (Negative) Urine RBC (0-5) /hpf Urine WBC (0-5) /hpf Urine WBC Clumps (None) /hpf Urine Bacteria (None) /hpf Hyaline Casts (0-2) /lpf Urine Mucus (None) /hpf 11/02/21 11/02/21 11/03/21 Range/Units 20:47 22:11 03:29 Lymphocytes # (1.0-4.8) k/uL D-Dimer (<0.60) mg/L FEU ABG pO2 55 L* (83-108) mmHg ABG HCO3 30 H (21-25) mmol/L ABG Total CO2 31 H (19-24) mmol/L ABG O2 Saturation 88.9 L (94-97) % Chloride (98-107) mmol/L BUN (7-17) mg/dL Glucose (74-99) mg/dL POC Glucose (mg/dL) 152 H 151 H (75-99) mg/dL Calcium (8.4-10.2) mg/dL AST (14-36) U/L Lactate Dehydrogenase (313-618) U/L C-Reactive Protein (<1.0) mg/dL Albumin (3.5-5.0) g/dL Procalcitonin (0.02-0.09) ng/mL Urine Appearance (Clear) Urine Protein (Negative) Urine Ketones (Negative) Urine Blood (Negative) Ur Leukocyte Esterase (Negative) Urine RBC (0-5) /hpf Urine WBC (0-5) /hpf Urine WBC Clumps (None) /hpf Urine Bacteria (None) /hpf Hyaline Casts (0-2) /lpf Urine Mucus (None) /hpf 11/03/21 11/03/21 11/03/21 Range/Units 03:40 05:43 05:51 Lymphocytes # (1.0-4.8) k/uL D-Dimer 1.97 H (<0.60) mg/L FEU ABG pO2 (83-108) mmHg ABG HCO3 (21-25) mmol/L ABG Total CO2 (19-24) mmol/L ABG O2 Saturation (94-97) % Chloride 109 H (98-107) mmol/L BUN 33 H (7-17) mg/dL Glucose 225 H (74-99) mg/dL POC Glucose (mg/dL) (75-99) mg/dL Calcium 6.5 L (8.4-10.2) mg/dL AST 43 H (14-36) U/L Lactate Dehydrogenase 1829 H (313-618) U/L C-Reactive Protein 14.4 H (<1.0) mg/dL Albumin 3.2 L (3.5-5.0) g/dL Procalcitonin (0.02-0.09) ng/mL Urine Appearance Cloudy H (Clear) Urine Protein 1+ H (Negative) Urine Ketones Trace H (Negative) Urine Blood Large H (Negative) Ur Leukocyte Esterase Large H (Negative) Urine RBC 49 H (0-5) /hpf Urine WBC >182 H (0-5) /hpf Urine WBC Clumps Few H (None) /hpf Urine Bacteria Occasional H (None) /hpf Hyaline Casts (0-2) /lpf Urine Mucus Rare H (None) /hpf 11/03/21 11/03/21 11/03/21 Range/Units 05:51 06:40 09:12 Lymphocytes # 0.4 L (1.0-4.8) k/uL D-Dimer (<0.60) mg/L FEU ABG pO2 (83-108) mmHg ABG HCO3 (21-25) mmol/L ABG Total CO2 (19-24) mmol/L ABG O2 Saturation (94-97) % Chloride (98-107) mmol/L BUN (7-17) mg/dL Glucose (74-99) mg/dL POC Glucose (mg/dL) 205 H (75-99) mg/dL Calcium (8.4-10.2) mg/dL AST (14-36) U/L Lactate Dehydrogenase (313-618) U/L C-Reactive Protein (<1.0) mg/dL Albumin (3.5-5.0) g/dL Procalcitonin (0.02-0.09) ng/mL Urine Appearance Cloudy H (Clear) Urine Protein 1+ H (Negative) Urine Ketones (Negative) Urine Blood Large H (Negative) Ur Leukocyte Esterase Large H (Negative) Urine RBC 88 H (0-5) /hpf Urine WBC >182 H (0-5) /hpf Urine WBC Clumps Many H (None) /hpf Urine Bacteria Many H (None) /hpf Hyaline Casts 19 H (0-2) /lpf Urine Mucus Occasional H (None) /hpf Assessment and Plan (1) Acute respiratory failure with hypoxia Current Visit: Yes Status: Acute Code(s): J96.01 - ACUTE RESPIRATORY FAILURE WITH HYPOXIA SNOMED Code(s): 52048485 (2) Pneumonia due to COVID-19 virus Current Visit: Yes Status: Acute Code(s): U07.1 - COVID-19; J12.82 - PNEUMONIA DUE TO CORONAVIRUS DISEASE 2018 SNOMED Code(s): 305480097761655238 (3) Acute renal failure Current Visit: Yes Status: Acute Code(s): N17.9 - ACUTE KIDNEY FAILURE, UN SPECIFIED SNOMED Code(s): 51461356 (4) COVID-19 Current Visit: Yes Status: Acute Code(s): U07.1 - COVID-19 SNOMED Code(s): 305169212 (5) CAD (coronary artery disease) Current Visit: No Status: Acute Code(s): I25.10 - ATHSCL HEART DISEASE OF [place] CORONARY ARTERY W/O ANG PCTRS SNOMED Code(s): 53805203 (6) H/O myocardial infarction, greater than 8 weeks Current Visit: Yes Status: Acute Code(s): I25.2 - OLD MYOCARDIAL INFARCTION SNOMED Code(s): 9767334 (7) Morbid obesity with BMI of 50.0-59.9, adult Current Visit: Yes Status: Acute Code(s): E66.01 - MORBID (SEVERE) OBESITY DUE TO EXCESS CALORIES; Z68.43 - BODY MASS INDEX [BMI] 50.0-59.9, ADULT SNOMED Code(s): 503804741 (8) H/O ovarian cancer Current Visit: Yes Status: Acute Code(s): Z85.43 - PERSONAL HISTORY OF MALIGNANT NEOPLASM OF [place] SNOMED Code(s): 562394551 (9) Gait abnormality Current Visit: Yes Status: Acute Code(s): R26.9 - UNSPECIFIED ABNORMALITIES OF GAIT AND MOBILITY SNOMED Code(s): 16829632 (10) Wheelchair dependence Current Visit: Yes Status: Acute Code(s): Z99.3 - DEPENDENCE ON WHEELCHAIR SNOMED Code(s): 602274293 (11) GERD (gastroesophageal reflux disease) Current Visit: Yes Status: Acute Code(s): K21.9 - GASTRO-ESOPHAGEAL REFLUX DISEASE WITHOUT ESOPHAGITIS SNOMED Code(s): 139065594 (12) Essential (primary) hypertension Current Visit: Yes Status: Acute Code(s): I10 - ESSENTIAL (PRIMARY) HYPERTENSION SNOMED Code(s): 17802229 (13) Mixed hyperlipidemia Current Visit: Yes Status: Acute Code(s): E78.2 - MIXED HYPERLIPIDEMIA SNOMED Code(s): 223093710 Plan: She'll continue on Gentle IV Fluid Rehydration. She'll Continue Anticoagulation with Lovenox. She'll Continue on Current Cocktail Vitamin C D and Zinc along with Dexamethasone, Olumiiant. She'll remain on the Rocephin for about a coverage of possible UTI. She continues on Precedex for sedation She remains on insulin scale for hyperglycemia related to steroid use. Wait on Further Recommendations Pulmonology. She'll Repeat Labs in A.M. She'll Be Reevaluated Next 24 Hours. She has a very poor prognosis and she is aware that make her own decisions to make herself a DO NOT RESUSCITATE and has refused intubation.
[2021-11-03 14:00] LABS: Glucose,Whole Blood 188 mg/dL (75-99)
--- NOTE | 2021-11-03 14:15 | P.PN ---
Subjective Progress Note Date: 11/03/21 This is 66-year-old white female patient of Dr. Torin Pinedo with history of COVID-19 infection, patient was briefly hospitalized and was discharged home on 10/21/2021. During her last admission chest x-ray showed no evidence of acute cardiopulmonary disease, and patient did not require oxygen at discharge. She was discharged home to complete 8 more days of Decadron. Patient has extensive medical history including coronary artery disease with previous stenting, hyperlipidemia, previous history of myocardial infarction, liver/reflux, history of ovarian cancer status post total hysterectomy, compression fracture of the lumbar vertebrae, and chronic back pain, patient is able to walk but does use a wheelchair to get around for the most part, osteoarthritis a previous history of bilateral hip replacements and bilateral knee replacements, anxiety, depression, remote history of smoking but no history of chronic lung disease. Patient states after she went home she was extremely weak she had trouble getting around the house, and she had little to no help at home from her son. Reports worse savana shortness of breath, fever, ongoing diarrhea. Denied any nausea or vomiting, no compressive chest pain swelling or tenderness in calves. She was brought into the hospital by EMS for evaluation. She has a mild cough, she has a poor appetite, ongoing fatigue, she has loss of taste and smell. EMS found oxygen saturation in the 70s. Her chest x-ray in the emergency department with progressive mild scattered bilateral lung infiltrates the possibility of atypical pneumonia. Admission blood work showed a white count of 7.0, hemoglobin of 15.2, platelet count of 188, d-dimer of 1.66, electrolytes are within normal limits, BUN is 26 creatinine 1.38, mild lactic acidosis with a lactic acid of 2.2, ferritin of 883, AST of 79, ALT 41[place] [address], CRP is 32.8, pro calcitonin level was 0.20. Patient tested negative for COVID-19 by PCR test. CTA chest was completed, showing no acute pulmonary embolism within the limitations of the study, and lung windows showed bilateral diffuse moderate to marked patchy round glass opacities. Patient was started on Decadron 6 blood gram daily, multivitamins, inhaled bronchodilators, she was given IV hydration, she is awake alert this morning she is currently on 10 L of oxygen, she is short of breath with exertion but appears to be in no acute distress. She remains weak and she still having diarrhea. No abdominal pain, abdomen is nontender. On 11/01/2021 patient seen in follow-up on selective care unit. She still remains on high flow oxygen, at 15 L/m, and 100 percent nonrebreather mask, does not appear to be in any acute distress, mild dry cough, low-grade fevers with a temp of 99.1F. No complaints of chest discomfort, she is awake and alert, she was able to get up in the chair with physical therapy, breathing comfortably. Lungs reveal diminished breath sounds with some minimal crackles at bilateral bases, his labs have been reviewed with blood cell count is 8.4, hemoglobin is 15.3, d-dimer is improving and is down to 1.16, electrolytes are within normal limits, BUN is 38 and creatinine is 1.54, her renal function has further worsened. She states her diarrhea has improved and she has not had any diarrhea episodes while in the hospital. Currently remains on Decadron 6 mg daily, she is on prophylactic Lovenox, CTA chest and lower extremity Dopplers were negative for PE or DVT within the limitations of the study. Inflammatory markers are still quite elevated, with LDH of 1336 and CRP of 20.6, patient's proBNP was within normal limits at 118. Her appetite remains suboptimal, she states she is able to consume cold and soft consistencies. But has had no nausea vomiting or diarrhea since in the hospital. On today's evaluation of 11/02/2021, the patient is still struggling with her breathing. The patient remains on a high flow oxygen at 15 L along with 100% nonrebreather facemask. She has short of breath at rest. She is short of breath while talking long sentences and she easily desaturates yet she recover speech is able to maintain a pulse ox is above 88%. She remains on Decadron. No nausea. No vomiting. No diarrhea for now. No abdominal pain. The patient had developed an acute kidney injury yesterday and the creatinine was up to 1.54 and then it dropped to 1.24 and the rest of the electrodes are all within normal limits. In terms of the inflammatory markers, the patient had a elevated LDH level of 1336 and the CRP level was at 20.6. Bilirubin was at 0.9. D-dimer is at 1.16. Altered mentation. No other complaints otherwise speech is obese elderly female patient with a body mass index of 57.4. Venous Dopplers obtained on 10/31/2021 were negative and the patient had a CT angiogram at time of admission that was also negative for any pulmonary embolism that showed some cardiomegaly with diffuse bilateral pulmonary infiltrates consistent with COVID 90 related pneumonia 09/02/2022, the patient got transferred to the intensive care unit for further monitoring. Mother the patient was becoming more restless, agitated, nervous, anxious, and at times she was unable to retain Dr. therapeutic she was offered. Note that the patient is currently on Vapotherm 60 L with an FiO2 of 90% in addition to 100% nonrebreather facemask and a chest x-ray showing diffuse bilateral pulmonary infiltrate. I told that the patient was ultimately going to get intubated. I initiated a conversation with her about intubation mechanical ventilation. The patient declined. We made also focal to 2 of her sisters and both of them supported the patient's decision of not being intubated or placed on a mechanical ventilator. As such, for [place] status is DO NOT INTUBATE. As noted, the patient has been poor morbidly obese with a BMI of 57.4. The patient is on Precedex for agitation and she is currently running at a dose of 0.6 mcg/kg per minute. She is on normal saline at the rate of 20 mL an hour. Inflammatory markers continued to be elevated and LDH level is 1829, CRP level is at 14, d-dimer is at 1.97. Blood gases from yesterday showed a pH of 7.45 with a pCO2 of 44 and pO2 of 55. Her current pulse ox is around 88-89%. IV access needs to be status regarding her ongoing need for treatment and poor IV access. She remains on Decadron. She remains on Baricitinib. She remains on Lovenox for DVT prophylaxis. Mental status is adequate for now. No focal neurological deficits for now. Objective - Vital Signs Vital signs: Vital Signs Temp 98.7 F 11/03/21 12:00 Pulse 60 11/03/21 14:00 Resp 37 H 11/03/21 14:00 BP 165/104 11/03/21 14:00 Pulse Ox 88 L 11/03/21 14:00 Intake & Output 11/02/21 11/03/21 11/03/21 18:59 06:59 18:59 Intake Total 269.668 330.332 Output Total 120 500 840 Balance -120 -230.332 -509.668 Intake: IV 140 160 Sodium Chloride 0.9% 1, 140 160 000 ml @ 20 mls/hr IV . Q24H [facility] Rx#:[id number] Intake, IV Titration 129.668 170.332 Amount Dexmedetomidine/0.9% NaCl 129.668 170.332 (Pmx) 400 mcg In Empty Bag 1 bag @ 0.2 MCG/KG/HR 7.824 mls/hr IV .[id number] [facility] Rx#:[id number] Output: Urine 120 500 840 Other: Voiding Method External Catheter Indwelling Catheter - Exam GENERAL EXAM: Alert, very pleasant, 66-year-old morbidly obese white female, 100% nonrebreather, in addition to Vapotherm for nasal cannula. She is anxious and she is on Precedex for now. Her breathing is labored. She is tachypneic. She is able to maintain a pulse ox above 85%. Respiratory rate is in the mid 30s. HEAD: Normocephalic/atraumatic. EYES: Normal reaction of pupils, equal size. Conjunctiva pink, sclera white. NOSE: Clear with pink turbinates. THROAT: No erythema or exudates. NECK: No masses, no JVD, no thyroid enlargement, no adenopathy. CHEST: No chest wall deformity. Symmetrical expansion. LUNGS: Equal air entry with fine basilar crackles CVS: Regular rate and rhythm, normal S1 and S2, no gallops, no murmurs, no rubs ABDOMEN: Soft, nontender. No hepatosplenomegaly, normal bowel sounds, no guard ing or rigidity. EXTREMITIES: No clubbing, no edema, no cyanosis, 2+ pulses and upper and lower extremities. MUSCULOSKELETAL: Muscle strength and tone normal. SPINE: No scoliosis or deformity SKIN: No rashes CENTRAL NERVOUS SYSTEM: Alert and oriented -3. No focal deficits, tone is normal in all 4 extremities. PSYCHIATRIC: Alert and oriented -3. Appropriate affect. Intact judgment and insight. - Labs CBC & Chem 7: 11/03/21 05:51 11/03/21 05:51 Labs: Abnormal Lab Results - Last 24 Hours (Table) 11/02/21 11/02/21 11/02/21 Range/Units 09:21 16:34 20:47 Lymphocytes # (1.0-4.8) k/uL D-Dimer (<0.60) mg/L FEU ABG pO2 (83-108) mmHg ABG HCO3 (21-25) mmol/L ABG Total CO2 (19-24) mmol/L ABG O2 Saturation (94-97) % Chloride (98-107) mmol/L BUN (7-17) mg/dL Glucose (74-99) mg/dL POC Glucose (mg/dL) 170 H 152 H (75-99) mg/dL Calcium (8.4-10.2) mg/dL Ferritin (10.0-291.0) ng/mL AST (14-36) U/L Lactate Dehydrogenase (313-618) U/L C-Reactive Protein (<1.0) mg/dL Albumin (3.5-5.0) g/dL Procalcitonin 0.11 H (0.02-0.09) ng/mL Urine Appearance (Clear) Urine Protein (Negative) Urine Ketones (Negative) Urine Blood (Negative) Ur Leukocyte Esterase (Negative) Urine RBC (0-5) /hpf Urine WBC (0-5) /hpf Urine WBC Clumps (None) /hpf Urine Bacteria (None) /hpf Hyaline Casts (0-2) /lpf Urine Mucus (None) /hpf 11/02/21 11/03/21 11/03/21 Range/Units 22:11 03:29 03:40 Lymphocytes # (1.0-4.8) k/uL D-Dimer (<0.60) mg/L FEU ABG pO2 55 L* (83-108) mmHg ABG HCO3 30 H (21-25) mmol/L ABG Total CO2 31 H (19-24) mmol/L ABG O2 Saturation 88.9 L (94-97) % Chloride (98-107) mmol/L BUN (7-17) mg/dL Glucose (74-99) mg/dL POC Glucose (mg/dL) 151 H (75-99) mg/dL Calcium (8.4-10.2) mg/dL Ferritin (10.0-291.0) ng/mL AST (14-36) U/L Lactate Dehydrogenase (313-618) U/L C-Reactive Protein (<1.0) mg/dL Albumin (3.5-5.0) g/dL Procalcitonin (0.02-0.09) ng/mL Urine Appearance Cloudy H (Clear) Urine Protein 1+ H (Negative) Urine Ketones Trace H (Negative) Urine Blood Large H (Negative) Ur Leukocyte Esterase Large H (Negative) Urine RBC 49 H (0-5) /hpf Urine WBC >182 H (0-5) /hpf Urine WBC Clumps Few H (None) /hpf Urine Bacteria Occasional H (None) /hpf Hyaline Casts (0-2) /lpf Urine Mucus Rare H (None) /hpf 11/03/21 11/03/21 11/03/21 Range/Units 05:43 05:51 05:51 Lymphocytes # 0.4 L (1.0-4.8) k/uL D-Dimer 1.97 H (<0.60) mg/L FEU ABG pO2 (83-108) mmHg ABG HCO3 (21-25) mmol/L ABG Total CO2 (19-24) mmol/L ABG O2 Saturation (94-97) % Chloride 109 H (98-107) mmol/L BUN 33 H (7-17) mg/dL Glucose 225 H (74-99) mg/dL POC Glucose (mg/dL) (75-99) mg/dL Calcium 6.5 L (8.4-10.2) mg/dL Ferritin 743.0 H (10.0-291.0) ng/mL AST 43 H (14-36) U/L Lactate Dehydrogenase 1829 H (313-618) U/L C-Reactive Protein 14.4 H (<1.0) mg/dL Albumin 3.2 L (3.5-5.0) g/dL Procalcitonin (0.02-0.09) ng/mL Urine Appearance (Clear) Urine Protein (Negative) Urine Ketones (Negative) Urine Blood (Negative) Ur Leukocyte Esterase (Negative) Urine RBC (0-5) /hpf Urine WBC (0-5) /hpf Urine WBC Clumps (None) /hpf Urine Bacteria (None) /hpf Hyaline Casts (0-2) /lpf Urine Mucus (None) /hpf 11/03/21 11/03/21 11/03/21 Range/Units 06:40 09:12 13:59 Lymphocytes # (1.0-4.8) k/uL D-Dimer (<0.60) mg/L FEU ABG pO2 (83-108) mmHg ABG HCO3 (21-25) mmol/L ABG Total CO2 (19-24) mmol/L ABG O2 Saturation (94-97) % Chloride (98-107) mmol/L BUN (7-17) mg/dL Glucose (74-99) mg/dL POC Glucose (mg/dL) 205 H 188 H (75-99) mg/dL Calcium (8.4-10.2) mg/dL Ferritin (10.0-291.0) ng/mL AST (14-36) U/L Lactate Dehydrogenase (313-618) U/L C-Reactive Protein (<1.0) mg/dL Albumin (3.5-5.0) g/dL Procalcitonin (0.02-0.09) ng/mL Urine Appearance Cloudy H (Clear) Urine Protein 1+ H (Negative) Urine Ketones (Negative) Urine Blood Large H (Negative) Ur Leukocyte Esterase Large H (Negative) Urine RBC 88 H (0-5) /hpf Urine WBC >182 H (0-5) /hpf Urine WBC Clumps Many H (None) /hpf Urine Bacteria Many H (None) /hpf Hyaline Casts 19 H (0-2) /lpf Urine Mucus Occasional H (None) /hpf Assessment and Plan Plan: #1. Acute Hypoxic respiratory failure related to COVID 19 pneumonia. This patient has elevated inflammatory markers. She presented to us with worsening hypoxic respiratory failure and the patient got transferred to the intensive care unit yesterday on Vapotherm 60 L with an FiO2 of 90% in addition to 100% on facemask. The patient's breathing is labored. I was contemplating intubation mechanical ventilation. The patient made decision of DO NOT INTUBATE code status and this has been also confirmed and discussed with her family members including 2 of her sisters. As such, the patient is currently on Decadron and Baricitinib. Chest x-ray still showing diffuse bilateral pulmonary infiltrates. She'll been managed with noninvasive modes of oxygenation including BiPAP if needed. For now, she remains on Vapotherm Airvo in addition to 100% on a beta facemasks. #2. Weakness, fatigue, diarrhea related to recent history of COVID-19 infection #3. Elevated inflammatory markers related to COVID-19 infection #4. Acute kidney injury related to dehydration and diarrhea, creatinine is improving and the creatinine is normalizing. #5. Mild lactic acidosis related to dehydration improved with fluid resuscitation #6. Morbid obesity with BMI 57.4 kg/m #7. Coronary artery disease with previous stenting #8. History of ovarian cancer status post total hysterectomy #9. Chronic back pain #10. History of compression fractures of lumbar vertebrae #11. Gait dysfunction, patient is wheelchair bound for the most part #12. HyperLipidemia #13. Remote history of smoking #14. GERD/reflux #15. Anxiety and depression Plan Continue Decadron6 mg IV every 12 hours. Baricitinib per protocol Lovenox 40 mg subcu for DVT prophylaxis Monitor inflammatory markers Keep the patient on high flow oxygen at 15 L along with 100% nonrebreather facemask May need to transfer to ICU if there is any worsening her respiratory status Patient was transferred to the intensive care unit for further monitoring Renal function is improved Decided to go with a DO NOT INTUBATE CODE STATUS Prognosis poor baseline above-mentioned comorbidities. We'll continue day treatment and will use noninvasive modes of oxygenation including BiPAP if needed. Case has been discussed with the family including the sisters We'll continue to follow make further recommendations based on her progress. Very critical situation, high likelihood for further clinical decompensation. This critically care evaluation was done and more than 30 minutes. Time with Patient: Greater than 30
[2021-11-03] MEDS: LIDOCAINE 5% PATCH TOPICAL SCH (17:44)
[2021-11-03 18:15] LABS: Glucose,Whole Blood 175 mg/dL (75-99)
[2021-11-03] MEDS: MORPHINE SULFATE 2 MG/ML SYRINGE IVP PRN ×2 (21:33→23:39)
[2021-11-04 00:01] LABS: Glucose,Whole Blood 164 mg/dL (75-99)
[2021-11-04] MEDS: INSULIN ASPART (NovoLOG) 100 UNIT/ML VIAL SQ SCH ×5 (00:02→23:28)
[2021-11-04] MEDS: SODIUM CHLORIDE 0.9% 1,000 ML IV SCH ×2 (01:31→21:05)
[2021-11-04] MEDS: ENALAPRILAT 1.25 MG/ML 1 ML VIAL IVP PRN ×4 (01:36→21:00)
[2021-11-04] MEDS: MORPHINE SULFATE 2 MG/ML SYRINGE IVP PRN ×9 (02:03→23:19)
[2021-11-04] MEDS: DEXMEDETOMIDINE/0.9% NACL(PMX) 400 MCG in EMPTY BAG 1 BAG IV SCH ×7 (02:31→23:18)
[2021-11-04 06:32] LABS: Glucose,Whole Blood 175 mg/dL (75-99)
[2021-11-04] MEDS: PANTOPRAZOLE 40 MG TABLET PO SCH (07:05)
[2021-11-04 07:18] LABS: Basophils % (A) 0 %; Eosinophils % (A) 0 %; HCT 50.6 % (34.0-46.0); Hypochromasia Slight; Lymphocytes # (A) 0.4 k/uL (1.0-4.8); Lymphocytes % (A) 3 %; MCH 31.4 pg (25.0-35.0); MCHC 31.6 g/dL (31.0-37.0); MCV 99.2 fL (80.0-100.0); Mean Platelet Volume 9.4; Monocytes # (A) 0.6 k/uL (0-1.0); Monocytes % (A) 5 %; Neutrophils # (A) 10.1 k/uL (1.3-7.7); Neutrophils % (A) 89 %; Platelet Count 218 k/uL (150-450); RDW 13.7 % (11.5-15.5); WBC 11.3 k/uL (3.8-10.6)
[2021-11-04 07:42] LABS: Calcium 6.9 mg/dL (8.4-10.2); Potassium 4.9 mmol/L (3.5-5.1)
[2021-11-04] MEDS: ALBUTEROL HFA INHALER INHALATION SCH ×4 (08:09→20:11)
[2021-11-04] MEDS: PANTOPRAZOLE 40 MG/10 ML VIAL IVP SCH (08:57)
[2021-11-04] MEDS: SODIUM CHLORIDE 0.45% 1,000 ML IV SCH ×2 (09:00→21:04)
--- NOTE | 2021-11-04 09:03 | P.PN ---
<Sydnee Mar M - Last Filed: 11/04/21 09:03> Subjective Progress Note Date: 11/04/21 Principal diagnosis: Dyspnea, hypoxia This is 66-year-old white female patient of Dr. Torin Pinedo with history of COVID-19 infection, patient was briefly hospitalized and was discharged home on 10/21/2021. During her last admission chest x-ray showed no evidence of acute cardiopulmonary disease, and patient did not require oxygen at discharge. She was discharged home to complete 8 more days of Decadron. Patient has extensive medical history including coronary artery disease with previous stenting, hyperlipidemia, previous history of myocardial infarction, liver/reflux, history of ovarian cancer status post total hysterectomy, compression fracture of the lumbar vertebrae, and chronic back pain, patient is able to walk but does use a wheelchair to get around for the most part, osteoarthritis a previous history of bilateral hip replacements and bilateral knee replacements, anxiety, depression, remote history of smoking but no history of chronic lung disease. Patient states after she went home she was extremely weak she had trouble getting around the house, and she had little to no help at home from her son. Reports worsening shortness of breath, fever, ongoing diarrhea. Denied any nausea or vomiting, no compressive chest pain swelling or tenderness in calves. She was brought into the hospital by EMS for evaluation. She has a mild cough, she has a poor appetite, ongoing fatigue, she has loss of taste and smell. EMS found oxygen saturation in the 70s. Her chest x-ray in the emergency department with progressive mild scattered bilateral lung infiltrates the possibility of atypical pneumonia. Admission blood work showed a white count of 7.0, hemoglobin of 15.2, platelet count of 188, d-dimer of 1.66, electrolytes are within normal limits, BUN is 26 creatinine 1.38, mild lactic acidosis with a lactic acid of 2.2, ferritin of 883, AST of 79, [place] 41[place] [address], CRP is 32.8, pro calcitonin level was 0.20. Patient tested negative for COVID-19 by PCR test. CTA chest was completed, showing no acute pulmonary embolism within the limitations of the study, and lung windows showed bilateral diffuse moderate to marked patchy round glass opacities. Patient was started on Decadron 6 blood gram daily, multivitamins, inhaled bronchodilators, she was given IV hydration, she is awake alert this morning she is currently on 10 L of oxygen, she is short of breath with exertion but appears to be in no acute distress. She remains weak and she still having diarrhea. No abdominal pain, abdomen is nontender. On 11/01/2021 patient seen in follow-up on selective care unit. She still remains on high flow oxygen, at 15 L/m, and 100 percent nonrebreather mask, does not appear to be in any acute distress, mild dry cough, low-grade fevers with a temp of 99.1F. No complaints of chest discomfort, she is awake and alert, she was able to get up in the chair with physical therapy, breathing comfortably. Lungs reveal diminished breath sounds with some minimal crackles at bilateral bases, his labs have been reviewed with blood cell count is 8.4, hemoglobin is 15.3, d-dimer is improving and is down to 1.16, electrolytes are within normal limits, BUN is 38 and creatinine is 1.54, her renal function has further worsened. She states her diarrhea has improved and she has not had any diarrhea episodes while in the hospital. Currently remains on Decadron 6 mg daily, she is on prophylactic Lovenox, CTA chest and lower extremity Dopplers were negative for PE or DVT within the limitations of the study. Inflammatory markers are still quite elevated, with LDH of 1336 and CRP of 20.6, patient's proBNP was within normal limits at 118. Her appetite remains suboptimal, she states she is able to consume cold and soft consistencies. But has had no nausea vomiting or diarrhea since in the hospital. On today's evaluation of 11/02/2021, the patient is still struggling with her breathing. The patient remains on a high flow oxygen at 15 L along with 100% nonrebreather facemask. She has short of breath at rest. She is short of breath while talking long sentences and she easily desaturates yet she recover speech is able to maintain a pulse ox is above 88%. She remains on Decadron. No nausea. No vomiting. No diarrhea for now. No abdominal pain. The patient had developed an acute kidney injury yesterday and the creatinine was up to 1.54 and then it dropped to 1.24 and the rest of the electrodes are all within normal limits. In terms of the inflammatory markers, the patient had a elevated LDH level of 1336 and the CRP level was at 20.6. Bilirubin was at 0.9. D-dimer is at 1.16. Altered mentation. No other complaints otherwise speech is obese el bryant female patient with a body mass index of 57.4. Venous Dopplers obtained on 10/31/2021 were negative and the patient had a CT angiogram at time of admission that was also negative for any pulmonary embolism that showed some cardiomegaly with diffuse bilateral pulmonary infiltrates consistent with COVID 90 related pneumonia 11/03/2021, the patient got transferred to the intensive care unit for further monitoring. Mother the patient was becoming more restless, agitated, nervous, anxious, and at times she was unable to retain DrCassius molina she was offered. Note that the patient is currently on Vapotherm 60 L with an FiO2 of 90% in addition to 100% nonrebreather facemask and a chest x-ray showing diffuse bilateral pulmonary infiltrate. I told that the patient was ultimately going to get intubated. I initiated a conversation with her about intubation mechanical ventilation. The patient declined. We made also focal to 2 of her sisters and both of them supported the patient's decision of not being intubated or placed on a mechanical ventilator. As such, for Baker status is DO NOT INTUBATE. As noted, the patient has been poor morbidly obese with a BMI of 57.4. The patient is on Precedex for agitation and she is currently running at a dose of 0.6 mcg/kg per minute. She is on normal saline at the rate of 20 mL an hour. Inflammatory markers continued to be elevated and LDH level is 1829, CRP level is at 14, d-dimer is at 1.97. Blood gases from yesterday showed a pH of 7.45 with a pCO2 of 44 and pO2 of 55. Her current pulse ox is around 88-89%. IV access needs to be status regarding her ongoing need for treatment and poor IV access. She remains on Decadron. She remains on Baricitinib. She remains on Lovenox for DVT prophylaxis. Mental status is adequate for now. No focal neurological deficits for now. On 11/04/2021 patient seen in follow-up in the intensive care unit, she remains on BiPAP support with pressures of 14 and 7 and FiO2 100%, and her pulse ox is ranging between 84-86%. Patient is lethargic, but easily arousable to voice, she is currently on Precedex at 0.7 mics per kilo per minute, and 0.9 normal saline at a rate of 20 ML per hour. In the last 48 hours patient's hypoxia and dyspnea have significantly worsened, patient was transferred to the intensive care unit, patient was ready on dexamethasone 6 program daily which was increa sed to twice daily, patient was started on Baricitinib and Rocephin for possible urinary tract infection. Inflammatory markers are still elevated on yesterday's labs, today's labs are still pending, yesterday's chest x-ray showing significant bilateral airspace disease related to recent history of COVID-19 pneumonia. Patient is requesting a break from the BiPAP support. She has tolerated BiPAP support fairly well, but she is tachypneic, she is anxious, her respiratory rate is 32, tidal volume is 407, minute ventilation is 13.2. She has made herself a DO NOT RESUSCITATE, we'll continue supportive treatment at this time, we'll give the patient break off BiPAP and place her on Airvo today. Today's labs have been reviewed White blood cell count is 11.3, hemoglobin is 16, platelet count is 218, lymphocyte count of 0.4, serum sodium is 147, potassium is 4.9, chloride is 111, B1 is 41, creatinine is 1.02, LFTs were improving on yesterday's labs, progesterone level was negative at 0.11, ur inalysis showed evidence of a urinary tract infection by urine cultures are still pending at this time. Intake has been extremely poor prior to presentation to the hospital, in addition patient was having diarrhea which has improved while in the hospital. However oral intake has remained significantly diminished especially since the patient went on BiPAP support. Objective - Vital Signs Vital signs: Vital Signs Temp 98.4 F 11/04/21 04:00 Pulse 46 L 11/04/21 07:00 Resp 31 H 11/04/21 07:00 BP 171/82 11/04/21 07:00 Pulse Ox 87 L 11/04/21 07:00 Intake & Output 11/03/21 11/04/21 11/04/21 18:59 06:59 18:59 Intake Total 510.332 461.691 20 Output Total 1050 900 75 Balance -539.668 -438.309 -55 Weight 157 kg Intake: IV 240 240 20 Sodium Chloride 0.9% 1, 240 240 20 000 ml @ 20 mls/hr IV . Q24H [facility] Rx#:[id number] Intake, IV Titration 270.332 221.691 Amount Dexmedetomidine/0.9% NaCl 270.332 221.691 (Pmx) 400 mcg In Empty Bag 1 bag @ 0.2 MCG/KG/HR 7.824 mls/hr IV .[id number] [facility] Rx#:[id number] Output: Urine 1050 900 75 Other: Voiding Method Indwelling Catheter Indwelling Catheter - Exam GENERAL EXAM: Alert, anxious 66-year-old morbidly obese white female, on BIpap support at 14/7, 100% short of breath with exertion but in no acute distress HEAD: Normocephalic/atraumatic. EYES: Normal reaction of pupils, equal size. Conjunctiva pink, sclera white. NOSE: Clear with pink turbinates. THROAT: No erythema or exudates. NECK: No masses, no JVD, no thyroid enlargement, no adenopathy. CHEST: No chest wall deformity. Symmetrical expansion. LUNGS: Equal air entry with fine basilar crackles CVS: Regular rate and rhythm, normal S1 and S2, no gallops, no murmurs, no rubs ABDOMEN: Soft, nontender. No hepatosplenomegaly, normal bowel sounds, no guarding or rigidity. EXTREMITIES: No clubbing, no edema, no cyanosis, 2+ pulses and upper and lower extremities. MUSCULOSKELETAL: Muscle strength and tone normal. SPINE: No scoliosis or deformity SKIN: No rashes CENTRAL NERVOUS SYSTEM: Alert and oriented -3. No focal deficits, tone is normal in all 4 extremities. PSYCHIATRIC: Alert and oriented -3. Appropriate affect. Intact judgment and insight. - Labs CBC & Chem 7: 11/04/21 06:26 11/04/21 06:26 Labs: Abnormal Lab Results - Last 24 Hours (Table) 11/03/21 11/03/21 11/03/21 Range/Units 05:51 09:12 13:59 WBC (3.8-10.6) k/uL Hct (34.0-46.0) % Neutrophils # (1.3-7.7) k/uL Lymphocytes # (1.0-4.8) k/uL Sodium (137-145) mmol/L Chloride (98-107) mmol/L BUN (7-17) mg/dL Glucose (74-99) mg/dL POC Glucose (mg/dL) 188 H (75-99) mg/dL Calcium (8.4-10.2) mg/dL Ferritin 743.0 H (10.0-291.0) ng/mL Urine Appearance Cloudy H (Clear) Urine Protein 1+ H (Negative) Urine Blood Large H (Negative) Ur Leukocyte Esterase Large H (Negative) Urine RBC 88 H (0-5) /hpf Urine WBC >182 H (0-5) /hpf Urine WBC Clumps Many H (None) /hpf Urine Bacteria Many H (None) /hpf Hyaline Casts 19 H (0-2) /lpf Urine Mucus Occasional H (None) /hpf 11/03/21 11/03/21 11/04/21 Range/Units 18:13 23:58 06:26 WBC 11.3 H (3.8-10.6) k/uL Hct 50.6 H (34.0-46.0) % Neutrophils # 10.1 H (1.3-7.7) k/uL Lymphocytes # 0.4 L (1.0-4.8) k/uL Sodium (137-145) mmol/L Chloride (98-107) mmol/L BUN (7-17) mg/dL Glucose (74-99) mg/dL POC Glucose (mg/dL) 175 H 164 H (75-99) mg/dL Calcium (8.4-10.2) mg/dL Ferritin (10.0-291.0) ng/mL Urine Appearance (Clear) Urine Protein (Negative) Urine Blood (Negative) Ur Leukocyte Esterase (Negative) Urine RBC (0-5) /hpf Urine WBC (0-5) /hpf Urine WBC Clumps (None) /hpf Urine Bacteria (None) /hpf Hyaline Casts (0-2) /lpf Urine Mucus (None) /hpf 11/04/21 11/04/21 Range/Units 06:26 06:29 WBC (3.8-10.6) k/uL Hct (34.0-46.0) % Neutrophils # (1.3-7.7) k/uL Lymphocytes # (1.0-4.8) k/uL Sodium 147 H (137-145) mmol/L Chloride 111 H (98-107) mmol/L BUN 41 H (7-17) mg/dL Glucose 188 H (74-99) mg/dL POC Glucose (mg/dL) 175 H (75-99) mg/dL Calcium 6.9 L (8.4-10.2) mg/dL Ferritin (10.0-291.0) ng/mL Urine Appearance (Clear) Urine Protein (Negative) Urine Blood (Negative) Ur Leukocyte Esterase (Negative) Urine RBC (0-5) /hpf Urine WBC (0-5) /hpf Urine WBC Clumps (None) /hpf Urine Bacteria (None) /hpf Hyaline Casts (0-2) /lpf Urine Mucus (None) /hpf Microbiology - Last 24 Hours (Table) 11/03/21 03:40 Urine Culture - Preliminary Urine,Voided Assessment and Plan Plan: #1. Acute Hypoxic respiratory failure related to COVID 19 pneumonia. Symptom onset was greater than 10 days ago, patient is outside the window for Remdesivir or Sotrovimab. Patient had a recent hospitalization for COVID-19 infection with symptoms of nausea vomiting and diarrhea,. Patient's chest x-ray during her last admission showed no acute cardiopulmonary disease, she was discharged home on 10/21/2021 and did not require oxygen at discharge. Patient was discharged home to complete a day course of Decadron. Patient is a non-vaccinated adult. Patient had worsening in her breathing and was started on Baricitinib #2. Weakness, fatigue, diarrhea related to recent history of COVID-19 infection #3. Limited inflammatory markers related to COVID-19 infection #4. Acute kidney injury related to dehydration and diarrhea #5. Mild lactic acidosis related to dehydration improved with fluid resuscitation #6. Morbid obesity with BMI 57.4 kg/m #7. Coronary artery disease with previous stenting #8. History of ovarian cancer status post total hysterectomy #9. Chronic back pain #10. History of compression fractures of lumbar vertebrae #11. Gait dysfunction, patient is wheelchair bound for the most part #12. HyperLipidemia #13. Remote history of smoking #14. GERD/reflux #15. Anxiety and depression #16. Possible urinary tract infection, urine culture is pending, patient is covered with Rocephin Plan: Continue current medical treatment Continue Decadron 6 mg twice daily Continue multivitamins Continue Lovenox 40 mg daily Today's labs reviewed change IV fluids to 0.45 at 75 ml/hr obtain midline IV catheters Continue with Rocephin, awaiting urine culture Continue Baricitinib Will give patient a break off BiPap, try Airvo Code status a DNR continue supportive treatment Prognosis is extremely guarded I performed a history & physical examination of the patient and discussed their management with my nurse practitioner, Sydnee Mar. I reviewed the nurse practitioner's note and agree with the documented findings and plan of care. Lung sounds are positive for diffuse crackles throughout the lung [place]. The findings and the impression was discussed with the patient. I attest to the documentation by the nurse practitioner. I have personally seen and examined the patient, performed the documentation and the assessment and plan as written. Number of minutes spent on the visit: [10] Time with Patient: Less than 30 <Alonzo Landa - Last Filed: 11/04/21 10:05> Objective - Vital Signs Vital signs: Vital Signs Temp 98.5 F 11/04/21 08:00 Pulse 64 11/04/21 09:00 Resp 40 H 11/04/21 09:00 BP 179/89 11/04/21 09:00 Pulse Ox 82 L 11/04/21 09:00 Intake & Output 11/03/21 11/04/21 11/04/21 18:59 06:59 18:59 Intake Total 510.332 461.691 101.373 Output Total 1050 900 75 Balance -539.668 -438.309 26.373 Weight 157 kg Intake: IV 240 240 20 Sodium Chloride 0.9% 1, 240 240 20 000 ml @ 20 mls/hr IV . Q24H [facility] Rx#:[id number] Intake, IV Titration 270.332 221.691 81.373 Amount Dexmedetomidine/0.9% NaCl 270.332 221.691 81.373 (Pmx) 400 mcg In Empty Bag 1 bag @ 0.2 MCG/KG/HR 7.824 mls/hr IV .[id number] [facility] Rx#:[id number] Output: Urine 1050 900 75 Other: Voiding Method Indwelling Catheter Indwelling Catheter - Labs CBC & Chem 7: 11/04/21 06:26 11/04/21 06:26 Labs: Abnormal Lab Results - Last 24 Hours (Table) 02/11/03/21 11/03/21 Range/Units 05:51 09:12 13:59 WBC (3.8-10.6) k/uL Hct (34.0-46.0) % Neutrophils # (1.3-7.7) k/uL Lymphocytes # (1.0-4.8) k/uL Sodium (137-145) mmol/L Chloride (98-107) mmol/L BUN (7-17) mg/dL Glucose (74-99) mg/dL POC Glucose (mg/dL) 188 H (75-99) mg/dL Calcium (8.4-10.2) mg/dL Ferritin 743.0 H (10.0-291.0) ng/mL Urine Appearance Cloudy H (Clear) Urine Protein 1+ H (Negative) Urine Blood Large H (Negative) Ur Leukocyte Esterase Large H (Negative) Urine RBC 88 H (0-5) /hpf Urine WBC >182 H (0-5) /hpf Urine WBC Clumps Many H (None) /hpf Urine Bacteria Many H (None) /hpf Hyaline Casts 19 H (0-2) /lpf Urine Mucus Occasional H (None) /hpf 11/03/21 11/03/21 11/04/21 Range/Units 18:13 23:58 06:26 WBC 11.3 H (3.8-10.6) k/uL Hct 50.6 H (34.0-46.0) % Neutrophils # 10.1 H (1.3-7.7) k/uL Lymphocytes # 0.4 L (1.0-4.8) k/uL Sodium (137-145) mmol/L Chloride (98-107) mmol/L BUN (7-17) mg/dL Glucose (74-99) mg/dL POC Glucose (mg/dL) 175 H 164 H (75-99) mg/dL Calcium (8.4-10.2) mg/dL Ferritin (10.0-291.0) ng/mL Urine Appearance (Clear) Urine Protein (Negative) Urine Blood (Negative) Ur Leukocyte Esterase (Negative) Urine RBC (0-5) /hpf Urine WBC (0-5) /hpf Urine WBC Clumps (None) /hpf Urine Bacteria (None) /hpf Hyaline Casts (0-2) /lpf Urine Mucus (None) /hpf 11/04/21 11/04/21 Range/Units 06:26 06:29 WBC (3.8-10.6) k/uL Hct (34.0-46.0) % Neutrophils # (1.3-7.7) k/uL Lymphocytes # (1.0-4.8) k/uL Sodium 147 H (137-145) mmol/L Chloride 111 H (98-107) mmol/L BUN 41 H (7-17) mg/dL Glucose 188 H (74-99) mg/dL POC Glucose (mg/dL) 175 H (75-99) mg/dL Calcium 6.9 L (8.4-10.2) mg/dL Ferritin (10.0-291.0) ng/mL Urine Appearance (Clear) Urine Protein (Negative) Urine Blood (Negative) Ur Leukocyte Esterase (Negative) Urine RBC (0-5) /hpf Urine WBC (0-5) /hpf Urine WBC Clumps (None) /hpf Urine Bacteria (None) /hpf Hyaline Casts (0-2) /lpf Urine Mucus (None) /hpf Microbiology - Last 24 Hours (Table) 11/03/21 03:40 Urine Culture - Preliminary Urine,Voided Assessment and Plan Plan: There is a joint evaluation was done along with a nurse practitioner. I personally evaluated the patient along with the nurse hazardous material technician her. I was involved in every decision making in this patient. I fully agree on the assessment and plan that was sent for by the nurse practitioner. This information was done for more than 20 minutes. The patient's condition is critical for now. High likelihood that the patient may decompensated further as the patient's respiratory status is very borderline on the BiPAP. She confirmed to me that she wants a DNR/DNI CODE STATUS. In fact she did not want also the BiPAP. Based on that, I decided to put her back on a combination of Airvo and 100% on a beta facemasks. This may be potentially suboptimal and the patient may desaturate. However, she categorically declined the BiPAP. She is awake and conscious. She had a considered to end-of-life care there is any further decompensation respiratory status. This evaluation was done and more than 25 minutes. Medication was reviewed.
[2021-11-04] MEDS: ASCORBIC ACID 500 MG TAB PO SCH ×2 (09:19→21:01)
[2021-11-04] MEDS: BARICITINIB 2 MG TABLET PO SCH (09:19)
[2021-11-04] MEDS: ASPIRIN 81 MG PO SCH (09:19)
[2021-11-04] MEDS: ZINC SULFATE 220 MG CAP PO SCH (09:20)
[2021-11-04] MEDS: LIDOCAINE 5% PATCH TOPICAL SCH (09:20)
[2021-11-04] MEDS: COLCHICINE 0.6 MG EACH PO SCH ×2 (09:20→21:01)
[2021-11-04] MEDS: CHOLECALCIFEROL 25 MCG (1000 IU) TABLET PO SCH (09:20)
[2021-11-04] MEDS: DEXAMETHASONE SOD PHOSPHATE 10 MG/ML 1 ML VIAL IVP SCH ×2 (09:22→21:00)
[2021-11-04] MEDS: ENOXAPARIN 40 MG/0.4 ML SYRINGE SQ SCH (09:22)
--- NOTE | 2021-11-04 12:23 | P.PN ---
Subjective Progress Note Date: 11/04/21 This is a 66-year-old female with past medical history of recent covid, , CAD, gastroesophageal reflux disease, morbid obesity, ovarian cancer, and multiple other medical issues presented to the ER with complaints of worsening shortness of breath. Recently admitted with Covid, respiratory status stable, did not require any oxygen ,discharged on Covid cocktail including Decadron. Reporting she had no help at home from her son, reporting multiple social issues being addressed by case management/social work. Shortness of breath worsened, loss of taste and smell with appetite decreased, developed diarrhea. Denies nausea vomiting or abdominal pain. EMS per ER reported O2 sat of the 70s. Chest x-ray reported progressive mild scattered bilateral lung infiltrates with possibility of atypical pneumonia. Chest CTA Limited study, reported negative for PE, bilateral diffuse moderate to marked patchy groundglass opacity's, no pleural effusion. Doppler pending. Afebrile, WBC WNL, hemoglobin 15.2, platelets 188, d-dimer 166, electrolytes WNL, BUN 26, creatinine 1.38( baseline 0.9), lactic acid 2.2, ferritin 883, AST 79, ALT 41, LDH 1713, CRP 32.8, pro- calcitonin 0.2. Greenberg virus PCR reported negative. Covid cocktail initiated including Decadron IV, IV fluid hydration. Currently maintaining O2 sats in the 90s on 10 L high flow nasal cannula. 11/01/2021 maintaining O2 sats in the high 80s on 15 L high flow nasal cannula with nonrebreather mask on standby, while attempting to eat bites of breakfast. Denies nausea, vomiting or diarrhea-none since admission. T-max 99.1, normal WB C. Renal function worsening, BUN 38, creatinine 1.54. Inflammatory markers : d-dimer, LDH and CRP elevated and decreasing with ferritin pending. ProBNP within normal limits. AST, ALT trending down. Denies chest pain, palpitations or chest pressure. Doppler of Lower extremities reviewed. 11/04/2021 remains on BiPAP support, 14/7, 100% FiO2, maintaining O2 sats currently in the low 80s. Tachypneic. Maintained on Precedex, covid regimine, Baricitinib . Empiric Rocephin, urine culture pending. Afebrile, WBC 11.3. Hemoglobin 16, platelets 218. Sodium 146, potassium 4.9, chloride 111, bicarb 28, BUN 41, creatinine 1.02. Objective - Vital Signs Vital signs: Vital Signs Temp 98.5 F 11/04/21 08:00 Pulse 56 L 11/04/21 11:00 Resp 36 H 11/04/21 11:00 BP 157/83 11/04/21 11:00 Pulse Ox 81 L 11/04/21 11:00 Intake & Output 11/03/21 11/04/21 11/04/21 18:59 06:59 18:59 Intake Total 510.332 461.691 266.373 Output Total 1050 900 300 Balance -539.668 -438.309 -33.627 Weight 157 kg Intake: IV 240 240 60 Sodium Chloride 0.9% 1, 240 240 60 000 ml @ 20 mls/hr IV . Q24H [facility] Rx#:[id number] Intake, IV Titration 270.332 221.691 206.373 Amount Dexmedetomidine/0.9% NaCl 270.332 221.691 81.373 (Pmx) 400 mcg In Empty Bag 1 bag @ 0.2 MCG/KG/HR 7.824 mls/hr IV .[id number] [facility] Rx#:[id number] Sodium Chloride 0.45% 1, 75 000 ml @ 75 mls/hr IV . [id number] [facility] Rx#:[id number] cefTRIAXone 1 gm In 50 Sodium Chloride 0.9% 50 ml @ 100 mls/hr IVPB Q24HR [facility] Rx#:[id number] Output: Urine 1050 900 300 Other: Voiding Method Indwelling Catheter Indwelling Catheter Indwelling Catheter - Exam PHYSICAL EXAM: VITAL SIGNS: [As above] GENERAL: Lethargic, Alert and oriented 3, Sitting up in bed, anxious,respiratory effort increased HEENT: Conjunctivae normal. eyes normal. NECK: No JVD. No thyroid enlargement. No LNs CARDIOVASCULAR: S1, S2 regular. No murmur RESPIRATION: Coarse, bilateral diminished bases with fine bibasilar crackles. ABDOMEN: Soft, nontender. No guarding. no masses palpable. Positive Bowel sounds. LEGS: No edema. no swelling. NERVOUS SYSTEM: Cranial N 2-12 grossly normal.No focal deficits.Strength and sensation grossly intact. Skin: Warm and dry, no rash. - Labs CBC & Chem 7: 11/04/21 06:26 11/04/21 06:26 Labs: Abnormal Lab Results - Last 24 Hours (Table) 11/03/21 11/03/21 11/03/21 Range/Units 05:51 13:59 18:13 WBC (3.8-10.6) k/uL Hct (34.0-46.0) % Neutrophils # (1.3-7.7) k/uL Lymphocytes # (1.0-4.8) k/uL Sodium (137-145) mmol/L Chloride (98-107) mmol/L BUN (7-17) mg/dL Glucose (74-99) mg/dL POC Glucose (mg/dL) 188 H 175 H (75-99) mg/dL Calcium (8.4-10.2) mg/dL Ferritin 743.0 H (10.0-291.0) ng/mL 11/03/21 11/04/21 11/04/21 Range/Units 23:58 06:26 06:26 WBC 11.3 H (3.8-10.6) k/uL Hct 50.6 H (34.0-46.0) % Neutrophils # 10.1 H (1.3-7.7) k/uL Lymphocytes # 0.4 L (1.0-4.8) k/uL Sodium 147 H (137-145) mmol/L Chloride 111 H (98-107) mmol/L BUN 41 H (7-17) mg/dL Glucose 188 H (74-99) mg/dL POC Glucose (mg/dL) 164 H (75-99) mg/dL Calcium 6.9 L (8.4-10.2) mg/dL Ferritin (10.0-291.0) ng/mL 11/04/21 Range/Units 06:29 WBC (3.8-10.6) k/uL Hct (34.0-46.0) % Neutrophils # (1.3-7.7) k/uL Lymphocytes # (1.0-4.8) k/uL Sodium (137-145) mmol/L Chloride (98-107) mmol/L BUN (7-17) mg/dL Glucose (74-99) mg/dL POC Glucose (mg/dL) 175 H (75-99) mg/dL Calcium (8.4-10.2) mg/dL Ferritin (10.0-291.0) ng/mL Microbiology - Last 24 Hours (Table) 11/03/21 03:40 Urine Culture - Preliminary Urine,Voided Assessment and Plan Assessment: Acute hypoxic respiratory failure related to recent covid 19 pneumonia on . Nonvaccinated. Acute renal failure secondary to dehydration, Lactic acidosis, mild secondary to all the above, improved with IV fluids CAD, Hx of [place],stenting Chronic systolic heart failure Hypertension Hyperlipidemia Gastroesophageal reflux disease Morbid obesity, BMI 57.4 Osteoarthritis Former nicotine dependence History of ovarian cancer Gait dysfunction, wheelchair-bound No code Plan: Continue on current medication regime ,monitoring and symptomatic treatment. Covid cocktail, Baricitinib. Midline placement pending .empiric antibiotics, urine culture pending .maintain supportive care, patient is a no code .ICU management as per shoulder boner. Prognosis guarded given multiple complex medical issues. The impression and plan of care has been dictated as directed. : I performed a history and examination of this patient, discussed the same with the dictator. I agree with the dictator's note ,documented as a scribe. Any additional findings or plans will be noted.
[2021-11-04 12:37] LABS: Glucose,Whole Blood 134 mg/dL (75-99)
[2021-11-04 18:22] LABS: Glucose,Whole Blood 175 mg/dL (75-99)
[2021-11-04 23:26] LABS: Glucose,Whole Blood 147 mg/dL (75-99)
[2021-11-05] MEDS: MORPHINE SULFATE 2 MG/ML SYRINGE IVP PRN ×9 (01:14→20:42)
[2021-11-05] MEDS: DEXMEDETOMIDINE/0.9% NACL(PMX) 400 MCG in EMPTY BAG 1 BAG IV SCH ×7 (02:51→22:26)
[2021-11-05] MEDS: ENALAPRILAT 1.25 MG/ML 1 ML VIAL IVP PRN ×3 (02:51→20:42)
--- NOTE | 2021-11-05 06:07 | XR ---
EXAMINATION TYPE: XR chest 1V DATE OF EXAM: 11/05/2021 CLINICAL HISTORY: Difficulty breathing and covid progress study. TECHNIQUE: Single AP portable semiupright view of the chest is obtained. COMPARISON: Chest x-ray from 2 days earlier and older studies. FINDINGS: Persistent bilateral multifocal and confluent increased opacities redemonstrated. Cardiac silhouette size is stable and within normal limits. Partial visualization of anterior fusion plate in the cervical spine. IMPRESSION: Bilateral multifocal and confluent opacities consistent with edema and/or infiltrates. No significant change from most recent x-ray.
[2021-11-05 06:32] LABS: Glucose,Whole Blood 164 mg/dL (75-99)
[2021-11-05] MEDS: INSULIN ASPART (NovoLOG) 100 UNIT/ML VIAL SQ SCH ×3 (06:33→19:27)
[2021-11-05 06:34] LABS: Basophils # (A) 0.1 k/uL (0-0.2); Basophils % (A) 0 %; Eosinophils # (A) 0.1 k/uL (0-0.7); Eosinophils % (A) 1 %; HCT 52.8 % (34.0-46.0); HGB 16.8 gm/dL (11.4-16.0); Lymphocytes # (A) 0.3 k/uL (1.0-4.8); Lymphocytes % (A) 2 %; MCH 30.8 pg (25.0-35.0); MCHC 31.7 g/dL (31.0-37.0); MCV 97.2 fL (80.0-100.0); Mean Platelet Volume 9.4; Monocytes # (A) 0.5 k/uL (0-1.0); Monocytes % (A) 4 %; Neutrophils % (A) 91 %; Platelet Count 164 k/uL (150-450); RBC 5.44 m/uL (3.80-5.40); RDW 13.3 % (11.5-15.5); WBC 13.2 k/uL (3.8-10.6)
[2021-11-05 06:53] LABS: Albumin 3.3 g/dL (3.5-5.0); Calcium 6.8 mg/dL (8.4-10.2); Total Bilirubin 1.9 mg/dL (0.2-1.3); Total Protein 7.4 g/dL (6.3-8.2)
[2021-11-05 07:41] LABS: C Reactive Protein 18.7 mg/dL (<1.0)
[2021-11-05] MEDS: ENOXAPARIN 40 MG/0.4 ML SYRINGE SQ SCH (08:20)
[2021-11-05] MEDS: ALBUTEROL HFA INHALER INHALATION SCH ×4 (09:44→19:39)
[2021-11-05] MEDS: ASCORBIC ACID 500 MG TAB PO SCH ×2 (10:15→19:28)
[2021-11-05] MEDS: ASPIRIN 81 MG PO SCH (10:16)
[2021-11-05] MEDS: BARICITINIB 2 MG TABLET PO SCH (10:17)
[2021-11-05] MEDS: DEXAMETHASONE SOD PHOSPHATE 10 MG/ML 1 ML VIAL IVP SCH ×2 (10:19→19:33)
[2021-11-05] MEDS: CHOLECALCIFEROL 25 MCG (1000 IU) TABLET PO SCH (10:19)
[2021-11-05] MEDS: COLCHICINE 0.6 MG EACH PO SCH ×2 (10:19→19:28)
[2021-11-05] MEDS: PANTOPRAZOLE 40 MG/10 ML VIAL IVP SCH (10:20)
[2021-11-05] MEDS: ZINC SULFATE 220 MG CAP PO SCH (10:20)
[2021-11-05] MEDS: LIDOCAINE 5% PATCH TOPICAL SCH (10:46)
--- NOTE | 2021-11-05 11:48 | P.PN ---
Subjective Progress Note Date: 11/05/21 This is 66-year-old white female patient of Dr. Torin Pinedo with history of COVID-19 infection, patient was briefly hospitalized and was discharged home on 10/21/2021. During her last admission chest x-ray showed no evidence of acute cardiopulmonary disease, and patient did not require oxygen at discharge. She was discharged home to complete 8 more days of Decadron. Patient has extensive medical history including coronary artery disease with previous stenting, hyperlipidemia, previous history of myocardial infarction, liver/reflux, history of ovarian cancer status post total hysterectomy, compression fracture of the lumbar vertebrae, and chronic back pain, patient is able to walk but does use a wheelchair to get around for the most part, osteoarthritis a previous history of bilateral hip replacements and bilateral knee replacements, anxiety, depression, remote history of smoking but no history of chronic lung disease. Patient states after she went home she was extremely weak she had trouble getting around the house, and she had little to no help at home from her son. Reports worse savana shortness of breath, fever, ongoing diarrhea. Denied any nausea or vomiting, no compressive chest pain swelling or tenderness in calves. She was brought into the hospital by EMS for evaluation. She has a mild cough, she has a poor appetite, ongoing fatigue, she has loss of taste and smell. EMS found oxygen saturation in the 70s. Her chest x-ray in the emergency department with progressive mild scattered bilateral lung infiltrates the possibility of atypical pneumonia. Admission blood work showed a white count of 7.0, hemoglobin of 15.2, platelet count of 188, d-dimer of 1.66, electrolytes are within normal limits, BUN is 26 creatinine 1.38, mild lactic acidosis with a lactic acid of 2.2, ferritin of 883, AST of 79, ALT 41[place] [address], CRP is 32.8, pro calcitonin level was 0.20. Patient tested negative for COVID-19 by PCR test. CTA chest was completed, showing no acute pulmonary embolism within the limitations of the study, and lung windows showed bilateral diffuse moderate to marked patchy round glass opacities. Patient was started on Decadron 6 blood gram daily, multivitamins, inhaled bronchodilators, she was given IV hydration, she is awake alert this morning she is currently on 10 L of oxygen, she is short of breath with exertion but appears to be in no acute distress. She remains weak and she still having diarrhea. No abdominal pain, abdomen is nontender. On 11/01/2021 patient seen in follow-up on selective care unit. She still remains on high flow oxygen, at 15 L/m, and 100 percent nonrebreather mask, does not appear to be in any acute distress, mild dry cough, low-grade fevers with a temp of 99.1F. No complaints of chest discomfort, she is awake and alert, she was able to get up in the chair with physical therapy, breathing comfortably. Lungs reveal diminished breath sounds with some minimal crackles at bilateral bases, his labs have been reviewed with blood cell count is 8.4, hemoglobin is 15.3, d-dimer is improving and is down to 1.16, electrolytes are within normal limits, BUN is 38 and creatinine is 1.54, her renal function has further worsened. She states her diarrhea has improved and she has not had any diarrhea episodes while in the hospital. Currently remains on Decadron 6 mg daily, she is on prophylactic Lovenox, CTA chest and lower extremity Dopplers were negative for PE or DVT within the limitations of the study. Inflammatory markers are still quite elevated, with LDH of 1336 and CRP of 20.6, patient's proBNP was within normal limits at 118. Her appetite remains suboptimal, she states she is able to consume cold and soft consistencies. But has had no nausea vomiting or diarrhea since in the hospital. On today's evaluation of 11/02/2021, the patient is still struggling with her breathing. The patient remains on a high flow oxygen at 15 L along with 100% nonrebreather facemask. She has short of breath at rest. She is short of breath while talking long sentences and she easily desaturates yet she recover speech is able to maintain a pulse ox is above 88%. She remains on Decadron. No nausea. No vomiting. No diarrhea for now. No abdominal pain. The patient had developed an acute kidney injury yesterday and the creatinine was up to 1.54 and then it dropped to 1.24 and the rest of the electrodes are all within normal limits. In terms of the inflammatory markers, the patient had a elevated LDH level of 1336 and the CRP level was at 20.6. Bilirubin was at 0.9. D-dimer is at 1.16. Altered mentation. No other complaints otherwise speech is obese elderly female patient with a body mass index of 57.4. Venous Dopplers obtained on 10/31/2021 were negative and the patient had a CT angiogram at time of admission that was also negative for any pulmonary embolism that showed some cardiomegaly with diffuse bilateral pulmonary infiltrates consistent with COVID 90 related pneumonia 11/03/2021, the patient got transferred to the intensive care unit for further monitoring. Mother the patient was becoming more restless, agitated, nervous, anxious, and at times she was unable to retain Dr. therapeutic she was offered. Note that the patient is currently on Vapotherm 60 L with an FiO2 of 90% in addition to 100% nonrebreather facemask and a chest x-ray showing diffuse bilateral pulmonary infiltrate. I told that the patient was ultimately going to get intubated. I initiated a conversation with her about intubation mechanical ventilation. The patient declined. We made also focal to 2 of her sisters and both of them supported the patient's decision of not being intubated or placed on a mechanical ventilator. As such, for [place] status is DO NOT INTUBATE. As noted, the patient has been poor morbidly obese with a BMI of 57.4. The patient is on Precedex for agitation and she is currently running at a dose of 0.6 mcg/kg per minute. She is on normal saline at the rate of 20 mL an hour. Inflammatory markers continued to be elevated and LDH level is 1829, CRP level is at 14, d-dimer is at 1.97. Blood gases from yesterday showed a pH of 7.45 with a pCO2 of 44 and pO2 of 55. Her current pulse ox is around 88-89%. IV access needs to be status regarding her ongoing need for treatment and poor IV access. She remains on Decadron. She remains on Baricitinib. She remains on Lovenox for DVT prophylaxis. Mental status is adequate for now. No focal neurological deficits for now. On 11/04/2021 patient seen in follow-up in the intensive care unit, she remains on BiPAP support with pressures of 14 and 7 and FiO2 100%, and her pulse ox is ranging between 84-86%. Patient is lethargic, but easily arousable to voice, she is currently on Precedex at 0.7 mics per kilo per minute, and 0.9 normal saline at a rate of 20 ML per hour. In the last 48 hours patient's hypoxia and dyspnea have significantly worsened, patient was transferred to the intensive care unit, patient was ready on dexamethasone 6 program daily which was increased to twice daily, patient was started on Baricitinib and Rocephin for possible urinary tract infection. Inflammatory markers are still elevated on yesterday's labs, today's labs are still pending, yesterday's chest x-ray showing significant bilateral airspace disease related to recent history of COVID-19 pneumonia. Patient is requesting a break from the BiPAP support. She has tolerated BiPAP support fairly well, but she is tachypneic, she is anxious, her respiratory rate is 32, tidal volume is 407, minute ventilation is 13.2. S he has made herself a DO NOT RESUSCITATE, we'll continue supportive treatment at this time, we'll give the patient break off BiPAP and place her on Airvo today. Today's labs have been reviewed White blood cell count is 11.3, hemoglobin is 16, platelet count is 218, lymphocyte count of 0.4, serum sodium is 147, potassium is 4.9, chloride is 111, B1 is 41, creatinine is 1.02, LFTs were improving on yesterday's labs, progesterone level was negative at 0.11, urinalysis showed evidence of a urinary tract infection by urine cultures are still pending at this time. Intake has been extremely poor prior to presentation to the hospital, in addition patient was having diarrhea which has improved while in the hospital. However oral intake has remained significantly diminished especially since the patient went on BiPAP support. 11/05/2021, I'm seeing this patient for a follow-up. The patient is doing poorly and her poor condition has been essentially unchanged over the past 24 hours. As mentioned earlier, the patient was unable to tolerate the BiPAP and she was adamant of removing her BiPAP. She also wanted a DO NOT INTUBATE CODE STATUS. Based on that, we offered her high flow oxygen through an Airvo with 60 L and an FiO2 of 90% in addition to 100% on a beta facemasks. The patient was more comfortable on the setting and the patient is able to achieve a pulse ox between 8182%. She is tachypneic. Respiratory rate remains high. She is confused. She continues to say that she wants help. Her family arrived and I had a lengthy discussion with the son over the phone. He truly understand the situation. The patient carries a very poor prognosis of the patient had diffuse pneumonia with COVID 19 and the patient's has decompensated significantly during this current hospitalization and currently she is on a combination of Airvo and nonrebreather 100% full face mask. Meanwhile, the patient continues to be treated with a combination of Decadron and Baricitinib. Decadron dose of the modified to include a dose of 600 g IV every 12 hours. The chest x-ray showing diffuse bilateral pulmonary infiltrates with probably an 7 worsening compared to yesterday. Meanwhile, the d-dimer is high at 31, LDH level is 2949 and a CRP level is 18.7 and all of the inflammatory markers a higher compared to yesterday and today before. The echoes at 13.2. Sodium is at 143. He has a 30 with a creatinine of 0.8. The patient is on Precedex 0.7 microvascular kilogram per minute for increased anxiety and agitation. Incentive the patient is requiring morphine 2 mg every 2 hours to control her agitation. She is moving all 4 extremities without any limitation. She is weak. She is tired and lethargic. She is tachypneic and obviously an ongoing respiratory distress. Unable to take oral intake or food. She is afebrile. Urine culture showed Proteus mirabilis and the patient is currently on IV Rocephin. Objective - Vital Signs Vital signs: Vital Signs Temp 99.0 F 11/05/21 08:00 Pulse 59 L 11/05/21 11:33 Resp 33 H 11/05/21 11:33 BP 179/104 11/05/21 11:33 Pulse Ox 84 L 11/05/21 11:33 Intake & Output 11/04/21 11/05/21 11/05/21 18:59 06:59 18:59 Intake Total 4216.065 8816.075 448.133 Output Total 2440 1595 775 Balance -1313.315 -302.925 -326.867 Weight 149.5 kg Intake: IV 60 Sodium Chloride 0.9% 1, 60 000 ml @ 20 mls/hr IV . Q24H [facility] Rx#:[id number] Intake, IV Titration 8405.776 0304.075 448.133 Amount Dexmedetomidine/0.9% NaCl 266.685 392.075 98.133 (Pmx) 400 mcg In Empty Bag 1 bag @ 0.2 MCG/KG/HR 7.824 mls/hr IV .[id number] [facility] Rx#:[id number] Sodium Chloride 0.45% 1, 750 900 300 000 ml @ 75 mls/hr IV . [id number] [facility] Rx#:[id number] cefTRIAXone 1 gm In 50 50 Sodium Chloride 0.9% 50 ml @ 100 mls/hr IVPB Q24HR [facility] Rx#:[id number] Output: Urine 2440 1595 775 Other: Voiding Method Indwelling Catheter Indwelling Catheter Indwelling Catheter - Exam GENERAL EXAM: Alert, very pleasant, 66-year-old morbidly obese white female, 100% nonrebreather, in addition to Vapotherm for nasal cannula. She is anxious and she is on Precedex for now. Her breathing is labored. She is tachypneic. She is able to maintain a pulse ox above 85%. Respiratory rate is in the high 30s and low 40s HEAD: Normocephalic/atraumatic. EYES: Normal reaction of pupils, equal size. Conjunctiva pink, sclera white. NOSE: Clear with pink turbinates. THROAT: No erythema or exudates. NECK: No masses, no JVD, no thyroid enlargement, no adenopathy. CHEST: No chest wall deformity. Symmetrical expansion. LUNGS: Equal air entry with fine basilar crackles CVS: Regular rate and rhythm, normal S1 and S2, no gallops, no murmurs, no rubs ABDOMEN: Soft, nontender. No hepatosplenomegaly, normal bowel sounds, no guarding or rigidity. EXTREMITIES: No clubbing, no edema, no cyanosis, 2+ pulses and upper and lower extremities. MUSCULOSKELETAL: Muscle strength and tone normal. SPINE: No scoliosis or deformity SKIN: No rashes CENTRAL NERVOUS SYSTEM: The patient is confused. The patient is moving all 4 extremities. No focal neurological deficit at this point in time. PSYCHIATRIC: Confused - Labs CBC & Chem 7: 11/05/21 06:02 11/05/21 06:02 Labs: Abnormal Lab Results - Last 24 Hours (Table) 11/04/21 11/04/21 11/04/21 Range/Units 12:35 18:20 23:24 WBC (3.8-10.6) k/uL RBC (3.80-5.40) m/uL Hgb (11.4-16.0) gm/dL Hct (34.0-46.0) % Neutrophils # (1.3-7.7) k/uL Lymphocytes # (1.0-4.8) k/uL D-Dimer (<0.60) mg/L FEU BUN (7-17) mg/dL Glucose (74-99) mg/dL POC Glucose (mg/dL) 134 H 175 H 147 H (75-99) mg/dL Calcium (8.4-10.2) mg/dL Total Bilirubin (0.2-1.3) mg/dL AST (14-36) U/L Alkaline Phosphatase (38-126) U/L Lactate Dehydrogenase (313-618) U/L C-Reactive Protein (<1.0) mg/dL Albumin (3.5-5.0) g/dL 11/05/21 11/05/21 11/05/21 Range/Units 06:02 06:02 06:02 WBC 13.2 H (3.8-10.6) k/uL RBC 5.44 H (3.80-5.40) m/uL Hgb 16.8 H (11.4-16.0) gm/dL Hct 52.8 H (34.0-46.0) % Neutrophils # 12.0 H (1.3-7.7) k/uL Lymphocytes # 0.3 L (1.0-4.8) k/uL D-Dimer 31.31 H (<0.60) mg/L FEU BUN 33 H (7-17) mg/dL Glucose 184 H (74-99) mg/dL POC Glucose (mg/dL) (75-99) mg/dL Calcium 6.8 L (8.4-10.2) mg/dL Total Bilirubin 1.9 H (0.2-1.3) mg/dL AST 41 H (14-36) U/L Alkaline Phosphatase 145 H (38-126) U/L Lactate Dehydrogenase 2949 H (313-618) U/L C-Reactive Protein 18.7 H (<1.0) mg/dL Albumin 3.3 L (3.5-5.0) g/dL 11/05/21 Range/Units 06:30 WBC (3.8-10.6) k/uL RBC (3.80-5.40) m/uL Hgb (11.4-16.0) gm/dL Hct (34.0-46.0) % Neutrophils # (1.3-7.7) k/uL Lymphocytes # (1.0-4.8) k/uL D-Dimer (<0.60) mg/L FEU BUN (7-17) mg/dL Glucose (74-99) mg/dL POC Glucose (mg/dL) 164 H (75-99) mg/dL Calcium (8.4-10.2) mg/dL Total Bilirubin (0.2-1.3) mg/dL AST (14-36) U/L Alkaline Phosphatase (38-126) U/L Lactate Dehydrogenase (313-618) U/L C-Reactive Protein (<1.0) mg/dL Albumin (3.5-5.0) g/dL Microbiology - Last 24 Hours (Table) 11/03/21 03:40 Urine Culture - Final Urine,Voided Proteus mirabilis Assessment and Plan Plan: #1. Acute Hypoxic respiratory failure related to COVID 19 pneumonia. Symptom onset was greater than 10 days ago, patient is outside the window for Remdesivir or Sotrovimab. The patient progressively got worse and patient is currently on a hypoxic respiratory failure requiring a combination of Airvo and 100% on a beta facemasks. Unfortunately, she is barely able to oxygenate above 80%. She was given a combination of Decadron Baricitinib. Inflammatory markers remain quite elevated. The patient remains short of breath, tachypneic, hypoxic, and restless and agitated. She is on Precedex and she is requiring morphine to control her agitation or restlessness. She is confused. She has declined BiPAP and she is also declined intubation mechanical ventilation. Chest x-ray showing diffuse bilateral pulmonary infiltrates. There is a concern for UTI and for that reason the patient will be taken off the Baricitinib. The patient is already on IV Rocephin. #2. Weakness, fatigue, diarrhea related to recent history of COVID-19 infection #3. Elevatedinflammatory markers related to COVID-19 infection versus the UTI as the patient was found to have Proteus mirabilis UTI #4. Acute kidney injury related to dehydration and diarrhea, improved and the patient is currently diagnosed having an acute UTI #5. Mild lactic acidosis related to dehydration improved with fluid resuscitation #6. Morbid obesity with BMI 57.4 kg/m #7. Coronary artery disease with previous stenting #8. History of ovarian cancer status post total hysterectomy #9. Chronic back pain #10. History of compression fractures of lumbar vertebrae #11. Gait dysfunction, patient is wheelchair bound for the most part #12. HyperLipidemia #13. Remote history of smoking #14. GERD/reflux #15. Anxiety and depression #16. UTI with Proteus mirabilis Plan: Keep the Airvo at 6 cm of Abilify to 100% Keep 100% nonrebreather facemask Continue the supportive care Continue Decadron 6 mg twice daily Continue multivitamins d-dimer is quite elevated and I am going to increase the Lovenox dose to 75 mg by mouth twice a day which is the therapeutic dose Discontinue Baricitinib as the patient has underlying UTI Continue with IV Rocephin Continue half-normal saline at the rate of 75 mL an hour and sodium levels improved Code status a DNR continue supportive treatment Prognosis is extremely guarded Had a lengthy discussion with her son over the phone and explained the situa tion. He was very understanding. We'll continue to follow picture be kept in ICU. Care is a very poor prognosis based on above-mentioned comorbidities. Critically care evaluation that was done and more than 30 minutes. Time with Patient: Greater than 30
[2021-11-05] MEDS: SODIUM CHLORIDE 0.45% 1,000 ML IV SCH (11:53)
[2021-11-05 12:51] LABS: Glucose,Whole Blood 165 mg/dL (75-99)
[2021-11-05] MEDS ORDERED: LORazepam 2 MG/ML INJ IV STA (13:14)
--- NOTE | 2021-11-05 14:12 | P.PN ---
Subjective Progress Note Date: 11/05/21 This is a 66-year-old female with past medical history of recent covid, , CAD, gastroesophageal reflux disease, morbid obesity, ovarian cancer, and multiple other medical issues presented to the ER with complaints of worsening shortness of breath. Recently admitted with Covid, respiratory status stable, did not require any oxygen ,discharged on Covid cocktail including Decadron. Reporting she had no help at home from her son, reporting multiple social issues being addressed by case management/social work. Shortness of breath worsened, loss of taste and smell with appetite decreased, developed diarrhea. Denies nausea vomiting or abdominal pain. EMS per ER reported O2 sat of the 70s. Chest x-ray reported progressive mild scattered bilateral lung infiltrates with possibility of atypical pneumonia. Chest CTA Limited study, reported negative for PE, bilateral diffuse moderate to marked patchy groundglass opacity's, no pleural effusion. Doppler pending. Afebrile, WBC WNL, hemoglobin 15.2, platelets 188, d-dimer 166, electrolytes WNL, BUN 26, creatinine 1.38( baseline 0.9), lactic acid 2.2, ferritin 883, AST 79, ALT 41, LDH 1713, CRP 32.8, pro- calcitonin 0.2. Greenberg virus PCR reported negative. Covid cocktail initiated including Decadron IV, IV fluid hydration. Currently maintaining O2 sats in the 90s on 10 L high flow nasal cannula. 11/01/2021 maintaining O2 sats in the high 80s on 15 L high flow nasal cannula with nonrebreather mask on standby, while attempting to eat bites of breakfast. Denies nausea, vomiting or diarrhea-none since admission. T-max 99.1, normal WB C. Renal function worsening, BUN 38, creatinine 1.54. Inflammatory markers : d-dimer, LDH and CRP elevated and decreasing with ferritin pending. ProBNP within normal limits. AST, ALT trending down. Denies chest pain, palpitations or chest pressure. Doppler of Lower extremities reviewed. 11/04/2021 remains on BiPAP support, 14/7, 100% FiO2, maintaining O2 sats currently in the low 80s. Tachypneic. Maintained on Precedex, covid regimine, Baricitinib . Empiric Rocephin, urine culture pending. Afebrile, WBC 11.3. Hemoglobin 16, platelets 218. Sodium 146, potassium 4.9, chloride 111, bicarb 28, BUN 41, creatinine 1.02. 11/05/2021 continues on Covid Cocktail. maintained on Airvo and 100% Ventimask, as patient unable to tolerate wearing BiPAP, maintaining O2 sats in the low 80s. Chest x-ray reporting bilateral multifocal, confluent increased opacities consistent with edema and/or infiltrates. Tachypneic, respiratory rate in the 30s, hypertensive, bradycardic-heart rates in the 50s. T-max 99.9, WBC 13.2, urine culture reporting Proteus Mirabilis. hemoglobin 16.8, platelets 164. Inflammatory markers increasing, D-dimer 31.31, LDH 2949, CRP 18.7. Pro- calcitonin 0.09. T bili increased to 1.9, AST 41 ALT 27, alk phos 145. Objective - Vital Signs Vital signs: Vital Signs Temp 99.0 F 11/05/21 08:00 Pulse 62 11/05/21 13:00 Resp 36 H 11/05/21 13:00 BP 184/103 11/05/21 13:00 Pulse Ox 84 L 11/05/21 13:00 Intake & Output 11/04/21 11/05/21 11/05/21 18:59 06:59 18:59 Intake Total 6998.110 5751.075 622.765 Output Total 2440 1595 1025 Balance -1313.315 -302.925 -402.235 Weight 149.5 kg Intake: IV 60 Sodium Chloride 0.9% 1, 60 000 ml @ 20 mls/hr IV . Q24H [facility] Rx#:[id number] Intake, IV Titration 4253.121 4249.075 622.765 Amount Dexmedetomidine/0.9% NaCl 266.685 392.075 197.765 (Pmx) 400 mcg In Empty Bag 1 bag @ 0.2 MCG/KG/HR 7.824 mls/hr IV .[id number] [facility] Rx#:[id number] Sodium Chloride 0.45% 1, 750 900 375 000 ml @ 75 mls/hr IV . [id number] [facility] Rx#:[id number] cefTRIAXone 1 gm In 50 50 Sodium Chloride 0.9% 50 ml @ 100 mls/hr IVPB Q24HR [facility] Rx#:[id number] Output: Urine 2440 1595 1025 Other: Voiding Method Indwelling Catheter Indwelling Catheter Indwelling Catheter - Exam PHYSICAL EXAM: VITAL SIGNS: [As above] GENERAL: Lethargic, Confused, restless, anxious,respiratory effort increased HEENT: Conjunctivae normal. eyes normal. NECK: No JVD. No thyroid enlargement. No LNs CARDIOVASCULAR: S1, S2 regular. No murmur RESPIRATION: Coarse, bilateral diminished bases with fine bibasilar crackles. ABDOMEN: Soft, nontender. No guarding. no masses palpable. Positive Bowel sounds. LEGS: No edema. no swelling. NERVOUS SYSTEM: Cranial N 2-12 grossly normal.No focal deficits.Strength and sensation grossly intact. Skin: Warm and dry, no rash. - Labs CBC & Chem 7: 11/05/21 06:02 11/05/21 06:02 Labs: Abnormal Lab Results - Last 24 Hours (Table) 11/04/21 11/04/21 11/05/21 Range/Units 18:20 23:24 06:02 WBC 13.2 H (3.8-10.6) k/uL RBC 5.44 H (3.80-5.40) m/uL Hgb 16.8 H (11.4-16.0) gm/dL Hct 52.8 H (34.0-46.0) % Neutrophils # 12.0 H (1.3-7.7) k/uL Lymphocytes # 0.3 L (1.0-4.8) k/uL D-Dimer (<0.60) mg/L FEU BUN (7-17) mg/dL Glucose (74-99) mg/dL POC Glucose (mg/dL) 175 H 147 H (75-99) mg/dL Calcium (8.4-10.2) mg/dL Total Bilirubin (0.2-1.3) mg/dL AST (14-36) U/L Alkaline Phosphatase (38-126) U/L Lactate Dehydrogenase (313-618) U/L C-Reactive Protein (<1.0) mg/dL Albumin (3.5-5.0) g/dL 11/05/21 11/05/21 11/05/21 Range/Units 06:02 06:02 06:30 WBC (3.8-10.6) k/uL RBC (3.80-5.40) m/uL Hgb (11.4-16.0) gm/dL Hct (34.0-46.0) % Neutrophils # (1.3-7.7) k/uL Lymphocytes # (1.0-4.8) k/uL D-Dimer 31.31 H (<0.60) mg/L FEU BUN 33 H (7-17) mg/dL Glucose 184 H (74-99) mg/dL POC Glucose (mg/dL) 164 H (75-99) mg/dL Calcium 6.8 L (8.4-10.2) mg/dL Total Bilirubin 1.9 H (0.2-1.3) mg/dL AST 41 H (14-36) U/L Alkaline Phosphatase 145 H (38-126) U/L Lactate Dehydrogenase 2949 H (313-618) U/L C-Reactive Protein 18.7 H (<1.0) mg/dL Albumin 3.3 L (3.5-5.0) g/dL 11/05/21 Range/Units 12:39 WBC (3.8-10.6) k/uL RBC (3.80-5.40) m/uL Hgb (11.4-16.0) gm/dL Hct (34.0-46.0) % Neutrophils # (1.3-7.7) k/uL Lymphocytes # (1.0-4.8) k/uL D-Dimer (<0.60) mg/L FEU BUN (7-17) mg/dL Glucose (74-99) mg/dL POC Glucose (mg/dL) 165 H (75-99) mg/dL Calcium (8.4-10.2) mg/dL Total Bilirubin (0.2-1.3) mg/dL AST (14-36) U/L Alkaline Phosphatase (38-126) U/L Lactate Dehydrogenase (313-618) U/L C-Reactive Protein (<1.0) mg/dL Albumin (3.5-5.0) g/dL Microbiology - Last 24 Hours (Table) 11/03/21 03:40 Urine Culture - Final Urine,Voided Proteus mirabilis Assessment and Plan Assessment: Acute hypoxic respiratory failure related to recent covid 19 pneumonia on . Nonvaccinated. Worsening. Acute renal failure secondary to dehydration, Acute UTI with Proteus Mirabilis. Lactic acidosis, mild secondary to all the above, improved with IV fluids CAD, Hx of [place],stenting Chronic systolic heart failure Hypertension Hyperlipidemia Gastroesophageal reflux disease Morbid obesity, BMI 57.4 Osteoarthritis Former nicotine dependence History of ovarian cancer Gait dysfunction, wheelchair-bound No code, no CPR, no intubation. Declining BiPAP. Plan: Continue on current medication regime ,monitoring and symptomatic treatment. Covid cocktail, Lovenox increased, antibiotics.maintain supportive care, patient is a no code .ICU management as per oil well perforator operator. Prognosis poor, given multiple complex medical issues. The impression and plan of care has been dictated as directed. : I performed a history and examination of this patient, discussed the same with the dictator. I agree with the dictator's note ,documented as a scribe. Any additional findings or plans will be noted.
[2021-11-05 17:51] LABS: Glucose,Whole Blood 167 mg/dL (75-99)
[2021-11-05] MEDS: ENOXAPARIN 80 MG/0.8 ML SYRINGE SQ SCH (19:33)
[2021-11-05] MEDS: LORazepam 2 MG/ML INJ IV PRN ×2 (19:33→22:22)
[2021-11-06 00:12] LABS: Glucose,Whole Blood 184 mg/dL (75-99)
[2021-11-06] MEDS: SODIUM CHLORIDE 0.9% 1,000 ML IV SCH ×2 (00:12→20:16)
[2021-11-06] MEDS: INSULIN ASPART (NovoLOG) 100 UNIT/ML VIAL SQ SCH ×5 (00:13→23:30)
[2021-11-06] MEDS: DEXMEDETOMIDINE/0.9% NACL(PMX) 400 MCG in EMPTY BAG 1 BAG IV SCH ×7 (01:58→20:21)
[2021-11-06] MEDS: MORPHINE SULFATE 2 MG/ML SYRINGE IVP PRN (02:34)
[2021-11-06] MEDS: SODIUM CHLORIDE 0.45% 1,000 ML IV SCH ×3 (02:35→17:42)
[2021-11-06 04:55] LABS: Glucose,Whole Blood 169 mg/dL (75-99)
[2021-11-06 05:56] LABS: Basophils # (A) 0.1 k/uL (0-0.2); Basophils % (A) 1 %; Eosinophils # (A) 0.1 k/uL (0-0.7); Eosinophils % (A) 0 %; HCT 54.3 % (34.0-46.0); HGB 17.2 gm/dL (11.4-16.0); Hypochromasia Slight; Lymphocytes # (A) 0.3 k/uL (1.0-4.8); Lymphocytes % (A) 2 %; MCHC 31.8 g/dL (31.0-37.0); MCV 97.6 fL (80.0-100.0); Monocytes # (A) 0.6 k/uL (0-1.0); Monocytes % (A) 4 %; Neutrophils # (A) 13.9 k/uL (1.3-7.7); Neutrophils % (A) 92 %; Platelet Count 137 k/uL (150-450); RBC 5.56 m/uL (3.80-5.40); RDW 13.2 % (11.5-15.5); WBC 15.1 k/uL (3.8-10.6)
[2021-11-06 06:24] LABS: Albumin 3.1 g/dL (3.5-5.0); Calcium 6.5 mg/dL (8.4-10.2); Potassium 4.6 mmol/L (3.5-5.1); Total Bilirubin 2.2 mg/dL (0.2-1.3); Total Protein 7.1 g/dL (6.3-8.2)
--- NOTE | 2021-11-06 07:11 | XR ---
EXAMINATION TYPE: XR chest 1V DATE OF EXAM: 11/06/2021 HISTORY: Shortness of breath. COMPARISON: 11/05/2021 TECHNIQUE: Single view of the chest is submitted. FINDINGS: Demonstrated are scattered senescent parenchymal change. Diffuse bilateral airspace infiltrates persist unchanged. The heart is stable. Hilar and mediastinal structures are within normal limits. Degenerative changes are seen of the dorsal spine. IMPRESSION: 1. Diffuse bilateral airspace infiltrates persist unchanged.
[2021-11-06] MEDS: ALBUTEROL HFA INHALER INHALATION SCH ×4 (07:39→19:41)
[2021-11-06] MEDS: ASCORBIC ACID 500 MG TAB PO SCH ×2 (07:56→20:16)
[2021-11-06] MEDS: COLCHICINE 0.6 MG EACH PO SCH ×2 (07:57→20:16)
[2021-11-06] MEDS: CHOLECALCIFEROL 25 MCG (1000 IU) TABLET PO SCH (07:57)
[2021-11-06] MEDS: ASPIRIN 81 MG PO SCH (07:57)
[2021-11-06] MEDS: ZINC SULFATE 220 MG CAP PO SCH (07:58)
[2021-11-06] MEDS: PANTOPRAZOLE 40 MG/10 ML VIAL IVP SCH (08:02)
[2021-11-06] MEDS: ENOXAPARIN 80 MG/0.8 ML SYRINGE SQ SCH ×2 (08:02→20:22)
[2021-11-06] MEDS: DEXAMETHASONE SOD PHOSPHATE 10 MG/ML 1 ML VIAL IVP SCH ×2 (08:02→20:24)
[2021-11-06] MEDS: LORazepam 2 MG/ML INJ IV PRN ×3 (08:23→20:23)
--- NOTE | 2021-11-06 11:44 | P.PN ---
Subjective Progress Note Date: 11/06/21 This is 66-year-old white female patient of Dr. Torin Pinedo with history of COVID-19 infection, patient was briefly hospitalized and was discharged home on 10/21/2021. During her last admission chest x-ray showed no evidence of acute cardiopulmonary disease, and patient did not require oxygen at discharge. She was discharged home to complete 8 more days of Decadron. Patient has extensive medical history including coronary artery disease with previous stenting, hyperlipidemia, previous history of myocardial infarction, liver/reflux, history of ovarian cancer status post total hysterectomy, compression fracture of the lumbar vertebrae, and chronic back pain, patient is able to walk but does use a wheelchair to get around for the most part, osteoarthritis a previous history of bilateral hip replacements and bilateral knee replacements, anxiety, depression, remote history of smoking but no history of chronic lung disease. Patient states after she went home she was extremely weak she had trouble getting around the house, and she had little to no help at home from her son. Reports worse savana shortness of breath, fever, ongoing diarrhea. Denied any nausea or vomiting, no compressive chest pain swelling or tenderness in calves. She was brought into the hospital by EMS for evaluation. She has a mild cough, she has a poor appetite, ongoing fatigue, she has loss of taste and smell. EMS found oxygen saturation in the 70s. Her chest x-ray in the emergency department with progressive mild scattered bilateral lung infiltrates the possibility of atypical pneumonia. Admission blood work showed a white count of 7.0, hemoglobin of 15.2, platelet count of 188, d-dimer of 1.66, electrolytes are within normal limits, BUN is 26 creatinine 1.38, mild lactic acidosis with a lactic acid of 2.2, ferritin of 883, AST of 79, [place] 41[place] [address], CRP is 32.8, pro calcitonin level was 0.20. Patient tested negative for COVID-19 by PCR test. CTA chest was completed, showing no acute pulmonary embolism within the limitations of the study, and lung windows showed bilateral diffuse moderate to marked patchy round glass opacities. Patient was started on Decadron 6 blood gram daily, multivitamins, inhaled bronchodilators, she was given IV hydration, she is awake alert this morning she is currently on 10 L of oxygen, she is short of breath with exertion but appears to be in no acute distress. She remains weak and she still having diarrhea. No abdominal pain, abdomen is nontender. On 11/01/2021 patient seen in follow-up on selective care unit. She still remains on high flow oxygen, at 15 L/m, and 100 percent nonrebreather mask, does not appear to be in any acute distress, mild dry cough, low-grade fevers with a temp of 99.1F. No complaints of chest discomfort, she is awake and alert, she was able to get up in the chair with physical therapy, breathing comfortably. Lungs reveal diminished breath sounds with some minimal crackles at bilateral bases, his labs have been reviewed with blood cell count is 8.4, hemoglobin is 15.3, d-dimer is improving and is down to 1.16, electrolytes are within normal limits, BUN is 38 and creatinine is 1.54, her renal function has further worsened. She states her diarrhea has improved and she has not had any diarrhea episodes while in the hospital. Currently remains on Decadron 6 mg daily, she is on prophylactic Lovenox, CTA chest and lower extremity Dopplers were negative for PE or DVT within the limitations of the study. Inflammatory markers are still quite elevated, with LDH of 1336 and CRP of 20.6, patient's proBNP was within normal limits at 118. Her appetite remains suboptimal, she states she is able to consume cold and soft consistencies. But has had no nausea vomiting or diarrhea since in the hospital. On today's evaluation of 11/02/2021, the patient is still struggling with her breathing. The patient remains on a high flow oxygen at 15 L along with 100% nonrebreather facemask. She has short of breath at rest. She is short of breath while talking long sentences and she easily desaturates yet she recover speech is able to maintain a pulse ox is above 88%. She remains on Decadron. No nausea. No vomiting. No diarrhea for now. No abdominal pain. The patient had developed an acute kidney injury yesterday and the creatinine was up to 1.54 and then it dropped to 1.24 and the rest of the electrodes are all within normal limits. In terms of the inflammatory markers, the patient had a elevated LDH level of 1336 and the CRP level was at 20.6. Bilirubin was at 0.9. D-dimer is at 1.16. Altered mentation. No other complaints otherwise speech is obese elderly female patient with a body mass index of 57.4. Venous Dopplers obtained on 10/31/2021 were negative and the patient had a CT angiogram at time of admission that was also negative for any pulmonary embolism that showed some cardiomegaly with diffuse bilateral pulmonary infiltrates consistent with COVID 90 related pneumonia 11/03/2021, the patient got transferred to the intensive care unit for further monitoring. Mother the patient was becoming more restless, agitated, nervous, anxious, and at times she was unable to retain Dr. therapeutic she was offered. Note that the patient is currently on Vapotherm 60 L with an FiO2 of 90% in addition to 100% nonrebreather facemask and a chest x-ray showing diffuse bilateral pulmonary infiltrate. I told that the patient was ultimately going to get intubated. I initiated a conversation with her about intubation mechanical ventilation. The patient declined. We made also focal to 2 of her sisters and both of them supported the patient's decision of not being intubated or placed on a mechanical ventilator. As such, for [place] status is DO NOT INTUBATE. As noted, the patient has been poor morbidly obese with a BMI of 57.4. The patient is on Precedex for agitation and she is currently running at a dose of 0.6 mcg/kg per minute. She is on normal saline at the rate of 20 mL an hour. Inflammatory markers continued to be elevated and LDH level is 1829, CRP level is at 14, d-dimer is at 1.97. Blood gases from yesterday showed a pH of 7.45 with a pCO2 of 44 and pO2 of 55. Her current pulse ox is around 88-89%. IV access needs to be status regarding her ongoing need for treatment and poor IV access. She remains on Decadron. She remains on Baricitinib. She remains on Lovenox for DVT prophylaxis. Mental status is adequate for now. No focal neurological deficits for now. On 11/04/2021 patient seen in follow-up in the intensive care unit, she remains on BiPAP support with pressures of 14 and 7 and FiO2 100%, and her pulse ox is ranging between 84-86%. Patient is lethargic, but easily arousable to voice, she is currently on Precedex at 0.7 mics per kilo per minute, and 0.9 normal saline at a rate of 20 ML per hour. In the last 48 hours patient's hypoxia and dyspnea have significantly worsened, patient was transferred to the intensive care unit, patient was ready on dexamethasone 6 program daily which was increased to twice daily, patient was started on Baricitinib and Rocephin for possible urinary tract infection. Inflammatory markers are still elevated on yesterday's labs, today's labs are still pending, yesterday's chest x-ray showing significant bilateral airspace disease related to recent history of COVID-19 pneumonia. Patient is requesting a break from the BiPAP support. She has tolerated BiPAP support fairly well, but she is tachypneic, she is anxious, her respiratory rate is 32, tidal volume is 407, minute ventilation is 13.2. S he has made herself a DO NOT RESUSCITATE, we'll continue supportive treatment at this time, we'll give the patient break off BiPAP and place her on Airvo today. Today's labs have been reviewed White blood cell count is 11.3, hemoglobin is 16, platelet count is 218, lymphocyte count of 0.4, serum sodium is 147, potassium is 4.9, chloride is 111, B1 is 41, creatinine is 1.02, LFTs were improving on yesterday's labs, progesterone level was negative at 0.11, urinalysis showed evidence of a urinary tract infection by urine cultures are still pending at this time. Intake has been extremely poor prior to presentation to the hospital, in addition patient was having diarrhea which has improved while in the hospital. However oral intake has remained significantly diminished especially since the patient went on BiPAP support. 11/05/2021, I'm seeing this patient for a follow-up. The patient is doing poorly and her poor condition has been essentially unchanged over the past 24 hours. As mentioned earlier, the patient was unable to tolerate the BiPAP and she was adamant of removing her BiPAP. She also wanted a DO NOT INTUBATE CODE STATUS. Based on that, we offered her high flow oxygen through an Airvo with 60 L and an FiO2 of 90% in addition to 100% on a beta facemasks. The patient was more comfortable on the setting and the patient is able to achieve a pulse ox between 8182%. She is tachypneic. Respiratory rate remains high. She is confused. She continues to say that she wants help. Her family arrived and I had a lengthy discussion with the son over the phone. He truly understand the situation. The patient carries a very poor prognosis of the patient had diffuse pneumonia with COVID 19 and the patient's has decompensated significantly during this current hospitalization and currently she is on a combination of Airvo and nonrebreather 100% full face mask. Meanwhile, the patient continues to be treated with a combination of Decadron and Baricitinib. Decadron dose of the modified to include a dose of 600 g IV every 12 hours. The chest x-ray showing diffuse bilateral pulmonary infiltrates with probably an 7 worsening compared to yesterday. Meanwhile, the d-dimer is high at 31, LDH level is 2949 and a CRP level is 18.7 and all of the inflammatory markers a higher compared to yesterday and today before. The echoes at 13.2. Sodium is at 143. He has a 30 with a creatinine of 0.8. The patient is on Precedex 0.7 microvascular kilogram per minute for increased anxiety and agitation. Incentive the patient is requiring morphine 2 mg every 2 hours to control her agitation. She is moving all 4 extremities without any limitation. She is weak. She is tired and lethargic. She is tachypneic and obviously an ongoing respiratory distress. Unable to take oral intake or food. She is afebrile. Urine culture showed Proteus mirabilis and the patient is currently on IV Rocephin. 11/06/2021, the patient continues to do poorly. Overnight, the patient was switched from an Airvo system into a BiPAP system and currently she is on a BiPAP at a pressure of 14/7 cm of water and FiO2 of 100%. Lethargic, tachypneic, using accessory muscles of breathing and in obvious respiratory distress even while on the BiPAP. She is breathing fast. Confused. She is requiring Precedex at 0.8 mcg/kg per minute. She is also morphine sulfate at 2 mg IV every 2 hours and she is also on Ativan 1 mg every 3 hours. We have used all the sedatives to maintain at least some synchrony with the BiPAP machine. She is urinating a tidal volume of 540 mL. Her minute ventilation is around 23 L per minute and her respiratory rate is around 40. She is doing poorly as m entioned. She does have an underlying UTI with Proteus and the patient was given IV Rocephin. Baricitinib was discontinued and the patient remains on Decadron 6 mg IV every 12 hours. At inflammatory markers were still elevated from yesterday. Repeat levels were not obtained from today. Treatment essentially supportive at this point in time. She is a DNR/DNI CODE STATUS. Family will be asked to come in for further discussion. Unfortunately, no much progress in her condition. She carries a very poor prognosis especially with the absence of any progress or any signs of recovery in terms of her respiratory status. Chest x-ray continues to show diffuse bilateral pulmonary infiltrates extensive consolidations and airspace disease bilaterally consistent with COVID 19 related pneumonia. Objective - Vital Signs Vital signs: Vital Signs Temp 97.1 F L 11/05/21 16:00 Pulse 47 L 11/06/21 10:00 Resp 35 H 11/06/21 10:00 BP 164/88 11/06/21 10:00 Pulse Ox 85 L 11/06/21 10:00 Intake & Output 11/05/21 11/06/21 11/06/21 18:59 06:59 18:59 Intake Total 7715.542 6167.682 173.067 Output Total 1750 1225 75 Balance -577.235 56.682 98.067 Weight 147 kg Intake: Intake, IV Titration 4987.209 3844.682 173.067 Amount Dexmedetomidine/0.9% NaCl 297.765 381.682 98.067 (Pmx) 400 mcg In Empty Bag 1 bag @ 0.2 MCG/KG/HR 7.824 mls/hr IV .[id number] [facility] Rx#:[id number] Sodium Chloride 0.45% 1, 825 900 75 000 ml @ 75 mls/hr IV . [id number] [facility] Rx#:[id number] cefTRIAXone 1 gm In 50 Sodium Chloride 0.9% 50 ml @ 100 mls/hr IVPB Q24HR [facility] Rx#:[id number] Output: Urine 1750 1225 75 Other: Voiding Method Indwelling Catheter Indwelling Catheter - Exam GENERAL EXAM: Alert, very pleasant, 66-year-old morbidly obese white female, patient is currently on BiPAP at a pressure of 14/7 cm of water and FiO2 100%. Lethargic, somnolent, under the effect of sedatives. HEAD: Normocephalic/atraumatic. EYES: Normal reaction of pupils, equal size. Conjunctiva pink, sclera white. NOSE: Clear with pink turbinates. THROAT: No erythema or exudates. NECK: No masses, no JVD, no thyroid enlargement, no adenopathy. CHEST: No chest wall deformity. Symmetrical expansion. LUNGS: Equal air entry with fine basilar crackles, diminished breath sounds bilaterally and the patient is tachypneic and she is using some accessory muscles of breathing. CVS: Regular rate and rhythm, normal S1 and S2, no gallops, no murmurs, no rubs ABDOMEN: Soft, nontender. No hepatosplenomegaly, normal bowel sounds, no guarding or rigidity. EXTREMITIES: No clubbing, no edema, no cyanosis, 2+ pulses and upper and lower extremities. MUSCULOSKELETAL: Muscle strength and tone normal. SPINE: No scoliosis or deformity SKIN: No rashes CENTRAL NERVOUS SYSTEM: The patient is confused. Adequately sedated at this point in time with a combination of Precedex, Ativan and morphine sulfate. The patient is moving all 4 extremities. No focal neurological deficit at this point in time. PSYCHIATRIC: Confused - Labs CBC & Chem 7: 11/06/21 05:20 11/06/21 05:20 Labs: Abnormal Lab Results - Last 24 Hours (Table) 11/05/21 11/05/21 11/06/21 Range/Units 12:39 17:49 00:11 WBC (3.8-10.6) k/uL RBC (3.80-5.40) m/uL Hgb (11.4-16.0) gm/dL Hct (34.0-46.0) % Plt Count (150-450) k/uL Neutrophils # (1.3-7.7) k/uL Lymphocytes # (1.0-4.8) k/uL Carbon Dioxide (22-30) mmol/L BUN (7-17) mg/dL Glucose (74-99) mg/dL POC Glucose (mg/dL) 165 H 167 H 184 H (75-99) mg/dL Calcium (8.4-10.2) mg/dL Total Bilirubin (0.2-1.3) mg/dL Alkaline Phosphatase (38-126) U/L Albumin (3.5-5.0) g/dL 11/06/21 11/06/21 11/06/21 Range/Units 04:53 05:20 05:20 WBC 15.1 H (3.8-10.6) k/uL RBC 5.56 H (3.80-5.40) m/uL Hgb 17.2 H (11.4-16.0) gm/dL Hct 54.3 H (34.0-46.0) % Plt Count 137 L (150-450) k/uL Neutrophils # 13.9 H (1.3-7.7) k/uL Lymphocytes # 0.3 L (1.0-4.8) k/uL Carbon Dioxide 32 H (22-30) mmol/L BUN 29 H (7-17) mg/dL Glucose 178 H (74-99) mg/dL POC Glucose (mg/dL) 169 H (75-99) mg/dL Calcium 6.5 L (8.4-10.2) mg/dL Total Bilirubin 2.2 H (0.2-1.3) mg/dL Alkaline Phosphatase 160 H (38-126) U/L Albumin 3.1 L (3.5-5.0) g/dL Microbiology - Last 24 Hours (Table) 11/03/21 03:40 Urine Culture - Final Urine,Voided Proteus mirabilis Assessment and Plan Plan: #1. Acute Hypoxic respiratory failure related to COVID 19 pneumonia. Symptom onset was greater than 10 days ago, patient is outside the window for Remdesivir or Sotrovimab. The patient progressively got worse and patient is currently on a hypoxic respiratory failure requiring a combination of Airvo and 100% on a beta facemasks. Patient was subsequently switched again to BiPAP at a pressure of 14/7 cm of water with an FiO2 of 100%. Despite all this, she has been tachypneic with a high minute ventilation, high respiratory rate, uses accessory muscles of breathing. She is utilizing Precedex morphine sulfate and Atrovent to maintain secondary with the noninvasive positive pressure ventilator. Chest x-ray still showing diffuse bilateral pulmonary infiltrates. She remains on Decadron. Baricitinib was discontinued due to her underlying UTI with Proteus mirabilis. Hemodynamically stable. Very much lethargic and all of the check the status of this point in time. May be reasonable to consider end-of-life care patient. She is a DNR/DNI CODE STATUS. She has not shown much of signs of any recovery of the chest x-ray still showing diffuse dense bilateral pulmonary infiltrates and consolidation. Inflammatory markers from yesterday were co nsiderably elevated. #2. Weakness, fatigue, diarrhea related to recent history of COVID-19 infection #3. Elevated inflammatory markers related to COVID-19 infection versus the UTI as the patient was found to have Proteus mirabilis UTI #4. Acute kidney injury related to dehydration and diarrhea, improved and the patient is currently diagnosed having an acute UTI #5. Mild lactic acidosis related to dehydration improved with fluid resuscitation #6. Morbid obesity with BMI 57.4 kg/m #7. Coronary artery disease with previous stenting #8. History of ovarian cancer status post total hysterectomy #9. Chronic back pain #10. History of compression fractures of lumbar vertebrae #11. Gait dysfunction, patient is wheelchair bound for the most part #12. HyperLipidemia #13. Remote history of smoking #14. GERD/reflux #15. Anxiety and depression #16. UTI with Proteus mirabilis Plan: Keep BiPAP for now Keep Precedex in combination with morphine sulfate and Ativan as prescribed and a combination of drugs are being used to control her tachypnea restlessness and synchrony with the BiPAP machine. Continue the supportive care Continue Decadron 6 mg twice daily Continue multivitamins Lovenox dose to 75 mg by mouth twice a day which is the therapeutic dose , the dose change was done due to her very borderline [place] status and elevated D dimers The patient is currently off Baricitinib as the patient has underlying UTI Continue with IV Rocephin Continue half-normal saline at the rate of 75 mL an hour and sodium levels improved Code status a DNR continue supportive treatment Prognosis is extremely guarded Had a lengthy discussion with her son over the phone and explained the situation. He was very understanding. We'll continue to follow picture be kept in ICU. Care is a very poor prognosis based on above-mentioned comorbidities. I have also asked the patient's son to arrive back to the hospital for further discussion and possible end-of-life care. Critically care evaluation that was done and more than 30 minutes. Time with Patient: Greater than 30
[2021-11-06] MEDS: LIDOCAINE 5% PATCH TOPICAL SCH (11:56)
--- NOTE | 2021-11-06 13:00 | P.PN ---
Subjective Progress Note Date: 11/06/21 This is a 66-year-old female with past medical history of recent covid, , CAD, gastroesophageal reflux disease, morbid obesity, ovarian cancer, and multiple other medical issues presented to the ER with complaints of worsening shortness of breath. Recently admitted with Covid, respiratory status stable, did not require any oxygen ,discharged on Covid cocktail including Decadron. Reporting she had no help at home from her son, reporting multiple social issues being addressed by case management/social work. Shortness of breath worsened, loss of taste and smell with appetite decreased, developed diarrhea. Denies nausea vomiting or abdominal pain. EMS per ER reported O2 sat of the 70s. Chest x-ray reported progressive mild scattered bilateral lung infiltrates with possibility of atypical pneumonia. Chest CTA Limited study, reported negative for PE, bilateral diffuse moderate to marked patchy groundglass opacity's, no pleural effusion. Doppler pending. Afebrile, WBC WNL, hemoglobin 15.2, platelets 188, d-dimer 166, electrolytes WNL, BUN 26, creatinine 1.38( baseline 0.9), lactic acid 2.2, ferritin 883, AST 79, ALT 41, LDH 1713, CRP 32.8, pro- calcitonin 0.2. Greenberg virus PCR reported negative. Covid cocktail initiated including Decadron IV, IV fluid hydration. Currently maintaining O2 sats in the 90s on 10 L high flow nasal cannula. 11/01/2021 maintaining O2 sats in the high 80s on 15 L high flow nasal cannula with nonrebreather mask on standby, while attempting to eat bites of breakfast. Denies nausea, vomiting or diarrhea-none since admission. T-max 99.1, normal WB C. Renal function worsening, BUN 38, creatinine 1.54. Inflammatory markers : d-dimer, LDH and CRP elevated and decreasing with ferritin pending. ProBNP within normal limits. AST, ALT trending down. Denies chest pain, palpitations or chest pressure. Doppler of Lower extremities reviewed. 11/04/2021 remains on BiPAP support, 14/7, 100% FiO2, maintaining O2 sats currently in the low 80s. Tachypneic. Maintained on Precedex, covid regimine, Baricitinib . Empiric Rocephin, urine culture pending. Afebrile, WBC 11.3. Hemoglobin 16, platelets 218. Sodium 146, potassium 4.9, chloride 111, bicarb 28, BUN 41, creatinine 1.02. 11/05/2021 continues on Covid Cocktail. maintained on Airvo and 100% Ventimask, as patient unable to tolerate wearing BiPAP, maintaining O2 sats in the low 80s. Chest x-ray reporting bilateral multifocal, confluent increased opacities consistent with edema and/or infiltrates. Tachypneic, respiratory rate in the 30s, hypertensive, bradycardic-heart rates in the 50s. T-max 99.9, WBC 13.2, urine culture reporting Proteus Mirabilis. hemoglobin 16.8, platelets 164. Inflammatory markers increasing, D-dimer 31.31, LDH 2949, CRP 18.7. Pro- calcitonin 0.09. T bili increased to 1.9, AST 41 ALT 27, alk phos 145. 11/06/21 significant respiratory distress, currently maintained on Precedex, BiPAP 100%, Decadron, Rocephin ,morphine and Ativan.Chest x-ray reporting persistent unchanged diffuse bilateral airspace infiltrates. Family has been requested to come in for further discussion with carbon cleaner. Objective - Vital Signs Vital signs: Vital Signs Temp 97.1 F L 11/05/21 16:00 Pulse 47 L 11/06/21 10:00 Resp 35 H 11/06/21 10:00 BP 164/88 11/06/21 10:00 Pulse Ox 85 L 11/06/21 10:00 Intake & Output 11/05/21 11/06/21 11/06/21 18:59 06:59 18:59 Intake Total 5292.275 6293.682 273.067 Output Total 1750 1225 75 Balance -577.235 56.682 198.067 Weight 147 kg Intake: Intake, IV Titration 0943.863 0155.682 273.067 Amount Dexmedetomidine/0.9% NaCl 297.765 381.682 198.067 (Pmx) 400 mcg In Empty Bag 1 bag @ 0.2 MCG/KG/HR 7.824 mls/hr IV .[id number] [facility] Rx#:[id number] Sodium Chloride 0.45% 1, 825 900 75 000 ml @ 75 mls/hr IV . [id number] [facility] Rx#:[id number] cefTRIAXone 1 gm In 50 Sodium Chloride 0.9% 50 ml @ 100 mls/hr IVPB Q24HR [facility] Rx#:[id number] Output: Urine 1750 1225 75 Other: Voiding Method Indwelling Catheter Indwelling Catheter - Exam PHYSICAL EXAM: VITAL SIGNS: [As above] GENERAL: Lethargic, sedated,respiratory effort increased on BiPAP HEENT: Conjunctivae normal. eyes normal. NECK: No JVD. No thyroid enlargement. No LNs CARDIOVASCULAR: S1, S2 regular. No murmur RESPIRATION: Labored respiratory effort , tachypneic , positive accessory muscle use ,coarse, bilateral diminished bases with fine bibasilar crackles. ABDOMEN: Soft, nontender. No guarding. no masses palpable. Positive Bowel sounds. LEGS: No edema. no swelling. NERVOUS SYSTEM: Currently sedated, confused, moves all extremities. Skin: Warm and dry, no rash. - Labs CBC & Chem 7: 11/06/21 05:20 11/06/21 05:20 Labs: Abnormal Lab Results - Last 24 Hours (Table) 11/05/21 11/05/21 11/06/21 Range/Units 12:39 17:49 00:11 WBC (3.8-10.6) k/uL RBC (3.80-5.40) m/uL Hgb (11.4-16.0) gm/dL Hct (34.0-46.0) % Plt Count (150-450) k/uL Neutrophils # (1.3-7.7) k/uL Lymphocytes # (1.0-4.8) k/uL Carbon Dioxide (22-30) mmol/L BUN (7-17) mg/dL Glucose (74-99) mg/dL POC Glucose (mg/dL) 165 H 167 H 184 H (75-99) mg/dL Calcium (8.4-10.2) mg/dL Total Bilirubin (0.2-1.3) mg/dL Alkaline Phosphatase (38-126) U/L Albumin (3.5-5.0) g/dL 11/06/21 11/06/21 11/06/21 Range/Units 04:53 05:20 05:20 WBC 15.1 H (3.8-10.6) k/uL RBC 5.56 H (3.80-5.40) m/uL Hgb 17.2 H (11.4-16.0) gm/dL Hct 54.3 H (34.0-46.0) % Plt Count 137 L (150-450) k/uL Neutrophils # 13.9 H (1.3-7.7) k/uL Lymphocytes # 0.3 L (1.0-4.8) k/uL Carbon Dioxide 32 H (22-30) mmol/L BUN 29 H (7-17) mg/dL Glucose 178 H (74-99) mg/dL POC Glucose (mg/dL) 169 H (75-99) mg/dL Calcium 6.5 L (8.4-10.2) mg/dL Total Bilirubin 2.2 H (0.2-1.3) mg/dL Alkaline Phosphatase 160 H (38-126) U/L Albumin 3.1 L (3.5-5.0) g/dL Microbiology - Last 24 Hours (Table) 11/03/21 03:40 Urine Culture - Final Urine,Voided Proteus mirabilis Assessment and Plan Assessment: Acute hypoxic respiratory failure related to recent covid 19 pneumonia on . Nonvaccinated. Worsening, difficulty synchronizing with BiPAP. Acute renal failure secondary to dehydration, Acute UTI with Proteus Mirabilis. Lactic acidosis, mild secondary to all the above, improved with IV fluids CAD, Hx of IA,stenting Chronic systolic heart failure Hypertension Hyperlipidemia Gastroesophageal reflux disease Morbid obesity, BMI 57.4 Osteoarthritis Former nicotine dependence History of ovarian cancer Gait dysfunction, wheelchair-bound No code, no CPR, no intubation. Declining BiPAP. Plan: Continue on current medication regime ,monitoring and symptomatic treatment. Continue with supportive care, patient is a no code, no CPR, no intubation .prognosis poor /family meeting pending .ICU management as per carbon cleaner. The impression and plan of care has been dictated as directed. : I performed a history and examination of this patient, discussed the same with the dictator. I agree with the dictator's note ,documented as a scribe. Any additional findings or plans will be noted.
[2021-11-06] MEDS: ENALAPRILAT 1.25 MG/ML 1 ML VIAL IVP PRN ×2 (17:42→23:30)
[2021-11-06 17:46] LABS: Glucose,Whole Blood 175 mg/dL (75-99)
[2021-11-06 23:26] LABS: Glucose,Whole Blood 155 mg/dL (75-99)
[2021-11-07] MEDS: DEXMEDETOMIDINE/0.9% NACL(PMX) 400 MCG in EMPTY BAG 1 BAG IV SCH ×7 (00:18→22:33)
[2021-11-07] MEDS: LORazepam 2 MG/ML INJ IV PRN ×5 (01:25→22:43)
[2021-11-07] MEDS: MORPHINE SULFATE 2 MG/ML SYRINGE IVP PRN ×3 (02:10→21:26)
[2021-11-07 05:25] LABS: Glucose,Whole Blood 192 mg/dL (75-99)
[2021-11-07] MEDS: SODIUM CHLORIDE 0.45% 1,000 ML IV SCH ×2 (05:38→06:03)
[2021-11-07] MEDS: INSULIN ASPART (NovoLOG) 100 UNIT/ML VIAL SQ SCH ×3 (06:00→17:49)
[2021-11-07] MEDS: ENALAPRILAT 1.25 MG/ML 1 ML VIAL IVP PRN (06:31)
[2021-11-07] MEDS: ALBUTEROL HFA INHALER INHALATION SCH ×4 (07:29→20:25)
[2021-11-07] MEDS: ASCORBIC ACID 500 MG TAB PO SCH ×2 (07:30→21:23)
[2021-11-07] MEDS: CHOLECALCIFEROL 25 MCG (1000 IU) TABLET PO SCH (07:31)
[2021-11-07] MEDS: COLCHICINE 0.6 MG EACH PO SCH ×2 (07:31→21:24)
[2021-11-07] MEDS: ASPIRIN 81 MG PO SCH (07:31)
[2021-11-07] MEDS: ZINC SULFATE 220 MG CAP PO SCH (07:32)
[2021-11-07 07:42] LABS: Basophils # (A) 0.1 k/uL (0-0.2); Basophils % (A) 1 %; Eosinophils # (A) 0.1 k/uL (0-0.7); Eosinophils % (A) 1 %; HCT 54.5 % (34.0-46.0); HGB 17.4 gm/dL (11.4-16.0); Lymphocytes # (A) 0.3 k/uL (1.0-4.8); Lymphocytes % (A) 2 %; MCH 31.1 pg (25.0-35.0); MCHC 31.9 g/dL (31.0-37.0); MCV 97.4 fL (80.0-100.0); Mean Platelet Volume 11.6; Monocytes # (A) 0.6 k/uL (0-1.0); Monocytes % (A) 4 %; Neutrophils # (A) 12.3 k/uL (1.3-7.7); Neutrophils % (A) 92 %; RBC 5.59 m/uL (3.80-5.40); RDW 13.1 % (11.5-15.5); WBC 13.4 k/uL (3.8-10.6)
[2021-11-07 08:50] LABS: ALT 35 U/L (4-34); African American GFR (CKD) >90 (>60 ml/min/1.73 sqM); Anion Gap 8 mmol/L; Blood Urea Nitrogen 34 mg/dL (7-17); Calcium 6.5 mg/dL (8.4-10.2); Carbon Dioxide 24 mmol/L (22-30); Chloride 107 mmol/L (98-107); Glucose 176 mg/dL (74-99); Non-African American GFR(CKD) 78 (>60 ml/min/1.73 sqM); Sodium 139 mmol/L (137-145); Total Bilirubin 2.3 mg/dL (0.2-1.3); Total Protein 6.9 g/dL (6.3-8.2)
[2021-11-07 08:53] LABS: AST 61 U/L (14-36); Alkaline Phosphatase 168 U/L (38-126); Potassium 5.3 mmol/L (3.5-5.1)
[2021-11-07 09:06] LABS: Platelet Count 109 k/uL (150-450)
[2021-11-07 09:09] LABS: Large Platelets Present
[2021-11-07] MEDS: PANTOPRAZOLE 40 MG/10 ML VIAL IVP SCH (09:43)
[2021-11-07] MEDS: DEXAMETHASONE SOD PHOSPHATE 10 MG/ML 1 ML VIAL IVP SCH ×2 (09:43→21:25)
[2021-11-07] MEDS: LIDOCAINE 5% PATCH TOPICAL SCH (09:43)
[2021-11-07] MEDS: ENOXAPARIN 80 MG/0.8 ML SYRINGE SQ SCH ×2 (09:45→21:24)
[2021-11-07 11:30] LABS: Glucose,Whole Blood 141 mg/dL (75-99)
[2021-11-07] MEDS ORDERED: CALCIUM GLUCONATE 1 GM in SODIUM CHLORIDE 0.9% 100 ML IVPB ONE (11:45)
--- NOTE | 2021-11-07 12:10 | P.PN ---
Subjective Progress Note Date: 11/07/21 This is 66-year-old white female patient of Dr. Torin Pinedo with history of COVID-19 infection, patient was briefly hospitalized and was discharged home on 10/21/2021. During her last admission chest x-ray showed no evidence of acute cardiopulmonary disease, and patient did not require oxygen at discharge. She was discharged home to complete 8 more days of Decadron. Patient has extensive medical history including coronary artery disease with previous stenting, hyperlipidemia, previous history of myocardial infarction, liver/reflux, history of ovarian cancer status post total hysterectomy, compression fracture of the lumbar vertebrae, and chronic back pain, patient is able to walk but does use a wheelchair to get around for the most part, osteoarthritis a previous history of bilateral hip replacements and bilateral knee replacements, anxiety, depression, remote history of smoking but no history of chronic lung disease. Patient states after she went home she was extremely weak she had trouble getting around the house, and she had little to no help at home from her son. Reports worse savana shortness of breath, fever, ongoing diarrhea. Denied any nausea or vomiting, no compressive chest pain swelling or tenderness in calves. She was brought into the hospital by EMS for evaluation. She has a mild cough, she has a poor appetite, ongoing fatigue, she has loss of taste and smell. EMS found oxygen saturation in the 70s. Her chest x-ray in the emergency department with progressive mild scattered bilateral lung infiltrates the possibility of atypical pneumonia. Admission blood work showed a white count of 7.0, hemoglobin of 15.2, platelet count of 188, d-dimer of 1.66, electrolytes are within normal limits, BUN is 26 creatinine 1.38, mild lactic acidosis with a lactic acid of 2.2, ferritin of 883, AST of 79, [place] 41[place] [address], CRP is 32.8, pro calcitonin level was 0.20. Patient tested negative for COVID-19 by PCR test. CTA chest was completed, showing no acute pulmonary embolism within the limitations of the study, and lung windows showed bilateral diffuse moderate to marked patchy round glass opacities. Patient was started on Decadron 6 blood gram daily, multivitamins, inhaled bronchodilators, she was given IV hydration, she is awake alert this morning she is currently on 10 L of oxygen, she is short of breath with exertion but appears to be in no acute distress. She remains weak and she still having diarrhea. No abdominal pain, abdomen is nontender. On 11/01/2021 patient seen in follow-up on selective care unit. She still remains on high flow oxygen, at 15 L/m, and 100 percent nonrebreather mask, does not appear to be in any acute distress, mild dry cough, low-grade fevers with a temp of 99.1F. No complaints of chest discomfort, she is awake and alert, she was able to get up in the chair with physical therapy, breathing comfortably. Lungs reveal diminished breath sounds with some minimal crackles at bilateral bases, his labs have been reviewed with blood cell count is 8.4, hemoglobin is 15.3, d-dimer is improving and is down to 1.16, electrolytes are within normal limits, BUN is 38 and creatinine is 1.54, her renal function has further worsened. She states her diarrhea has improved and she has not had any diarrhea episodes while in the hospital. Currently remains on Decadron 6 mg daily, she is on prophylactic Lovenox, CTA chest and lower extremity Dopplers were negative for PE or DVT within the limitations of the study. Inflammatory markers are still quite elevated, with LDH of 1336 and CRP of 20.6, patient's proBNP was within normal limits at 118. Her appetite remains suboptimal, she states she is able to consume cold and soft consistencies. But has had no nausea vomiting or diarrhea since in the hospital. On today's evaluation of 11/02/2021, the patient is still struggling with her breathing. The patient remains on a high flow oxygen at 15 L along with 100% nonrebreather facemask. She has short of breath at rest. She is short of breath while talking long sentences and she easily desaturates yet she recover speech is able to maintain a pulse ox is above 88%. She remains on Decadron. No nausea. No vomiting. No diarrhea for now. No abdominal pain. The patient had developed an acute kidney injury yesterday and the creatinine was up to 1.54 and then it dropped to 1.24 and the rest of the electrodes are all within normal limits. In terms of the inflammatory markers, the patient had a elevated LDH level of 1336 and the CRP level was at 20.6. Bilirubin was at 0.9. D-dimer is at 1.16. Altered mentation. No other complaints otherwise speech is obese elderly female patient with a body mass index of 57.4. Venous Dopplers obtained on 10/31/2021 were negative and the patient had a CT angiogram at time of admission that was also negative for any pulmonary embolism that showed some cardiomegaly with diffuse bilateral pulmonary infiltrates consistent with COVID 90 related pneumonia 11/03/2021, the patient got transferred to the intensive care unit for further monitoring. Mother the patient was becoming more restless, agitated, nervous, anxious, and at times she was unable to retain Dr. therapeutic she was offered. Note that the patient is currently on Vapotherm 60 L with an FiO2 of 90% in addition to 100% nonrebreather facemask and a chest x-ray showing diffuse bilateral pulmonary infiltrate. I told that the patient was ultimately going to get intubated. I initiated a conversation with her about intubation mechanical ventilation. The patient declined. We made also focal to 2 of her sisters and both of them supported the patient's decision of not being intubated or placed on a mechanical ventilator. As such, for [place] status is DO NOT INTUBATE. As noted, the patient has been poor morbidly obese with a BMI of 57.4. The patient is on Precedex for agitation and she is currently running at a dose of 0.6 mcg/kg per minute. She is on normal saline at the rate of 20 mL an hour. Inflammatory markers continued to be elevated and LDH level is 1829, CRP level is at 14, d-dimer is at 1.97. Blood gases from yesterday showed a pH of 7.45 with a pCO2 of 44 and pO2 of 55. Her current pulse ox is around 88-89%. IV access needs to be status regarding her ongoing need for treatment and poor IV access. She remains on Decadron. She remains on Baricitinib. She remains on Lovenox for DVT prophylaxis. Mental status is adequate for now. No focal neurological deficits for now. On 11/04/2021 patient seen in follow-up in the intensive care unit, she remains on BiPAP support with pressures of 14 and 7 and FiO2 100%, and her pulse ox is ranging between 84-86%. Patient is lethargic, but easily arousable to voice, she is currently on Precedex at 0.7 mics per kilo per minute, and 0.9 normal saline at a rate of 20 ML per hour. In the last 48 hours patient's hypoxia and dyspnea have significantly worsened, patient was transferred to the intensive care unit, patient was ready on dexamethasone 6 program daily which was increased to twice daily, patient was started on Baricitinib and Rocephin for possible urinary tract infection. Inflammatory markers are still elevated on yesterday's labs, today's labs are still pending, yesterday's chest x-ray showing significant bilateral airspace disease related to recent history of COVID-19 pneumonia. Patient is requesting a break from the BiPAP support. She has tolerated BiPAP support fairly well, but she is tachypneic, she is anxious, her respiratory rate is 32, tidal volume is 407, minute ventilation is 13.2. S he has made herself a DO NOT RESUSCITATE, we'll continue supportive treatment at this time, we'll give the patient break off BiPAP and place her on Airvo today. Today's labs have been reviewed White blood cell count is 11.3, hemoglobin is 16, platelet count is 218, lymphocyte count of 0.4, serum sodium is 147, potassium is 4.9, chloride is 111, B1 is 41, creatinine is 1.02, LFTs were improving on yesterday's labs, progesterone level was negative at 0.11, urinalysis showed evidence of a urinary tract infection by urine cultures are still pending at this time. Intake has been extremely poor prior to presentation to the hospital, in addition patient was having diarrhea which has improved while in the hospital. However oral intake has remained significantly diminished especially since the patient went on BiPAP support. 11/05/2021, I'm seeing this patient for a follow-up. The patient is doing poorly and her poor condition has been essentially unchanged over the past 24 hours. As mentioned earlier, the patient was unable to tolerate the BiPAP and she was adamant of removing her BiPAP. She also wanted a DO NOT INTUBATE CODE STATUS. Based on that, we offered her high flow oxygen through an Airvo with 60 L and an FiO2 of 90% in addition to 100% on a beta facemasks. The patient was more comfortable on the setting and the patient is able to achieve a pulse ox between 8182%. She is tachypneic. Respiratory rate remains high. She is confused. She continues to say that she wants help. Her family arrived and I had a lengthy discussion with the son over the phone. He truly understand the situation. The patient carries a very poor prognosis of the patient had diffuse pneumonia with COVID 19 and the patient's has decompensated significantly during this current hospitalization and currently she is on a combination of Airvo and nonrebreather 100% full face mask. Meanwhile, the patient continues to be treated with a combination of Decadron and Baricitinib. Decadron dose of the modified to include a dose of 600 g IV every 12 hours. The chest x-ray showing diffuse bilateral pulmonary infiltrates with probably an 7 worsening compared to yesterday. Meanwhile, the d-dimer is high at 31, LDH level is 2949 and a CRP level is 18.7 and all of the inflammatory markers a higher compared to yesterday and today before. The echoes at 13.2. Sodium is at 143. He has a 30 with a creatinine of 0.8. The patient is on Precedex 0.7 microvascular kilogram per minute for increased anxiety and agitation. Incentive the patient is requiring morphine 2 mg every 2 hours to control her agitation. She is moving all 4 extremities without any limitation. She is weak. She is tired and lethargic. She is tachypneic and obviously an ongoing respiratory distress. Unable to take oral intake or food. She is afebrile. Urine culture showed Proteus mirabilis and the patient is currently on IV Rocephin. 11/06/2021, the patient continues to do poorly. Overnight, the patient was switched from an Airvo system into a BiPAP system and currently she is on a BiPAP at a pressure of 14/7 cm of water and FiO2 of 100%. Lethargic, tachypneic, using accessory muscles of breathing and in obvious respiratory distress even while on the BiPAP. She is breathing fast. Confused. She is requiring Precedex at 0.8 mcg/kg per minute. She is also morphine sulfate at 2 mg IV every 2 hours and she is also on Ativan 1 mg every 3 hours. We have used all the sedatives to maintain at least some synchrony with the BiPAP machine. She is urinating a tidal volume of 540 mL. Her minute ventilation is around 23 L per minute and her respiratory rate is around 40. She is doing poorly as m entioned. She does have an underlying UTI with Proteus and the patient was given IV Rocephin. Baricitinib was discontinued and the patient remains on Decadron 6 mg IV every 12 hours. At inflammatory markers were still elevated from yesterday. Repeat levels were not obtained from today. Treatment essentially supportive at this point in time. She is a DNR/DNI CODE STATUS. Family will be asked to come in for further discussion. Unfortunately, no much progress in her condition. She carries a very poor prognosis especially with the absence of any progress or any signs of recovery in terms of her respiratory status. Chest x-ray continues to show diffuse bilateral pulmonary infiltrates extensive consolidations and airspace disease bilaterally consistent with COVID 19 related pneumonia. 11/07/2021, the patient's condition remains essentially unchanged. I had a lengthy discussion with her son who arrived at the bedside. We went over the various scenarios and we decided to keep the status quo for now as the patient is essentially BiPAP dependent and she has not had any major improvement over the past 48 hours. She is in need for sedation. She remains on Precedex at 0.8 mcg/kg per minute and this is a constant effusion and the same time the patient has been receiving Ativan and morphine on an as-needed basis. The patient remains on a BiPAP at a pressure of 14/7 cm of water and FiO2 100%. Her generator tidal volume is warranted 20 mL and the patient's minute ventilation is around 19 L per minute and the patient's respiratory rate is around 37. Current pulse ox is 81-82%. She is quite sedated this morning. She is arousable and when aroused, she becomes quite anxious and asynchronous and desaturates further. No chest x-ray was done today. The yesterday's chest x- ray was obviously abnormal was consistent with diffuse bilateral pulmonary infiltrates and I'm still awaiting the results the follow-up inflammatory markers from today. Remains on IV Rocephin regarding a Proteus cultured in the urine. Was status remains DNR/DNI. She is off Baricitinib. She remains on Decadron 6 mg IV every 12 hours. Hemodynamically, she is stable. She is receiving normal saline rate of 75 mL an hour. She has not required any pressors. She carries a very poor prognosis. She is morbidly obese and her body mass index is at 53.9. Objective - Vital Signs Vital signs: Vital Signs Temp 97.8 F 11/07/21 04:00 Pulse 54 L 11/07/21 11:00 Resp 31 H 11/07/21 11:00 BP 119/79 11/07/21 11:00 Pulse Ox 82 L 11/07/21 11:00 Intake & Output 11/06/21 11/07/21 11/07/21 18:59 06:59 18:59 Intake Total 6246.992 4505.360 375 Output Total 1150 730 480 Balance 241.961 523.360 -105 Weight 147 kg 147 kg 147 kg Intake: Intake, IV Titration 5933.428 5102.360 375 Amount Dexmedetomidine/0.9% NaCl 391.961 353.360 (Pmx) 400 mcg In Empty Bag 1 bag @ 0.2 MCG/KG/HR 7.824 mls/hr IV .[id number] [facility] Rx#:[id number] Sodium Chloride 0.45% 1, 900 900 375 000 ml @ 75 mls/hr IV . [id number] [facility] Rx#:[id number] cefTRIAXone 1 gm In 100 Sodium Chloride 0.9% 50 ml @ 100 mls/hr IVPB Q24HR [facility] Rx#:[id number] Output: Urine 1150 730 480 Other: Voiding Method Indwelling Catheter Indwelling Catheter Indwelling Catheter - Exam GENERAL EXAM: Alert, very pleasant, 66-year-old morbidly obese white female, patient is currently on BiPAP at a pressure of 14/7 cm of water and FiO2 100%. Lethargic, somnolent, under the effect of sedatives. HEAD: Normocephalic/atraumatic. EYES: Normal reaction of pupils, equal size. Conjunctiva pink, sclera white. NOSE: Clear with pink turbinates. THROAT: No erythema or exudates. NECK: No masses, no JVD, no thyroid enlargement, no adenopathy. CHEST: No chest wall deformity. Symmetrical expansion. LUNGS: Equal air entry with fine basilar crackles, diminished breath sounds bilaterally and the patient is tachypneic and she is using some accessory muscles of breathing. CVS: Regular rate and rhythm, normal S1 and S2, no gallops, no murmurs, no rubs ABDOMEN: Soft, nontender. No hepatosplenomegaly, normal bowel sounds, no guarding or rigidity. EXTREMITIES: No clubbing, no edema, no cyanosis, 2+ pulses and upper and lower extremities. MUSCULOSKELETAL: Muscle strength and tone normal. SPINE: No scoliosis or deformity SKIN: No rashes CENTRAL NERVOUS SYSTEM: The patient is confused. Adequately sedated at this point in time with a combination of Precedex, Ativan and morphine sulfate. The patient is moving all 4 extremities. No focal neurological deficit at this point in time. PSYCHIATRIC: Confused - Labs CBC & Chem 7: 11/07/21 07:10 11/07/21 07:57 Labs: Abnormal Lab Results - Last 24 Hours (Table) 11/06/21 11/06/21 11/07/21 Range/Units 17:44 23:24 05:23 WBC (3.8-10.6) k/uL RBC (3.80-5.40) m/uL Hgb (11.4-16.0) gm/dL Hct (34.0-46.0) % Plt Count (150-450) k/uL Neutrophils # (1.3-7.7) k/uL Lymphocytes # (1.0-4.8) k/uL Potassium (3.5-5.1) mmol/L BUN (7-17) mg/dL Glucose (74-99) mg/dL POC Glucose (mg/dL) 175 H 155 H 192 H (75-99) mg/dL Calcium (8.4-10.2) mg/dL Total Bilirubin (0.2-1.3) mg/dL AST (14-36) U/L ALT (4-34) U/L Alkaline Phosphatase (38-126) U/L C-Reactive Protein (<1.0) mg/dL Albumin (3.5-5.0) g/dL 11/07/21 11/07/21 11/07/21 Range/Units 07:10 07:57 07:57 WBC 13.4 H (3.8-10.6) k/uL RBC 5.59 H (3.80-5.40) m/uL Hgb 17.4 H (11.4-16.0) gm/dL Hct 54.5 H (34.0-46.0) % Plt Count 109 L (150-450) k/uL Neutrophils # 12.3 H (1.3-7.7) k/uL Lymphocytes # 0.3 L (1.0-4.8) k/uL Potassium 5.3 H (3.5-5.1) mmol/L BUN 34 H (7-17) mg/dL Glucose 176 H (74-99) mg/dL POC Glucose (mg/dL) (75-99) mg/dL Calcium 6.5 L (8.4-10.2) mg/dL Total Bilirubin 2.3 H (0.2-1.3) mg/dL AST 61 H (14-36) U/L ALT 35 H (4-34) U/L Alkaline Phosphatase 168 H (38-126) U/L C-Reactive Protein 8.8 H (<1.0) mg/dL Albumin 3.0 L (3.5-5.0) g/dL 11/07/21 Range/Units 11:29 WBC (3.8-10.6) k/uL RBC (3.80-5.40) m/uL Hgb (11.4-16.0) gm/dL Hct (34.0-46.0) % Plt Count (150-450) k/uL Neutrophils # (1.3-7.7) k/uL Lymphocytes # (1.0-4.8) k/uL Potassium (3.5-5.1) mmol/L BUN (7-17) mg/dL Glucose (74-99) mg/dL POC Glucose (mg/dL) 141 H (75-99) mg/dL Calcium (8.4-10.2) mg/dL Total Bilirubin (0.2-1.3) mg/dL AST (14-36) U/L ALT (4-34) U/L Alkaline Phosphatase (38-126) U/L C-Reactive Protein (<1.0) mg/dL Albumin (3.5-5.0) g/dL Assessment and Plan Plan: #1. Acute Hypoxic respiratory failure related to COVID 19 pneumonia. Symptom onset was greater than 10 days ago, patient is outside the window for Remdesivir or Sotrovimab. The patient progressively got worse and patient is currently on a hypoxic respiratory failure requiring a combination of Airvo and 100% on a beta facemasks. Patient was subsequently switched again to BiPAP at a pressure of 14/7 cm of water with an FiO2 of 100%. Despite all this, she has been tachypneic with a high minute ventilation, high respiratory rate, uses accessory muscles of breathing. She is utilizing Precedex morphine sulfate and Atrovent to maintain secondary with the noninvasive positive pressure ventilator. Chest x-ray still showing diffuse bilateral pulmonary infiltrates. She remains on Decadron. Baricitinib was discontinued due to her underlying UTI with Proteus mirabilis. Hemodynamically stable. Very much lethargic and all of the check the status of this point in time. She has not [place] much of signs of any recovery of the chest x-ray still showing diffuse dense bilateral pulmonary infiltrates and consolidation. Inflammatory markers from yesterday were cons iderably elevated. Furthermore, on today's evaluation of 11/07/2021, no much improvement. Condition remains unchanged. Strict a BiPAP dependent. Remains nothing by mouth. Remains on sedatives including a combination of Precedex, morphine sulfate and Ativan. Discussed end-of-life care with the family. Not ready for that decision yet. CODE STATUS remains DNR/DNI. #2. Weakness, fatigue, diarrhea related to recent history of COVID-19 infection #3. Elevated inflammatory markers related to COVID-19 infection versus the UTI as the patient was found to have Proteus mirabilis UTI , awaiting follow-up results #4. Acute kidney injury related to dehydration and diarrhea, improved and the patient is currently diagnosed having an acute UTI #5. Mild lactic acidosis related to dehydration improved with fluid resuscitation #6. Morbid obesity with BMI 57.4 kg/m #7. Coronary artery disease with previous stenting #8. History of ovarian cancer status post total hysterectomy #9. Chronic back pain #10. History of compression fractures of lumbar vertebrae #11. Gait dysfunction, patient is wheelchair bound for the most part #12. HyperLipidemia #13. Remote history of smoking #14. GERD/reflux #15. Anxiety and depression #16. UTI with Proteus mirabilis Plan: I'm not doing any major changes in the patient's treatment. I'm going to keep the patient on BiPAP. Keep the patient a combination of sedation. Unfortunately nothing much I can offer to this patient other than supportive care. The patient would have the inflammatory markers recheck today. Meanwhile will do the following Keep BiPAP for now Keep Precedex in combination with morphine sulfate and Ativan as prescribed Continue Decadron 6 mg twice daily Lovenox dose to 75 mg by mouth twice a day which is the therapeutic dose , the dose change was done due to her very borderlinerespiratory status and concern of a pulmonary embolism Patient is currently off Baricitinib as the patient has underlying UTI Continue with IV Rocephin Continue half-normal saline at the rate of 75 mL an hour and sodium levels improved Code status a DNR continue supportive treatment Prognosis is extremely guarded Obtain a midline May initiate TPN for nutritional support Had a lengthy discussion with her son over the phone and explained the situation. He was very understanding. We'll continue to follow picture be kept in ICU. Care is a very poor prognosis based on above-mentioned comorbidities. the son is not ready to proceed with end-of-life care unit. Critical care evaluation that was done and more than 30 minutes.
--- NOTE | 2021-11-07 12:54 | P.PN ---
Subjective Progress Note Date: 11/07/21 This is a 66-year-old female with past medical history of recent covid, , CAD, gastroesophageal reflux disease, morbid obesity, ovarian cancer, and multiple other medical issues presented to the ER with complaints of worsening shortness of breath. Recently admitted with Covid, respiratory status stable, did not require any oxygen ,discharged on Covid cocktail including Decadron. Reporting she had no help at home from her son, reporting multiple social issues being addressed by case management/social work. Shortness of breath worsened, loss of taste and smell with appetite decreased, developed diarrhea. Denies nausea vomiting or abdominal pain. EMS per ER reported O2 sat of the 70s. Chest x-ray reported progressive mild scattered bilateral lung infiltrates with possibility of atypical pneumonia. Chest CTA Limited study, reported negative for PE, bilateral diffuse moderate to marked patchy groundglass opacity's, no pleural effusion. Doppler pending. Afebrile, WBC WNL, hemoglobin 15.2, platelets 188, d-dimer 166, electrolytes WNL, BUN 26, creatinine 1.38( baseline 0.9), lactic acid 2.2, ferritin 883, AST 79, ALT 41, LDH 1713, CRP 32.8, pro- calcitonin 0.2. Greenberg virus PCR reported negative. Covid cocktail initiated including Decadron IV, IV fluid hydration. Currently maintaining O2 sats in the 90s on 10 L high flow nasal cannula. 11/01/2021 maintaining O2 sats in the high 80s on 15 L high flow nasal cannula with nonrebreather mask on standby, while attempting to eat bites of breakfast. Denies nausea, vomiting or diarrhea-none since admission. T-max 99.1, normal WB C. Renal function worsening, BUN 38, creatinine 1.54. Inflammatory markers : d-dimer, LDH and CRP elevated and decreasing with ferritin pending. ProBNP within normal limits. AST, ALT trending down. Denies chest pain, palpitations or chest pressure. Doppler of Lower extremities reviewed. 11/04/2021 remains on BiPAP support, 14/7, 100% FiO2, maintaining O2 sats currently in the low 80s. Tachypneic. Maintained on Precedex, covid regimine, Baricitinib . Empiric Rocephin, urine culture pending. Afebrile, WBC 11.3. Hemoglobin 16, platelets 218. Sodium 146, potassium 4.9, chloride 111, bicarb 28, BUN 41, creatinine 1.02. 11/05/2021 continues on Covid Cocktail. maintained on Airvo and 100% Ventimask, as patient unable to tolerate wearing BiPAP, maintaining O2 sats in the low 80s. Chest x-ray reporting bilateral multifocal, confluent increased opacities consistent with edema and/or infiltrates. Tachypneic, respiratory rate in the 30s, hypertensive, bradycardic-heart rates in the 50s. T-max 99.9, WBC 13.2, urine culture reporting Proteus Mirabilis. hemoglobin 16.8, platelets 164. Inflammatory markers increasing, D-dimer 31.31, LDH 2949, CRP 18.7. Pro- calcitonin 0.09. T bili increased to 1.9, AST 41 ALT 27, alk phos 145. 11/06/21 significant respiratory distress, currently maintained on Precedex, BiPAP 100%, Decadron, Rocephin ,morphine and Ativan.Chest x-ray reporting persistent unchanged diffuse bilateral airspace infiltrates. Family has been requested to come in for further discussion with stem sizer. 11/07/2021 BiPAP 100% dependent, maintaining O2 sats in the low to mid 80s. Significant agitation, requiring Ativan every 3 hours , prn Morphine, in addition to Precedex. Continues on Decadron, Lovenox. Blood sugars controlled Labs pending. Objective - Vital Signs Vital signs: Vital Signs Temp 97.8 F 11/07/21 04:00 Pulse 50 L 11/07/21 12:00 Resp 31 H 11/07/21 12:00 BP 141/88 11/07/21 12:00 Pulse Ox 82 L 11/07/21 11:00 Intake & Output 11/06/21 11/07/21 11/07/21 18:59 06:59 18:59 Intake Total 9182.576 9378.360 550 Output Total 1150 730 530 Balance 241.961 523.360 20 Weight 147 kg 147 kg 147 kg Intake: Intake, IV Titration 4456.768 1079.360 550 Amount Dexmedetomidine/0.9% NaCl 391.961 353.360 100 (Pmx) 400 mcg In Empty Bag 1 bag @ 0.2 MCG/KG/HR 7.824 mls/hr IV .[id number] [facility] Rx#:[id number] Sodium Chloride 0.45% 1, 900 900 450 000 ml @ 75 mls/hr IV . [id number] [facility] Rx#:[id number] cefTRIAXone 1 gm In 100 Sodium Chloride 0.9% 50 ml @ 100 mls/hr IVPB Q24HR [facility] Rx#:[id number] Output: Urine 1150 730 530 Other: Voiding Method Indwelling Catheter Indwelling Catheter Indwelling Catheter - Exam PHYSICAL EXAM: VITAL SIGNS: [As above] GENERAL: Lethargic, sedated, arousable,respiratory effort increased, BiPAP dependent HEENT: Conjunctivae normal. eyes normal. NECK: No JVD. No thyroid enlargement. No LNs CARDIOVASCULAR: S1, S2 regular. No murmur RESPIRATION: Labored respiratory effort , tachypneic , positive accessory muscle use ,coarse, bilateral diminished bases with fine bibasilar crackles. ABDOMEN: Soft, nontender. No guarding. no masses palpable. Positive Bowel sounds. LEGS: No edema. no swelling. NERVOUS SYSTEM: Limited exam, Currently sedated, moves all extremities. Skin: Warm and dry, no rash. - Labs CBC & Chem 7: 11/07/21 07:10 11/07/21 07:57 Labs: Abnormal Lab Results - Last 24 Hours (Table) 11/06/21 11/06/21 11/07/21 Range/Units 17:44 23:24 05:23 WBC (3.8-10.6) k/uL RBC (3.80-5.40) m/uL Hgb (11.4-16.0) gm/dL Hct (34.0-46.0) % Plt Count (150-450) k/uL Neutrophils # (1.3-7.7) k/uL Lymphocytes # (1.0-4.8) k/uL Potassium (3.5-5.1) mmol/L BUN (7-17) mg/dL Glucose (74-99) mg/dL POC Glucose (mg/dL) 175 H 155 H 192 H (75-99) mg/dL Calcium (8.4-10.2) mg/dL Total Bilirubin (0.2-1.3) mg/dL AST (14-36) U/L ALT (4-34) U/L Alkaline Phosphatase (38-126) U/L C-Reactive Protein (<1.0) mg/dL Albumin (3.5-5.0) g/dL 11/07/21 11/07/21 11/07/21 Range/Units 07:10 07:57 07:57 WBC 13.4 H (3.8-10.6) k/uL RBC 5.59 H (3.80-5.40) m/uL Hgb 17.4 H (11.4-16.0) gm/dL Hct 54.5 H (34.0-46.0) % Plt Count 109 L (150-450) k/uL Neutrophils # 12.3 H (1.3-7.7) k/uL Lymphocytes # 0.3 L (1.0-4.8) k/uL Potassium 5.3 H (3.5-5.1) mmol/L BUN 34 H (7-17) mg/dL Glucose 176 H (74-99) mg/dL POC Glucose (mg/dL) (75-99) mg/dL Calcium 6.5 L (8.4-10.2) mg/dL Total Bilirubin 2.3 H (0.2-1.3) mg/dL AST 61 H (14-36) U/L ALT 35 H (4-34) U/L Alkaline Phosphatase 168 H (38-126) U/L C-Reactive Protein 8.8 H (<1.0) mg/dL Albumin 3.0 L (3.5-5.0) g/dL 11/07/21 Range/Units 11:29 WBC (3.8-10.6) k/uL RBC (3.80-5.40) m/uL Hgb (11.4-16.0) gm/dL Hct (34.0-46.0) % Plt Count (150-450) k/uL Neutrophils # (1.3-7.7) k/uL Lymphocytes # (1.0-4.8) k/uL Potassium (3.5-5.1) mmol/L BUN (7-17) mg/dL Glucose (74-99) mg/dL POC Glucose (mg/dL) 141 H (75-99) mg/dL Calcium (8.4-10.2) mg/dL Total Bilirubin (0.2-1.3) mg/dL AST (14-36) U/L ALT (4-34) U/L Alkaline Phosphatase (38-126) U/L C-Reactive Protein (<1.0) mg/dL Albumin (3.5-5.0) g/dL Assessment and Plan Assessment: Acute hypoxic respiratory failure related to recent covid 19 pneumonia on . Nonvaccinated. Worsening, difficulty synchronizing with BiPAP. BiPAP dependent. Acute renal failure secondary to dehydration, Acute UTI with Proteus Mirabilis. Lactic acidosis, mild secondary to all the above, improved with IV fluids CAD, Hx of [place],stenting Chronic systolic heart failure Hypertension Hyperlipidemia Gastroesophageal reflux disease Morbid obesity, BMI 57.4 Osteoarthritis Former nicotine dependence History of ovarian cancer Gait dysfunction, wheelchair-bound No code, no CPR, no intubation. Declining BiPAP. Plan: Continue on current medication regime ,monitoring and symptomatic treatment. Labs pending.Continue with supportive care, patient is a no code, no CPR, no intubation .family discussing potential PEG placement for TPN .prognosis poor .ICU management as per stem sizer. The impression and plan of care has been dictated as directed. : I performed a history and examination of this patient, discussed the same with the dictator. I agree with the dictator's note ,documented as a scribe. Any additional findings or plans will be noted.
[2021-11-07] MEDS ORDERED: LIDOCAINE 1% INJ 10MG/ML (20 ML MDV) SQ ONE ×2 (13:57→14:14)
--- NOTE | 2021-11-07 14:53 | XR ---
EXAMINATION TYPE: XR chest 1V portable, XR chest 1V portable, XR chest 1V portable DATE OF EXAM: 11/07/2021 COMPARISON: Chest x-ray 11/06/2021 HISTORY: PICC line placement TECHNIQUE: Single frontal view of the chest is obtained at short intervals, 3 exams FINDINGS: Initial chest x-ray shows the PICC line to be crossing the midline. Following manipulation repeat chest x-ray was performed which shows the catheter again crossing midline. Final chest x-ray shows the catheter coursing into the right atrium, tip is looped in the right atrium. There is no abel dent pneumothorax. Bilateral airspace disease is present. IMPRESSION: PICC line as described, catheter to be withdrawn 6 cm.
[2021-11-07 15:06] LABS: Magnesium 1.9 mg/dL (1.6-2.3); Phosphorus 4.4 mg/dL (2.5-4.5); Potassium 4.8 mmol/L (3.5-5.1)
--- NOTE | 2021-11-07 15:13 | IR ---
EXAMINATION TYPE: IR cvc insert >=5 years DATE OF EXAM: 11/07/2021 COMPARISON: NONE HISTORY: Needs long-term intravenous access for therapy, total parenteral nutrition FINDINGS: Maximal barrier technique was utilized. Hand hygiene obtained with soap and water and alco hol-based hand rub. The skin overlying the right basilic vein was localized with ultrasound and noted to be compressible and patent by ultrasound. An ultrasound image was obtained and submitted on sarah ent's chart. Sterile technique utilized with the ultrasound machine. The skin overlying was prepped a nd draped and Lidocaine used for local anesthesia. A skin jono was made with a scalpel. Access was gained to the vein under direct ultrasound guidance with a 21-gauge needle and a 0.018 inch wire was advanced. Access site was dilated with a peel-away sheath and the catheter tailored to length. Cath eter advanced centrally and a post procedure chest x-ray verified placement, catheter was repositione d subsequently a repeat chest x-ray performed, catheter was again repositioned and repeat chest x-ray was performed, with tip within the right atrium, catheter to be withdrawn several centimeters. Cath eter was fixed to the skin and a sterile dressing placed. Hemostasis achieved and the catheter was a spirated and flushed with sterile saline. The patient remained in stable condition. IMPRESSION: STATUS POST ULTRASOUND GUIDED PICC LINE PLACEMENT, READY FOR USE. THIS PROCEDURE WAS PER FORMED BY THE UNDERSIGNED.
[2021-11-07] MEDS ORDERED: MVI, ADULT NO.4 WITH VIT K 10 ML, TRACE (CONC-1ML/DOSE) 1 ML, SODIUM ACETATE 10 MEQ, PO... IV SCH ×8 (17:00)
[2021-11-07 17:40] LABS: Glucose,Whole Blood 179 mg/dL (75-99)
[2021-11-08] MEDS: INSULIN ASPART (NovoLOG) 100 UNIT/ML VIAL SQ SCH ×5 (00:09→23:26)
[2021-11-08 01:14] LABS: Glucose,Whole Blood 234 mg/dL (75-99)
[2021-11-08] MEDS: DEXMEDETOMIDINE/0.9% NACL(PMX) 400 MCG in EMPTY BAG 1 BAG IV SCH ×10 (03:37→23:23)
[2021-11-08] MEDS: SODIUM CHLORIDE 0.9% 1,000 ML IV SCH (05:41)
[2021-11-08] MEDS: SODIUM CHLORIDE 0.45% 1,000 ML IV SCH ×3 (05:41→21:29)
[2021-11-08 05:49] LABS: Glucose,Whole Blood 242 mg/dL (75-99)
--- NOTE | 2021-11-08 07:15 | XR ---
EXAMINATION TYPE: XR chest 1V portable DATE OF EXAM: 11/08/2021 HISTORY: Shortness of breath. COMPARISON: 11/07/2021 TECHNIQUE: Single view of the chest is submitted. FINDINGS: Demonstrated are scattered senescent parenchymal change. Coarse infiltrates throughout both lung polanco persists. Right-sided PICC line has been pulled back with its distal tip overlying the region of the right subc lavian vein. The heart is stable. Hilar and mediastinal structures are within normal limits. Degenerative changes are seen of the dorsal spine. IMPRESSION: 1. Coarse infiltrates throughout both lung polanco persists. 2. Right-sided PICC line has been pulled back with its distal tip overlying the region of the right subclavian vein.
[2021-11-08] MEDS: ALBUTEROL HFA INHALER INHALATION SCH ×4 (08:01→19:37)
[2021-11-08] MEDS: ASPIRIN 81 MG PO SCH (08:15)
[2021-11-08] MEDS: COLCHICINE 0.6 MG EACH PO SCH ×2 (08:15→20:21)
[2021-11-08] MEDS: CHOLECALCIFEROL 25 MCG (1000 IU) TABLET PO SCH (08:15)
[2021-11-08] MEDS: ASCORBIC ACID 500 MG TAB PO SCH ×2 (08:15→20:21)
[2021-11-08] MEDS: ZINC SULFATE 220 MG CAP PO SCH (08:16)
[2021-11-08] MEDS: PANTOPRAZOLE 40 MG/10 ML VIAL IVP SCH (08:20)
[2021-11-08] MEDS: DEXAMETHASONE SOD PHOSPHATE 10 MG/ML 1 ML VIAL IVP SCH ×2 (08:20→20:20)
[2021-11-08] MEDS: ENOXAPARIN 80 MG/0.8 ML SYRINGE SQ SCH ×2 (08:20→20:20)
[2021-11-08] MEDS ORDERED: FAT EMULSION 20% 500 ML in EMPTY BAG 1 BAG IV SCH (09:00)
[2021-11-08 09:19] LABS: ALT 28 U/L (4-34); AST 32 U/L (14-36); African American GFR (CKD) >90 (>60 ml/min/1.73 sqM); Albumin 2.9 g/dL (3.5-5.0); Alkaline Phosphatase 189 U/L (38-126); Anion Gap 5 mmol/L; Blood Urea Nitrogen 33 mg/dL (7-17); Calcium 7.1 mg/dL (8.4-10.2); Carbon Dioxide 31 mmol/L (22-30); Chloride 106 mmol/L (98-107); Glucose 243 mg/dL (74-99); Magnesium 1.9 mg/dL (1.6-2.3); Non-African American GFR(CKD) 80 (>60 ml/min/1.73 sqM); Phosphorus 3.5 mg/dL (2.5-4.5); Potassium 4.6 mmol/L (3.5-5.1); Sodium 142 mmol/L (137-145); Total Bilirubin 1.7 mg/dL (0.2-1.3); Total Protein 6.5 g/dL (6.3-8.2)
[2021-11-08 09:22] LABS: HGB 17.3 gm/dL (11.4-16.0); Hypochromasia Slight; MCH 30.8 pg (25.0-35.0); MCHC 31.4 g/dL (31.0-37.0); MCV 98.2 fL (80.0-100.0); Mean Platelet Volume 12.3; RBC 5.63 m/uL (3.80-5.40); RDW 13.8 % (11.5-15.5); WBC 13.4 k/uL (3.8-10.6)
[2021-11-08 09:23] LABS: HCT 55.3 % (34.0-46.0)
[2021-11-08 09:25] LABS: Ionized Calcium 4.1 mg/dL (4.5-5.3)
[2021-11-08 09:27] LABS: LDH 2093 U/L (313-618)
[2021-11-08] MEDS: MORPHINE SULFATE 2 MG/ML SYRINGE IVP PRN ×4 (10:57→23:23)
[2021-11-08 11:14] LABS: Lymphocytes # (M) 0.27 k/uL (1.0-4.8); Metamyelocytes # (M) 0.13 k/uL (0); Metamyelocytes % 1 %; Monocytes # (M) 0.67 k/uL (0-1.0); Myelocytes # (M) 0.13 k/uL (0); Myelocytes % 1 %; Neutrophils # (M) 12.33 k/uL (1.3-7.7); Neutrophils % (M) 92 %; Nucleated Red Blood Cells 0 /100 WBC (0-0); Total Cells Counted 200
[2021-11-08 11:21] LABS: Platelet Count 108 k/uL (150-450)
[2021-11-08 11:51] LABS: Glucose,Whole Blood 175 mg/dL (75-99)
--- NOTE | 2021-11-08 12:39 | P.PN ---
Subjective Progress Note Date: 11/08/21 This is a 66-year-old female with past medical history of recent covid, , CAD, gastroesophageal reflux disease, morbid obesity, ovarian cancer, and multiple other medical issues presented to the ER with complaints of worsening shortness of breath. Recently admitted with Covid, respiratory status stable, did not require any oxygen ,discharged on Covid cocktail including Decadron. Reporting she had no help at home from her son, reporting multiple social issues being addressed by case management/social work. Shortness of breath worsened, loss of taste and smell with appetite decreased, developed diarrhea. Denies nausea vomiting or abdominal pain. EMS per ER reported O2 sat of the 70s. Chest x-ray reported progressive mild scattered bilateral lung infiltrates with possibility of atypical pneumonia. Chest CTA Limited study, reported negative for PE, bilateral diffuse moderate to marked patchy groundglass opacity's, no pleural effusion. Doppler pending. Afebrile, WBC WNL, hemoglobin 15.2, platelets 188, d-dimer 166, electrolytes WNL, BUN 26, creatinine 1.38( baseline 0.9), lactic acid 2.2, ferritin 883, AST 79, ALT 41, LDH 1713, CRP 32.8, pro- calcitonin 0.2. Greenberg virus PCR reported negative. Covid cocktail initiated including Decadron IV, IV fluid hydration. Currently maintaining O2 sats in the 90s on 10 L high flow nasal cannula. 11/01/2021 maintaining O2 sats in the high 80s on 15 L high flow nasal cannula with nonrebreather mask on standby, while attempting to eat bites of breakfast. Denies nausea, vomiting or diarrhea-none since admission. T-max 99.1, normal WB C. Renal function worsening, BUN 38, creatinine 1.54. Inflammatory markers : d-dimer, LDH and CRP elevated and decreasing with ferritin pending. ProBNP within normal limits. AST, ALT trending down. Denies chest pain, palpitations or chest pressure. Doppler of Lower extremities reviewed. 11/04/2021 remains on BiPAP support, 14/7, 100% FiO2, maintaining O2 sats currently in the low 80s. Tachypneic. Maintained on Precedex, covid regimine, Baricitinib . Empiric Rocephin, urine culture pending. Afebrile, WBC 11.3. Hemoglobin 16, platelets 218. Sodium 146, potassium 4.9, chloride 111, bicarb 28, BUN 41, creatinine 1.02. 11/05/2021 continues on Covid Cocktail. maintained on Airvo and 100% Ventimask, as patient unable to tolerate wearing BiPAP, maintaining O2 sats in the low 80s. Chest x-ray reporting bilateral multifocal, confluent increased opacities consistent with edema and/or infiltrates. Tachypneic, respiratory rate in the 30s, hypertensive, bradycardic-heart rates in the 50s. T-max 99.9, WBC 13.2, urine culture reporting Proteus Mirabilis. hemoglobin 16.8, platelets 164. Inflammatory markers increasing, D-dimer 31.31, LDH 2949, CRP 18.7. Pro- calcitonin 0.09. T bili increased to 1.9, AST 41 ALT 27, alk phos 145. 11/06/21 significant respiratory distress, currently maintained on Precedex, BiPAP 100%, Decadron, Rocephin ,morphine and Ativan.Chest x-ray reporting persistent unchanged diffuse bilateral airspace infiltrates. Family has been requested to come in for further discussion with home staging specialist. 11/07/2021 BiPAP 100% dependent, maintaining O2 sats in the low to mid 80s. Significant agitation, requiring Ativan every 3 hours , prn Morphine, in addition to Precedex. Continues on Decadron, Lovenox. Blood sugars controlled Labs pending. 11/08/2021 PICC line placed with TPN initiated yesterday. Remains on 100% BiPAP, O2 sats mid 70s to low 80s. Chest x-ray reporting persistent coarse infiltrates throughout both lung polanco. Maintained on Precedex drip at maximum dose. Labs pending. Hospice consulted for informational meeting. Objective - Vital Signs Vital signs: Vital Signs Temp 97.5 F L 11/08/21 08:00 Pulse 58 L 11/08/21 10:00 Resp 23 11/08/21 10:00 BP 141/76 11/08/21 10:00 Pulse Ox 76 L 11/08/21 11:00 Intake & Output 11/07/21 11/08/21 11/08/21 18:59 06:59 18:59 Intake Total 1200 1646.454 418.483 Output Total 1050 1030 305 Balance 150 616.454 113.483 Weight 147 kg 149.8 kg 149.8 kg Intake: IV 235 Mvi, Adult No.4 with Vit 60 K 10 ml Trace (Conc-1Ml/ Dose) 1 ml Sodium Acetate 10 meq Potassium Chloride 16 meq Magnesium Sulfate gm 0.5 gm Calcium Gluconate 1 gm Sodium Phosphate 6 mmol In Amino Acids 5 %/ Dextrose 20 % 1,000 ml @ 70 mls/hr IV .BY DURATION [facility] Rx#:[id number] Sodium Chloride 0.45% 1, 75 000 ml @ 75 mls/hr IV . [id number] [facility] Rx#:[id number] cefTRIAXone 1 gm In 100 Sodium Chloride 0.9% 50 ml @ 100 mls/hr IVPB Q24HR [facility] Rx#:[id number] Intake, IV Titration 1200 1646.454 183.483 Amount Calcium Gluconate 1 gm In 100 Sodium Chloride 0.9% 100 ml @ 100 mls/hr IVPB ONCE ONE Rx#:[id number] Dexmedetomidine/0.9% NaCl 200 416.454 78.483 (Pmx) 400 mcg In Empty Bag 1 bag @ 0.2 MCG/KG/HR 7.824 mls/hr IV .[id number] [facility] [place] Rx#:[id number] Mvi, Adult No.4 with Vit 330 30 K 10 ml Trace (Conc-1Ml/ Dose) 1 ml Sodium Acetate 10 meq Potassium Chloride 16 meq Magnesium Sulfate gm 1 gm Calcium Gluconate 1 gm Sodium Phosphate 6 mmol In Amino Acids 5 %/Dextrose 20 % 1,000 ml @ 30 mls/hr IV . Q24H [facility] [place] Rx#:[id number] Sodium Chloride 0.45% 1, 900 900 75 000 ml @ 75 mls/hr IV . [id number] [facility] [place] Rx#:[id number] Output: Urine 1050 1030 305 Other: Voiding Method Indwelling Catheter Indwelling Catheter Indwelling Catheter - Exam PHYSICAL EXAM: VITAL SIGNS: [As above] GENERAL: Lethargic, sedated, arousable,respiratory effort increased, BiPAP dependent HEENT: Conjunctivae normal. eyes normal. NECK: Supple,No JVD. CARDIOVASCULAR: S1, S2 regular. No murmur, no edema RESPIRATION:Labored respiratory effort , tachypneic , positive accessory muscle use ,coarse, bilateral diminished bases with fine bibasilar crackles. ABDOMEN: Soft, nontender. No guarding. no masses palpable. Positive Bowel sounds. NERVOUS SYSTEM: Limited exam, Currently sedated, moves all extremities. Skin: Warm and dry. - Labs CBC & Chem 7: 11/08/21 08:44 11/08/21 08:44 Labs: Abnormal Lab Results - Last 24 Hours (Table) 11/07/21 11/07/21 11/07/21 Range/Units 15:00 15:00 17:38 WBC (3.8-10.6) k/uL RBC (3.80-5.40) m/uL Hgb (11.4-16.0) gm/dL Hct (34.0-46.0) % Plt Count (150-450) k/uL Neutrophils # (Manual) (1.3-7.7) k/uL Lymphocytes # (Manual) (1.0-4.8) k/uL Metamyelocytes # (Man) (0) k/uL Myelocytes # (Manual) (0) k/uL D-Dimer 28.44 H (<0.60) mg/L FEU Carbon Dioxide (22-30) mmol/L BUN (7-17) mg/dL Glucose (74-99) mg/dL POC Glucose (mg/dL) 179 H (75-99) mg/dL Calcium (8.4-10.2) mg/dL Ionized Calcium Srikanth (4.5-5.3) mg/dL Total Bilirubin (0.2-1.3) mg/dL Alkaline Phosphatase (38-126) U/L Lactate Dehydrogenase 2316 H (313-618) U/L C-Reactive Protein (<1.0) mg/dL Albumin (3.5-5.0) g/dL 11/08/21 11/08/21 11/08/21 Range/Units 01:12 05:47 08:44 WBC (3.8-10.6) k/uL RBC (3.80-5.40) m/uL Hgb (11.4-16.0) gm/dL Hct (34.0-46.0) % Plt Count (150-450) k/uL Neutrophils # (Manual) (1.3-7.7) k/uL Lymphocytes # (Manual) (1.0-4.8) k/uL Metamyelocytes # (Man) (0) k/uL Myelocytes # (Manual) (0) k/uL D-Dimer (<0.60) mg/L FEU Carbon Dioxide 31 H (22-30) mmol/L BUN 33 H (7-17) mg/dL Glucose 243 H (74-99) mg/dL POC Glucose (mg/dL) 234 H 242 H (75-99) mg/dL Calcium 7.1 L (8.4-10.2) mg/dL Ionized Calcium Srikanth 4.1 L (4.5-5.3) mg/dL Total Bilirubin 1.7 H (0.2-1.3) mg/dL Alkaline Phosphatase 189 H (38-126) U/L Lactate Dehydrogenase 2093 H (313-618) U/L C-Reactive Protein 6.0 H (<1.0) mg/dL Albumin 2.9 L (3.5-5.0) g/dL 11/08/21 11/08/21 Range/Units 08:44 08:44 WBC 13.4 H (3.8-10.6) k/uL RBC 5.63 H (3.80-5.40) m/uL Hgb 17.3 H (11.4-16.0) gm/dL Hct 55.3 H (34.0-46.0) % Plt Count 108 L (150-450) k/uL Neutrophils # (Manual) 12.33 H (1.3-7.7) k/uL Lymphocytes # (Manual) 0.27 L (1.0-4.8) k/uL Metamyelocytes # (Man) 0.13 H (0) k/uL Myelocytes # (Manual) 0.13 H (0) k/uL D-Dimer 32.36 H (<0.60) mg/L FEU Carbon Dioxide (22-30) mmol/L BUN (7-17) mg/dL Glucose (74-99) mg/dL POC Glucose (mg/dL) (75-99) mg/dL Calcium (8.4-10.2) mg/dL Ionized Calcium Srikanth (4.5-5.3) mg/dL Total Bilirubin (0.2-1.3) mg/dL Alkaline Phosphatase (38-126) U/L Lactate Dehydrogenase (313-618) U/L C-Reactive Protein (<1.0) mg/dL Albumin (3.5-5.0) g/dL Assessment and Plan Assessment: Acute hypoxic respiratory failure related to recent covid 19 pneumonia on . Nonvaccinated. Worsening, difficulty synchronizing with BiPAP. BiPAP dependent. Status post PEG tube placement for TPN Acute renal failure secondary to dehydration, Acute UTI with Proteus Mirabilis. Lactic acidosis, mild secondary to all the above, improved with IV fluids CAD, Hx of [place],stenting Chronic systolic heart failure Hypertension Hyperlipidemia Gastroesophageal reflux disease Morbid obesity, BMI 57.4 Osteoarthritis Former nicotine dependence History of ovarian cancer Gait dysfunction, wheelchair-bound No code, no CPR, no intubation. Declining BiPAP. Plan: Continue on current medication regime ,monitoring and symptomatic treatment. Labs pending.Continue with supportive care, patient is a no code, no CPR, no intubation .ICU management as per home staging specialist. As mentioned above hospice consulted to meet with both patient and son for informational meeting. The impression and plan of care has been dictated as directed. : I performed a history and examination of this patient, discussed the same with the dictator. I agree with the dictator's note ,documented as a scribe. Any additional findings or plans will be noted.
--- NOTE | 2021-11-08 12:54 | P.PN ---
Subjective Progress Note Date: 11/08/21 This is 66-year-old white female patient of Dr. Torin Pinedo with history of COVID-19 infection, patient was briefly hospitalized and was discharged home on 10/21/2021. During her last admission chest x-ray showed no evidence of acute cardiopulmonary disease, and patient did not require oxygen at discharge. She was discharged home to complete 8 more days of Decadron. Patient has extensive medical history including coronary artery disease with previous stenting, hyperlipidemia, previous history of myocardial infarction, liver/reflux, history of ovarian cancer status post total hysterectomy, compression fracture of the lumbar vertebrae, and chronic back pain, patient is able to walk but does use a wheelchair to get around for the most part, osteoarthritis a previous history of bilateral hip replacements and bilateral knee replacements, anxiety, depression, remote history of smoking but no history of chronic lung disease. Patient states after she went home she was extremely weak she had trouble getting around the house, and she had little to no help at home from her son. Reports worse savana shortness of breath, fever, ongoing diarrhea. Denied any nausea or vomiting, no compressive chest pain swelling or tenderness in calves. She was brought into the hospital by EMS for evaluation. She has a mild cough, she has a poor appetite, ongoing fatigue, she has loss of taste and smell. EMS found oxygen saturation in the 70s. Her chest x-ray in the emergency department with progressive mild scattered bilateral lung infiltrates the possibility of atypical pneumonia. Admission blood work showed a white count of 7.0, hemoglobin of 15.2, platelet count of 188, d-dimer of 1.66, electrolytes are within normal limits, BUN is 26 creatinine 1.38, mild lactic acidosis with a lactic acid of 2.2, ferritin of 883, AST of 79, [place] 41[place] [address], CRP is 32.8, pro calcitonin level was 0.20. Patient tested negative for COVID-19 by PCR test. CTA chest was completed, showing no acute pulmonary embolism within the limitations of the study, and lung windows showed bilateral diffuse moderate to marked patchy round glass opacities. Patient was started on Decadron 6 blood gram daily, multivitamins, inhaled bronchodilators, she was given IV hydration, she is awake alert this morning she is currently on 10 L of oxygen, she is short of breath with exertion but appears to be in no acute distress. She remains weak and she still having diarrhea. No abdominal pain, abdomen is nontender. On 11/01/2021 patient seen in follow-up on selective care unit. She still remains on high flow oxygen, at 15 L/m, and 100 percent nonrebreather mask, does not appear to be in any acute distress, mild dry cough, low-grade fevers with a temp of 99.1F. No complaints of chest discomfort, she is awake and alert, she was able to get up in the chair with physical therapy, breathing comfortably. Lungs reveal diminished breath sounds with some minimal crackles at bilateral bases, his labs have been reviewed with blood cell count is 8.4, hemoglobin is 15.3, d-dimer is improving and is down to 1.16, electrolytes are within normal limits, BUN is 38 and creatinine is 1.54, her renal function has further worsened. She states her diarrhea has improved and she has not had any diarrhea episodes while in the hospital. Currently remains on Decadron 6 mg daily, she is on prophylactic Lovenox, CTA chest and lower extremity Dopplers were negative for PE or DVT within the limitations of the study. Inflammatory markers are still quite elevated, with LDH of 1336 and CRP of 20.6, patient's proBNP was within normal limits at 118. Her appetite remains suboptimal, she states she is able to consume cold and soft consistencies. But has had no nausea vomiting or diarrhea since in the hospital. On today's evaluation of 11/02/2021, the patient is still struggling with her breathing. The patient remains on a high flow oxygen at 15 L along with 100% nonrebreather facemask. She has short of breath at rest. She is short of breath while talking long sentences and she easily desaturates yet she recover speech is able to maintain a pulse ox is above 88%. She remains on Decadron. No nausea. No vomiting. No diarrhea for now. No abdominal pain. The patient had developed an acute kidney injury yesterday and the creatinine was up to 1.54 and then it dropped to 1.24 and the rest of the electrodes are all within normal limits. In terms of the inflammatory markers, the patient had a elevated LDH level of 1336 and the CRP level was at 20.6. Bilirubin was at 0.9. D-dimer is at 1.16. Altered mentation. No other complaints otherwise speech is obese elderly female patient with a body mass index of 57.4. Venous Dopplers obtained on 10/31/2021 were negative and the patient had a CT angiogram at time of admission that was also negative for any pulmonary embolism that showed some cardiomegaly with diffuse bilateral pulmonary infiltrates consistent with COVID 90 related pneumonia 11/03/2021, the patient got transferred to the intensive care unit for further monitoring. Mother the patient was becoming more restless, agitated, nervous, anxious, and at times she was unable to retain Dr. therapeutic she was offered. Note that the patient is currently on Vapotherm 60 L with an FiO2 of 90% in addition to 100% nonrebreather facemask and a chest x-ray showing diffuse bilateral pulmonary infiltrate. I told that the patient was ultimately going to get intubated. I initiated a conversation with her about intubation mechanical ventilation. The patient declined. We made also focal to 2 of her sisters and both of them supported the patient's decision of not being intubated or placed on a mechanical ventilator. As such, for [place] status is DO NOT INTUBATE. As noted, the patient has been poor morbidly obese with a BMI of 57.4. The patient is on Precedex for agitation and she is currently running at a dose of 0.6 mcg/kg per minute. She is on normal saline at the rate of 20 mL an hour. Inflammatory markers continued to be elevated and LDH level is 1829, CRP level is at 14, d-dimer is at 1.97. Blood gases from yesterday showed a pH of 7.45 with a pCO2 of 44 and pO2 of 55. Her current pulse ox is around 88-89%. IV access needs to be status regarding her ongoing need for treatment and poor IV access. She remains on Decadron. She remains on Baricitinib. She remains on Lovenox for DVT prophylaxis. Mental status is adequate for now. No focal neurological deficits for now. On 11/04/2021 patient seen in follow-up in the intensive care unit, she remains on BiPAP support with pressures of 14 and 7 and FiO2 100%, and her pulse ox is ranging between 84-86%. Patient is lethargic, but easily arousable to voice, she is currently on Precedex at 0.7 mics per kilo per minute, and 0.9 normal saline at a rate of 20 ML per hour. In the last 48 hours patient's hypoxia and dyspnea have significantly worsened, patient was transferred to the intensive care unit, patient was ready on dexamethasone 6 program daily which was increased to twice daily, patient was started on Baricitinib and Rocephin for possible urinary tract infection. Inflammatory markers are still elevated on yesterday's labs, today's labs are still pending, yesterday's chest x-ray showing significant bilateral airspace disease related to recent history of COVID-19 pneumonia. Patient is requesting a break from the BiPAP support. She has tolerated BiPAP support fairly well, but she is tachypneic, she is anxious, her respiratory rate is 32, tidal volume is 407, minute ventilation is 13.2. S he has made herself a DO NOT RESUSCITATE, we'll continue supportive treatment at this time, we'll give the patient break off BiPAP and place her on Airvo today. Today's labs have been reviewed White blood cell count is 11.3, hemoglobin is 16, platelet count is 218, lymphocyte count of 0.4, serum sodium is 147, potassium is 4.9, chloride is 111, B1 is 41, creatinine is 1.02, LFTs were improving on yesterday's labs, progesterone level was negative at 0.11, urinalysis showed evidence of a urinary tract infection by urine cultures are still pending at this time. Intake has been extremely poor prior to presentation to the hospital, in addition patient was having diarrhea which has improved while in the hospital. However oral intake has remained significantly diminished especially since the patient went on BiPAP support. 11/05/2021, I'm seeing this patient for a follow-up. The patient is doing poorly and her poor condition has been essentially unchanged over the past 24 hours. As mentioned earlier, the patient was unable to tolerate the BiPAP and she was adamant of removing her BiPAP. She also wanted a DO NOT INTUBATE CODE STATUS. Based on that, we offered her high flow oxygen through an Airvo with 60 L and an FiO2 of 90% in addition to 100% on a beta facemasks. The patient was more comfortable on the setting and the patient is able to achieve a pulse ox between 8182%. She is tachypneic. Respiratory rate remains high. She is confused. She continues to say that she wants help. Her family arrived and I had a lengthy discussion with the son over the phone. He truly understand the situation. The patient carries a very poor prognosis of the patient had diffuse pneumonia with COVID 19 and the patient's has decompensated significantly during this current hospitalization and currently she is on a combination of Airvo and nonrebreather 100% full face mask. Meanwhile, the patient continues to be treated with a combination of Decadron and Baricitinib. Decadron dose of the modified to include a dose of 600 g IV every 12 hours. The chest x-ray showing diffuse bilateral pulmonary infiltrates with probably an 7 worsening compared to yesterday. Meanwhile, the d-dimer is high at 31, LDH level is 2949 and a CRP level is 18.7 and all of the inflammatory markers a higher compared to yesterday and today before. The echoes at 13.2. Sodium is at 143. He has a 30 with a creatinine of 0.8. The patient is on Precedex 0.7 microvascular kilogram per minute for increased anxiety and agitation. Incentive the patient is requiring morphine 2 mg every 2 hours to control her agitation. She is moving all 4 extremities without any limitation. She is weak. She is tired and lethargic. She is tachypneic and obviously an ongoing respiratory distress. Unable to take oral intake or food. She is afebrile. Urine culture showed Proteus mirabilis and the patient is currently on IV Rocephin. 11/06/2021, the patient continues to do poorly. Overnight, the patient was switched from an Airvo system into a BiPAP system and currently she is on a BiPAP at a pressure of 14/7 cm of water and FiO2 of 100%. Lethargic, tachypneic, using accessory muscles of breathing and in obvious respiratory distress even while on the BiPAP. She is breathing fast. Confused. She is requiring Precedex at 0.8 mcg/kg per minute. She is also morphine sulfate at 2 mg IV every 2 hours and she is also on Ativan 1 mg every 3 hours. We have used all the sedatives to maintain at least some synchrony with the BiPAP machine. She is urinating a tidal volume of 540 mL. Her minute ventilation is around 23 L per minute and her respiratory rate is around 40. She is doing poorly as m entioned. She does have an underlying UTI with Proteus and the patient was given IV Rocephin. Baricitinib was discontinued and the patient remains on Decadron 6 mg IV every 12 hours. At inflammatory markers were still elevated from yesterday. Repeat levels were not obtained from today. Treatment essentially supportive at this point in time. She is a DNR/DNI CODE STATUS. Family will be asked to come in for further discussion. Unfortunately, no much progress in her condition. She carries a very poor prognosis especially with the absence of any progress or any signs of recovery in terms of her respiratory status. Chest x-ray continues to show diffuse bilateral pulmonary infiltrates extensive consolidations and airspace disease bilaterally consistent with COVID 19 related pneumonia. 11/07/2021, the patient's condition remains essentially unchanged. I had a lengthy discussion with her son who arrived at the bedside. We went over the various scenarios and we decided to keep the status quo for now as the patient is essentially BiPAP dependent and she has not had any major improvement over the past 48 hours. She is in need for sedation. She remains on Precedex at 0.8 mcg/kg per minute and this is a constant effusion and the same time the patient has been receiving Ativan and morphine on an as-needed basis. The patient remains on a BiPAP at a pressure of 14/7 cm of water and FiO2 100%. Her generator tidal volume is warranted 20 mL and the patient's minute ventilation is around 19 L per minute and the patient's respiratory rate is around 37. Current pulse ox is 81-82%. She is quite sedated this morning. She is arousable and when aroused, she becomes quite anxious and asynchronous and desaturates further. No chest x-ray was done today. The yesterday's chest x- ray was obviously abnormal was consistent with diffuse bilateral pulmonary infiltrates and I'm still awaiting the results the follow-up inflammatory markers from today. Remains on IV Rocephin regarding a Proteus cultured in the urine. Was status remains DNR/DNI. She is off Baricitinib. She remains on Decadron 6 mg IV every 12 hours. Hemodynamically, she is stable. She is receiving normal saline rate of 75 mL an hour. She has not required any pressors. She carries a very poor prognosis. She is morbidly obese and her body mass index is at 53.9. 11/08/2021, the patient continues to struggle with her breathing. Note that the patient remains on Precedex. She is on Precedex at 1 mcg/kg per minute. On and off, she wakes up and she is able to communicate and converse subsequently and subsequently, she will go back to sleep. She has a pressure of 14/7 cm of water with an FiO2 100%. Tidal volumes rate is around 4 99 mL with a respiratory rate of 34 and a minute ventilation of 16 L per minute. No significant air leaks around the full face mask. Chest x-ray showed diffuse bilateral pulmonary infiltrates consistent with COVID 19 /ARDS. Remains on Decadron 10 january grams IV every 12 hours. Off Baricitinib as mentioned. The patient was becoming progressively more intolerant to BiPAP his she expressed wishes to take herself off the BiPAP and be switched to Airvo. At that point, with the switch utilizing a combination of Airvo and 100% nonrebreather facemask. She lasted f or around 20 minutes and subsequently she desaturated below 80% and she was in the low 70s. She was switched back to BiPAP. Her current pulse ox is 82-83%. She has not fully recovered yet. Meanwhile, I d-dimer remains elevated at 32.6. LDH level is also elevated at 2093. White cell count at 13.4 with a hemoglobin of 17 and the plated count of 108. The patient has a sodium level of 142, BUN is at 33 with a creatinine of 0.7 and glucose is 175. A PICC line was inserted and the patient was started on TPN for nutritional support is running at 30 mL an hour. The patient remains on Rocephin regarding Proteus mirabilis UTI. Objective - Vital Signs Vital signs: Vital Signs Temp 97.5 F L 11/08/21 08:00 Pulse 58 L 11/08/21 10:00 Resp 23 11/08/21 10:00 BP 141/76 11/08/21 10:00 Pulse Ox 76 L 11/08/21 11:00 Intake & Output 11/07/21 11/08/21 11/08/21 18:59 06:59 18:59 Intake Total 1200 1646.454 518.483 Output Total 1050 1030 305 Balance 150 616.454 213.483 Weight 147 kg 149.8 kg 149.8 kg Intake: IV 235 Mvi, Adult No.4 with Vit 60 K 10 ml Trace (Conc-1Ml/ Dose) 1 ml Sodium Acetate 10 meq Potassium Chloride 16 meq Magnesium Sulfate gm 0.5 gm Calcium Gluconate 1 gm Sodium Phosphate 6 mmol In Amino Acids 5 %/ Dextrose 20 % 1,000 ml @ 70 mls/hr IV .BY DURATION [facility] Rx#:[id number] Sodium Chloride 0.45% 1, 75 000 ml @ 75 mls/hr IV . [id number] [facility] Rx#:[id number] cefTRIAXone 1 gm In 100 Sodium Chloride 0.9% 50 ml @ 100 mls/hr IVPB Q24HR [facility] Rx#:[id number] Intake, IV Titration 1200 1646.454 283.483 Amount Calcium Gluconate 1 gm In 100 Sodium Chloride 0.9% 100 ml @ 100 mls/hr IVPB ONCE ONE Rx#:[id number] Dexmedetomidine/0.9% NaCl 200 416.454 178.483 (Pmx) 400 mcg In Empty Bag 1 bag @ 0.2 MCG/KG/HR 7.824 mls/hr IV .[id number] [facility] Rx#:[id number] Mvi, Adult No.4 with Vit 330 30 K 10 ml Trace (Conc-1Ml/ Dose) 1 ml Sodium Acetate 10 meq Potassium Chloride 16 meq Magnesium Sulfate gm 1 gm Calcium Gluconate 1 gm Sodium Phosphate 6 mmol In Amino Acids 5 %/Dextrose 20 % 1,000 ml @ 30 mls/hr IV . Q24H [facility] Rx#:[id number] Sodium Chloride 0.45% 1, 900 900 75 000 ml @ 75 mls/hr IV . [id number] [facility] Rx#:[id number] Output: Urine 1050 1030 305 Other: Voiding Method Indwelling Catheter Indwelling Catheter Indwelling Catheter - Exam GENERAL EXAM: Alert, very pleasant, 66-year-old morbidly obese white female, patient is currently on BiPAP at a pressure of 14/7 cm of water and FiO2 100%. Lethargic, somnolent, under the effect of sedatives. HEAD: Normocephalic/atraumatic. EYES: Normal reaction of pupils, equal size. Conjunctiva pink, sclera white. NOSE: Clear with pink turbinates. THROAT: No erythema or exudates. NECK: No masses, no JVD, no thyroid enlargement, no adenopathy. CHEST: No chest wall deformity. Symmetrical expansion. LUNGS: Equal air entry with fine basilar crackles, diminished breath sounds bilaterally and the patient is tachypneic and she is using some accessory muscles of breathing. CVS: Regular rate and rhythm, normal S1 and S2, no gallops, no murmurs, no rubs ABDOMEN: Soft, nontender. No hepatosplenomegaly, normal bowel sounds, no guarding or rigidity. EXTREMITIES: No clubbing, no edema, no cyanosis, 2+ pulses and upper and lower extremities. MUSCULOSKELETAL: Muscle strength and tone normal. SPINE: No scoliosis or deformity SKIN: No rashes CENTRAL NERVOUS SYSTEM: The patient is confused. Adequately sedated at this point in time with a combination of Precedex, Ativan and morphine sulfate. The patient is moving all 4 extremities. No focal neurological deficit at this point in time. PSYCHIATRIC: Confused - Labs CBC & Chem 7: 11/08/21 08:44 11/08/21 08:44 Labs: Abnormal Lab Results - Last 24 Hours (Table) 11/07/21 11/07/21 11/07/21 Range/Units 15:00 15:00 17:38 WBC (3.8-10.6) k/uL RBC (3.80-5.40) m/uL Hgb (11.4-16.0) gm/dL Hct (34.0-46.0) % Plt Count (150-450) k/uL Neutrophils # (Manual) (1.3-7.7) k/uL Lymphocytes # (Manual) (1.0-4.8) k/uL Metamyelocytes # (Man) (0) k/uL Myelocytes # (Manual) (0) k/uL D-Dimer 28.44 H (<0.60) mg/L FEU Carbon Dioxide (22-30) mmol/L BUN (7-17) mg/dL Glucose (74-99) mg/dL POC Glucose (mg/dL) 179 H (75-99) mg/dL Calcium (8.4-10.2) mg/dL Ionized Calcium Srikanth (4.5-5.3) mg/dL Total Bilirubin (0.2-1.3) mg/dL Alkaline Phosphatase (38-126) U/L Lactate Dehydrogenase 2316 H (313-618) U/L C-Reactive Protein (<1.0) mg/dL Albumin (3.5-5.0) g/dL 11/08/21 11/08/21 11/08/21 Range/Units 01:12 05:47 08:44 WBC (3.8-10.6) k/uL RBC (3.80-5.40) m/uL Hgb (11.4-16.0) gm/dL Hct (34.0-46.0) % Plt Count (150-450) k/uL Neutrophils # (Manual) (1.3-7.7) k/uL Lymphocytes # (Manual) (1.0-4.8) k/uL Metamyelocytes # (Man) (0) k/uL Myelocytes # (Manual) (0) k/uL D-Dimer (<0.60) mg/L FEU Carbon Dioxide 31 H (22-30) mmol/L BUN 33 H (7-17) mg/dL Glucose 243 H (74-99) mg/dL POC Glucose (mg/dL) 234 H 242 H (75-99) mg/dL Calcium 7.1 L (8.4-10.2) mg/dL Ionized Calcium Srikanth 4.1 L (4.5-5.3) mg/dL Total Bilirubin 1.7 H (0.2-1.3) mg/dL Alkaline Phosphatase 189 H (38-126) U/L Lactate Dehydrogenase 2093 H (313-618) U/L C-Reactive Protein 6.0 H (<1.0) mg/dL Albumin 2.9 L (3.5-5.0) g/dL 11/08/21 11/08/21 11/08/21 Range/Units 08:44 08:44 11:49 WBC 13.4 H (3.8-10.6) k/uL RBC 5.63 H (3.80-5.40) m/uL Hgb 17.3 H (11.4-16.0) gm/dL Hct 55.3 H (34.0-46.0) % Plt Count 108 L (150-450) k/uL Neutrophils # (Manual) 12.33 H (1.3-7.7) k/uL Lymphocytes # (Manual) 0.27 L (1.0-4.8) k/uL Metamyelocytes # (Man) 0.13 H (0) k/uL Myelocytes # (Manual) 0.13 H (0) k/uL D-Dimer 32.36 H (<0.60) mg/L FEU Carbon Dioxide (22-30) mmol/L BUN (7-17) mg/dL Glucose (74-99) mg/dL POC Glucose (mg/dL) 175 H (75-99) mg/dL Calcium (8.4-10.2) mg/dL Ionized Calcium Srikanth (4.5-5.3) mg/dL Total Bilirubin (0.2-1.3) mg/dL Alkaline Phosphatase (38-126) U/L Lactate Dehydrogenase (313-618) U/L C-Reactive Protein (<1.0) mg/dL Albumin (3.5-5.0) g/dL Assessment and Plan Plan: #1. Acute Hypoxic respiratory failure related to COVID 19 pneumonia. The patient remains a DO NOT RESUSCITATE DO NOT INTUBATE CODE STATUS. She has declined intubation mechanical ventilation. The family is aware. She is strictly BiPAP dependent and pressure 14/7 cm of water and FiO2 percent. Unable to, to BiPAP. Chest x-ray remains unchanged with diffuse bilateral pulmonary infiltrates with possible development of ARDS.. The patient's inflammatory markers remain elevated including LDH and d-dimer. The patient also has an underlying UTI. Based on that, the patient was started on IV antibiotics and the patient was taken off the Baricitinib. The patient is on Decadron 6 mg IV every 12 hours. LDH is elevated. D-dimer was also elevated and the patient was switched to therapy dose of Lovenox. She is nothing by mouth. Tried a brief trial of Airvo along with 100% on a beta facemask and the patient was unable to tolerate due to desaturation and the patient was placed back on BiPAP. The patient is on Precedex. Mentation waxes and wanes, at times confused and sleepy other times much more lucid and awake and communicating. #2. Weakness, fatigue, diarrhea related to recent history of COVID-19 infection #3. Elevated inflammatory markers related to COVID-19 infection versus the UTI as the patient was found to have Proteus mirabilis UTI , and the patient is currently on IV Rocephin #4. Acute kidney injury related to dehydration and diarrhea, improved and the patient is currently diagnosed having an acute UTI #5. Mild lactic acidosis related to dehydration improved with fluid resuscitation #6. Morbid obesity with BMI 57.4 kg/m #7. Coronary artery disease with previous stenting #8. History of ovarian cancer status post total hysterectomy #9. Chronic back pain #10. History of compression fractures of lumbar vertebrae #11. Gait dysfunction, patient is wheelchair bound for the most part #12. HyperLipidemia #13. Remote history of smoking #14. GERD/reflux #15. Anxiety and depression #16. UTI with Proteus mirabilis Plan: Continue BiPAP at the same setting Unable to wean the patient off the BiPAP TPN for nutritional support IV Decadron 6 mg every 12 hours The patient is currently off Baricitinib Continue IV Rocephin Monitor inflammatory markers Review the chest x-ray from today Continue Precedex and utilize Ativan/morphine and massive basis DO NOT INTUBATE CODE STATUS May consider hospice/end-of-life care later stage. Family is not very to make the decision yet. Continues to have a very poor prognosis. Critical care evaluation that was done and more than 30 minutes. Time with Patient: Greater than 30
[2021-11-08] MEDS: LIDOCAINE 5% PATCH TOPICAL SCH (13:00)
[2021-11-08] MEDS ORDERED: CALCIUM GLUCONATE 1 GM in SODIUM CHLORIDE 0.9% 100 ML IVPB ONE (14:00)
[2021-11-08 18:11] LABS: Glucose,Whole Blood 279 mg/dL (75-99)
[2021-11-08] MEDS: LORazepam 2 MG/ML INJ IV PRN (18:57)
[2021-11-08 23:21] LABS: Glucose,Whole Blood 243 mg/dL (75-99)
[2021-11-09] MEDS: DEXMEDETOMIDINE/0.9% NACL(PMX) 400 MCG in EMPTY BAG 1 BAG IV SCH ×11 (01:32→23:28)
[2021-11-09] MEDS: 1: MVI, ADULT NO.4 WITH VIT K 10 ML, TRACE (CONC-1ML/DOSE) 1 ML, SODIUM ACETATE 10 MEQ, IV SCH ×24 (02:25→13:10)
[2021-11-09] MEDS: SODIUM CHLORIDE 0.9% 1,000 ML IV SCH (03:12)
[2021-11-09] MEDS: MORPHINE SULFATE 2 MG/ML SYRINGE IVP PRN ×3 (04:40→23:24)
[2021-11-09] MEDS: LORazepam 2 MG/ML INJ IV PRN ×2 (05:02→21:12)
[2021-11-09 05:14] LABS: Glucose,Whole Blood 510 mg/dL (75-99)
[2021-11-09 05:14] LABS: Glucose,Whole Blood 517 mg/dL (75-99)
[2021-11-09] MEDS ORDERED: INSULIN REGULAR BOLUS (FROM DRIP BAG) IV PRN (05:15)
[2021-11-09] MEDS: INSULIN REGULAR 100 UNIT in SODIUM CHLORIDE 0.9% 100 ML IV SCH ×3 (05:36→23:12)
[2021-11-09 06:22] LABS: ALT 34 U/L (4-34); African American GFR (CKD) >90 (>60 ml/min/1.73 sqM); Albumin 2.5 g/dL (3.5-5.0); Anion Gap 1 mmol/L; Blood Urea Nitrogen 30 mg/dL (7-17); Calcium 6.9 mg/dL (8.4-10.2); Carbon Dioxide 29 mmol/L (22-30); Chloride 104 mmol/L (98-107); Non-African American GFR(CKD) 90 (>60 ml/min/1.73 sqM); Sodium 134 mmol/L (137-145); Total Bilirubin 1.8 mg/dL (0.2-1.3); Total Protein 5.7 g/dL (6.3-8.2)
[2021-11-09 06:22] LABS: Glucose,Whole Blood 446 mg/dL (75-99)
[2021-11-09 06:41] LABS: Glucose 613 mg/dL (74-99)
[2021-11-09 06:43] LABS: Magnesium 1.8 mg/dL (1.6-2.3); Phosphorus 3.3 mg/dL (2.5-4.5); Potassium 4.6 mmol/L (3.5-5.1)
[2021-11-09 06:44] LABS: AST 43 U/L (14-36); Alkaline Phosphatase 150 U/L (38-126)
[2021-11-09 06:52] LABS: Glucose,Whole Blood 428 mg/dL (75-99)
[2021-11-09] MEDS: ALBUTEROL HFA INHALER INHALATION SCH ×4 (07:27→19:30)
[2021-11-09 08:19] LABS: Glucose,Whole Blood 282 mg/dL (75-99)
[2021-11-09] MEDS: ASCORBIC ACID 500 MG TAB PO SCH ×2 (08:47→21:22)
[2021-11-09] MEDS: ASPIRIN 81 MG PO SCH (08:47)
[2021-11-09] MEDS: COLCHICINE 0.6 MG EACH PO SCH ×2 (08:48→21:22)
[2021-11-09] MEDS: CHOLECALCIFEROL 25 MCG (1000 IU) TABLET PO SCH (08:48)
[2021-11-09] MEDS: PANTOPRAZOLE 40 MG/10 ML VIAL IVP SCH (08:51)
[2021-11-09] MEDS: DEXAMETHASONE SOD PHOSPHATE 10 MG/ML 1 ML VIAL IVP SCH ×2 (08:51→21:06)
[2021-11-09] MEDS: ENOXAPARIN 80 MG/0.8 ML SYRINGE SQ SCH ×2 (08:55→21:07)
[2021-11-09] MEDS: SODIUM CHLORIDE 0.45% 1,000 ML IV SCH ×2 (08:56→23:14)
--- NOTE | 2021-11-09 09:11 | XR ---
EXAMINATION TYPE: XR chest 1V portable DATE OF EXAM: 11/09/2021 HISTORY: Shortness of breath. COMPARISON: 11/08/2021 TECHNIQUE: Single view of the chest is submitted. FINDINGS: Demonstrated are scattered senescent parenchymal change. Mixed airspace and groundglass infiltrates persist throughout both lung [place]. No significant change appreciated. The heart is stable. Hilar and mediastinal structures are within normal limits. Degenerative changes are seen of the dorsal spine. IMPRESSION: 1. Mixed airspace and groundglass infiltrates persist throughout both lung [place]. No significant ch saurabh appreciated.
[2021-11-09 09:17] LABS: Glucose,Whole Blood 179 mg/dL (75-99)
[2021-11-09] MEDS: LIDOCAINE 5% PATCH TOPICAL SCH (09:49)
[2021-11-09] MEDS: FUROSEMIDE 10 MG/ML 4 ML VIAL IV SCH (09:49)
[2021-11-09] MEDS: ZINC SULFATE 220 MG CAP PO SCH (09:49)
[2021-11-09 10:03] LABS: Glucose,Whole Blood 136 mg/dL (75-99)
[2021-11-09 10:24] LABS: C Reactive Protein 4.1 mg/dL (<1.0)
[2021-11-09 11:19] LABS: Glucose,Whole Blood 159 mg/dL (75-99)
[2021-11-09 12:12] LABS: Glucose,Whole Blood 169 mg/dL (75-99)
--- NOTE | 2021-11-09 12:45 | P.PN ---
Subjective Progress Note Date: 11/09/21 Principal diagnosis: Recent covert pneumonia, hypoxia, weakness, postcoital bleeding syndrome, diabetes and obesity This patient has been a noncompliant unvaccinated morbidly obese patient known to our practice who had contracted COVID-19 pneumonia initially did not desaturate and was subsequently sent home for total of visit follow-up at the office, for which this patient was completely noncompliant she returned to the emergency room approximately a week after being diagnosed and was again not hypoxic, and simply complained of cough and weakness was discharged home and re turned approximately a week later hypoxic significant weakness fatigue refusing meds wished to be made a no code and was placed on BiPAP in the intensive care unit. Patient has rallied somewhat is still on BiPAP has agreed to be placed on TPN and is lingering sats are 89% on 100% O2 Objective - Vital Signs Vital signs: Vital Signs Temp 98.8 F 11/09/21 12:00 Pulse 55 L 11/09/21 12:00 Resp 23 11/09/21 12:00 BP 108/64 11/09/21 12:00 Pulse Ox 89 L 11/09/21 12:00 Intake & Output 11/08/21 11/09/21 11/09/21 18:59 06:59 18:59 Intake Total 2076.724 2053.269 753.327 Output Total 1155 1275 1300 Balance 921.724 778.269 -546.673 Weight 149.8 kg 151 kg Intake: IV 1499 1482 400 Calcium Gluconate 1 gm In 100 Sodium Chloride 0.9% 100 ml @ 100 mls/hr IVPB ONCE ONE Rx#:[id number] Fat Emulsion 20% 500 ml 294 252 In Empty Bag 1 bag @ 42 mls/hr IV Fr@0900 [facility] Rx# :[id number] Mvi, Adult No.4 with Vit 330 330 170 K 10 ml Trace (Conc-1Ml/ Dose) 1 ml Sodium Acetate 10 meq Potassium Chloride 16 meq Magnesium Sulfate gm 0.5 gm Calcium Gluconate 1 gm Sodium Phosphate 6 mmol In Amino Acids 5 %/ Dextrose 20 % 1,000 ml @ 70 mls/hr IV .BY DURATION [facility] Rx#:[id number] Sodium Chloride 0.45% 1, 675 900 230 000 ml @ 20 mls/hr IV . Q24H [facility] Rx#:[id number] cefTRIAXone 1 gm In 100 Sodium Chloride 0.9% 50 ml @ 100 mls/hr IVPB Q24HR [facility] Rx#:[id number] Intake, IV Titration 577.724 571.269 353.327 Amount Dexmedetomidine/0.9% NaCl 472.724 571.269 264.161 (Pmx) 400 mcg In Empty Bag 1 bag @ 0.2 MCG/KG/HR 7.824 mls/hr IV .[id number] [facility] Rx#:[id number] Insulin Regular 100 unit 89.166 In Sodium Chloride 0.9% 100 ml @ Per Protocol IV .Q0M [facility] Rx#:[id number] Mvi, Adult No.4 with Vit 30 K 10 ml Trace (Conc-1Ml/ Dose) 1 ml Sodium Acetate 10 meq Potassium Chloride 16 meq Magnesium Sulfate gm 1 gm Calcium Gluconate 1 gm Sodium Phosphate 6 mmol In Amino Acids 5 %/Dextrose 20 % 1,000 ml @ 30 mls/hr IV . Q24H [facility] Rx#:[id number] Sodium Chloride 0.45% 1, 75 000 ml @ 20 mls/hr IV . Q24H [facility] Rx#:[id number] Output: Urine 1155 1275 1300 Other: Voiding Method Indwelling Catheter Indwelling Catheter Indwelling Catheter - Exam General: [Patient awake, alert and oriented times 3. Patient in no acute distress.] Communicating appropriately, morbidly obese HEENT: [PERRL. EOMI. No pharyngeal erythema or exudate.] Neck: [No adenopathy.] Cardiac: [Heart regular in rate and rhythm. No S3. No S4. No clicks, rubs. No murmur.] Lungs: Breath sounds diminished bilaterally by basilar crackles wheezes Abdomen: [No mass. No organomegaly. Bowel sounds presnt and normoactive in all 4 quadrants. Morbidly obese Extremes: [No edema no cyanosis no claudication normal pulses] : Normal female genitalia Musculoskeletal: [No joint erythema, edema or tenderness.] Skin: [No rash.] Neurologic: [No lateralizing deficits. CN II - XII grossly intact.] Lymphatic: [No adenopathy.] - Labs CBC & Chem 7: 11/08/21 08:44 11/09/21 05:43 Labs: Abnormal Lab Results - Last 24 Hours (Table) 11/08/21 11/08/21 11/08/21 Range/Units 08:44 18:09 23:20 D-Dimer (<0.60) mg/L FEU Sodium (137-145) mmol/L BUN (7-17) mg/dL Glucose (74-99) mg/dL POC Glucose (mg/dL) 279 H 243 H (75-99) mg/dL Calcium (8.4-10.2) mg/dL Total Bilirubin (0.2-1.3) mg/dL AST (14-36) U/L Alkaline Phosphatase (38-126) U/L Lactate Dehydrogenase (313-618) U/L C-Reactive Protein (<1.0) mg/dL Total Protein (6.3-8.2) g/dL Albumin (3.5-5.0) g/dL Triglycerides 298.00 H (0.00-149.00) mg/dL 11/09/21 11/09/21 11/09/21 Range/Units 05:11 05:12 05:43 D-Dimer (<0.60) mg/L FEU Sodium 134 L (137-145) mmol/L BUN 30 H (7-17) mg/dL Glucose 613 H* (74-99) mg/dL POC Glucose (mg/dL) 510 H 517 H (75-99) mg/dL Calcium 6.9 L (8.4-10.2) mg/dL Total Bilirubin 1.8 H (0.2-1.3) mg/dL AST 43 H (14-36) U/L Alkaline Phosphatase 150 H (38-126) U/L Lactate Dehydrogenase (313-618) U/L C-Reactive Protein (<1.0) mg/dL Total Protein 5.7 L (6.3-8.2) g/dL Albumin 2.5 L (3.5-5.0) g/dL Triglycerides (0.00-149.00) mg/dL 11/09/21 11/09/21 11/09/21 Range/Units 06:20 06:51 08:16 D-Dimer (<0.60) mg/L FEU Sodium (137-145) mmol/L BUN (7-17) mg/dL Glucose (74-99) mg/dL POC Glucose (mg/dL) 446 H 428 H 282 H (75-99) mg/dL Calcium (8.4-10.2) mg/dL Total Bilirubin (0.2-1.3) mg/dL AST (14-36) U/L Alkaline Phosphatase (38-126) U/L Lactate Dehydrogenase (313-618) U/L C-Reactive Protein (<1.0) mg/dL Total Protein (6.3-8.2) g/dL Albumin (3.5-5.0) g/dL Triglycerides (0.00-149.00) mg/dL 11/09/21 11/09/21 11/09/21 Range/Units 09:15 09:55 09:55 D-Dimer 31.61 H (<0.60) mg/L FEU Sodium (137-145) mmol/L BUN (7-17) mg/dL Glucose (74-99) mg/dL POC Glucose (mg/dL) 179 H (75-99) mg/dL Calcium (8.4-10.2) mg/dL Total Bilirubin (0.2-1.3) mg/dL AST (14-36) U/L Alkaline Phosphatase (38-126) U/L Lactate Dehydrogenase 3176 H (313-618) U/L C-Reactive Protein 4.1 H (<1.0) mg/dL Total Protein (6.3-8.2) g/dL Albumin (3.5-5.0) g/dL Triglycerides (0.00-149.00) mg/dL 11/09/21 11/09/21 11/09/21 Range/Units 10:01 11:07 12:10 D-Dimer (<0.60) mg/L FEU Sodium (137-145) mmol/L BUN (7-17) mg/dL Glucose (74-99) mg/dL POC Glucose (mg/dL) 136 H 159 H 169 H (75-99) mg/dL Calcium (8.4-10.2) mg/dL Total Bilirubin (0.2-1.3) mg/dL AST (14-36) U/L Alkaline Phosphatase (38-126) U/L Lactate Dehydrogenase (313-618) U/L C-Reactive Protein (<1.0) mg/dL Total Protein (6.3-8.2) g/dL Albumin (3.5-5.0) g/dL Triglycerides (0.00-149.00) mg/dL Assessment and Plan (1) Non-compliance Current Visit: Yes Status: Acute Code(s): Z91.19 - PATIENT'S NONCOMPLIANCE W [facility] SNOMED Code(s): 4992879 (2) Acute renal failure Current Visit: Yes Status: Acute Code(s): N17.9 - ACUTE KIDNEY FAILURE, UNSPECIFIED SNOMED Code(s): 70224039 (3) Acute respiratory failure with hypoxia Current Visit: Yes Status: Acute Code(s): J96.01 - ACUTE RESPIRATORY FAILURE WITH HYPOXIA SNOMED Code(s): 63109141 (4) COVID-19 Current Visit: Yes Status: Acute Code(s): U07.1 - COVID-19 SNOMED Code(s): 817412334 (5) Essential (primary) hypertension Current Visit: Yes Status: Acute Code(s): I10 - ESSENTIAL (PRIMARY) HYPERTENSION SNOMED Code(s): 52043660 (6) GERD (gastroesophageal reflux disease) Current Visit: Yes Status: Acute Code(s): K21.9 - GASTRO-ESOPHAGEAL REFLUX DISEASE WITHOUT ESOPHAGITIS SNOMED Code(s): 506645323 (7) H/O myocardial infarction, greater than 8 weeks Current Visit: Yes Status: Acute Code(s): I25.2 - OLD MYOCARDIAL INFARCTION SNOMED Code(s): 5838435 (8) Hypoxia Current Visit: Yes Status: Acute Code(s): R09.02 - HYPOXEMIA SNOMED Code(s): 869753988 (9) Mixed hyperlipidemia Current Visit: Yes Status: Acute Code(s): E78.2 - MIXED HYPERLIPIDEMIA SNOMED Code(s): 640235099 (10) Morbid obesity with BMI of 50.0-59.9, adult Current Visit: Yes Status: Acute Code(s): E66.01 - MORBID (SEVERE) OBESITY DUE TO EXCESS CALORIES; Z68.43 - BODY MASS INDEX [BMI] 50.0-59.9, ADULT SNOMED Code(s): 292286509 Plan: Currently the intensive care unit On BiPAP Refuses intubation, currently a DO NOT RESUSCITATE Has agreed to TPN which has been initiated Son does not wish or patient to be terminally weaned Continued hypoxia on 100% O2 current sat equals 89% Continue current plan Time with Patient: Greater than 30
--- NOTE | 2021-11-09 13:11 | P.PN ---
Subjective Progress Note Date: 11/09/21 This is 66-year-old white female patient of Dr. Torin Pinedo with history of COVID-19 infection, patient was briefly hospitalized and was discharged home on 10/21/2021. During her last admission chest x-ray showed no evidence of acute cardiopulmonary disease, and patient did not require oxygen at discharge. She was discharged home to complete 8 more days of Decadron. Patient has extensive medical history including coronary artery disease with previous stenting, hyperlipidemia, previous history of myocardial infarction, liver/reflux, history of ovarian cancer status post total hysterectomy, compression fracture of the lumbar vertebrae, and chronic back pain, patient is able to walk but does use a wheelchair to get around for the most part, osteoarthritis a previous history of bilateral hip replacements and bilateral knee replacements, anxiety, depression, remote history of smoking but no history of chronic lung disease. Patient states after she went home she was extremely weak she had trouble getting around the house, and she had little to no help at home from her son. Reports worse savana shortness of breath, fever, ongoing diarrhea. Denied any nausea or vomiting, no compressive chest pain swelling or tenderness in calves. She was brought into the hospital by EMS for evaluation. She has a mild cough, she has a poor appetite, ongoing fatigue, she has loss of taste and smell. EMS found oxygen saturation in the 70s. Her chest x-ray in the emergency department with progressive mild scattered bilateral lung infiltrates the possibility of atypical pneumonia. Admission blood work showed a white count of 7.0, hemoglobin of 15.2, platelet count of 188, d-dimer of 1.66, electrolytes are within normal limits, BUN is 26 creatinine 1.38, mild lactic acidosis with a lactic acid of 2.2, ferritin of 883, AST of 79, [place] 41[place] [address], CRP is 32.8, pro calcitonin level was 0.20. Patient tested negative for COVID-19 by PCR test. CTA chest was completed, showing no acute pulmonary embolism within the limitations of the study, and lung windows showed bilateral diffuse moderate to marked patchy round glass opacities. Patient was started on Decadron 6 blood gram daily, multivitamins, inhaled bronchodilators, she was given IV hydration, she is awake alert this morning she is currently on 10 L of oxygen, she is short of breath with exertion but appears to be in no acute distress. She remains weak and she still having diarrhea. No abdominal pain, abdomen is nontender. On 11/01/2021 patient seen in follow-up on selective care unit. She still remains on high flow oxygen, at 15 L/m, and 100 percent nonrebreather mask, does not appear to be in any acute distress, mild dry cough, low-grade fevers with a temp of 99.1F. No complaints of chest discomfort, she is awake and alert, she was able to get up in the chair with physical therapy, breathing comfortably. Lungs reveal diminished breath sounds with some minimal crackles at bilateral bases, his labs have been reviewed with blood cell count is 8.4, hemoglobin is 15.3, d-dimer is improving and is down to 1.16, electrolytes are within normal limits, BUN is 38 and creatinine is 1.54, her renal function has further worsened. She states her diarrhea has improved and she has not had any diarrhea episodes while in the hospital. Currently remains on Decadron 6 mg daily, she is on prophylactic Lovenox, CTA chest and lower extremity Dopplers were negative for PE or DVT within the limitations of the study. Inflammatory markers are still quite elevated, with LDH of 1336 and CRP of 20.6, patient's proBNP was within normal limits at 118. Her appetite remains suboptimal, she states she is able to consume cold and soft consistencies. But has had no nausea vomiting or diarrhea since in the hospital. On today's evaluation of 11/02/2021, the patient is still struggling with her breathing. The patient remains on a high flow oxygen at 15 L along with 100% nonrebreather facemask. She has short of breath at rest. She is short of breath while talking long sentences and she easily desaturates yet she recover speech is able to maintain a pulse ox is above 88%. She remains on Decadron. No nausea. No vomiting. No diarrhea for now. No abdominal pain. The patient had developed an acute kidney injury yesterday and the creatinine was up to 1.54 and then it dropped to 1.24 and the rest of the electrodes are all within normal limits. In terms of the inflammatory markers, the patient had a elevated LDH level of 1336 and the CRP level was at 20.6. Bilirubin was at 0.9. D-dimer is at 1.16. Altered mentation. No other complaints otherwise speech is obese elderly female patient with a body mass index of 57.4. Venous Dopplers obtained on 10/31/2021 were negative and the patient had a CT angiogram at time of admission that was also negative for any pulmonary embolism that showed some cardiomegaly with diffuse bilateral pulmonary infiltrates consistent with COVID 90 related pneumonia 11/03/2021, the patient got transferred to the intensive care unit for further monitoring. Mother the patient was becoming more restless, agitated, nervous, anxious, and at times she was unable to retain Dr. therapeutic she was offered. Note that the patient is currently on Vapotherm 60 L with an FiO2 of 90% in addition to 100% nonrebreather facemask and a chest x-ray showing diffuse bilateral pulmonary infiltrate. I told that the patient was ultimately going to get intubated. I initiated a conversation with her about intubation mechanical ventilation. The patient declined. We made also focal to 2 of her sisters and both of them supported the patient's decision of not being intubated or placed on a mechanical ventilator. As such, for [place] status is DO NOT INTUBATE. As noted, the patient has been poor morbidly obese with a BMI of 57.4. The patient is on Precedex for agitation and she is currently running at a dose of 0.6 mcg/kg per minute. She is on normal saline at the rate of 20 mL an hour. Inflammatory markers continued to be elevated and LDH level is 1829, CRP level is at 14, d-dimer is at 1.97. Blood gases from yesterday showed a pH of 7.45 with a pCO2 of 44 and pO2 of 55. Her current pulse ox is around 88-89%. IV access needs to be status regarding her ongoing need for treatment and poor IV access. She remains on Decadron. She remains on Baricitinib. She remains on Lovenox for DVT prophylaxis. Mental status is adequate for now. No focal neurological deficits for now. On 11/04/2021 patient seen in follow-up in the intensive care unit, she remains on BiPAP support with pressures of 14 and 7 and FiO2 100%, and her pulse ox is ranging between 84-86%. Patient is lethargic, but easily arousable to voice, she is currently on Precedex at 0.7 mics per kilo per minute, and 0.9 normal saline at a rate of 20 ML per hour. In the last 48 hours patient's hypoxia and dyspnea have significantly worsened, patient was transferred to the intensive care unit, patient was ready on dexamethasone 6 program daily which was increased to twice daily, patient was started on Baricitinib and Rocephin for possible urinary tract infection. Inflammatory markers are still elevated on yesterday's labs, today's labs are still pending, yesterday's chest x-ray showing significant bilateral airspace disease related to recent history of COVID-19 pneumonia. Patient is requesting a break from the BiPAP support. She has tolerated BiPAP support fairly well, but she is tachypneic, she is anxious, her respiratory rate is 32, tidal volume is 407, minute ventilation is 13.2. S he has made herself a DO NOT RESUSCITATE, we'll continue supportive treatment at this time, we'll give the patient break off BiPAP and place her on Airvo today. Today's labs have been reviewed White blood cell count is 11.3, hemoglobin is 16, platelet count is 218, lymphocyte count of 0.4, serum sodium is 147, potassium is 4.9, chloride is 111, B1 is 41, creatinine is 1.02, LFTs were improving on yesterday's labs, progesterone level was negative at 0.11, urinalysis showed evidence of a urinary tract infection by urine cultures are still pending at this time. Intake has been extremely poor prior to presentation to the hospital, in addition patient was having diarrhea which has improved while in the hospital. However oral intake has remained significantly diminished especially since the patient went on BiPAP support. 11/05/2021, I'm seeing this patient for a follow-up. The patient is doing poorly and her poor condition has been essentially unchanged over the past 24 hours. As mentioned earlier, the patient was unable to tolerate the BiPAP and she was adamant of removing her BiPAP. She also wanted a DO NOT INTUBATE CODE STATUS. Based on that, we offered her high flow oxygen through an Airvo with 60 L and an FiO2 of 90% in addition to 100% on a beta facemasks. The patient was more comfortable on the setting and the patient is able to achieve a pulse ox between 8182%. She is tachypneic. Respiratory rate remains high. She is confused. She continues to say that she wants help. Her family arrived and I had a lengthy discussion with the son over the phone. He truly understand the situation. The patient carries a very poor prognosis of the patient had diffuse pneumonia with COVID 19 and the patient's has decompensated significantly during this current hospitalization and currently she is on a combination of Airvo and nonrebreather 100% full face mask. Meanwhile, the patient continues to be treated with a combination of Decadron and Baricitinib. Decadron dose of the modified to include a dose of 600 g IV every 12 hours. The chest x-ray showing diffuse bilateral pulmonary infiltrates with probably an 7 worsening compared to yesterday. Meanwhile, the d-dimer is high at 31, LDH level is 2949 and a CRP level is 18.7 and all of the inflammatory markers a higher compared to yesterday and today before. The echoes at 13.2. Sodium is at 143. He has a 30 with a creatinine of 0.8. The patient is on Precedex 0.7 microvascular kilogram per minute for increased anxiety and agitation. Incentive the patient is requiring morphine 2 mg every 2 hours to control her agitation. She is moving all 4 extremities without any limitation. She is weak. She is tired and lethargic. She is tachypneic and obviously an ongoing respiratory distress. Unable to take oral intake or food. She is afebrile. Urine culture showed Proteus mirabilis and the patient is currently on IV Rocephin. 11/06/2021, the patient continues to do poorly. Overnight, the patient was switched from an Airvo system into a BiPAP system and currently she is on a BiPAP at a pressure of 14/7 cm of water and FiO2 of 100%. Lethargic, tachypneic, using accessory muscles of breathing and in obvious respiratory distress even while on the BiPAP. She is breathing fast. Confused. She is requiring Precedex at 0.8 mcg/kg per minute. She is also morphine sulfate at 2 mg IV every 2 hours and she is also on Ativan 1 mg every 3 hours. We have used all the sedatives to maintain at least some synchrony with the BiPAP machine. She is urinating a tidal volume of 540 mL. Her minute ventilation is around 23 L per minute and her respiratory rate is around 40. She is doing poorly as m entioned. She does have an underlying UTI with Proteus and the patient was given IV Rocephin. Baricitinib was discontinued and the patient remains on Decadron 6 mg IV every 12 hours. At inflammatory markers were still elevated from yesterday. Repeat levels were not obtained from today. Treatment essentially supportive at this point in time. She is a DNR/DNI CODE STATUS. Family will be asked to come in for further discussion. Unfortunately, no much progress in her condition. She carries a very poor prognosis especially with the absence of any progress or any signs of recovery in terms of her respiratory status. Chest x-ray continues to show diffuse bilateral pulmonary infiltrates extensive consolidations and airspace disease bilaterally consistent with COVID 19 related pneumonia. 11/07/2021, the patient's condition remains essentially unchanged. I had a lengthy discussion with her son who arrived at the bedside. We went over the various scenarios and we decided to keep the status quo for now as the patient is essentially BiPAP dependent and she has not had any major improvement over the past 48 hours. She is in need for sedation. She remains on Precedex at 0.8 mcg/kg per minute and this is a constant effusion and the same time the patient has been receiving Ativan and morphine on an as-needed basis. The patient remains on a BiPAP at a pressure of 14/7 cm of water and FiO2 100%. Her generator tidal volume is warranted 20 mL and the patient's minute ventilation is around 19 L per minute and the patient's respiratory rate is around 37. Current pulse ox is 81-82%. She is quite sedated this morning. She is arousable and when aroused, she becomes quite anxious and asynchronous and desaturates further. No chest x-ray was done today. The yesterday's chest x- ray was obviously abnormal was consistent with diffuse bilateral pulmonary infiltrates and I'm still awaiting the results the follow-up inflammatory markers from today. Remains on IV Rocephin regarding a Proteus cultured in the urine. Was status remains DNR/DNI. She is off Baricitinib. She remains on Decadron 6 mg IV every 12 hours. Hemodynamically, she is stable. She is receiving normal saline rate of 75 mL an hour. She has not required any pressors. She carries a very poor prognosis. She is morbidly obese and her body mass index is at 53.9. 11/08/2021, the patient continues to struggle with her breathing. Note that the patient remains on Precedex. She is on Precedex at 1 mcg/kg per minute. On and off, she wakes up and she is able to communicate and converse subsequently and subsequently, she will go back to sleep. She has a pressure of 14/7 cm of water with an FiO2 100%. Tidal volumes rate is around 4 99 mL with a respiratory rate of 34 and a minute ventilation of 16 L per minute. No significant air leaks around the full face mask. Chest x-ray showed diffuse bilateral pulmonary infiltrates consistent with COVID 19 /ARDS. Remains on Decadron 10 january grams IV every 12 hours. Off Baricitinib as mentioned. The patient was becoming progressively more intolerant to BiPAP his she expressed wishes to take herself off the BiPAP and be switched to Airvo. At that point, with the switch utilizing a combination of Airvo and 100% nonrebreather facemask. She lasted f or around 20 minutes and subsequently she desaturated below 80% and she was in the low 70s. She was switched back to BiPAP. Her current pulse ox is 82-83%. She has not fully recovered yet. Meanwhile, I d-dimer remains elevated at 32.6. LDH level is also elevated at 2093. White cell count at 13.4 with a hemoglobin of 17 and the plated count of 108. The patient has a sodium level of 142, BUN is at 33 with a creatinine of 0.7 and glucose is 175. A PICC line was inserted and the patient was started on TPN for nutritional support is running at 30 mL an hour. The patient remains on Rocephin regarding Proteus mirabilis UTI. 11/09/2021, the patient is essentially unchanged. Condition remains extremely poor. Very much BiPAP dependent, unable to come off the BiPAP. Remains on Precedex for sedation which is running at 1.3 mcg/kg/m. She is also requiring Ativan and morphine on a when necessary basis to control her restlessness and agitation. She is on a BiPAP at a pressure of 14/7 cm of water and FiO2 100%. On today's evaluation, she is able to generator tidal volume of 5 38 mL, her respiratory rates around 32, minute ventilation is above 15 L. Chest x-ray showing diffuse bilateral pulmonary infiltrates consistent with COVID 19 related pneumonia/ARDS. She remains on Decadron. The patient sustained Decadron 6 mg IV every 12 hours. The patient is also started on stress support which is running at a rate of 70 hour. Overall fluid balance +760 mL over the past 24 hours. Sodium is at 134 with a potassium level of 4.6, BUN is at 30 with a creatinine of 0.7. The d-dimer remains elevated at 31.6 and the patient remains on therapeutic dose of Lovenox. Furthermore, there is further interval decrease the inflammatory markers. The patient's LDH level is up to 3176 and a CRP level is at 4.1. Bilirubin level is at 1.8 with LFTs being 43 and 34 and ALT and AST respectively. The patient otherwise has no other complaints. She has a PICC line. She is receiving IV Rocephin for an underlying urine checked infection. Objective - Vital Signs Vital signs: Vital Signs Temp 98.8 F 11/09/21 12:00 Pulse 55 L 11/09/21 12:00 Resp 23 11/09/21 12:00 BP 108/64 11/09/21 12:00 Pulse Ox 89 L 11/09/21 12:00 Intake & Output 11/08/21 11/09/21 11/09/21 18:59 06:59 18:59 Intake Total 2076.724 2053.269 753.327 Output Total 1155 1275 1300 Balance 921.724 778.269 -546.673 Weight 149.8 kg 151 kg Intake: IV 1499 1482 400 Calcium Gluconate 1 gm In 100 Sodium Chloride 0.9% 100 ml @ 100 mls/hr IVPB ONCE ONE Rx#:[id number] Fat Emulsion 20% 500 ml 294 252 In Empty Bag 1 bag @ 42 mls/hr IV Fr@0900 [facility] Rx# :[id number] Mvi, Adult No.4 with Vit 330 330 170 K 10 ml Trace (Conc-1Ml/ Dose) 1 ml Sodium Acetate 10 meq Potassium Chloride 16 meq Magnesium Sulfate gm 0.5 gm Calcium Gluconate 1 gm Sodium Phosphate 6 mmol In Amino Acids 5 %/ Dextrose 20 % 1,000 ml @ 70 mls/hr IV .BY DURATION [facility] Rx#:[id number] Sodium Chloride 0.45% 1, 675 900 230 000 ml @ 20 mls/hr IV . Q24H [facility] Rx#:[id number] cefTRIAXone 1 gm In 100 Sodium Chloride 0.9% 50 ml @ 100 mls/hr IVPB Q24HR [facility] Rx#:[id number] Intake, IV Titration 577.724 571.269 353.327 Amount Dexmedetomidine/0.9% NaCl 472.724 571.269 264.161 (Pmx) 400 mcg In Empty Bag 1 bag @ 0.2 MCG/KG/HR 7.824 mls/hr IV .[id number] [facility] Rx#:[id number] Insulin Regular 100 unit 89.166 In Sodium Chloride 0.9% 100 ml @ Per Protocol IV .Q0M [facility] Rx#:[id number] Mvi, Adult No.4 with Vit 30 K 10 ml Trace (Conc-1Ml/ Dose) 1 ml Sodium Acetate 10 meq Potassium Chloride 16 meq Magnesium Sulfate gm 1 gm Calcium Gluconate 1 gm Sodium Phosphate 6 mmol In Amino Acids 5 %/Dextrose 20 % 1,000 ml @ 30 mls/hr IV . Q24H [facility] Rx#:[id number] Sodium Chloride 0.45% 1, 75 000 ml @ 20 mls/hr IV . Q24H [facility] Rx#:[id number] Output: Urine 1155 1275 1300 Other: Voiding Method Indwelling Catheter Indwelling Catheter Indwelling Catheter - Exam GENERAL EXAM: Alert, very pleasant, 66-year-old morbidly obese white female, patient is currently on BiPAP at a pressure of 14/7 cm of water and FiO2 100%. Lethargic, somnolent, under the effect of sedatives. HEAD: Normocephalic/atraumatic. EYES: Normal reaction of pupils, equal size. Conjunctiva pink, sclera white. NOSE: Clear with pink turbinates. THROAT: No erythema or exudates. NECK: No masses, no JVD, no thyroid enlargement, no adenopathy. CHEST: No chest wall deformity. Symmetrical expansion. LUNGS: Equal air entry with fine basilar crackles, diminished breath sounds bilaterally and the patient is tachypneic and she is using some accessory muscles of breathing. CVS: Regular rate and rhythm, normal S1 and S2, no gallops, no murmurs, no rubs ABDOMEN: Soft, nontender. No hepatosplenomegaly, normal bowel sounds, no guarding or rigidity. EXTREMITIES: No clubbing, no edema, no cyanosis, 2+ pulses and upper and lower extremities. MUSCULOSKELETAL: Muscle strength and tone normal. SPINE: No scoliosis or deformity SKIN: No rashes CENTRAL NERVOUS SYSTEM: The patient is confused. Adequately sedated at this point in time with a combination of Precedex, Ativan and morphine sulfate. The patient is moving all 4 extremities. No focal neurological deficit at this point in time. PSYCHIATRIC: Confused - Labs CBC & Chem 7: 11/08/21 08:44 11/09/21 05:43 Labs: Abnormal Lab Results - Last 24 Hours (Table) 11/08/21 11/08/21 11/08/21 Range/Units 08:44 18:09 23:20 D-Dimer (<0.60) mg/L FEU Sodium (137-145) mmol/L BUN (7-17) mg/dL Glucose (74-99) mg/dL POC Glucose (mg/dL) 279 H 243 H (75-99) mg/dL Calcium (8.4-10.2) mg/dL Total Bilirubin (0.2-1.3) mg/dL AST (14-36) U/L Alkaline Phosphatase (38-126) U/L Lactate Dehydrogenase (313-618) U/L C-Reactive Protein (<1.0) mg/dL Total Protein (6.3-8.2) g/dL Albumin (3.5-5.0) g/dL Triglycerides 298.00 H (0.00-149.00) mg/dL 11/09/21 11/09/21 11/09/21 Range/Units 05:11 05:12 05:43 D-Dimer (<0.60) mg/L FEU Sodium 134 L (137-145) mmol/L BUN 30 H (7-17) mg/dL Glucose 613 H* (74-99) mg/dL POC Glucose (mg/dL) 510 H 517 H (75-99) mg/dL Calcium 6.9 L (8.4-10.2) mg/dL Total Bilirubin 1.8 H (0.2-1.3) mg/dL AST 43 H (14-36) U/L Alkaline Phosphatase 150 H (38-126) U/L Lactate Dehydrogenase (313-618) U/L C-Reactive Protein (<1.0) mg/dL Total Protein 5.7 L (6.3-8.2) g/dL Albumin 2.5 L (3.5-5.0) g/dL Triglycerides (0.00-149.00) mg/dL 11/09/21 11/09/21 11/09/21 Range/Units 06:20 06:51 08:16 D-Dimer (<0.60) mg/L FEU Sodium (137-145) mmol/L BUN (7-17) mg/dL Glucose (74-99) mg/dL POC Glucose (mg/dL) 446 H 428 H 282 H (75-99) mg/dL Calcium (8.4-10.2) mg/dL Total Bilirubin (0.2-1.3) mg/dL AST (14-36) U/L Alkaline Phosphatase (38-126) U/L Lactate Dehydrogenase (313-618) U/L C-Reactive Protein (<1.0) mg/dL Total Protein (6.3-8.2) g/dL Albumin (3.5-5.0) g/dL Triglycerides (0.00-149.00) mg/dL 11/09/21 11/09/21 11/09/21 Range/Units 09:15 09:55 09:55 D-Dimer 31.61 H (<0.60) mg/L FEU Sodium (137-145) mmol/L BUN (7-17) mg/dL Glucose (74-99) mg/dL POC Glucose (mg/dL) 179 H (75-99) mg/dL Calcium (8.4-10.2) mg/dL Total Bilirubin (0.2-1.3) mg/dL AST (14-36) U/L Alkaline Phosphatase (38-126) U/L Lactate Dehydrogenase 3176 H (313-618) U/L C-Reactive Protein 4.1 H (<1.0) mg/dL Total Protein (6.3-8.2) g/dL Albumin (3.5-5.0) g/dL Triglycerides (0.00-149.00) mg/dL 11/09/21 11/09/21 11/09/21 Range/Units 10:01 11:07 12:10 D-Dimer (<0.60) mg/L FEU Sodium (137-145) mmol/L BUN (7-17) mg/dL Glucose (74-99) mg/dL POC Glucose (mg/dL) 136 H 159 H 169 H (75-99) mg/dL Calcium (8.4-10.2) mg/dL Total Bilirubin (0.2-1.3) mg/dL AST (14-36) U/L Alkaline Phosphatase (38-126) U/L Lactate Dehydrogenase (313-618) U/L C-Reactive Protein (<1.0) mg/dL Total Protein (6.3-8.2) g/dL Albumin (3.5-5.0) g/dL Triglycerides (0.00-149.00) mg/dL Assessment and Plan Plan: #1. Acute Hypoxic respiratory failure related to COVID 19 pneumonia. The patient remains a DO NOT RESUSCITATE DO NOT INTUBATE CODE STATUS. She has declined intubation mechanical ventilation. The family is aware. She is strictly BiPAP dependent and pressure 14/7 cm of water and FiO2 percent. Unable to, to BiPAP. Chest x-ray remains unchanged with diffuse bilateral pulmonary infiltrates with possible development of ARDS.. The patient shows worsening inflammatory markers including LDH. CRP remains elevated. D-dimer is also elevated and the patient remains on Decadron 6 mg IV every 12 hours and the patient on Lovenox therapeutic doses. The patient was taken off Baricitinib earlier. This was taken off as the patient was she is on an underlying UTI. Same time, the patient is unable to take any oral medications. She is strictly BiPAP dependent at this point in time. Prognosis remains extremely poor. Chest x-ray unchanged. Overall condition is unchanged. Remains on Precedex for s edation. #2. Weakness, fatigue, diarrhea related to recent history of COVID-19 infection #3. Elevated inflammatory markers related to COVID-19 infection versus the UTI as the patient was found to have Proteus mirabilis UTI , and the patient is currently on IV Rocephin #4. Acute kidney injury related to dehydration and diarrhea, improved and the patient is currently diagnosed having an acute UTI #5. Mild lactic acidosis related to dehydration improved with fluid resuscitation #6. Morbid obesity with BMI 57.4 kg/m #7. Coronary artery disease with previous stenting #8. History of ovarian cancer status post total hysterectomy #9. Chronic back pain #10. History of compression fractures of lumbar vertebrae #11. Gait dysfunction, patient is wheelchair bound for the most part #12. HyperLipidemia #13. Remote history of smoking #14. GERD/reflux #15. Anxiety and depression #16. UTI with Proteus mirabilis Plan: Continue BiPAP at the same setting Unable to wean the patient off the BiPAP TPN for nutritional support IV Decadron 6 mg every 12 hours The patient is currently off Baricitinib Continue IV Rocephin Monitor inflammatory markers, the levels remain very high including LDH and d- dimer. The patient be kept on a higher dose of Decadron and therapeutic dose of Lovenox. Review the chest x-ray from today Continue Precedex and utilize Ativan/morphine and massive basis DO NOT INTUBATE CODE STATUS May consider hospice/end-of-life care later stage. Family is not very to make the decision yet. Continues to have a very poor prognosis. Critical care evaluation that was done and more than 30 minutes. Time with Patient: Greater than 30
[2021-11-09 13:14] LABS: Glucose,Whole Blood 189 mg/dL (75-99)
[2021-11-09 14:22] LABS: Glucose,Whole Blood 190 mg/dL (75-99)
[2021-11-09 15:17] LABS: Glucose,Whole Blood 239 mg/dL (75-99)
[2021-11-09 16:25] LABS: Glucose,Whole Blood 230 mg/dL (75-99)
[2021-11-09 17:23] LABS: Glucose,Whole Blood 225 mg/dL (75-99)
[2021-11-09 18:20] LABS: Glucose,Whole Blood 224 mg/dL (75-99)
[2021-11-09 19:04] LABS: Glucose,Whole Blood 200 mg/dL (75-99)
[2021-11-09 21:22] LABS: Glucose,Whole Blood 154 mg/dL (75-99)
[2021-11-09 23:22] LABS: Glucose,Whole Blood 160 mg/dL (75-99)
[2021-11-10] MEDS: LORazepam 2 MG/ML INJ IV PRN ×2 (01:41→20:22)
[2021-11-10] MEDS: DEXMEDETOMIDINE/0.9% NACL(PMX) 400 MCG in EMPTY BAG 1 BAG IV SCH ×10 (01:48→22:51)
[2021-11-10 01:56] LABS: Glucose,Whole Blood 159 mg/dL (75-99)
[2021-11-10 04:03] LABS: Glucose,Whole Blood 195 mg/dL (75-99)
[2021-11-10] MEDS: 1: MVI, ADULT NO.4 WITH VIT K 10 ML, TRACE (CONC-1ML/DOSE) 1 ML, SODIUM ACETATE 10 MEQ, IV SCH ×16 (04:56→05:59)
[2021-11-10 05:15] LABS: Glucose,Whole Blood 170 mg/dL (75-99)
[2021-11-10 07:06] LABS: Glucose,Whole Blood 175 mg/dL (75-99)
--- NOTE | 2021-11-10 07:36 | XR ---
EXAMINATION TYPE: XR chest 1V portable DATE OF EXAM: 11/10/2021 HISTORY: Shortness of breath. COMPARISON: 11/09/2021 TECHNIQUE: Single view of the chest is submitted. FINDINGS: Demonstrated are scattered senescent parenchymal change. Progressive diffuse bilateral airspace infiltrates compatible with pneumonia. The heart is stable. Hilar and mediastinal structures are within normal limits. Degenerative changes are seen of the dorsal spine. IMPRESSION: 1. Progressive diffuse bilateral airspace infiltrates compatible with pneumonia.
[2021-11-10 07:55] LABS: HCT 54.2 % (34.0-46.0); HGB 16.7 gm/dL (11.4-16.0); Hypochromasia Marked; MCH 30.8 pg (25.0-35.0); MCHC 30.8 g/dL (31.0-37.0); Mean Platelet Volume 12.2; RBC 5.42 m/uL (3.80-5.40); RDW 13.2 % (11.5-15.5); WBC 14.9 k/uL (3.8-10.6)
[2021-11-10 08:19] LABS: Glucose,Whole Blood 142 mg/dL (75-99)
[2021-11-10 08:19] LABS: Albumin 2.5 g/dL (3.5-5.0); Calcium 7.5 mg/dL (8.4-10.2); Magnesium 1.8 mg/dL (1.6-2.3); Potassium 4.5 mmol/L (3.5-5.1); Total Bilirubin 1.7 mg/dL (0.2-1.3); Total Protein 5.8 g/dL (6.3-8.2)
[2021-11-10] MEDS: CHOLECALCIFEROL 25 MCG (1000 IU) TABLET PO SCH (08:44)
[2021-11-10] MEDS: ASCORBIC ACID 500 MG TAB PO SCH ×2 (08:44→20:24)
[2021-11-10] MEDS: ASPIRIN 81 MG PO SCH (08:44)
[2021-11-10] MEDS: COLCHICINE 0.6 MG EACH PO SCH ×2 (08:45→20:24)
[2021-11-10] MEDS: DEXAMETHASONE SOD PHOSPHATE 10 MG/ML 1 ML VIAL IVP SCH ×2 (08:46→20:37)
[2021-11-10] MEDS: LIDOCAINE 5% PATCH TOPICAL SCH (08:47)
[2021-11-10] MEDS: PANTOPRAZOLE 40 MG/10 ML VIAL IVP SCH (08:47)
[2021-11-10] MEDS: FUROSEMIDE 10 MG/ML 4 ML VIAL IV SCH (08:47)
[2021-11-10] MEDS: ZINC SULFATE 220 MG CAP PO SCH (08:58)
[2021-11-10] MEDS: ALBUTEROL HFA INHALER INHALATION SCH ×4 (09:04→20:06)
[2021-11-10 09:16] LABS: Band Neutrophils % 2 %; Lymphocytes # (M) 0.89 k/uL (1.0-4.8); Metamyelocytes # (M) 0.15 k/uL (0); Metamyelocytes % 1 %; Monocytes # (M) 0.75 k/uL (0-1.0); Myelocytes # (M) 0.15 k/uL (0); Myelocytes % 1 %; Neutrophils % (M) 86 %; Nucleated Red Blood Cells 0 /100 WBC (0-0); Total Cells Counted 200
[2021-11-10 09:18] LABS: Platelet Count 88 k/uL (150-450)
[2021-11-10] MEDS: ENOXAPARIN 80 MG/0.8 ML SYRINGE SQ SCH ×2 (09:50→20:37)
[2021-11-10 09:59] LABS: Glucose,Whole Blood 151 mg/dL (75-99)
[2021-11-10] MEDS: MORPHINE SULFATE 2 MG/ML SYRINGE IVP PRN ×3 (10:36→15:35)
[2021-11-10 11:42] LABS: Glucose,Whole Blood 161 mg/dL (75-99)
--- NOTE | 2021-11-10 11:56 | P.PN ---
Subjective Progress Note Date: 11/10/21 This is 66-year-old white female patient of Dr. Torin Pinedo with history of COVID-19 infection, patient was briefly hospitalized and was discharged home on 10/21/2021. During her last admission chest x-ray showed no evidence of acute cardiopulmonary disease, and patient did not require oxygen at discharge. She was discharged home to complete 8 more days of Decadron. Patient has extensive medical history including coronary artery disease with previous stenting, hyperlipidemia, previous history of myocardial infarction, liver/reflux, history of ovarian cancer status post total hysterectomy, compression fracture of the lumbar vertebrae, and chronic back pain, patient is able to walk but does use a wheelchair to get around for the most part, osteoarthritis a previous history of bilateral hip replacements and bilateral knee replacements, anxiety, depression, remote history of smoking but no history of chronic lung disease. Patient states after she went home she was extremely weak she had trouble getting around the house, and she had little to no help at home from her son. Reports worse savana shortness of breath, fever, ongoing diarrhea. Denied any nausea or vomiting, no compressive chest pain swelling or tenderness in calves. She was brought into the hospital by EMS for evaluation. She has a mild cough, she has a poor appetite, ongoing fatigue, she has loss of taste and smell. EMS found oxygen saturation in the 70s. Her chest x-ray in the emergency department with progressive mild scattered bilateral lung infiltrates the possibility of atypical pneumonia. Admission blood work showed a white count of 7.0, hemoglobin of 15.2, platelet count of 188, d-dimer of 1.66, electrolytes are within normal limits, BUN is 26 creatinine 1.38, mild lactic acidosis with a lactic acid of 2.2, ferritin of 883, AST of 79, [place] 41[place] [address], CRP is 32.8, pro calcitonin level was 0.20. Patient tested negative for COVID-19 by PCR test. CTA chest was completed, showing no acute pulmonary embolism within the limitations of the study, and lung windows showed bilateral diffuse moderate to marked patchy round glass opacities. Patient was started on Decadron 6 blood gram daily, multivitamins, inhaled bronchodilators, she was given IV hydration, she is awake alert this morning she is currently on 10 L of oxygen, she is short of breath with exertion but appears to be in no acute distress. She remains weak and she still having diarrhea. No abdominal pain, abdomen is nontender. On 11/01/2021 patient seen in follow-up on selective care unit. She still remains on high flow oxygen, at 15 L/m, and 100 percent nonrebreather mask, does not appear to be in any acute distress, mild dry cough, low-grade fevers with a temp of 99.1F. No complaints of chest discomfort, she is awake and alert, she was able to get up in the chair with physical therapy, breathing comfortably. Lungs reveal diminished breath sounds with some minimal crackles at bilateral bases, his labs have been reviewed with blood cell count is 8.4, hemoglobin is 15.3, d-dimer is improving and is down to 1.16, electrolytes are within normal limits, BUN is 38 and creatinine is 1.54, her renal function has further worsened. She states her diarrhea has improved and she has not had any diarrhea episodes while in the hospital. Currently remains on Decadron 6 mg daily, she is on prophylactic Lovenox, CTA chest and lower extremity Dopplers were negative for PE or DVT within the limitations of the study. Inflammatory markers are still quite elevated, with LDH of 1336 and CRP of 20.6, patient's proBNP was within normal limits at 118. Her appetite remains suboptimal, she states she is able to consume cold and soft consistencies. But has had no nausea vomiting or diarrhea since in the hospital. On today's evaluation of 11/02/2021, the patient is still struggling with her breathing. The patient remains on a high flow oxygen at 15 L along with 100% nonrebreather facemask. She has short of breath at rest. She is short of breath while talking long sentences and she easily desaturates yet she recover speech is able to maintain a pulse ox is above 88%. She remains on Decadron. No nausea. No vomiting. No diarrhea for now. No abdominal pain. The patient had developed an acute kidney injury yesterday and the creatinine was up to 1.54 and then it dropped to 1.24 and the rest of the electrodes are all within normal limits. In terms of the inflammatory markers, the patient had a elevated LDH level of 1336 and the CRP level was at 20.6. Bilirubin was at 0.9. D-dimer is at 1.16. Altered mentation. No other complaints otherwise speech is obese elderly female patient with a body mass index of 57.4. Venous Dopplers obtained on 10/31/2021 were negative and the patient had a CT angiogram at time of admission that was also negative for any pulmonary embolism that showed some cardiomegaly with diffuse bilateral pulmonary infiltrates consistent with COVID 90 related pneumonia 11/03/2021, the patient got transferred to the intensive care unit for further monitoring. Mother the patient was becoming more restless, agitated, nervous, anxious, and at times she was unable to retain Dr. therapeutic she was offered. Note that the patient is currently on Vapotherm 60 L with an FiO2 of 90% in addition to 100% nonrebreather facemask and a chest x-ray showing diffuse bilateral pulmonary infiltrate. I told that the patient was ultimately going to get intubated. I initiated a conversation with her about intubation mechanical ventilation. The patient declined. We made also focal to 2 of her sisters and both of them supported the patient's decision of not being intubated or placed on a mechanical ventilator. As such, for [place] status is DO NOT INTUBATE. As noted, the patient has been poor morbidly obese with a BMI of 57.4. The patient is on Precedex for agitation and she is currently running at a dose of 0.6 mcg/kg per minute. She is on normal saline at the rate of 20 mL an hour. Inflammatory markers continued to be elevated and LDH level is 1829, CRP level is at 14, d-dimer is at 1.97. Blood gases from yesterday showed a pH of 7.45 with a pCO2 of 44 and pO2 of 55. Her current pulse ox is around 88-89%. IV access needs to be status regarding her ongoing need for treatment and poor IV access. She remains on Decadron. She remains on Baricitinib. She remains on Lovenox for DVT prophylaxis. Mental status is adequate for now. No focal neurological deficits for now. On 11/04/2021 patient seen in follow-up in the intensive care unit, she remains on BiPAP support with pressures of 14 and 7 and FiO2 100%, and her pulse ox is ranging between 84-86%. Patient is lethargic, but easily arousable to voice, she is currently on Precedex at 0.7 mics per kilo per minute, and 0.9 normal saline at a rate of 20 ML per hour. In the last 48 hours patient's hypoxia and dyspnea have significantly worsened, patient was transferred to the intensive care unit, patient was ready on dexamethasone 6 program daily which was increased to twice daily, patient was started on Baricitinib and Rocephin for possible urinary tract infection. Inflammatory markers are still elevated on yesterday's labs, today's labs are still pending, yesterday's chest x-ray showing significant bilateral airspace disease related to recent history of COVID-19 pneumonia. Patient is requesting a break from the BiPAP support. She has tolerated BiPAP support fairly well, but she is tachypneic, she is anxious, her respiratory rate is 32, tidal volume is 407, minute ventilation is 13.2. S he has made herself a DO NOT RESUSCITATE, we'll continue supportive treatment at this time, we'll give the patient break off BiPAP and place her on Airvo today. Today's labs have been reviewed White blood cell count is 11.3, hemoglobin is 16, platelet count is 218, lymphocyte count of 0.4, serum sodium is 147, potassium is 4.9, chloride is 111, B1 is 41, creatinine is 1.02, LFTs were improving on yesterday's labs, progesterone level was negative at 0.11, urinalysis showed evidence of a urinary tract infection by urine cultures are still pending at this time. Intake has been extremely poor prior to presentation to the hospital, in addition patient was having diarrhea which has improved while in the hospital. However oral intake has remained significantly diminished especially since the patient went on BiPAP support. 11/05/2021, I'm seeing this patient for a follow-up. The patient is doing poorly and her poor condition has been essentially unchanged over the past 24 hours. As mentioned earlier, the patient was unable to tolerate the BiPAP and she was adamant of removing her BiPAP. She also wanted a DO NOT INTUBATE CODE STATUS. Based on that, we offered her high flow oxygen through an Airvo with 60 L and an FiO2 of 90% in addition to 100% on a beta facemasks. The patient was more comfortable on the setting and the patient is able to achieve a pulse ox between 8182%. She is tachypneic. Respiratory rate remains high. She is confused. She continues to say that she wants help. Her family arrived and I had a lengthy discussion with the son over the phone. He truly understand the situation. The patient carries a very poor prognosis of the patient had diffuse pneumonia with COVID 19 and the patient's has decompensated significantly during this current hospitalization and currently she is on a combination of Airvo and nonrebreather 100% full face mask. Meanwhile, the patient continues to be treated with a combination of Decadron and Baricitinib. Decadron dose of the modified to include a dose of 600 g IV every 12 hours. The chest x-ray showing diffuse bilateral pulmonary infiltrates with probably an 7 worsening compared to yesterday. Meanwhile, the d-dimer is high at 31, LDH level is 2949 and a CRP level is 18.7 and all of the inflammatory markers a higher compared to yesterday and today before. The echoes at 13.2. Sodium is at 143. He has a 30 with a creatinine of 0.8. The patient is on Precedex 0.7 microvascular kilogram per minute for increased anxiety and agitation. Incentive the patient is requiring morphine 2 mg every 2 hours to control her agitation. She is moving all 4 extremities without any limitation. She is weak. She is tired and lethargic. She is tachypneic and obviously an ongoing respiratory distress. Unable to take oral intake or food. She is afebrile. Urine culture showed Proteus mirabilis and the patient is currently on IV Rocephin. 11/06/2021, the patient continues to do poorly. Overnight, the patient was switched from an Airvo system into a BiPAP system and currently she is on a BiPAP at a pressure of 14/7 cm of water and FiO2 of 100%. Lethargic, tachypneic, using accessory muscles of breathing and in obvious respiratory distress even while on the BiPAP. She is breathing fast. Confused. She is requiring Precedex at 0.8 mcg/kg per minute. She is also morphine sulfate at 2 mg IV every 2 hours and she is also on Ativan 1 mg every 3 hours. We have used all the sedatives to maintain at least some synchrony with the BiPAP machine. She is urinating a tidal volume of 540 mL. Her minute ventilation is around 23 L per minute and her respiratory rate is around 40. She is doing poorly as m entioned. She does have an underlying UTI with Proteus and the patient was given IV Rocephin. Baricitinib was discontinued and the patient remains on Decadron 6 mg IV every 12 hours. At inflammatory markers were still elevated from yesterday. Repeat levels were not obtained from today. Treatment essentially supportive at this point in time. She is a DNR/DNI CODE STATUS. Family will be asked to come in for further discussion. Unfortunately, no much progress in her condition. She carries a very poor prognosis especially with the absence of any progress or any signs of recovery in terms of her respiratory status. Chest x-ray continues to show diffuse bilateral pulmonary infiltrates extensive consolidations and airspace disease bilaterally consistent with COVID 19 related pneumonia. 11/07/2021, the patient's condition remains essentially unchanged. I had a lengthy discussion with her son who arrived at the bedside. We went over the various scenarios and we decided to keep the status quo for now as the patient is essentially BiPAP dependent and she has not had any major improvement over the past 48 hours. She is in need for sedation. She remains on Precedex at 0.8 mcg/kg per minute and this is a constant effusion and the same time the patient has been receiving Ativan and morphine on an as-needed basis. The patient remains on a BiPAP at a pressure of 14/7 cm of water and FiO2 100%. Her generator tidal volume is warranted 20 mL and the patient's minute ventilation is around 19 L per minute and the patient's respiratory rate is around 37. Current pulse ox is 81-82%. She is quite sedated this morning. She is arousable and when aroused, she becomes quite anxious and asynchronous and desaturates further. No chest x-ray was done today. The yesterday's chest x- ray was obviously abnormal was consistent with diffuse bilateral pulmonary infiltrates and I'm still awaiting the results the follow-up inflammatory markers from today. Remains on IV Rocephin regarding a Proteus cultured in the urine. Was status remains DNR/DNI. She is off Baricitinib. She remains on Decadron 6 mg IV every 12 hours. Hemodynamically, she is stable. She is receiving normal saline rate of 75 mL an hour. She has not required any pressors. She carries a very poor prognosis. She is morbidly obese and her body mass index is at 53.9. 11/08/2021, the patient continues to struggle with her breathing. Note that the patient remains on Precedex. She is on Precedex at 1 mcg/kg per minute. On and off, she wakes up and she is able to communicate and converse subsequently and subsequently, she will go back to sleep. She has a pressure of 14/7 cm of water with an FiO2 100%. Tidal volumes rate is around 4 99 mL with a respiratory rate of 34 and a minute ventilation of 16 L per minute. No significant air leaks around the full face mask. Chest x-ray showed diffuse bilateral pulmonary infiltrates consistent with COVID 19 /ARDS. Remains on Decadron 10 january grams IV every 12 hours. Off Baricitinib as mentioned. The patient was becoming progressively more intolerant to BiPAP his she expressed wishes to take herself off the BiPAP and be switched to Airvo. At that point, with the switch utilizing a combination of Airvo and 100% nonrebreather facemask. She lasted f or around 20 minutes and subsequently she desaturated below 80% and she was in the low 70s. She was switched back to BiPAP. Her current pulse ox is 82-83%. She has not fully recovered yet. Meanwhile, I d-dimer remains elevated at 32.6. LDH level is also elevated at 2093. White cell count at 13.4 with a hemoglobin of 17 and the plated count of 108. The patient has a sodium level of 142, BUN is at 33 with a creatinine of 0.7 and glucose is 175. A PICC line was inserted and the patient was started on TPN for nutritional support is running at 30 mL an hour. The patient remains on Rocephin regarding Proteus mirabilis UTI. 11/09/2021, the patient is essentially unchanged. Condition remains extremely poor. Very much BiPAP dependent, unable to come off the BiPAP. Remains on Precedex for sedation which is running at 1.3 mcg/kg/m. She is also requiring Ativan and morphine on a when necessary basis to control her restlessness and agitation. She is on a BiPAP at a pressure of 14/7 cm of water and FiO2 100%. On today's evaluation, she is able to generator tidal volume of 5 38 mL, her respiratory rates around 32, minute ventilation is above 15 L. Chest x-ray showing diffuse bilateral pulmonary infiltrates consistent with COVID 19 related pneumonia/ARDS. She remains on Decadron. The patient sustained Decadron 6 mg IV every 12 hours. The patient is also started on stress support which is running at a rate of 70 hour. Overall fluid balance +760 mL over the past 24 hours. Sodium is at 134 with a potassium level of 4.6, BUN is at 30 with a creatinine of 0.7. The d-dimer remains elevated at 31.6 and the patient remains on therapeutic dose of Lovenox. Furthermore, there is further interval decrease the inflammatory markers. The patient's LDH level is up to 3176 and a CRP level is at 4.1. Bilirubin level is at 1.8 with LFTs being 43 and 34 and ALT and AST respectively. The patient otherwise has no other complaints. She has a PICC line. She is receiving IV Rocephin for an underlying urine checked infection. 11/10/2021, continues to struggle with her breathing and the patient has evidently related pneumonia/ARDS with diffuse bilateral pulmonary infiltrates and hypoxic respiratory failure, BiPAP dependent and the same setting of 14/7 cm of water. Remains on Precedex. Once aroused, she would get up and say to stop the BiPAP and she tries to pull under BiPAP mask. The family is not ready for end-of-life care unit. Meanwhile, the chest x-ray findings remain unchanged. Inflammatory markers continue to be elevated. The patient remains on Precedex which is currently running at 1.3 mcg/kg per minute and the patient is still requiring intermittent doses of Ativan and morphine. The patient is on insulin drip at 6 units an hour. The patient on TPN for nutritional support at a rate of 70 mL an hour. LDH level is at 2071. D-dimer was above 31 and a CRP level is at 4.1. Breathing is unlabored. Continues to have a very high minute ventilation. Treatment essentially supportive and the patient remains on Decadron 6 Every 12 hours and the patient is completing her course of IV Rocephin treatment. No other significant events otherwise for now. Family is being updated. She'll be taken out of the precautions and the family can minimize vi sitors today. Objective - Vital Signs Vital signs: Vital Signs Temp 97.9 F 11/10/21 08:00 Pulse 56 L 11/10/21 11:00 Resp 24 11/10/21 11:00 BP 104/72 11/10/21 11:00 Pulse Ox 84 L 11/10/21 11:00 Intake & Output 11/09/21 11/10/21 11/10/21 18:59 06:59 18:59 Intake Total 4619.873 4132.362 670.638 Output Total 2190 660 1200 Balance -676.388 936.362 -529.362 Weight 148.7 kg Intake: IV 880 1060 440 Mvi, Adult No.4 with Vit 590 840 350 K 10 ml Trace (Conc-1Ml/ Dose) 1 ml Sodium Acetate 10 meq Potassium Chloride 16 meq Magnesium Sulfate gm 0.5 gm Calcium Gluconate 1 gm Sodium Phosphate 6 mmol In Amino Acids 5 %/ Dextrose 20 % 1,000 ml @ 70 mls/hr IV .BY DURATION [facility] Rx#:[id number] Sodium Chloride 0.45% 1, 290 220 40 000 ml @ 20 mls/hr IV . Q24H [facility] Rx#:[id number] cefTRIAXone 1 gm In 50 Sodium Chloride 0.9% 50 ml @ 100 mls/hr IVPB Q24HR [facility] Rx#:[id number] Intake, IV Titration 633.612 536.362 230.638 Amount Dexmedetomidine/0.9% NaCl 496.437 461.790 193.958 (Pmx) 400 mcg In Empty Bag 1 bag @ 0.2 MCG/KG/HR 7.824 mls/hr IV .[id number] [facility] Rx#:[id number] Insulin Regular 100 unit 137.175 74.572 36.680 In Sodium Chloride 0.9% 100 ml @ Per Protocol IV .Q0M [facility] Rx#:[id number] Output: Urine 2190 660 1200 Other: Voiding Method Indwelling Catheter Indwelling Catheter Indwelling Catheter - Exam GENERAL EXAM: Alert, very pleasant, 66-year-old morbidly obese white female, patient is currently on BiPAP at a pressure of 14/7 cm of water and FiO2 100%. Lethargic, somnolent, under the effect of sedatives. HEAD: Normocephalic/atraumatic. EYES: Normal reaction of pupils, equal size. Conjunctiva pink, sclera white. NOSE: Clear with pink turbinates. THROAT: No erythema or exudates. NECK: No masses, no JVD, no thyroid enlargement, no adenopathy. CHEST: No chest wall deformity. Symmetrical expansion. LUNGS: Equal air entry with fine basilar crackles, diminished breath sounds bilaterally and the patient is tachypneic and she is using some accessory muscles of breathing. CVS: Regular rate and rhythm, normal S1 and S2, no gallops, no murmurs, no rubs ABDOMEN: Soft, nontender. No hepatosplenomegaly, normal bowel sounds, no guarding or rigidity. EXTREMITIES: No clubbing, no edema, no cyanosis, 2+ pulses and upper and lower extremities. MUSCULOSKELETAL: Muscle strength and tone normal. SPINE: No scoliosis or deformity SKIN: No rashes CENTRAL NERVOUS SYSTEM: The patient is confused. Adequately sedated at this point in time with a combination of Precedex, Ativan and morphine sulfate. The patient is moving all 4 extremities. No focal neurological deficit at this point in time. PSYCHIATRIC: Confused - Labs CBC & Chem 7: 11/10/21 07:14 11/10/21 07:14 Labs: Abnormal Lab Results - Last 24 Hours (Table) 11/09/21 11/09/21 11/09/21 Range/Units 12:10 13:13 14:20 WBC (3.8-10.6) k/uL RBC (3.80-5.40) m/uL Hgb (11.4-16.0) gm/dL Hct (34.0-46.0) % MCHC (31.0-37.0) g/dL Plt Count (150-450) k/uL Neutrophils # (Manual) (1.3-7.7) k/uL Lymphocytes # (Manual) (1.0-4.8) k/uL Metamyelocytes # (Man) (0) k/uL Myelocytes # (Manual) (0) k/uL Carbon Dioxide (22-30) mmol/L BUN (7-17) mg/dL Glucose (74-99) mg/dL POC Glucose (mg/dL) 169 H 189 H 190 H (75-99) mg/dL Calcium (8.4-10.2) mg/dL Total Bilirubin (0.2-1.3) mg/dL AST (14-36) U/L ALT (4-34) U/L Alkaline Phosphatase (38-126) U/L Lactate Dehydrogenase (313-618) U/L Total Protein (6.3-8.2) g/dL Albumin (3.5-5.0) g/dL 11/09/21 11/09/21 11/09/21 Range/Units 15:15 16:23 17:21 WBC (3.8-10.6) k/uL RBC (3.80-5.40) m/uL Hgb (11.4-16.0) gm/dL Hct (34.0-46.0) % MCHC (31.0-37.0) g/dL Plt Count (150-450) k/uL Neutrophils # (Manual) (1.3-7.7) k/uL Lymphocytes # (Manual) (1.0-4.8) k/uL Metamyelocytes # (Man) (0) k/uL Myelocytes # (Manual) (0) k/uL Carbon Dioxide (22-30) mmol/L BUN (7-17) mg/dL Glucose (74-99) mg/dL POC Glucose (mg/dL) 239 H 230 H 225 H (75-99) mg/dL Calcium (8.4-10.2) mg/dL Total Bilirubin (0.2-1.3) mg/dL AST (14-36) U/L ALT (4-34) U/L Alkaline Phosphatase (38-126) U/L Lactate Dehydrogenase (313-618) U/L Total Protein (6.3-8.2) g/dL Albumin (3.5-5.0) g/dL 11/09/21 11/09/21 11/09/21 Range/Units 18:19 19:02 21:20 WBC (3.8-10.6) k/uL RBC (3.80-5.40) m/uL Hgb (11.4-16.0) gm/dL Hct (34.0-46.0) % MCHC (31.0-37.0) g/dL Plt Count (150-450) k/uL Neutrophils # (Manual) (1.3-7.7) k/uL Lymphocytes # (Manual) (1.0-4.8) k/uL Metamyelocytes # (Man) (0) k/uL Myelocytes # (Manual) (0) k/uL Carbon Dioxide (22-30) mmol/L BUN (7-17) mg/dL Glucose (74-99) mg/dL POC Glucose (mg/dL) 224 H 200 H 154 H (75-99) mg/dL Calcium (8.4-10.2) mg/dL Total Bilirubin (0.2-1.3) mg/dL AST (14-36) U/L ALT (4-34) U/L Alkaline Phosphatase (38-126) U/L Lactate Dehydrogenase (313-618) U/L Total Protein (6.3-8.2) g/dL Albumin (3.5-5.0) g/dL 11/09/21 11/10/21 11/10/21 Range/Units 23:19 01:54 04:01 WBC (3.8-10.6) k/uL RBC (3.80-5.40) m/uL Hgb (11.4-16.0) gm/dL Hct (34.0-46.0) % MCHC (31.0-37.0) g/dL Plt Count (150-450) k/uL Neutrophils # (Manual) (1.3-7.7) k/uL Lymphocytes # (Manual) (1.0-4.8) k/uL Metamyelocytes # (Man) (0) k/uL Myelocytes # (Manual) (0) k/uL Carbon Dioxide (22-30) mmol/L BUN (7-17) mg/dL Glucose (74-99) mg/dL POC Glucose (mg/dL) 160 H 159 H 195 H (75-99) mg/dL Calcium (8.4-10.2) mg/dL Total Bilirubin (0.2-1.3) mg/dL AST (14-36) U/L ALT (4-34) U/L Alkaline Phosphatase (38-126) U/L Lactate Dehydrogenase (313-618) U/L Total Protein (6.3-8.2) g/dL Albumin (3.5-5.0) g/dL 11/10/21 11/10/21 11/10/21 Range/Units 05:13 07:04 07:14 WBC (3.8-10.6) k/uL RBC (3.80-5.40) m/uL Hgb (11.4-16.0) gm/dL Hct (34.0-46.0) % MCHC (31.0-37.0) g/dL Plt Count (150-450) k/uL Neutrophils # (Manual) (1.3-7.7) k/uL Lymphocytes # (Manual) (1.0-4.8) k/uL Metamyelocytes # (Man) (0) k/uL Myelocytes # (Manual) (0) k/uL Carbon Dioxide 35 H (22-30) mmol/L BUN 34 H (7-17) mg/dL Glucose 168 H (74-99) mg/dL POC Glucose (mg/dL) 170 H 175 H (75-99) mg/dL Calcium 7.5 L (8.4-10.2) mg/dL Total Bilirubin 1.7 H (0.2-1.3) mg/dL AST 80 H (14-36) U/L ALT 96 H (4-34) U/L Alkaline Phosphatase 152 H (38-126) U/L Lactate Dehydrogenase 2071 H (313-618) U/L Total Protein 5.8 L (6.3-8.2) g/dL Albumin 2.5 L (3.5-5.0) g/dL 11/10/21 11/10/21 11/10/21 Range/Units 07:14 08:18 09:57 WBC 14.9 H (3.8-10.6) k/uL RBC 5.42 H (3.80-5.40) m/uL Hgb 16.7 H (11.4-16.0) gm/dL Hct 54.2 H (34.0-46.0) % MCHC 30.8 L (31.0-37.0) g/dL Plt Count 88 L (150-450) k/uL Neutrophils # (Manual) 13.10 H (1.3-7.7) k/uL Lymphocytes # (Manual) 0.89 L (1.0-4.8) k/uL Metamyelocytes # (Man) 0.15 H (0) k/uL Myelocytes # (Manual) 0.15 H (0) k/uL Carbon Dioxide (22-30) mmol/L BUN (7-17) mg/dL Glucose (74-99) mg/dL POC Glucose (mg/dL) 142 H 151 H (75-99) mg/dL Calcium (8.4-10.2) mg/dL Total Bilirubin (0.2-1.3) mg/dL AST (14-36) U/L ALT (4-34) U/L Alkaline Phosphatase (38-126) U/L Lactate Dehydrogenase (313-618) U/L Total Protein (6.3-8.2) g/dL Albumin (3.5-5.0) g/dL 11/10/21 Range/Units 11:41 WBC (3.8-10.6) k/uL RBC (3.80-5.40) m/uL Hgb (11.4-16.0) gm/dL Hct (34.0-46.0) % MCHC (31.0-37.0) g/dL Plt Count (150-450) k/uL Neutrophils # (Manual) (1.3-7.7) k/uL Lymphocytes # (Manual) (1.0-4.8) k/uL Metamyelocytes # (Man) (0) k/uL Myelocytes # (Manual) (0) k/uL Carbon Dioxide (22-30) mmol/L BUN (7-17) mg/dL Glucose (74-99) mg/dL POC Glucose (mg/dL) 161 H (75-99) mg/dL Calcium (8.4-10.2) mg/dL Total Bilirubin (0.2-1.3) mg/dL AST (14-36) U/L ALT (4-34) U/L Alkaline Phosphatase (38-126) U/L Lactate Dehydrogenase (313-618) U/L Total Protein (6.3-8.2) g/dL Albumin (3.5-5.0) g/dL Assessment and Plan Plan: #1. Acute Hypoxic respiratory failure related to COVID 19 pneumonia. The patient remains a DO NOT RESUSCITATE DO NOT INTUBATE CODE STATUS. She has declined intubation mechanical ventilation. The family is aware. She is strictly BiPAP dependent and pressure 14/7 cm of water and FiO2 percent. Unable to, to BiPAP. Chest x-ray remains unchanged with diffuse bilateral pulmonary infiltrates with possible development of ARDS.. The patient shows worsening inflammatory markers including LDH. CRP remains elevated. D-dimer is also elevated and the patient remains on Decadron 6 mg IV every 12 hours and the patient on Lovenox therapeutic doses. The patient was taken off Baricitinib earlier. This was taken off as the patient was she is on an underlying UTI. S isac time, the patient is unable to take any oral medications. She is strictly BiPAP dependent at this point in time. Prognosis remains extremely poor. Chest x-ray unchanged. Overall condition is unchanged. Remains on Precedex for sedation. The condition is unchanged. Inflammatory markers continued to be elevated. Chest x-ray is unchanged. The patient is not showing any signs of progress. Remains BiPAP dependent. Remains hypoxic with pulse ox ranging between 81-86% while being on the BiPAP. Remains on therapeutic doses of Lovenox. #2. Weakness, fatigue, diarrhea related to recent history of COVID-19 infection #3. Elevated inflammatory markers related to COVID-19 infection versus the UTI as the patient was found to have Proteus mirabilis UTI , and the patient is currently on IV Rocephin #4. Acute kidney injury related to dehydration and diarrhea, improved and the patient is currently diagnosed having an acute UTI #5. Mild lactic acidosis related to dehydration improved with fluid resuscitation #6. Morbid obesity with BMI 57.4 kg/m #7. Coronary artery disease with previous stenting #8. History of ovarian cancer status post total hysterectomy #9. Chronic back pain #10. History of compression fractures of lumbar vertebrae #11. Gait dysfunction, patient is wheelchair bound for the most part #12. HyperLipidemia #13. Remote history of smoking #14. GERD/reflux #15. Anxiety and depression #16. UTI with Proteus mirabilis Plan: No much progress over the past 48 hours Continue TPN for nutritional support Continue insulin drip Continue BiPAP at the same setting, no need for any further adjustments. The patient has no major air leak on the BiPAP mask and the patient is generating an administrative ventilation Unable to wean the patient off the BiPAP IV Decadron 6 mg every 12 hours The patient is currently off Baricitinib Continue IV Rocephin, and the patient is complaining course of antibiotics Monitor inflammatory markers, the levels remain very high including LDH and d- dimer. The patient be kept on a higher dose of Decadron and therapeutic dose of Lovenox. Review the chest x-ray from today showing diffuse bilateral pulmonary i nfiltrates consistent with COVID 19 related pneumonia Continue Precedex and utilize Ativan/morphine and massive basis DO NOT INTUBATE CODE STATUS May consider hospice/end-of-life care later stage. Family is not very to make the decision yet. Continues to have a very poor prognosis. April recommend end-of-life care especially with the patient is DO NOT INTUBATE CODE STATUS. Critical care evaluation that was done and more than 30 minutes. Time with Patient: Greater than 30
[2021-11-10] MEDS: INSULIN REGULAR 100 UNIT in SODIUM CHLORIDE 0.9% 100 ML IV SCH (12:00)
--- NOTE | 2021-11-10 12:42 | P.PN ---
Subjective Progress Note Date: 11/10/21 Principal diagnosis: Recent covID 19 pneumonia, hypoxia, weakness, post covid syndrome, diabetes and obesity, patient is unvaccinated, and history of noncompliance This patient has been a noncompliant unvaccinated morbidly obese patient known to our practice who had contracted COVID-19 pneumonia initially did not desaturate and was subsequently sent home for video visit follow-up at the office, for which this patient was completely noncompliant she returned to the emergency room approximately a week after being diagnosed and was again not hypoxic, and simply complained of cough and weakness was discharged home and returned approximately a week later hypoxic significant weakness fatigue refusing meds wished to be made a no code and was placed on BiPAP in the intensive care unit. Patient has rallied somewhat is still on BiPAP has agreed to be placed on TPN and is lingering sats are 89% on 100% O2 Acute phase reactants are all elevated, this patient is currently on Decadron 6 mg and completed a course of IV Rocephin Objective - Vital Signs Vital signs: Vital Signs Temp 98.8 F 11/10/21 12:00 Pulse 55 L 11/10/21 12:00 Resp 31 H 11/10/21 12:00 BP 107/72 11/10/21 12:00 Pulse Ox 87 L 11/10/21 12:00 Intake & Output 11/09/21 11/10/21 11/10/21 18:59 06:59 18:59 Intake Total 4445.870 6814.362 761.040 Output Total 2190 660 1550 Balance -676.388 936.362 -788.960 Weight 148.7 kg Intake: IV 880 1060 510 Mvi, Adult No.4 with Vit 590 840 420 K 10 ml Trace (Conc-1Ml/ Dose) 1 ml Sodium Acetate 10 meq Potassium Chloride 16 meq Magnesium Sulfate gm 0.5 gm Calcium Gluconate 1 gm Sodium Phosphate 6 mmol In Amino Acids 5 %/ Dextrose 20 % 1,000 ml @ 70 mls/hr IV .BY DURATION [facility] Rx#:[id number] Sodium Chloride 0.45% 1, 290 220 40 000 ml @ 20 mls/hr IV . Q24H [facility] Rx#:[id number] cefTRIAXone 1 gm In 50 Sodium Chloride 0.9% 50 ml @ 100 mls/hr IVPB Q24HR [facility] Rx#:[id number] Intake, IV Titration 633.612 536.362 251.040 Amount Dexmedetomidine/0.9% NaCl 496.437 461.790 193.958 (Pmx) 400 mcg In Empty Bag 1 bag @ 0.2 MCG/KG/HR 7.824 mls/hr IV .[id number] [facility] Rx#:[id number] Insulin Regular 100 unit 137.175 74.572 57.082 In Sodium Chloride 0.9% 100 ml @ Per Protocol IV .Q0M [facility] Rx#:[id number] Output: Urine 2190 660 1550 Other: Voiding Method Indwelling Catheter Indwelling Catheter Indwelling Catheter - Exam General: [Patient awake, alert and oriented times 3. Patient in no acute distress.] Communicating appropriately, morbidly obese HEENT: [PERRL. EOMI. No pharyngeal erythema or exudate.] Neck: [No adenopathy.] Cardiac: [Heart regular in rate and rhythm. No S3. No S4. No clicks, rubs. No murmur.] Lungs: Breath sounds diminished bilaterally by basilar crackles wheezes Abdomen: [No mass. No organomegaly. Bowel sounds presnt and normoactive in all 4 quadrants. Morbidly obese Extremes: [No edema no cyanosis no claudication normal pulses] : Normal female genitalia Musculoskeletal: [No joint erythema, edema or tenderness.] Skin: [No rash.] Neurologic: [No lateralizing deficits. CN II - XII grossly intact.] Lymphatic: [No adenopathy.] - Labs CBC & Chem 7: 11/10/21 07:14 11/10/21 07:14 Labs: Abnormal Lab Results - Last 24 Hours (Table) 11/09/21 11/09/21 11/09/21 Range/Units 13:13 14:20 15:15 WBC (3.8-10.6) k/uL RBC (3.80-5.40) m/uL Hgb (11.4-16.0) gm/dL Hct (34.0-46.0) % MCHC (31.0-37.0) g/dL Plt Count (150-450) k/uL Neutrophils # (Manual) (1.3-7.7) k/uL Lymphocytes # (Manual) (1.0-4.8) k/uL Metamyelocytes # (Man) (0) k/uL Myelocytes # (Manual) (0) k/uL Carbon Dioxide (22-30) mmol/L BUN (7-17) mg/dL Glucose (74-99) mg/dL POC Glucose (mg/dL) 189 H 190 H 239 H (75-99) mg/dL Calcium (8.4-10.2) mg/dL Total Bilirubin (0.2-1.3) mg/dL AST (14-36) U/L ALT (4-34) U/L Alkaline Phosphatase (38-126) U/L Lactate Dehydrogenase (313-618) U/L Total Protein (6.3-8.2) g/dL Albumin (3.5-5.0) g/dL 11/09/21 11/09/21 11/09/21 Range/Units 16:23 17:21 18:19 WBC (3.8-10.6) k/uL RBC (3.80-5.40) m/uL Hgb (11.4-16.0) gm/dL Hct (34.0-46.0) % MCHC (31.0-37.0) g/dL Plt Count (150-450) k/uL Neutrophils # (Manual) (1.3-7.7) k/uL Lymphocytes # (Manual) (1.0-4.8) k/uL Metamyelocytes # (Man) (0) k/uL Myelocytes # (Manual) (0) k/uL Carbon Dioxide (22-30) mmol/L BUN (7-17) mg/dL Glucose (74-99) mg/dL POC Glucose (mg/dL) 230 H 225 H 224 H (75-99) mg/dL Calcium (8.4-10.2) mg/dL Total Bilirubin (0.2-1.3) mg/dL AST (14-36) U/L ALT (4-34) U/L Alkaline Phosphatase (38-126) U/L Lactate Dehydrogenase (313-618) U/L Total Protein (6.3-8.2) g/dL Albumin (3.5-5.0) g/dL 11/09/21 11/09/21 11/09/21 Range/Units 19:02 21:20 23:19 WBC (3.8-10.6) k/uL RBC (3.80-5.40) m/uL Hgb (11.4-16.0) gm/dL Hct (34.0-46.0) % MCHC (31.0-37.0) g/dL Plt Count (150-450) k/uL Neutrophils # (Manual) (1.3-7.7) k/uL Lymphocytes # (Manual) (1.0-4.8) k/uL Metamyelocytes # (Man) (0) k/uL Myelocytes # (Manual) (0) k/uL Carbon Dioxide (22-30) mmol/L BUN (7-17) mg/dL Glucose (74-99) mg/dL POC Glucose (mg/dL) 200 H 154 H 160 H (75-99) mg/dL Calcium (8.4-10.2) mg/dL Total Bilirubin (0.2-1.3) mg/dL AST (14-36) U/L ALT (4-34) U/L Alkaline Phosphatase (38-126) U/L Lactate Dehydrogenase (313-618) U/L Total Protein (6.3-8.2) g/dL Albumin (3.5-5.0) g/dL 11/10/21 11/10/21 11/10/21 Range/Units 01:54 04:01 05:13 WBC (3.8-10.6) k/uL RBC (3.80-5.40) m/uL Hgb (11.4-16.0) gm/dL Hct (34.0-46.0) % MCHC (31.0-37.0) g/dL Plt Count (150-450) k/uL Neutrophils # (Manual) (1.3-7.7) k/uL Lymphocytes # (Manual) (1.0-4.8) k/uL Metamyelocytes # (Man) (0) k/uL Myelocytes # (Manual) (0) k/uL Carbon Dioxide (22-30) mmol/L BUN (7-17) mg/dL Glucose (74-99) mg/dL POC Glucose (mg/dL) 159 H 195 H 170 H (75-99) mg/dL Calcium (8.4-10.2) mg/dL Total Bilirubin (0.2-1.3) mg/dL AST (14-36) U/L ALT (4-34) U/L Alkaline Phosphatase (38-126) U/L Lactate Dehydrogenase (313-618) U/L Total Protein (6.3-8.2) g/dL Albumin (3.5-5.0) g/dL 11/10/21 11/10/21 11/10/21 Range/Units 07:04 07:14 07:14 WBC 14.9 H (3.8-10.6) k/uL RBC 5.42 H (3.80-5.40) m/uL Hgb 16.7 H (11.4-16.0) gm/dL Hct 54.2 H (34.0-46.0) % MCHC 30.8 L (31.0-37.0) g/dL Plt Count 88 L (150-450) k/uL Neutrophils # (Manual) 13.10 H (1.3-7.7) k/uL Lymphocytes # (Manual) 0.89 L (1.0-4.8) k/uL Metamyelocytes # (Man) 0.15 H (0) k/uL Myelocytes # (Manual) 0.15 H (0) k/uL Carbon Dioxide 35 H (22-30) mmol/L BUN 34 H (7-17) mg/dL Glucose 168 H (74-99) mg/dL POC Glucose (mg/dL) 175 H (75-99) mg/dL Calcium 7.5 L (8.4-10.2) mg/dL Total Bilirubin 1.7 H (0.2-1.3) mg/dL AST 80 H (14-36) U/L ALT 96 H (4-34) U/L Alkaline Phosphatase 152 H (38-126) U/L Lactate Dehydrogenase 2071 H (313-618) U/L Total Protein 5.8 L (6.3-8.2) g/dL Albumin 2.5 L (3.5-5.0) g/dL 11/10/21 11/10/21 11/10/21 Range/Units 08:18 09:57 11:41 WBC (3.8-10.6) k/uL RBC (3.80-5.40) m/uL Hgb (11.4-16.0) gm/dL Hct (34.0-46.0) % MCHC (31.0-37.0) g/dL Plt Count (150-450) k/uL Neutrophils # (Manual) (1.3-7.7) k/uL Lymphocytes # (Manual) (1.0-4.8) k/uL Metamyelocytes # (Man) (0) k/uL Myelocytes # (Manual) (0) k/uL Carbon Dioxide (22-30) mmol/L BUN (7-17) mg/dL Glucose (74-99) mg/dL POC Glucose (mg/dL) 142 H 151 H 161 H (75-99) mg/dL Calcium (8.4-10.2) mg/dL Total Bilirubin (0.2-1.3) mg/dL AST (14-36) U/L ALT (4-34) U/L Alkaline Phosphatase (38-126) U/L Lactate Dehydrogenase (313-618) U/L Total Protein (6.3-8.2) g/dL Albumin (3.5-5.0) g/dL Assessment and Plan (1) Non-compliance Current Visit: Yes Status: Acute Code(s): Z91.19 - PATIENT'S NONCOMPLIANCE W [facility] AND REGIMEN SNOMED Code(s): 4780119 (2) Acute renal failure Current Visit: Yes Status: Acute Code(s): N17.9 - ACUTE KIDNEY FAILURE, UNSPECIFIED SNOMED Code(s): 99104032 (3) Acute respiratory failure with hypoxia Current Visit: Yes Status: Acute Code(s): J96.01 - ACUTE RESPIRATORY FAILURE WITH HYPOXIA SNOMED Code(s): 76376964 (4) COVID-19 Current Visit: Yes Status: Acute Code(s): U07.1 - COVID-19 SNOMED Code(s): 182554650 (5) Essential (primary) hypertension Current Visit: Yes Status: Acute Code(s): I10 - ESSENTIAL (PRIMARY) HYPERTENSION SNOMED Code(s): 62731714 (6) GERD (gastroesophageal reflux disease) Current Visit: Yes Status: Acute Code(s): K21.9 - GASTRO-ESOPHAGEAL REFLUX DISEASE WITHOUT ESOPHAGITIS SNOMED Code(s): 246667574 (7) H/O myocardial infarction, greater than 8 weeks Current Visit: Yes Status: Acute Code(s): I25.2 - OLD MYOCARDIAL INFARCTION SNOMED Code(s): 9016930 (8) Hypoxia Current Visit: Yes Status: Acute Code(s): R09.02 - HYPOXEMIA SNOMED Code(s): 561903353 (9) Mixed hyperlipidemia Current Visit: Yes Status: Acute Code(s): E78.2 - MIXED HYPERLIPIDEMIA SNOMED Code(s): 847213920 (10) Morbid obesity with BMI of 50.0-59.9, adult Current Visit: Yes Status: Acute Code(s): E66.01 - MORBID (SEVERE) OBESITY DUE TO EXCESS CALORIES; Z68.43 - BODY MASS INDEX [BMI] 50.0-59.9, ADULT SNOMED Code(s): 784957680 Plan: Currently the intensive care unit On BiPAP Refuses intubation, currently a DO NOT RESUSCITATE Has agreed to TPN which has been initiated Son does not wish or patient to be terminally weaned Continued hypoxia on 100% O2 current sat equals 89% Continue current plan Time with Patient: Greater than 30
[2021-11-10 14:02] LABS: Glucose,Whole Blood 205 mg/dL (75-99)
[2021-11-10 16:05] LABS: Glucose,Whole Blood 180 mg/dL (75-99)
[2021-11-10 18:01] LABS: Glucose,Whole Blood 171 mg/dL (75-99)
[2021-11-10] MEDS: SODIUM CHLORIDE 0.45% 1,000 ML IV SCH (20:46)
[2021-11-10] MEDS: 1: MVI, ADULT NO.4 WITH VIT K 10 ML, TRACE (CONC-1ML/DOSE) 1 ML, POTASSIUM CHLORIDE 16 M IV SCH ×7 (22:52)
[2021-11-10 23:06] LABS: Glucose,Whole Blood 63 mg/dL (75-99)
[2021-11-10 23:57] LABS: Glucose,Whole Blood 99 mg/dL (75-99)
[2021-11-11] MEDS: DEXMEDETOMIDINE/0.9% NACL(PMX) 400 MCG in EMPTY BAG 1 BAG IV SCH ×11 (01:12→22:39)
[2021-11-11] MEDS: MORPHINE SULFATE 2 MG/ML SYRINGE IVP PRN ×2 (01:42→08:00)
[2021-11-11 01:49] LABS: Glucose,Whole Blood 239 mg/dL (75-99)
[2021-11-11] MEDS: INSULIN REGULAR 100 UNIT in SODIUM CHLORIDE 0.9% 100 ML IV SCH ×2 (03:02→14:03)
[2021-11-11 03:12] LABS: Glucose,Whole Blood 250 mg/dL (75-99)
[2021-11-11 04:13] LABS: Glucose,Whole Blood 240 mg/dL (75-99)
[2021-11-11] MEDS: LORazepam 2 MG/ML INJ IV PRN ×3 (04:28→20:55)
[2021-11-11 05:57] LABS: Glucose,Whole Blood 184 mg/dL (75-99)
[2021-11-11 07:17] LABS: Glucose,Whole Blood 123 mg/dL (75-99)
--- NOTE | 2021-11-11 07:19 | XR ---
EXAMINATION TYPE: XR chest 1V portable DATE OF EXAM: 11/11/2021 COMPARISON: Chest x-ray 11/10/2021 HISTORY: Abnormal chest x-ray TECHNIQUE: Single frontal view of the chest is obtained. FINDINGS: Bilateral airspace disease is again noted. Patient is rotated. No evident pneumothorax or pleural effusion. Cardiac mediastinal silhouette is stable. Postop changes are noted to the cervical spine. There are overlying artifacts. IMPRESSION: Correlate for pneumonia versus edema
[2021-11-11] MEDS: ASPIRIN 81 MG PO SCH (07:47)
[2021-11-11] MEDS: COLCHICINE 0.6 MG EACH PO SCH ×2 (07:47→20:32)
[2021-11-11] MEDS: ASCORBIC ACID 500 MG TAB PO SCH ×2 (07:47→20:32)
[2021-11-11] MEDS: CHOLECALCIFEROL 25 MCG (1000 IU) TABLET PO SCH (07:47)
[2021-11-11] MEDS: ZINC SULFATE 220 MG CAP PO SCH (07:48)
[2021-11-11] MEDS: ALBUTEROL HFA INHALER INHALATION SCH ×4 (08:05→21:00)
[2021-11-11] MEDS: PANTOPRAZOLE 40 MG/10 ML VIAL IVP SCH (08:05)
[2021-11-11] MEDS: ENOXAPARIN 80 MG/0.8 ML SYRINGE SQ SCH ×2 (08:07→20:56)
[2021-11-11] MEDS: DEXAMETHASONE SOD PHOSPHATE 10 MG/ML 1 ML VIAL IVP SCH ×2 (08:08→20:56)
[2021-11-11] MEDS: FUROSEMIDE 10 MG/ML 4 ML VIAL IV SCH (08:08)
[2021-11-11] MEDS: LIDOCAINE 5% PATCH TOPICAL SCH (08:09)
[2021-11-11 08:23] LABS: Glucose,Whole Blood 88 mg/dL (75-99)
[2021-11-11 08:56] LABS: ALT 125 U/L (4-34); African American GFR (CKD) >90 (>60 ml/min/1.73 sqM); Anion Gap 6 mmol/L; Blood Urea Nitrogen 39 mg/dL (7-17); Calcium 7.9 mg/dL (8.4-10.2); Carbon Dioxide 26 mmol/L (22-30); Chloride 110 mmol/L (98-107); Glucose 79 mg/dL (74-99); Non-African American GFR(CKD) 86 (>60 ml/min/1.73 sqM); Phosphorus 3.8 mg/dL (2.5-4.5); Sodium 142 mmol/L (137-145); Total Bilirubin 2.2 mg/dL (0.2-1.3)
[2021-11-11 09:04] LABS: Magnesium 1.8 mg/dL (1.6-2.3); Potassium 5.4 mmol/L (3.5-5.1)
[2021-11-11 09:05] LABS: AST 84 U/L (14-36); Albumin 2.6 g/dL (3.5-5.0); Alkaline Phosphatase 160 U/L (38-126); Total Protein 6.4 g/dL (6.3-8.2)
[2021-11-11 09:09] LABS: Glucose,Whole Blood 128 mg/dL (75-99)
[2021-11-11 10:24] LABS: Glucose,Whole Blood 183 mg/dL (75-99)
--- NOTE | 2021-11-11 10:49 | P.PN ---
Subjective Progress Note Date: 11/11/21 Principal diagnosis: Dyspnea, hypoxia This is 66-year-old white female patient of Dr. Torin Pinedo with history of COVID-19 infection, patient was briefly hospitalized and was discharged home on 10/21/2021. During her last admission chest x-ray showed no evidence of acute cardiopulmonary disease, and patient did not require oxygen at discharge. She was discharged home to complete 8 more days of Decadron. Patient has extensive medical history including coronary artery disease with previous stenting, hyperlipidemia, previous history of myocardial infarction, liver/reflux, history of ovarian cancer status post total hysterectomy, compression fracture of the lumbar vertebrae, and chronic back pain, patient is able to walk but does use a wheelchair to get around for the most part, osteoarthritis a previous history of bilateral hip replacements and bilateral knee replacements, anxiety, depression, remote history of smoking but no history of chronic lung disease. Patient states after she went home she was extremely weak she had trouble getting around the house, and she had little to no help at home from her son. Reports worsening shortness of breath, fever, ongoing diarrhea. Denied any nausea or vomiting, no compressive chest pain swelling or tenderness in calves. She was brought into the hospital by EMS for evaluation. She has a mild cough, she has a poor appetite, ongoing fatigue, she has loss of taste and smell. EMS found oxygen saturation in the 70s. Her chest x-ray in the emergency department with progressive mild scattered bilateral lung infiltrates the possibility of atypical pneumonia. Admission blood work showed a white count of 7.0, h emoglobin of 15.2, platelet count of 188, d-dimer of 1.66, electrolytes are within normal limits, BUN is 26 creatinine 1.38, mild lactic acidosis with a lactic acid of 2.2, ferritin of 883, AST of 79, [place] 41[place] [address], CRP is 32.8, pro calcitonin level was 0.20. Patient tested negative for COVID-19 by PCR test. CTA chest was completed, showing no acute pulmonary embolism within the limitations of the study, and lung windows showed bilateral diffuse moderate to marked patchy round glass opacities. Patient was started on Decadron 6 blood gram daily, multivitamins, inhaled bronchodilators, she was given IV hydration, she is awake alert this morning she is currently on 10 L of oxygen, she is short of breath with exertion but appears to be in no acute distress. She remains weak and she still having diarrhea. No abdominal pain, abdomen is nontender. On 11/01/2021 patient seen in follow-up on selective care unit. She still remains on high flow oxygen, at 15 L/m, and 100 percent nonrebreather mask, does not appear to be in any acute distress, mild dry cough, low-grade fevers with a temp of 99.1F. No complaints of chest discomfort, she is awake and alert, she was able to get up in the chair with physical therapy, breathing comfortably. Lungs reveal diminished breath sounds with some minimal crackles at bilateral bases, his labs have been reviewed with blood cell count is 8.4, hemoglobin is 15.3, d-dimer is improving and is down to 1.16, electrolytes are within normal limits, BUN is 38 and creatinine is 1.54, her renal function has further worsened. She states her diarrhea has improved and she has not had any diarrhea episodes while in the hospital. Currently remains on Decadron 6 mg daily, she is on prophylactic Lovenox, CTA chest and lower extremity Dopplers were negative for PE or DVT within the limitations of the study. Inflammatory markers are still quite elevated, with LDH of 1336 and CRP of 20.6, patient's proBNP was within normal limits at 118. Her appetite remains suboptimal, she states she is able to consume cold and soft consistencies. But has had no nausea vomiting or diarrhea since in the hospital. On today's evaluation of 11/02/2021, the patient is still struggling with her breathing. The patient remains on a high flow oxygen at 15 L along with 100% nonrebreather facemask. She has short of breath at rest. She is short of breath while talking long sentences and she easily desaturates yet she recover speech is able to maintain a pulse ox is above 88%. She remains on Decadron. No nausea. No vomiting. No diarrhea for now. No abdominal pain. The patient had developed an acute kidney injury yesterday and the creatinine was up to 1.54 and then it dropped to 1.24 and the rest of the electrodes are all within normal limits. In terms of the inflammatory markers, the patient had a elevated LDH level of 1336 and the CRP level was at 20.6. Bilirubin was at 0.9. D-dimer is at 1.16. Altered mentation. No other complaints otherwise speech is obese elderly female patient with a body mass index of 57.4. Venous Dopplers obtained on 10/31/2021 were negative and the patient had a CT angiogram at time of admission that was also negative for any pulmonary embolism that showed some cardiomegaly with diffuse bilateral pulmonary infiltrates consistent with COVID 90 related pneumonia 11/03/2021, the patient got transferred to the intensive care unit for further monitoring. Mother the patient was becoming more restless, agitated, nervous, anxious, and at times she was unable to retain DrCassius molina she was offered. Note that the patient is currently on Vapotherm 60 L with an FiO2 of 90% in addition to 100% nonrebreather facemask and a chest x-ray showing diffuse bilateral pulmonary infiltrate. I told that the patient was ultimately going to get intubated. I initiated a conversation with her about intubation mechanical ventilation. The patient declined. We made also focal to 2 of her sisters and both of them supported the patient's decision of not being intubated or placed on a mechanical ventilator. As such, for [place] status is DO NOT INTUBATE. As noted, the patient has been poor morbidly obese with a BMI of 57.4. The patient is on Precedex for agitation and she is currently running at a dose of 0.6 mcg/kg per minute. She is on normal saline at the rate of 20 mL an hour. Inflammatory markers continued to be elevated and LDH level is 1829, CRP level is at 14, d-dimer is at 1.97. Blood gases from yesterday showed a pH of 7.45 with a pCO2 of 44 and pO2 of 55. Her current pulse ox is around 88-89%. IV access needs to be status regarding her ongoing need for treatment and poor IV access. She remains on Decadron. She remains on Baricitinib. She remains on Lovenox for DVT prophylaxis. Mental status is adequate for now. No focal neurological deficits for now. On 11/04/2021 patient seen in follow-up in the intensive care unit, she remains on BiPAP support with pressures of 14 and 7 and FiO2 100%, and her pulse ox is ranging between 84-86%. Patient is lethargic, but easily arousable to voice, she is currently on Precedex at 0.7 mics per kilo per minute, and 0.9 normal saline at a rate of 20 ML per hour. In the last 48 hours patient's hypoxia and dyspnea have significantly worsened, patient was transferred to the intensive care unit, patient was ready on dexamethasone 6 program daily which was increased to twice daily, patient was started on Baricitinib and Rocephin for po ssible urinary tract infection. Inflammatory markers are still elevated on yesterday's labs, today's labs are still pending, yesterday's chest x-ray showing significant bilateral airspace disease related to recent history of COVID-19 pneumonia. Patient is requesting a break from the BiPAP support. She has tolerated BiPAP support fairly well, but she is tachypneic, she is anxious, her respiratory rate is 32, tidal volume is 407, minute ventilation is 13.2. She has made herself a DO NOT RESUSCITATE, we'll continue supportive treatment at this time, we'll give the patient break off BiPAP and place her on Airvo today. Today's labs have been reviewed White blood cell count is 11.3, hemoglobin is 16, platelet count is 218, lymphocyte count of 0.4, serum sodium is 147, potassium is 4.9, chloride is 111, B1 is 41, creatinine is 1.02, LFTs were improving on yesterday's labs, progesterone level was negative at 0.11, urinalysis showed evidence of a urinary tract infection by urine cultures are still pending at this time. Intake has been extremely poor prior to presentation to the hospital, in addition patient was having diarrhea which has improved while in the hospital. However oral intake has remained significantly diminished especially since the patient went on BiPAP support. On 11/11/2021 patient seen in follow-up in intensive care unit, patient continues on BiPAP support, she is BiPAP support dependent, she is on 14/7 and FiO2 of 100%, and her O2 saturations are 84-86%, patient is quite lethargic, she is very confused. She remains on Precedex at 1.3 mics per kilo per hour, she is on TPN at 70 mL per hour. Patient has not been able to take in anything by mouth related to her altered mental status, and being BiPAP support dependent. Today's chest x-ray shows bilateral airspace disease, no pneumothorax or pleural effusion. Today's labs have been reviewed, her sodium is 142, potassium is 5.4, chloride is 110, BUN is 39, creatinine 0.73. LFTs are slightly trended up. Her LDH was 2071, CRP was 4.1 on the labs from 2 days prior. She currently remains Decadron 6 mg twice daily, she is on Lovenox 75 mg twice daily, she is on daily dose of Lasix 40 mg daily. She is requiring frequent dosing with Ativan and morphine to keep her comfortable, less breathless, and tolerated BiPAP support better. Overall patient's condition has not shown a trend to improvement. She remains on high flow FiO2 via BiPAP support, and remains fully dependent on it. Despite some improvement in her inflammatory markers clinically patient has not shown significant progress. Patient has made it very clear that she did not want BiPAP support she did not want life support, and she remains a DO NOT RESUSCITATE. Updated at the son on the phone today, and updated him on the fact that patient has not made any improvement. In view of continued lack of progress in her medical condition and her stated wishes for no life support, and was recommended to the son that comfort care should probably be introduced Objective - Vital Signs Vital signs: Vital Signs Temp 99.4 F 11/11/21 08:00 Pulse 54 L 11/11/21 10:00 Resp 24 11/11/21 10:00 BP 90/50 11/11/21 10:00 Pulse Ox 86 L 11/11/21 10:00 Intake & Output 11/10/21 11/11/21 11/11/21 18:59 06:59 18:59 Intake Total 1519.676 898.930 479.358 Output Total 2165 852 635 Balance -645.324 46.930 -155.642 Weight 150 kg Intake: IV 930 240 60 Mvi, Adult No.4 with Vit 840 K 10 ml Trace (Conc-1Ml/ Dose) 1 ml Sodium Acetate 10 meq Potassium Chloride 16 meq Magnesium Sulfate gm 0.5 gm Calcium Gluconate 1 gm Sodium Phosphate 6 mmol In Amino Acids 5 %/ Dextrose 20 % 1,000 ml @ 70 mls/hr IV .BY DURATION [facility] Rx#:[id number] Sodium Chloride 0.45% 1, 40 240 60 000 ml @ 20 mls/hr IV . Q24H [facility] Rx#:[id number] cefTRIAXone 1 gm In 50 Sodium Chloride 0.9% 50 ml @ 100 mls/hr IVPB Q24HR [facility] Rx#:[id number] Intake, IV Titration 589.676 658.930 419.358 Amount Dexmedetomidine/0.9% NaCl 482.178 494.024 196.632 (Pmx) 400 mcg In Empty Bag 1 bag @ 0.2 MCG/KG/HR 7.824 mls/hr IV .[id number] [facility] Rx#:[id number] Insulin Regular 100 unit 107.498 94.906 12.726 In Sodium Chloride 0.9% 100 ml @ Per Protocol IV .Q0M [facility] Rx#:[id number] Mvi, Adult No.4 with Vit 70 K 10 ml Trace (Conc-1Ml/ Dose) 1 ml Potassium Chloride 16 meq Magnesium Sulfate gm 0.5 gm Calcium Gluconate 2 gm Sodium Phosphate 6 mmol In Amino Acids 5 %/ Dextrose 20 % 1,000 ml @ 70 mls/hr IV .BY DURATION [facility] Rx#:[id number] Potassium Chloride 16 meq 210 Magnesium Sulfate gm 0.5 gm Calcium Gluconate 2 gm Sodium Phosphate 6 mmol In Amino Acids 5 %/ Dextrose 20 % 1,000 ml @ 70 mls/hr IV .BY DURATION [facility] Rx#:[id number] Output: Urine 2165 852 635 Other: Voiding Method Indwelling Catheter Indwelling Catheter Indwelling Catheter - Exam GENERAL EXAM: Sedated, 66-year-old morbidly obese white female, on BIpap support at 14/7, 100% dyspneic HEAD: Normocephalic/atraumatic. EYES: Normal reaction of pupils, equal size. Conjunctiva pink, sclera white. NOSE: Clear with pink turbinates. THROAT: No erythema or exudates. NECK: No masses, no JVD, no thyroid enlargement, no adenopathy. CHEST: No chest wall deformity. Symmetrical expansion. LUNGS: Equal air entry with fine basilar crackles CVS: Regular rate and rhythm, normal S1 and S2, no gallops, no murmurs, no rubs ABDOMEN: Soft, nontender. No hepatosplenomegaly, normal bowel sounds, no guarding or rigidity. EXTREMITIES: No clubbing, no edema, no cyanosis, 2+ pulses and upper and lower extremities. MUSCULOSKELETAL: Muscle strength and tone normal. SPINE: No scoliosis or deformity SKIN: No rashes CENTRAL NERVOUS SYSTEM: Sedated No focal deficits, tone is normal in all 4 extremities. PSYCHIATRIC: Sedated. Intact judgment and insight. - Labs CBC & Chem 7: 11/10/21 07:14 11/11/21 07:30 Labs: Abnormal Lab Results - Last 24 Hours (Table) 11/10/21 11/10/21 11/10/21 Range/Units 11:41 14:01 16:03 Potassium (3.5-5.1) mmol/L Chloride (98-107) mmol/L BUN (7-17) mg/dL POC Glucose (mg/dL) 161 H 205 H 180 H (75-99) mg/dL Calcium (8.4-10.2) mg/dL Total Bilirubin (0.2-1.3) mg/dL AST (14-36) U/L ALT (4-34) U/L Alkaline Phosphatase (38-126) U/L Albumin (3.5-5.0) g/dL 11/10/21 11/10/21 11/11/21 Range/Units 17:59 23:05 01:47 Potassium (3.5-5.1) mmol/L Chloride (98-107) mmol/L BUN (7-17) mg/dL POC Glucose (mg/dL) 171 H 63 L 239 H (75-99) mg/dL Calcium (8.4-10.2) mg/dL Total Bilirubin (0.2-1.3) mg/dL AST (14-36) U/L ALT (4-34) U/L Alkaline Phosphatase (38-126) U/L Albumin (3.5-5.0) g/dL 11/11/21 11/11/21 11/11/21 Range/Units 03:10 04:11 05:52 Potassium (3.5-5.1) mmol/L Chloride (98-107) mmol/L BUN (7-17) mg/dL POC Glucose (mg/dL) 250 H 240 H 184 H (75-99) mg/dL Calcium (8.4-10.2) mg/dL Total Bilirubin (0.2-1.3) mg/dL AST (14-36) U/L ALT (4-34) U/L Alkaline Phosphatase (38-126) U/L Albumin (3.5-5.0) g/dL 11/11/21 11/11/21 11/11/21 Range/Units 07:15 07:30 09:07 Potassium 5.4 H (3.5-5.1) mmol/L Chloride 110 H (98-107) mmol/L BUN 39 H (7-17) mg/dL POC Glucose (mg/dL) 123 H 128 H (75-99) mg/dL Calcium 7.9 L (8.4-10.2) mg/dL Total Bilirubin 2.2 H (0.2-1.3) mg/dL AST 84 H (14-36) U/L ALT 125 H (4-34) U/L Alkaline Phosphatase 160 H (38-126) U/L Albumin 2.6 L (3.5-5.0) g/dL 11/11/21 Range/Units 10:22 Potassium (3.5-5.1) mmol/L Chloride (98-107) mmol/L BUN (7-17) mg/dL POC Glucose (mg/dL) 183 H (75-99) mg/dL Calcium (8.4-10.2) mg/dL Total Bilirubin (0.2-1.3) mg/dL AST (14-36) U/L ALT (4-34) U/L Alkaline Phosphatase (38-126) U/L Albumin (3.5-5.0) g/dL Assessment and Plan Plan: #1. Acute Hypoxic respiratory failure related to COVID 19 pneumonia. Symptom onset was greater than 10 days ago, patient is outside the window for Remdesivir or Sotrovimab. Patient had a recent hospitalization for COVID-19 infection with symptoms of nausea vomiting and diarrhea,. Patient's chest x-ray during her last admission showed no acute cardiopulmonary disease, she was discharged home on 10/21/2021 and did not require oxygen at discharge. Patient was discharged home to complete a day course of Decadron. Patient is a non-vaccinated adult. Patient had worsening in her breathing and was started on Baricitinib, which had to be discontinued in view of active urinary tract infection. On 11/11/2021 patient remains strictly BiPAP dependent for several days with FiO2 of 100% with O2 saturations in the mid 80s. Overall prognosis is extremely poor, chest x-ray continues to show bilateral airspace disease, patient remains on Precedex, and other sedatives to help her tolerate the BiPAP support and help her with feeling of breathlessness. Inflammatory markers continue to be elevated. Patient has not responded to medical treatment, and she continues to do poorly. #2. Weakness, fatigue, diarrhea related to recent history of COVID-19 infection #3. Limited inflammatory markers related to COVID-19 infection #4. Acute kidney injury related to dehydration and diarrhea #5. Mild lactic acidosis related to dehydration improved with fluid resuscitation #6. Morbid obesity with BMI 57.4 kg/m #7. Coronary artery disease with previous stenting #8. History of ovarian cancer status post total hysterectomy #9. Chronic back pain #10. History of compression fractures of lumbar vertebrae #11. Gait dysfunction, patient is wheelchair bound for the most part #12. HyperLipidemia #13. Remote history of smoking #14. GERD/reflux #15. Anxiety and depression #16. Acute urinary tract infection, related to Proteus mirabilis Plan: Today patient continues to do poorly Remains BiPAP support dependent with FiO2 100% Continue Decadron, Continue daily dose of Lasix She continues to require Precedex and other sedatives to help her with dyspnea and to help tolerate BiPAP support Oxygen saturations remain low Patient has not been able to taken any oral feedings related to severe hypoxia, being BiPAP dependent, and her altered mental status Patient's son was updated At this point due to patient's lack of progress to medical treatment and her previously expressed wishes of no life support, comfort care should probably be introduced per patient's wishes Her son stated that they're expecting other family members to arrive in town They're expected to visit her today For now continue supportive treatment Overall prognosis is extremely poor I have personally seen and examined the patient, performed the documentation and the assessment and plan as written. Number of minutes spent on the visit: [10] Time with Patient: Less than 30
[2021-11-11 10:58] LABS: Glucose,Whole Blood 246 mg/dL (75-99)
--- NOTE | 2021-11-11 11:22 | P.PN ---
Subjective Progress Note Date: 11/11/21 This is a 66-year-old female with past medical history of recent covid, , CAD, gastroesophageal reflux disease, morbid obesity, ovarian cancer, and multiple other medical issues presented to the ER with complaints of worsening shortness of breath. Recently admitted with Covid, respiratory status stable, did not require any oxygen ,discharged on Covid cocktail including Decadron. Reporting she had no help at home from her son, reporting multiple social issues being addressed by case management/social work. Shortness of breath worsened, loss of taste and smell with appetite decreased, developed diarrhea. Denies nausea vomiting or abdominal pain. EMS per ER reported O2 sat of the 70s. Chest x-ray reported progressive mild scattered bilateral lung infiltrates with possibility of atypical pneumonia. Chest CTA Limited study, reported negative for PE, bilateral diffuse moderate to marked patchy groundglass opacity's, no pleural effusion. Doppler pending. Afebrile, WBC WNL, hemoglobin 15.2, platelets 188, d-dimer 166, electrolytes WNL, BUN 26, creatinine 1.38( baseline 0.9), lactic acid 2.2, ferritin 883, AST 79, ALT 41, LDH 1713, CRP 32.8, pro- calcitonin 0.2. Greenberg virus PCR reported negative. Covid cocktail initiated including Decadron IV, IV fluid hydration. Currently maintaining O2 sats in the 90s on 10 L high flow nasal cannula. 11/01/2021 maintaining O2 sats in the high 80s on 15 L high flow nasal cannula with nonrebreather mask on standby, while attempting to eat bites of breakfast. Denies nausea, vomiting or diarrhea-none since admission. T-max 99.1, normal WB C. Renal function worsening, BUN 38, creatinine 1.54. Inflammatory markers : d-dimer, LDH and CRP elevated and decreasing with ferritin pending. ProBNP within normal limits. AST, ALT trending down. Denies chest pain, palpitations or chest pressure. Doppler of Lower extremities reviewed. 11/04/2021 remains on BiPAP support, 14/7, 100% FiO2, maintaining O2 sats currently in the low 80s. Tachypneic. Maintained on Precedex, covid regimine, Baricitinib . Empiric Rocephin, urine culture pending. Afebrile, WBC 11.3. Hemoglobin 16, platelets 218. Sodium 146, potassium 4.9, chloride 111, bicarb 28, BUN 41, creatinine 1.02. 11/05/2021 continues on Covid Cocktail. maintained on Airvo and 100% Ventimask, as patient unable to tolerate wearing BiPAP, maintaining O2 sats in the low 80s. Chest x-ray reporting bilateral multifocal, confluent increased opacities consistent with edema and/or infiltrates. Tachypneic, respiratory rate in the 30s, hypertensive, bradycardic-heart rates in the 50s. T-max 99.9, WBC 13.2, urine culture reporting Proteus Mirabilis. hemoglobin 16.8, platelets 164. Inflammatory markers increasing, D-dimer 31.31, LDH 2949, CRP 18.7. Pro- calcitonin 0.09. T bili increased to 1.9, AST 41 ALT 27, alk phos 145. 11/06/21 significant respiratory distress, currently maintained on Precedex, BiPAP 100%, Decadron, Rocephin ,morphine and Ativan.Chest x-ray reporting persistent unchanged diffuse bilateral airspace infiltrates. Family has been requested to come in for further discussion with electrical repairer. 11/07/2021 BiPAP 100% dependent, maintaining O2 sats in the low to mid 80s. Significant agitation, requiring Ativan every 3 hours , prn Morphine, in addition to Precedex. Continues on Decadron, Lovenox. Blood sugars controlled Labs pending. 11/08/2021 PICC line placed with TPN initiated yesterday. Remains on 100% BiPAP, O2 sats mid 70s to low 80s. Chest x-ray reporting persistent coarse infiltrates throughout both lung polanco. Maintained on Precedex drip at maximum dose. Labs pending. Hospice consulted for informational meeting. 11/11/2021 clinically unchanged:BiPAP dependent, however percent FiO2, maintaining O2 sats in the mid 80s, tachypneic, bradycardic. Chest x-ray reporting bilateral airspace disease with no pneumothorax or pleural effusion. Maintained on Precedex drip ,additional prn Ativan and morphine and Covid cocktail. T-max 99.4. Receiving TPN, continue on insulin drip. LFT's mildly ternding up; T bili 2.2, AST 84, alk phos 125. Objective - Vital Signs Vital signs: Vital Signs Temp 99.4 F 11/11/21 08:00 Pulse 54 L 11/11/21 10:00 Resp 24 11/11/21 10:00 BP 90/50 11/11/21 10:00 Pulse Ox 86 L 11/11/21 10:00 Intake & Output 11/10/21 11/11/21 11/11/21 18:59 06:59 18:59 Intake Total 1519.676 898.930 479.358 Output Total 2165 852 635 Balance -645.324 46.930 -155.642 Weight 150 kg Intake: IV 930 240 60 Mvi, Adult No.4 with Vit 840 K 10 ml Trace (Conc-1Ml/ Dose) 1 ml Sodium Acetate 10 meq Potassium Chloride 16 meq Magnesium Sulfate gm 0.5 gm Calcium Gluconate 1 gm Sodium Phosphate 6 mmol In Amino Acids 5 %/ Dextrose 20 % 1,000 ml @ 70 mls/hr IV .BY DURATION [facility] Rx#:[id number] Sodium Chloride 0.45% 1, 40 240 60 000 ml @ 20 mls/hr IV . Q24H [facility] Rx#:[id number] cefTRIAXone 1 gm In 50 Sodium Chloride 0.9% 50 ml @ 100 mls/hr IVPB Q24HR [facility] Rx#:[id number] Intake, IV Titration 589.676 658.930 419.358 Amount Dexmedetomidine/0.9% NaCl 482.178 494.024 196.632 (Pmx) 400 mcg In Empty Bag 1 bag @ 0.2 MCG/KG/HR 7.824 mls/hr IV .[id number] [facility] Rx#:[id number] Insulin Regular 100 unit 107.498 94.906 12.726 In Sodium Chloride 0.9% 100 ml @ Per Protocol IV .Q0M [facility] Rx#:[id number] Mvi, Adult No.4 with Vit 70 K 10 ml Trace (Conc-1Ml/ Dose) 1 ml Potassium Chloride 16 meq Magnesium Sulfate gm 0.5 gm Calcium Gluconate 2 gm Sodium Phosphate 6 mmol In Amino Acids 5 %/ Dextrose 20 % 1,000 ml @ 70 mls/hr IV .BY DURATION [facility] Rx#:[id number] Potassium Chloride 16 meq 210 Magnesium Sulfate gm 0.5 gm Calcium Gluconate 2 gm Sodium Phosphate 6 mmol In Amino Acids 5 %/ Dextrose 20 % 1,000 ml @ 70 mls/hr IV .BY DURATION [facility] Rx#:[id number] Output: Urine 2165 852 635 Other: Voiding Method Indwelling Catheter Indwelling Catheter Indwelling Catheter - Exam PHYSICAL EXAM: VITAL SIGNS: [As above] GENERAL: Lethargic, sedated, arousable,respiratory effort increased, BiPAP dependent HEENT: Conjunctivae normal. eyes normal. NECK: Supple,No JVD. CARDIOVASCULAR: S1, S2 regular. No murmur, no edema RESPIRATION:Labored respiratory effort , tachypneic , coarse, bilateral diminished bases with fine bibasilar crackles. ABDOMEN: Soft, nontender. No guarding. no masses palpable. Positive Bowel so unds. NERVOUS SYSTEM: Limited exam, Currently sedated, moves all extremities. Skin: Warm and dry. - Labs CBC & Chem 7: 11/10/21 07:14 11/11/21 07:30 Labs: Abnormal Lab Results - Last 24 Hours (Table) 11/10/21 11/10/21 11/10/21 Range/Units 11:41 14:01 16:03 Potassium (3.5-5.1) mmol/L Chloride (98-107) mmol/L BUN (7-17) mg/dL POC Glucose (mg/dL) 161 H 205 H 180 H (75-99) mg/dL Calcium (8.4-10.2) mg/dL Total Bilirubin (0.2-1.3) mg/dL AST (14-36) U/L ALT (4-34) U/L Alkaline Phosphatase (38-126) U/L Albumin (3.5-5.0) g/dL 11/10/21 11/10/21 11/11/21 Range/Units 17:59 23:05 01:47 Potassium (3.5-5.1) mmol/L Chloride (98-107) mmol/L BUN (7-17) mg/dL POC Glucose (mg/dL) 171 H 63 L 239 H (75-99) mg/dL Calcium (8.4-10.2) mg/dL Total Bilirubin (0.2-1.3) mg/dL AST (14-36) U/L ALT (4-34) U/L Alkaline Phosphatase (38-126) U/L Albumin (3.5-5.0) g/dL 11/11/21 11/11/21 11/11/21 Range/Units 03:10 04:11 05:52 Potassium (3.5-5.1) mmol/L Chloride (98-107) mmol/L BUN (7-17) mg/dL POC Glucose (mg/dL) 250 H 240 H 184 H (75-99) mg/dL Calcium (8.4-10.2) mg/dL Total Bilirubin (0.2-1.3) mg/dL AST (14-36) U/L ALT (4-34) U/L Alkaline Phosphatase (38-126) U/L Albumin (3.5-5.0) g/dL 11/11/21 11/11/21 11/11/21 Range/Units 07:15 07:30 09:07 Potassium 5.4 H (3.5-5.1) mmol/L Chloride 110 H (98-107) mmol/L BUN 39 H (7-17) mg/dL POC Glucose (mg/dL) 123 H 128 H (75-99) mg/dL Calcium 7.9 L (8.4-10.2) mg/dL Total Bilirubin 2.2 H (0.2-1.3) mg/dL AST 84 H (14-36) U/L ALT 125 H (4-34) U/L Alkaline Phosphatase 160 H (38-126) U/L Albumin 2.6 L (3.5-5.0) g/dL 11/11/21 Range/Units 10:22 Potassium (3.5-5.1) mmol/L Chloride (98-107) mmol/L BUN (7-17) mg/dL POC Glucose (mg/dL) 183 H (75-99) mg/dL Calcium (8.4-10.2) mg/dL Total Bilirubin (0.2-1.3) mg/dL AST (14-36) U/L ALT (4-34) U/L Alkaline Phosphatase (38-126) U/L Albumin (3.5-5.0) g/dL Assessment and Plan Assessment: Acute hypoxic respiratory failure related to recent covid 19 pneumonia on . Nonvaccinated. Worsening, difficulty synchronizing with BiPAP, requiring additional sedatives along with Precedex drip. BiPAP dependent. Status post Picc placement for TPN Acute renal failure secondary to dehydration, Acute UTI with Proteus Mirabilis. Lactic acidosis, mild secondary to all the above, improved with IV fluids CAD, Hx of NM,stenting Chronic systolic heart failure Hypertension Hyperlipidemia Gastroesophageal reflux disease Morbid obesity, BMI 57.4 Osteoarthritis Former nicotine dependence History of ovarian cancer Gait dysfunction, wheelchair-bound No code, no CPR, no intubation. Declining BiPAP. Plan: Continue on current medication regime ,monitoring and symptomatic treatment. Maintain supportive care; patient is a no code, no CPR, no intubatio n .prognosis poor .per staff, son expecting more family to arrive today to visit .comfort care re-discussed with son per electrical repairer. ICU management as per electrical repairer. The impression and plan of care has been dictated as directed. : I performed a history and examination of this patient, discussed the same with the dictator. I agree with the dictator's note ,documented as a scribe. Any additional findings or plans will be noted.
[2021-11-11 11:26] VITALS: BMI 55.0
[2021-11-11] MEDS: INSULIN DETEMIR (LEVEMIR) 100 UNIT/ML SYR SQ SCH ×2 (12:00→20:56)
[2021-11-11 12:02] LABS: Glucose,Whole Blood 266 mg/dL (75-99)
[2021-11-11 12:58] LABS: Glucose,Whole Blood 230 mg/dL (75-99)
[2021-11-11] MEDS: 1: MVI, ADULT NO.4 WITH VIT K 10 ML, TRACE (CONC-1ML/DOSE) 1 ML, POTASSIUM CHLORIDE 16 M IV SCH ×7 (13:38)
[2021-11-11 14:09] LABS: Glucose,Whole Blood 206 mg/dL (75-99)
[2021-11-11 14:58] LABS: Glucose,Whole Blood 172 mg/dL (75-99)
[2021-11-11 16:02] LABS: Glucose,Whole Blood 167 mg/dL (75-99)
[2021-11-11 17:01] LABS: Glucose,Whole Blood 108 mg/dL (75-99)
[2021-11-11] MEDS ORDERED: Potassium Replacement Protocol 1 EACH MISC MISCELLANE PRN (17:22)
[2021-11-11 18:03] LABS: Glucose,Whole Blood 115 mg/dL (75-99)
[2021-11-11] MEDS: POTASSIUM CHLORIDE 20 MEQ in WATER FOR INJECTION 1 100ML.BAG IVPB SCH ×2 (18:14→19:53)
[2021-11-11 18:58] LABS: Glucose,Whole Blood 148 mg/dL (75-99)
[2021-11-11 19:59] LABS: Glucose,Whole Blood 174 mg/dL (75-99)
[2021-11-11 20:55] LABS: Glucose,Whole Blood 165 mg/dL (75-99)
[2021-11-11] MEDS: SODIUM CHLORIDE 0.45% 1,000 ML IV SCH (21:27)
[2021-11-11 22:05] LABS: Glucose,Whole Blood 162 mg/dL (75-99)
[2021-11-12 00:18] LABS: Glucose,Whole Blood 138 mg/dL (75-99)
[2021-11-12] MEDS: DEXMEDETOMIDINE/0.9% NACL(PMX) 400 MCG in EMPTY BAG 1 BAG IV SCH ×9 (00:41→22:24)
[2021-11-12 01:05] LABS: Glucose,Whole Blood 149 mg/dL (75-99)
[2021-11-12] MEDS: INSULIN REGULAR 100 UNIT in SODIUM CHLORIDE 0.9% 100 ML IV SCH ×2 (01:07→13:54)
[2021-11-12 01:28] LABS: African American GFR (CKD) >90 (>60 ml/min/1.73 sqM); Blood Urea Nitrogen 43 mg/dL (7-17); Calcium 8.1 mg/dL (8.4-10.2); Chloride 101 mmol/L (98-107); Glucose 169 mg/dL (74-99); Magnesium 1.9 mg/dL (1.6-2.3); Non-African American GFR(CKD) 89 (>60 ml/min/1.73 sqM); Phosphorus 3.2 mg/dL (2.5-4.5); Potassium 5.2 mmol/L (3.5-5.1); Sodium 141 mmol/L (137-145)
[2021-11-12 01:34] LABS: Anion Gap -1 mmol/L
[2021-11-12 01:49] LABS: Glucose,Whole Blood 166 mg/dL (75-99)
[2021-11-12 01:58] LABS: Carbon Dioxide 41 mmol/L (22-30)
[2021-11-12] MEDS: 1: MVI, ADULT NO.4 WITH VIT K 10 ML, TRACE (CONC-1ML/DOSE) 1 ML, POTASSIUM CHLORIDE 16 M IV SCH ×21 (02:47→18:39)
[2021-11-12 02:53] LABS: Glucose,Whole Blood 173 mg/dL (75-99)
[2021-11-12 04:12] LABS: Glucose,Whole Blood 158 mg/dL (75-99)
[2021-11-12 05:24] LABS: Glucose,Whole Blood 152 mg/dL (75-99)
[2021-11-12] MEDS: INSULIN DETEMIR (LEVEMIR) 100 UNIT/ML SYR SQ SCH ×2 (06:42→20:33)
[2021-11-12 06:46] LABS: Glucose,Whole Blood 151 mg/dL (75-99)
[2021-11-12] MEDS ORDERED: INSULIN DETEMIR (LEVEMIR) 100 UNIT/ML SYR SQ SCH (07:00)
[2021-11-12] MEDS: ALBUTEROL HFA INHALER INHALATION SCH ×4 (07:49→19:58)
[2021-11-12 08:20] LABS: Glucose,Whole Blood 132 mg/dL (75-99)
[2021-11-12] MEDS: ASPIRIN 81 MG PO SCH (08:34)
[2021-11-12] MEDS: ASCORBIC ACID 500 MG TAB PO SCH ×2 (08:34→20:21)
[2021-11-12] MEDS: COLCHICINE 0.6 MG EACH PO SCH ×2 (08:34→20:21)
[2021-11-12] MEDS: CHOLECALCIFEROL 25 MCG (1000 IU) TABLET PO SCH (08:34)
[2021-11-12] MEDS: FUROSEMIDE 10 MG/ML 4 ML VIAL IV SCH (08:35)
[2021-11-12] MEDS: DEXAMETHASONE SOD PHOSPHATE 10 MG/ML 1 ML VIAL IVP SCH ×2 (08:35→20:33)
[2021-11-12] MEDS: PANTOPRAZOLE 40 MG/10 ML VIAL IVP SCH (08:35)
[2021-11-12] MEDS: ZINC SULFATE 220 MG CAP PO SCH (08:35)
[2021-11-12] MEDS: ENOXAPARIN 80 MG/0.8 ML SYRINGE SQ SCH ×2 (08:37→20:33)
--- NOTE | 2021-11-12 08:40 | XR ---
EXAMINATION TYPE: XR chest 1V portable DATE OF EXAM: 11/12/2021 Comparison: 11/11/2021 Clinical History: 66-year-old female COVID Findings: Partially visualized ACDF hardware. Right PICC tip not seen beyond the expected lower lower right sub clavian vein. The patient is rotated towards the left. Extensive bilateral confluent airspace disease persists and shows slight worsening with more difficult visualization of the heart margins. Impression: Worsening diffuse bilateral airspace disease.
[2021-11-12 09:36] LABS: Glucose,Whole Blood 139 mg/dL (75-99)
[2021-11-12 09:52] LABS: C Reactive Protein 1.7 mg/dL (<1.0)
--- NOTE | 2021-11-12 09:53 | P.PN ---
Subjective Progress Note Date: 11/12/21 Principal diagnosis: Dyspnea, hypoxia This is 66-year-old white female patient of Dr. Torin Pinedo with history of COVID-19 infection, patient was briefly hospitalized and was discharged home on 10/21/2021. During her last admission chest x-ray showed no evidence of acute cardiopulmonary disease, and patient did not require oxygen at discharge. She was discharged home to complete 8 more days of Decadron. Patient has extensive medical history including coronary artery disease with previous stenting, hyperlipidemia, previous history of myocardial infarction, liver/reflux, history of ovarian cancer status post total hysterectomy, compression fracture of the lumbar vertebrae, and chronic back pain, patient is able to walk but does use a wheelchair to get around for the most part, osteoarthritis a previous history of bilateral hip replacements and bilateral knee replacements, anxiety, depression, remote history of smoking but no history of chronic lung disease. Patient states after she went home she was extremely weak she had trouble getting around the house, and she had little to no help at home from her son. Reports worsening shortness of breath, fever, ongoing diarrhea. Denied any nausea or vomiting, no compressive chest pain swelling or tenderness in calves. She was brought into the hospital by EMS for evaluation. She has a mild cough, she has a poor appetite, ongoing fatigue, she has loss of taste and smell. EMS found oxygen saturation in the 70s. Her chest x-ray in the emergency department with progressive mild scattered bilateral lung infiltrates the possibility of atypical pneumonia. Admission blood work showed a white count of 7.0, h emoglobin of 15.2, platelet count of 188, d-dimer of 1.66, electrolytes are within normal limits, BUN is 26 creatinine 1.38, mild lactic acidosis with a lactic acid of 2.2, ferritin of 883, AST of 79, [place] 41[place] [address], CRP is 32.8, pro calcitonin level was 0.20. Patient tested negative for COVID-19 by PCR test. CTA chest was completed, showing no acute pulmonary embolism within the limitations of the study, and lung windows showed bilateral diffuse moderate to marked patchy round glass opacities. Patient was started on Decadron 6 blood gram daily, multivitamins, inhaled bronchodilators, she was given IV hydration, she is awake alert this morning she is currently on 10 L of oxygen, she is short of breath with exertion but appears to be in no acute distress. She remains weak and she still having diarrhea. No abdominal pain, abdomen is nontender. On 11/01/2021 patient seen in follow-up on selective care unit. She still remains on high flow oxygen, at 15 L/m, and 100 percent nonrebreather mask, does not appear to be in any acute distress, mild dry cough, low-grade fevers with a temp of 99.1F. No complaints of chest discomfort, she is awake and alert, she was able to get up in the chair with physical therapy, breathing comfortably. Lungs reveal diminished breath sounds with some minimal crackles at bilateral bases, his labs have been reviewed with blood cell count is 8.4, hemoglobin is 15.3, d-dimer is improving and is down to 1.16, electrolytes are within normal limits, BUN is 38 and creatinine is 1.54, her renal function has further worsened. She states her diarrhea has improved and she has not had any diarrhea episodes while in the hospital. Currently remains on Decadron 6 mg daily, she is on prophylactic Lovenox, CTA chest and lower extremity Dopplers were negative for PE or DVT within the limitations of the study. Inflammatory markers are still quite elevated, with LDH of 1336 and CRP of 20.6, patient's proBNP was within normal limits at 118. Her appetite remains suboptimal, she states she is able to consume cold and soft consistencies. But has had no nausea vomiting or diarrhea since in the hospital. On today's evaluation of 11/02/2021, the patient is still struggling with her breathing. The patient remains on a high flow oxygen at 15 L along with 100% nonrebreather facemask. She has short of breath at rest. She is short of breath while talking long sentences and she easily desaturates yet she recover speech is able to maintain a pulse ox is above 88%. She remains on Decadron. No nausea. No vomiting. No diarrhea for now. No abdominal pain. The patient had developed an acute kidney injury yesterday and the creatinine was up to 1.54 and then it dropped to 1.24 and the rest of the electrodes are all within normal limits. In terms of the inflammatory markers, the patient had a elevated LDH level of 1336 and the CRP level was at 20.6. Bilirubin was at 0.9. D-dimer is at 1.16. Altered mentation. No other complaints otherwise speech is obese elderly female patient with a body mass index of 57.4. Venous Dopplers obtained on 10/31/2021 were negative and the patient had a CT angiogram at time of admission that was also negative for any pulmonary embolism that showed some cardiomegaly with diffuse bilateral pulmonary infiltrates consistent with COVID 90 related pneumonia 11/03/2021, the patient got transferred to the intensive care unit for further monitoring. Mother the patient was becoming more restless, agitated, nervous, anxious, and at times she was unable to retain DrCassius molina she was offered. Note that the patient is currently on Vapotherm 60 L with an FiO2 of 90% in addition to 100% nonrebreather facemask and a chest x-ray showing diffuse bilateral pulmonary infiltrate. I told that the patient was ultimately going to get intubated. I initiated a conversation with her about intubation mechanical ventilation. The patient declined. We made also focal to 2 of her sisters and both of them supported the patient's decision of not being intubated or placed on a mechanical ventilator. As such, for [place] status is DO NOT INTUBATE. As noted, the patient has been poor morbidly obese with a BMI of 57.4. The patient is on Precedex for agitation and she is currently running at a dose of 0.6 mcg/kg per minute. She is on normal saline at the rate of 20 mL an hour. Inflammatory markers continued to be elevated and LDH level is 1829, CRP level is at 14, d-dimer is at 1.97. Blood gases from yesterday showed a pH of 7.45 with a pCO2 of 44 and pO2 of 55. Her current pulse ox is around 88-89%. IV access needs to be status regarding her ongoing need for treatment and poor IV access. She remains on Decadron. She remains on Baricitinib. She remains on Lovenox for DVT prophylaxis. Mental status is adequate for now. No focal neurological deficits for now. On 11/04/2021 patient seen in follow-up in the intensive care unit, she remains on BiPAP support with pressures of 14 and 7 and FiO2 100%, and her pulse ox is ranging between 84-86%. Patient is lethargic, but easily arousable to voice, she is currently on Precedex at 0.7 mics per kilo per minute, and 0.9 normal saline at a rate of 20 ML per hour. In the last 48 hours patient's hypoxia and dyspnea have significantly worsened, patient was transferred to the intensive care unit, patient was ready on dexamethasone 6 program daily which was increased to twice daily, patient was started on Baricitinib and Rocephin for po ssible urinary tract infection. Inflammatory markers are still elevated on yesterday's labs, today's labs are still pending, yesterday's chest x-ray showing significant bilateral airspace disease related to recent history of COVID-19 pneumonia. Patient is requesting a break from the BiPAP support. She has tolerated BiPAP support fairly well, but she is tachypneic, she is anxious, her respiratory rate is 32, tidal volume is 407, minute ventilation is 13.2. She has made herself a DO NOT RESUSCITATE, we'll continue supportive treatment at this time, we'll give the patient break off BiPAP and place her on Airvo today. Today's labs have been reviewed White blood cell count is 11.3, hemoglobin is 16, platelet count is 218, lymphocyte count of 0.4, serum sodium is 147, potassium is 4.9, chloride is 111, B1 is 41, creatinine is 1.02, LFTs were improving on yesterday's labs, progesterone level was negative at 0.11, urinalysis showed evidence of a urinary tract infection by urine cultures are still pending at this time. Intake has been extremely poor prior to presentation to the hospital, in addition patient was having diarrhea which has improved while in the hospital. However oral intake has remained significantly diminished especially since the patient went on BiPAP support. On 11/11/2021 patient seen in follow-up in intensive care unit, patient continues on BiPAP support, she is BiPAP support dependent, she is on 14/7 and FiO2 of 100%, and her O2 saturations are 84-86%, patient is quite lethargic, she is very confused. She remains on Precedex at 1.3 mics per kilo per hour, she is on TPN at 70 mL per hour. Patient has not been able to take in anything by mouth related to her altered mental status, and being BiPAP support dependent. Today's chest x-ray shows bilateral airspace disease, no pneumothorax or pleural effusion. Today's labs have been reviewed, her sodium is 142, potassium is 5.4, chloride is 110, BUN is 39, creatinine 0.73. LFTs are slightly trended up. Her LDH was 2071, CRP was 4.1 on the labs from 2 days prior. She currently remains Decadron 6 mg twice daily, she is on Lovenox 75 mg twice daily, she is on daily dose of Lasix 40 mg daily. She is requiring frequent dosing with Ativan and morphine to keep her comfortable, less breathless, and tolerated BiPAP support better. Overall patient's condition has not shown a trend to improvement. She remains on high flow FiO2 via BiPAP support, and remains fully dependent on it. Despite some improvement in her inflammatory markers clinically patient has not shown significant progress. Patient has made it very clear that she did not want BiPAP support she did not want life support, and she remains a DO NOT RESUSCITATE. Updated at the son on the phone today, and updated him on the fact that patient has not made any improvement. In view of continued lack of progress in her medical condition and her stated wishes for no life support, and was recommended to the son that comfort care should probably be introduced On 11/12/2021 patient is seen in follow-up in intensive care unit. Patient remains clinically the same as yesterday. She is lethargic, quite dyspneic, tachypneic, remains BiPAP dependent remains on BiPAP support of 14/75 ~100%, pulse ox is 86-89%. Afebrile, hemodynamically patient has remained stable, currently on IV fluids at 20 mL an hour with 0.9 normal saline, Precedex is at 1, TPN is a 70, insulin drip is at 7.5 units per hour, sinus rhythm with a rate of 62. Tidal volume was 297, respiratory rate is 34, minute ventilation is 11.8. Chest x-ray today showing worsening diffuse bilateral airspace disease. Patient remains on Decadron 6 program twice daily, she remains on Lovenox 75 mg twice daily. Today's labs are still pending, yesterday we spoke extensively to the patient's son about patient's lack of progress, patient's CODE STATUS is DO NOT RESUSCITATE, patient's son did come in, however at this point has not made a decision to move forward with comfort care. Objective - Vital Signs Vital signs: Vital Signs Temp 98.4 F 11/12/21 08:00 Pulse 66 11/12/21 09:00 Resp 37 H 11/12/21 09:00 BP 117/62 11/12/21 09:00 Pulse Ox 89 L 11/12/21 09:00 Intake & Output 11/11/21 11/12/21 11/12/21 18:59 06:59 18:59 Intake Total 2350.068 1673.685 382.751 Output Total 2270 1015 280 Balance 80.068 658.685 102.751 Weight 150 kg 148.4 kg Intake: IV 220 240 200 Potassium Chloride 16 meq 140 Magnesium Sulfate gm 0.5 gm Calcium Gluconate 2 gm Sodium Phosphate 6 mmol In Amino Acids 5 %/ Dextrose 20 % 1,000 ml @ 70 mls/hr IV .BY DURATION [facility] Rx#:[id number] Sodium Chloride 0.45% 1, 220 240 60 000 ml @ 20 mls/hr IV . Q24H [facility] Rx#:[id number] Intake, IV Titration 2130.068 663.685 112.751 Amount Dexmedetomidine/0.9% NaCl 577.159 473.441 100 (Pmx) 400 mcg In Empty Bag 1 bag @ 0.2 MCG/KG/HR 7.824 mls/hr IV .[id number] [facility] Rx#:[id number] Insulin Regular 100 unit 101.909 90.244 12.751 In Sodium Chloride 0.9% 100 ml @ Per Protocol IV .Q0M [facility] Rx#:[id number] Potassium Chloride 16 meq 1451 Magnesium Sulfate gm 0.5 gm Calcium Gluconate 2 gm Sodium Phosphate 6 mmol In Amino Acids 5 %/ Dextrose 20 % 1,000 ml @ 70 mls/hr IV .BY DURATION [facility] Rx#:[id number] Potassium Chloride 20 meq 100 In Water For Injection 1 100ml.bag @ 50 mls/hr IVPB Q2H [facility] Rx#: [id number] TPN/PPN 770 70 TPN 770 70 Output: Urine 2270 1015 280 Other: Voiding Method Indwelling Catheter Indwelling Catheter - Exam GENERAL EXAM: Sedated, 66-year-old morbidly obese white female, on BIpap support at 14/7, 100% dyspneic HEAD: Normocephalic/atraumatic. EYES: Normal reaction of pupils, equal size. Conjunctiva pink, sclera white. NOSE: Clear with pink turbinates. THROAT: No erythema or exudates. NECK: No masses, no JVD, no thyroid enlargement, no adenopathy. CHEST: No chest wall deformity. Symmetrical expansion. LUNGS: Equal air entry with fine basilar crackles CVS: Regular rate and rhythm, normal S1 and S2, no gallops, no murmurs, no rubs ABDOMEN: Soft, nontender. No hepatosplenomegaly, normal bowel sounds, no guarding or rigidity. EXTREMITIES: No clubbing, no edema, no cyanosis, 2+ pulses and upper and lower extremities. MUSCULOSKELETAL: Muscle strength and tone normal. SPINE: No scoliosis or deformity SKIN: No rashes CENTRAL NERVOUS SYSTEM: Sedated No focal deficits, tone is normal in all 4 extremities. PSYCHIATRIC: Sedated. Intact judgment and insight. - Labs CBC & Chem 7: 11/10/21 07:14 11/12/21 00:45 Labs: Abnormal Lab Results - Last 24 Hours (Table) 11/11/21 11/11/21 11/11/21 Range/Units 10:22 10:56 12:01 Potassium (3.5-5.1) mmol/L Carbon Dioxide (22-30) mmol/L BUN (7-17) mg/dL Glucose (74-99) mg/dL POC Glucose (mg/dL) 183 H 246 H 266 H (75-99) mg/dL Calcium (8.4-10.2) mg/dL 11/11/21 11/11/21 11/11/21 Range/Units 12:56 14:07 14:57 Potassium 3.4 L (3.5-5.1) mmol/L Carbon Dioxide (22-30) mmol/L BUN (7-17) mg/dL Glucose (74-99) mg/dL POC Glucose (mg/dL) 230 H 206 H (75-99) mg/dL Calcium (8.4-10.2) mg/dL 11/11/21 11/11/21 11/11/21 Range/Units 14:57 16:01 16:59 Potassium (3.5-5.1) mmol/L Carbon Dioxide (22-30) mmol/L BUN (7-17) mg/dL Glucose (74-99) mg/dL POC Glucose (mg/dL) 172 H 167 H 108 H (75-99) mg/dL Calcium (8.4-10.2) mg/dL 11/11/21 11/11/21 11/11/21 Range/Units 18:01 18:56 19:58 Potassium (3.5-5.1) mmol/L Carbon Dioxide (22-30) mmol/L BUN (7-17) mg/dL Glucose (74-99) mg/dL POC Glucose (mg/dL) 115 H 148 H 174 H (75-99) mg/dL Calcium (8.4-10.2) mg/dL 11/11/21 11/11/21 11/12/21 Range/Units 20:53 22:04 00:17 Potassium (3.5-5.1) mmol/L Carbon Dioxide (22-30) mmol/L BUN (7-17) mg/dL Glucose (74-99) mg/dL POC Glucose (mg/dL) 165 H 162 H 138 H (75-99) mg/dL Calcium (8.4-10.2) mg/dL 11/12/21 11/12/21 11/12/21 Range/Units 00:45 01:04 01:47 Potassium 5.2 H (3.5-5.1) mmol/L Carbon Dioxide 41 H* (22-30) mmol/L BUN 43 H (7-17) mg/dL Glucose 169 H (74-99) mg/dL POC Glucose (mg/dL) 149 H 166 H (75-99) mg/dL Calcium 8.1 L (8.4-10.2) mg/dL 11/12/21 11/12/21 11/12/21 Range/Units 02:52 04:10 05:22 Potassium (3.5-5.1) mmol/L Carbon Dioxide (22-30) mmol/L BUN (7-17) mg/dL Glucose (74-99) mg/dL POC Glucose (mg/dL) 173 H 158 H 152 H (75-99) mg/dL Calcium (8.4-10.2) mg/dL 11/12/21 11/12/21 11/12/21 Range/Units 06:44 08:19 09:15 Potassium (3.5-5.1) mmol/L Carbon Dioxide (22-30) mmol/L BUN (7-17) mg/dL Glucose (74-99) mg/dL POC Glucose (mg/dL) 151 H 132 H 139 H (75-99) mg/dL Calcium (8.4-10.2) mg/dL Assessment and Plan Plan: #1. Acute Hypoxic respiratory failure related to COVID 19 pneumonia. Symptom onset was greater than 10 days ago, patient is outside the window for Remdesivir or Sotrovimab. Patient had a recent hospitalization for COVID-19 infection with symptoms of nausea vomiting and diarrhea,. Patient's chest x-ray during her last admission showed no acute cardiopulmonary disease, she was discharged home on 10/21/2021 and did not require oxygen at discharge. Patient was discharged home to complete a day course of Decadron. Patient is a non-vaccinated adult. Patient had worsening in her breathing and was started on Baricitinib, which had to be discontinued in view of active urinary tract infection. On 11/11/2021 patient remains strictly BiPAP dependent for several days with FiO2 of 100% with O2 saturations in the mid 80s. Overall prognosis is extremely poor, chest x-ray continues to show bilateral airspace disease, patient remains on Precedex, and other sedatives to help her tolerate the BiPAP support and help her with feeling of breathlessness. Inflammatory markers continue to be elevated. Patient has not responded to medical treatment, and she continues to do poorly. #2. Weakness, fatigue, diarrhea related to recent history of COVID-19 infection #3. Limited inflammatory markers related to COVID-19 infection #4. Acute kidney injury related to dehydration and diarrhea #5. Mild lactic acidosis related to dehydration improved with fluid resuscitation #6. Morbid obesity with BMI 57.4 kg/m #7. Coronary artery disease with previous stenting #8. History of ovarian cancer status post total hysterectomy #9. Chronic back pain #10. History of compression fractures of lumbar vertebrae #11. Gait dysfunction, patient is wheelchair bound for the most part #12. HyperLipidemia #13. Remote history of smoking #14. GERD/reflux #15. Anxiety and depression #16. Acute urinary tract infection, related to Proteus mirabilis Plan: Today patient continues to do poorly Dyspneic, tachypneic, poorly responsive Remains BiPAP support dependent with FiO2 100% Continue Decadron, Continue daily dose of Lasix She continues to require Precedex and other sedatives to help her with dyspnea and to help tolerate BiPAP support Oxygen saturations remain low Today's chest x-ray shows a worsening of bilateral airspace disease Despite maximized medical treatment patient has not made improvement Code status is DO NOT RESUSCITATE Spoke to the son extensively yesterday about her clinical prognosis and patient's wishes At this point patient has not made a decision and has allowed the medical supportive treatment to continue We'll continue supportive treatment for now Overall prognosis is extremely poor I have personally seen and examined the patient, performed the documentation and the assessment and plan as written. Number of minutes spent on the visit: [10] Time with Patient: Less than 30
[2021-11-12 09:54] LABS: HCT 52.2 % (34.0-46.0); HGB 16.6 gm/dL (11.4-16.0); Hypochromasia Slight; MCH 31.3 pg (25.0-35.0); MCHC 31.8 g/dL (31.0-37.0); MCV 98.2 fL (80.0-100.0); Mean Platelet Volume 12.6; RBC 5.32 m/uL (3.80-5.40); RDW 13.5 % (11.5-15.5); WBC 18.8 k/uL (3.8-10.6)
[2021-11-12 09:57] LABS: Platelet Count 86 k/uL (150-450)
[2021-11-12] MEDS: MORPHINE SULFATE 2 MG/ML SYRINGE IVP PRN (11:09)
--- NOTE | 2021-11-12 11:28 | P.PN ---
Subjective Progress Note Date: 11/12/21 This is a 66-year-old female with past medical history of recent covid, , CAD, gastroesophageal reflux disease, morbid obesity, ovarian cancer, and multiple other medical issues presented to the ER with complaints of worsening shortness of breath. Recently admitted with Covid, respiratory status stable, did not require any oxygen ,discharged on Covid cocktail including Decadron. Reporting she had no help at home from her son, reporting multiple social issues being addressed by case management/social work. Shortness of breath worsened, loss of taste and smell with appetite decreased, developed diarrhea. Denies nausea vomiting or abdominal pain. EMS per ER reported O2 sat of the 70s. Chest x-ray reported progressive mild scattered bilateral lung infiltrates with possibility of atypical pneumonia. Chest CTA Limited study, reported negative for PE, bilateral diffuse moderate to marked patchy groundglass opacity's, no pleural effusion. Doppler pending. Afebrile, WBC WNL, hemoglobin 15.2, platelets 188, d-dimer 166, electrolytes WNL, BUN 26, creatinine 1.38( baseline 0.9), lactic acid 2.2, ferritin 883, AST 79, ALT 41, LDH 1713, CRP 32.8, pro- calcitonin 0.2. Greenberg virus PCR reported negative. Covid cocktail initiated including Decadron IV, IV fluid hydration. Currently maintaining O2 sats in the 90s on 10 L high flow nasal cannula. 11/01/2021 maintaining O2 sats in the high 80s on 15 L high flow nasal cannula with nonrebreather mask on standby, while attempting to eat bites of breakfast. Denies nausea, vomiting or diarrhea-none since admission. T-max 99.1, normal WB C. Renal function worsening, BUN 38, creatinine 1.54. Inflammatory markers : d-dimer, LDH and CRP elevated and decreasing with ferritin pending. ProBNP within normal limits. AST, ALT trending down. Denies chest pain, palpitations or chest pressure. Doppler of Lower extremities reviewed. 11/04/2021 remains on BiPAP support, 14/7, 100% FiO2, maintaining O2 sats currently in the low 80s. Tachypneic. Maintained on Precedex, covid regimine, Baricitinib . Empiric Rocephin, urine culture pending. Afebrile, WBC 11.3. Hemoglobin 16, platelets 218. Sodium 146, potassium 4.9, chloride 111, bicarb 28, BUN 41, creatinine 1.02. 11/05/2021 continues on Covid Cocktail. maintained on Airvo and 100% Ventimask, as patient unable to tolerate wearing BiPAP, maintaining O2 sats in the low 80s. Chest x-ray reporting bilateral multifocal, confluent increased opacities consistent with edema and/or infiltrates. Tachypneic, respiratory rate in the 30s, hypertensive, bradycardic-heart rates in the 50s. T-max 99.9, WBC 13.2, urine culture reporting Proteus Mirabilis. hemoglobin 16.8, platelets 164. Inflammatory markers increasing, D-dimer 31.31, LDH 2949, CRP 18.7. Pro- calcitonin 0.09. T bili increased to 1.9, AST 41 ALT 27, alk phos 145. 11/06/21 significant respiratory distress, currently maintained on Precedex, BiPAP 100%, Decadron, Rocephin ,morphine and Ativan.Chest x-ray reporting persistent unchanged diffuse bilateral airspace infiltrates. Family has been requested to come in for further discussion with green ware caster. 11/07/2021 BiPAP 100% dependent, maintaining O2 sats in the low to mid 80s. Significant agitation, requiring Ativan every 3 hours , prn Morphine, in addition to Precedex. Continues on Decadron, Lovenox. Blood sugars controlled Labs pending. 11/08/2021 PICC line placed with TPN initiated yesterday. Remains on 100% BiPAP, O2 sats mid 70s to low 80s. Chest x-ray reporting persistent coarse infiltrates throughout both lung polanco. Maintained on Precedex drip at maximum dose. Labs pending. Hospice consulted for informational meeting. 11/11/2021 clinically unchanged:BiPAP dependent, however percent FiO2, maintaining O2 sats in the mid 80s, tachypneic, bradycardic. Chest x-ray reporting bilateral airspace disease with no pneumothorax or pleural effusion. Maintained on Precedex drip ,additional prn Ativan and morphine and Covid cocktail. T-max 99.4. Receiving TPN, continue on insulin drip. LFT's mildly ternding up; T bili 2.2, AST 84, alk phos 125. 11/12/2021 clinically unchanged with the exception of chest x-ray worsening. Remains BiPAP dependent. Maintained on Precedex, Ativan, morphine. TPN via PICC. Staff reports patient has repeatedly stated she does not want life support including the BiPAP mask. Son updated by green ware caster, despite poor prognosis, recommendations of comfort care, he wishes to proceed with supportive care. Objective - Vital Signs Vital signs: Vital Signs Temp 98.4 F 11/12/21 08:00 Pulse 65 11/12/21 11:00 Resp 38 H 11/12/21 11:00 BP 93/63 11/12/21 11:00 Pulse Ox 84 L 11/12/21 11:00 Intake & Output 11/11/21 11/12/21 11/12/21 18:59 06:59 18:59 Intake Total 2350.068 1673.685 662.512 Output Total 2270 1015 1480 Balance 80.068 658.685 -817.488 Weight 150 kg 148.4 kg Intake: IV 220 240 380 Potassium Chloride 16 meq 280 Magnesium Sulfate gm 0.5 gm Calcium Gluconate 2 gm Sodium Phosphate 6 mmol In Amino Acids 5 %/ Dextrose 20 % 1,000 ml @ 70 mls/hr IV .BY DURATION [facility] Rx#:[id number] Sodium Chloride 0.45% 1, 220 240 100 000 ml @ 20 mls/hr IV . Q24H [facility] Rx#:[id number] Intake, IV Titration 2130.068 663.685 212.512 Amount Dexmedetomidine/0.9% NaCl 577.159 473.441 199.761 (Pmx) 400 mcg In Empty Bag 1 bag @ 0.2 MCG/KG/HR 7.824 mls/hr IV .[id number] [facility] Rx#:[id number] Insulin Regular 100 unit 101.909 90.244 12.751 In Sodium Chloride 0.9% 100 ml @ Per Protocol IV .Q0M [facility] Rx#:[id number] Potassium Chloride 16 meq 1451 Magnesium Sulfate gm 0.5 gm Calcium Gluconate 2 gm Sodium Phosphate 6 mmol In Amino Acids 5 %/ Dextrose 20 % 1,000 ml @ 70 mls/hr IV .BY DURATION [facility] Rx#:[id number] Potassium Chloride 20 meq 100 In Water For Injection 1 100ml.bag @ 50 mls/hr IVPB Q2H [facility] Rx#: [id number] TPN/PPN 770 70 TPN 770 70 Output: Urine 2270 1015 1480 Other: Voiding Method Indwelling Catheter Indwelling Catheter Indwelling Catheter - Exam PHYSICAL EXAM: Unchanged: VITAL SIGNS: [As above] GENERAL: Lethargic, sedated, arousable,respiratory effort increased, BiPAP depe ndent HEENT: Conjunctivae normal. eyes normal. NECK: Supple,No JVD. CARDIOVASCULAR: S1, S2 regular. No murmur, no edema RESPIRATION:Labored respiratory effort , tachypneic , coarse, bilateral dim inished bases with fine bibasilar crackles. ABDOMEN: Soft, nontender. No guarding. no masses palpable. Positive Bowel sounds. NERVOUS SYSTEM: Limited exam, Currently sedated, moves all extremities. Skin: Warm and dry. - Labs CBC & Chem 7: 11/12/21 09:13 11/12/21 00:45 Labs: Abnormal Lab Results - Last 24 Hours (Table) 11/11/21 11/11/21 11/11/21 Range/Units 12:01 12:56 14:07 WBC (3.8-10.6) k/uL Hgb (11.4-16.0) gm/dL Hct (34.0-46.0) % Plt Count (150-450) k/uL D-Dimer (<0.60) mg/L FEU Potassium (3.5-5.1) mmol/L Carbon Dioxide (22-30) mmol/L BUN (7-17) mg/dL Glucose (74-99) mg/dL POC Glucose (mg/dL) 266 H 230 H 206 H (75-99) mg/dL Calcium (8.4-10.2) mg/dL Lactate Dehydrogenase (313-618) U/L C-Reactive Protein (<1.0) mg/dL 11/11/21 11/11/21 11/11/21 Range/Units 14:57 14:57 16:01 WBC (3.8-10.6) k/uL Hgb (11.4-16.0) gm/dL Hct (34.0-46.0) % Plt Count (150-450) k/uL D-Dimer (<0.60) mg/L FEU Potassium 3.4 L (3.5-5.1) mmol/L Carbon Dioxide (22-30) mmol/L BUN (7-17) mg/dL Glucose (74-99) mg/dL POC Glucose (mg/dL) 172 H 167 H (75-99) mg/dL Calcium (8.4-10.2) mg/dL Lactate Dehydrogenase (313-618) U/L C-Reactive Protein (<1.0) mg/dL 11/11/21 11/11/21 11/11/21 Range/Units 16:59 18:01 18:56 WBC (3.8-10.6) k/uL Hgb (11.4-16.0) gm/dL Hct (34.0-46.0) % Plt Count (150-450) k/uL D-Dimer (<0.60) mg/L FEU Potassium (3.5-5.1) mmol/L Carbon Dioxide (22-30) mmol/L BUN (7-17) mg/dL Glucose (74-99) mg/dL POC Glucose (mg/dL) 108 H 115 H 148 H (75-99) mg/dL Calcium (8.4-10.2) mg/dL Lactate Dehydrogenase (313-618) U/L C-Reactive Protein (<1.0) mg/dL 11/11/21 11/11/21 11/11/21 Range/Units 19:58 20:53 22:04 WBC (3.8-10.6) k/uL Hgb (11.4-16.0) gm/dL Hct (34.0-46.0) % Plt Count (150-450) k/uL D-Dimer (<0.60) mg/L FEU Potassium (3.5-5.1) mmol/L Carbon Dioxide (22-30) mmol/L BUN (7-17) mg/dL Glucose (74-99) mg/dL POC Glucose (mg/dL) 174 H 165 H 162 H (75-99) mg/dL Calcium (8.4-10.2) mg/dL Lactate Dehydrogenase (313-618) U/L C-Reactive Protein (<1.0) mg/dL 11/12/21 11/12/21 11/12/21 Range/Units 00:17 00:45 01:04 WBC (3.8-10.6) k/uL Hgb (11.4-16.0) gm/dL Hct (34.0-46.0) % Plt Count (150-450) k/uL D-Dimer (<0.60) mg/L FEU Potassium 5.2 H (3.5-5.1) mmol/L Carbon Dioxide 41 H* (22-30) mmol/L BUN 43 H (7-17) mg/dL Glucose 169 H (74-99) mg/dL POC Glucose (mg/dL) 138 H 149 H (75-99) mg/dL Calcium 8.1 L (8.4-10.2) mg/dL Lactate Dehydrogenase (313-618) U/L C-Reactive Protein (<1.0) mg/dL 11/12/21 11/12/21 11/12/21 Range/Units 01:47 02:52 04:10 WBC (3.8-10.6) k/uL Hgb (11.4-16.0) gm/dL Hct (34.0-46.0) % Plt Count (150-450) k/uL D-Dimer (<0.60) mg/L FEU Potassium (3.5-5.1) mmol/L Carbon Dioxide (22-30) mmol/L BUN (7-17) mg/dL Glucose (74-99) mg/dL POC Glucose (mg/dL) 166 H 173 H 158 H (75-99) mg/dL Calcium (8.4-10.2) mg/dL Lactate Dehydrogenase (313-618) U/L C-Reactive Protein (<1.0) mg/dL 11/12/21 11/12/21 11/12/21 Range/Units 05:22 06:44 08:19 WBC (3.8-10.6) k/uL Hgb (11.4-16.0) gm/dL Hct (34.0-46.0) % Plt Count (150-450) k/uL D-Dimer (<0.60) mg/L FEU Potassium (3.5-5.1) mmol/L Carbon Dioxide (22-30) mmol/L BUN (7-17) mg/dL Glucose (74-99) mg/dL POC Glucose (mg/dL) 152 H 151 H 132 H (75-99) mg/dL Calcium (8.4-10.2) mg/dL Lactate Dehydrogenase (313-618) U/L C-Reactive Protein (<1.0) mg/dL 11/12/21 11/12/21 11/12/21 Range/Units 09:13 09:13 09:13 WBC 18.8 H (3.8-10.6) k/uL Hgb 16.6 H (11.4-16.0) gm/dL Hct 52.2 H (34.0-46.0) % Plt Count 86 L (150-450) k/uL D-Dimer 14.96 H (<0.60) mg/L FEU Potassium (3.5-5.1) mmol/L Carbon Dioxide (22-30) mmol/L BUN (7-17) mg/dL Glucose (74-99) mg/dL POC Glucose (mg/dL) (75-99) mg/dL Calcium (8.4-10.2) mg/dL Lactate Dehydrogenase 2504 H (313-618) U/L C-Reactive Protein 1.7 H (<1.0) mg/dL 11/12/21 Range/Units 09:15 WBC (3.8-10.6) k/uL Hgb (11.4-16.0) gm/dL Hct (34.0-46.0) % Plt Count (150-450) k/uL D-Dimer (<0.60) mg/L FEU Potassium (3.5-5.1) mmol/L Carbon Dioxide (22-30) mmol/L BUN (7-17) mg/dL Glucose (74-99) mg/dL POC Glucose (mg/dL) 139 H (75-99) mg/dL Calcium (8.4-10.2) mg/dL Lactate Dehydrogenase (313-618) U/L C-Reactive Protein (<1.0) mg/dL Assessment and Plan Assessment: Acute hypoxic respiratory failure related to recent covid 19 pneumonia on . Nonvaccinated. Worsening, difficulty synchronizing with BiPAP, requiring additional sedatives along with Precedex drip. BiPAP dependent. Status post Picc placement for TPN Acute renal failure secondary to dehydration, Acute UTI with Proteus Mirabilis. Lactic acidosis, mild secondary to all the above, improved with IV fluids CAD, Hx of [place],stenting Chronic systolic heart failure Hypertension Hyperlipidemia Gastroesophageal reflux disease Morbid obesity, BMI 57.4 Osteoarthritis Former nicotine dependence History of ovarian cancer Gait dysfunction, wheelchair-bound No code, no CPR, no intubation. Declining BiPAP. Plan: Continue on current medication regime ,monitoring and symptomatic treatment. Patient is a no code, no CPR, no intubation .prognosis poor, worsening chest x-ray; maintain supportive care as per Son. ICU management as per green ware caster. The impression and plan of care has been dictated as directed. : I performed a history and examination of this patient, discussed the same with the dictator. I agree with the dictator's note ,documented as a scribe. Any additional findings or plans will be noted.
[2021-11-12 11:31] LABS: Glucose,Whole Blood 264 mg/dL (75-99)
[2021-11-12] MEDS: LIDOCAINE 5% PATCH TOPICAL SCH (12:18)
[2021-11-12 12:35] LABS: Band Neutrophils % 3 %; Lymphocytes # (M) 0.75 k/uL (1.0-4.8); Metamyelocytes # (M) 0.19 k/uL (0); Metamyelocytes % 1 %; Monocytes # (M) 1.69 k/uL (0-1.0); Neutrophils % (M) 84 %; Nucleated Red Blood Cells 0 /100 WBC (0-0); Total Cells Counted 200
[2021-11-12 12:35] LABS: Glucose,Whole Blood 275 mg/dL (75-99)
[2021-11-12 13:45] LABS: Glucose,Whole Blood 196 mg/dL (75-99)
[2021-11-12 15:23] LABS: Glucose,Whole Blood 153 mg/dL (75-99)
[2021-11-12 16:41] LABS: Glucose,Whole Blood 163 mg/dL (75-99)
[2021-11-12 18:45] LABS: Glucose,Whole Blood 111 mg/dL (75-99)
[2021-11-12 20:21] LABS: Glucose,Whole Blood 153 mg/dL (75-99)
[2021-11-12] MEDS: SODIUM CHLORIDE 0.45% 1,000 ML IV SCH (20:34)
[2021-11-12 21:08] LABS: Glucose,Whole Blood 158 mg/dL (75-99)
[2021-11-12 22:51] LABS: Glucose,Whole Blood 208 mg/dL (75-99)
[2021-11-12 23:57] LABS: Glucose,Whole Blood 188 mg/dL (75-99)
[2021-11-13] MEDS: DEXMEDETOMIDINE/0.9% NACL(PMX) 400 MCG in EMPTY BAG 1 BAG IV SCH ×5 (00:57→11:26)
[2021-11-13] MEDS: LORazepam 2 MG/ML INJ IV PRN ×2 (00:59→13:54)
[2021-11-13 01:05] LABS: Glucose,Whole Blood 189 mg/dL (75-99)
[2021-11-13 03:01] LABS: Glucose,Whole Blood 166 mg/dL (75-99)
[2021-11-13 04:47] LABS: Glucose,Whole Blood 162 mg/dL (75-99)
[2021-11-13] MEDS: INSULIN REGULAR 100 UNIT in SODIUM CHLORIDE 0.9% 100 ML IV SCH (05:54)
[2021-11-13 06:57] LABS: Glucose,Whole Blood 170 mg/dL (75-99)
[2021-11-13] MEDS: INSULIN DETEMIR (LEVEMIR) 100 UNIT/ML SYR SQ SCH (06:57)
[2021-11-13] MEDS: ALBUTEROL HFA INHALER INHALATION SCH ×2 (07:40→11:55)
[2021-11-13 08:09] LABS: Glucose,Whole Blood 149 mg/dL (75-99)
[2021-11-13] MEDS: ASPIRIN 81 MG PO SCH (09:09)
[2021-11-13] MEDS: ASCORBIC ACID 500 MG TAB PO SCH (09:09)
[2021-11-13] MEDS: COLCHICINE 0.6 MG EACH PO SCH (09:09)
[2021-11-13] MEDS: CHOLECALCIFEROL 25 MCG (1000 IU) TABLET PO SCH (09:09)
[2021-11-13] MEDS: FUROSEMIDE 10 MG/ML 4 ML VIAL IV SCH (09:14)
[2021-11-13] MEDS: 1: MVI, ADULT NO.4 WITH VIT K 10 ML, TRACE (CONC-1ML/DOSE) 1 ML, POTASSIUM CHLORIDE 16 M IV SCH ×14 (09:14→09:17)
[2021-11-13] MEDS: DEXAMETHASONE SOD PHOSPHATE 10 MG/ML 1 ML VIAL IVP SCH (09:15)
[2021-11-13] MEDS: LIDOCAINE 5% PATCH TOPICAL SCH (09:15)
[2021-11-13] MEDS: PANTOPRAZOLE 40 MG/10 ML VIAL IVP SCH (09:15)
[2021-11-13] MEDS: ENOXAPARIN 80 MG/0.8 ML SYRINGE SQ SCH (09:16)
[2021-11-13] MEDS: ZINC SULFATE 220 MG CAP PO SCH (09:17)
[2021-11-13 09:27] VITALS: TEMP 98.5
[2021-11-13 09:32] LABS: Glucose,Whole Blood 102 mg/dL (75-99)
[2021-11-13 10:07] LABS: Glucose,Whole Blood 127 mg/dL (75-99)
--- NOTE | 2021-11-13 10:13 | P.PN ---
Subjective Progress Note Date: 11/13/21 Principal diagnosis: Dyspnea, hypoxia This is 66-year-old white female patient of Dr. Torin Pinedo with history of COVID-19 infection, patient was briefly hospitalized and was discharged home on 10/21/2021. During her last admission chest x-ray showed no evidence of acute cardiopulmonary disease, and patient did not require oxygen at discharge. She was discharged home to complete 8 more days of Decadron. Patient has extensive medical history including coronary artery disease with previous stenting, hyperlipidemia, previous history of myocardial infarction, liver/reflux, history of ovarian cancer status post total hysterectomy, compression fracture of the lumbar vertebrae, and chronic back pain, patient is able to walk but does use a wheelchair to get around for the most part, osteoarthritis a previous history of bilateral hip replacements and bilateral knee replacements, anxiety, depression, remote history of smoking but no history of chronic lung disease. Patient states after she went home she was extremely weak she had trouble getting around the house, and she had little to no help at home from her son. Reports worsening shortness of breath, fever, ongoing diarrhea. Denied any nausea or vomiting, no compressive chest pain swelling or tenderness in calves. She was brought into the hospital by EMS for evaluation. She has a mild cough, she has a poor appetite, ongoing fatigue, she has loss of taste and smell. EMS found oxygen saturation in the 70s. Her chest x-ray in the emergency department with progressive mild scattered bilateral lung infiltrates the possibility of atypical pneumonia. Admission blood work showed a white count of 7.0, h emoglobin of 15.2, platelet count of 188, d-dimer of 1.66, electrolytes are within normal limits, BUN is 26 creatinine 1.38, mild lactic acidosis with a lactic acid of 2.2, ferritin of 883, AST of 79, [place] 41[place] [address], CRP is 32.8, pro calcitonin level was 0.20. Patient tested negative for COVID-19 by PCR test. CTA chest was completed, showing no acute pulmonary embolism within the limitations of the study, and lung windows showed bilateral diffuse moderate to marked patchy round glass opacities. Patient was started on Decadron 6 blood gram daily, multivitamins, inhaled bronchodilators, she was given IV hydration, she is awake alert this morning she is currently on 10 L of oxygen, she is short of breath with exertion but appears to be in no acute distress. She remains weak and she still having diarrhea. No abdominal pain, abdomen is nontender. On 11/01/2021 patient seen in follow-up on selective care unit. She still remains on high flow oxygen, at 15 L/m, and 100 percent nonrebreather mask, does not appear to be in any acute distress, mild dry cough, low-grade fevers with a temp of 99.1F. No complaints of chest discomfort, she is awake and alert, she was able to get up in the chair with physical therapy, breathing comfortably. Lungs reveal diminished breath sounds with some minimal crackles at bilateral bases, his labs have been reviewed with blood cell count is 8.4, hemoglobin is 15.3, d-dimer is improving and is down to 1.16, electrolytes are within normal limits, BUN is 38 and creatinine is 1.54, her renal function has further worsened. She states her diarrhea has improved and she has not had any diarrhea episodes while in the hospital. Currently remains on Decadron 6 mg daily, she is on prophylactic Lovenox, CTA chest and lower extremity Dopplers were negative for PE or DVT within the limitations of the study. Inflammatory markers are still quite elevated, with LDH of 1336 and CRP of 20.6, patient's proBNP was within normal limits at 118. Her appetite remains suboptimal, she states she is able to consume cold and soft consistencies. But has had no nausea vomiting or diarrhea since in the hospital. On today's evaluation of 11/02/2021, the patient is still struggling with her breathing. The patient remains on a high flow oxygen at 15 L along with 100% nonrebreather facemask. She has short of breath at rest. She is short of breath while talking long sentences and she easily desaturates yet she recover speech is able to maintain a pulse ox is above 88%. She remains on Decadron. No nausea. No vomiting. No diarrhea for now. No abdominal pain. The patient had developed an acute kidney injury yesterday and the creatinine was up to 1.54 and then it dropped to 1.24 and the rest of the electrodes are all within normal limits. In terms of the inflammatory markers, the patient had a elevated LDH level of 1336 and the CRP level was at 20.6. Bilirubin was at 0.9. D-dimer is at 1.16. Altered mentation. No other complaints otherwise speech is obese elderly female patient with a body mass index of 57.4. Venous Dopplers obtained on 10/31/2021 were negative and the patient had a CT angiogram at time of admission that was also negative for any pulmonary embolism that showed some cardiomegaly with diffuse bilateral pulmonary infiltrates consistent with COVID 90 related pneumonia 11/03/2021, the patient got transferred to the intensive care unit for further monitoring. Mother the patient was becoming more restless, agitated, nervous, anxious, and at times she was unable to retain DrCassius molina she was offered. Note that the patient is currently on Vapotherm 60 L with an FiO2 of 90% in addition to 100% nonrebreather facemask and a chest x-ray showing diffuse bilateral pulmonary infiltrate. I told that the patient was ultimately going to get intubated. I initiated a conversation with her about intubation mechanical ventilation. The patient declined. We made also focal to 2 of her sisters and both of them supported the patient's decision of not being intubated or placed on a mechanical ventilator. As such, for [place] status is DO NOT INTUBATE. As noted, the patient has been poor morbidly obese with a BMI of 57.4. The patient is on Precedex for agitation and she is currently running at a dose of 0.6 mcg/kg per minute. She is on normal saline at the rate of 20 mL an hour. Inflammatory markers continued to be elevated and LDH level is 1829, CRP level is at 14, d-dimer is at 1.97. Blood gases from yesterday showed a pH of 7.45 with a pCO2 of 44 and pO2 of 55. Her current pulse ox is around 88-89%. IV access needs to be status regarding her ongoing need for treatment and poor IV access. She remains on Decadron. She remains on Baricitinib. She remains on Lovenox for DVT prophylaxis. Mental status is adequate for now. No focal neurological deficits for now. On 11/04/2021 patient seen in follow-up in the intensive care unit, she remains on BiPAP support with pressures of 14 and 7 and FiO2 100%, and her pulse ox is ranging between 84-86%. Patient is lethargic, but easily arousable to voice, she is currently on Precedex at 0.7 mics per kilo per minute, and 0.9 normal saline at a rate of 20 ML per hour. In the last 48 hours patient's hypoxia and dyspnea have significantly worsened, patient was transferred to the intensive care unit, patient was ready on dexamethasone 6 program daily which was increased to twice daily, patient was started on Baricitinib and Rocephin for po ssible urinary tract infection. Inflammatory markers are still elevated on yesterday's labs, today's labs are still pending, yesterday's chest x-ray showing significant bilateral airspace disease related to recent history of COVID-19 pneumonia. Patient is requesting a break from the BiPAP support. She has tolerated BiPAP support fairly well, but she is tachypneic, she is anxious, her respiratory rate is 32, tidal volume is 407, minute ventilation is 13.2. She has made herself a DO NOT RESUSCITATE, we'll continue supportive treatment at this time, we'll give the patient break off BiPAP and place her on Airvo today. Today's labs have been reviewed White blood cell count is 11.3, hemoglobin is 16, platelet count is 218, lymphocyte count of 0.4, serum sodium is 147, potassium is 4.9, chloride is 111, B1 is 41, creatinine is 1.02, LFTs were improving on yesterday's labs, progesterone level was negative at 0.11, urinalysis showed evidence of a urinary tract infection by urine cultures are still pending at this time. Intake has been extremely poor prior to presentation to the hospital, in addition patient was having diarrhea which has improved while in the hospital. However oral intake has remained significantly diminished especially since the patient went on BiPAP support. On 11/11/2021 patient seen in follow-up in intensive care unit, patient continues on BiPAP support, she is BiPAP support dependent, she is on 14/7 and FiO2 of 100%, and her O2 saturations are 84-86%, patient is quite lethargic, she is very confused. She remains on Precedex at 1.3 mics per kilo per hour, she is on TPN at 70 mL per hour. Patient has not been able to take in anything by mouth related to her altered mental status, and being BiPAP support dependent. Today's chest x-ray shows bilateral airspace disease, no pneumothorax or pleural effusion. Today's labs have been reviewed, her sodium is 142, potassium is 5.4, chloride is 110, BUN is 39, creatinine 0.73. LFTs are slightly trended up. Her LDH was 2071, CRP was 4.1 on the labs from 2 days prior. She currently remains Decadron 6 mg twice daily, she is on Lovenox 75 mg twice daily, she is on daily dose of Lasix 40 mg daily. She is requiring frequent dosing with Ativan and morphine to keep her comfortable, less breathless, and tolerated BiPAP support better. Overall patient's condition has not shown a trend to improvement. She remains on high flow FiO2 via BiPAP support, and remains fully dependent on it. Despite some improvement in her inflammatory markers clinically patient has not shown significant progress. Patient has made it very clear that she did not want BiPAP support she did not want life support, and she remains a DO NOT RESUSCITATE. Updated at the son on the phone today, and updated him on the fact that patient has not made any improvement. In view of continued lack of progress in her medical condition and her stated wishes for no life support, and was recommended to the son that comfort care should probably be introduced On 11/12/2021 patient is seen in follow-up in intensive care unit. Patient remains clinically the same as yesterday. She is lethargic, quite dyspneic, tachypneic, remains BiPAP dependent remains on BiPAP support of 14/75 ~100%, pulse ox is 86-89%. Afebrile, hemodynamically patient has remained stable, currently on IV fluids at 20 mL an hour with 0.9 normal saline, Precedex is at 1, TPN is a 70, insulin drip is at 7.5 units per hour, sinus rhythm with a rate of 62. Tidal volume was 297, respiratory rate is 34, minute ventilation is 11.8. Chest x-ray today showing worsening diffuse bilateral airspace disease. Patient remains on Decadron 6 program twice daily, she remains on Lovenox 75 mg twice daily. Today's labs are still pending, yesterday we spoke extensively to the patient's son about patient's lack of progress, patient's CODE STATUS is DO NOT RESUSCITATE, patient's son did come in, however at this point has not made a decision to move forward with comfort care. On 11/13/2021 patient seen in follow-up in intensive care, patient's condition has remained the same over the last 24 hours, still BiPAP dependent, BiPAP pressures 14/70, FiO2 100%, and her pulse ox is 86-88%, tachypneic, dyspneic, has not been able to come off BiPAP, has not been able to take any oral intake or even oral medications. Patient continues on TPN, Precedex is at 1 riddhi per kilo per minute, and insulin drip is at 6 units per hour. In sinus mechanism, bradycardic with a rate of mid 50s. Yesterday's chest x-ray was showing worsening bilateral airspace disease. Patient remains on Decadron 6 program twice daily, remains on Lovenox 75 mg twice daily, inflammatory markers still significantly elevated, d-dimer is still elevated with some improvement. Patient is requiring frequent dosing with morphine and Ativan to help her tolerate BiPAP support. Has been on daily dose of IV Lasix 40 mg daily. She is in -1.4 L net fluid balance over the last 24 hours. Despite the medical treatment patient has failed to make any significant clinical improvement, patient's son and her family have been visiting on the daily basis, although there has been some improvement in her saturations with BiPAP support compared to weeks ago, clinically patient has not improved, and continues to slowly deteriorate, she is quite weak, poorly responsive dyspneic and tachypneic. Patient has made it known she did not want any aggressive medical treatment she did not want BiPAP, and she did not want intubation. At this point the family is expected to make a decision whether to respect the patient's wishes and make her comfortable. Objective - Vital Signs Vital signs: Vital Signs Temp 98.5 F 11/13/21 08:00 Pulse 56 L 11/13/21 09:00 Resp 34 H 11/13/21 09:00 BP 124/63 11/13/21 09:00 Pulse Ox 89 L 11/13/21 09:00 Intake & Output 11/12/21 11/13/21 11/13/21 18:59 06:59 18:59 Intake Total 502.617 0266.051 1504.119 Output Total 3055 725 175 Balance -2276.839 295.629 0715.119 Weight 148.3 kg Intake: IV 220 220 80 Sodium Chloride 0.45% 1 220 220 80 000 ml @ 20 mls/hr IV . Q24H [facility] Rx#:[id number] Intake, IV Titration 488.161 850.016 5650.119 Amount Dexmedetomidine/0.9% NaCl 399.761 494.067 100 (Pmx) 400 mcg In Empty Bag 1 bag @ 0.2 MCG/KG/HR 7.824 mls/hr IV .[id number] [facility] Rx#:[id number] Insulin Regular 100 unit 88.400 58.984 22.119 In Sodium Chloride 0.9% 100 ml @ Per Protocol IV .Q0M [facility] Rx#:[id number] Mvi, Adult No.4 with Vit 1022 K 10 ml Trace (Conc-1Ml/ Dose) 1 ml Potassium Chloride 16 meq Magnesium Sulfate gm 0.5 gm Calcium Gluconate 2 gm Sodium Phosphate 6 mmol In Amino Acids 5 %/ Dextrose 20 % 1,000 ml @ 70 mls/hr IV .BY DURATION [facility] Rx#:[id number] TPN/PPN 70 770 280 TPN 70 770 280 Output: Urine 3055 725 175 Other: Voiding Method Indwelling Catheter Indwelling Catheter Indwelling Catheter - Exam GENERAL EXAM: Sedated, 66-year-old morbidly obese white female, on BIpap support at 14/7, 100% tachypneic, dyspneic HEAD: Normocephalic/atraumatic. EYES: Normal reaction of pupils, equal size. Conjunctiva pink, sclera white. NOSE: Clear with pink turbinates. THROAT: No erythema or exudates. NECK: No masses, no JVD, no thyroid enlargement, no adenopathy. CHEST: No chest wall deformity. Symmetrical expansion. LUNGS: Equal air entry with fine basilar crackles CVS: Regular rate and rhythm, normal S1 and S2, no gallops, no murmurs, no rubs ABDOMEN: Soft, nontender. No hepatosplenomegaly, normal bowel sounds, no guarding or rigidity. EXTREMITIES: No clubbing, no edema, no cyanosis, 2+ pulses and upper and lower extremities. MUSCULOSKELETAL: Muscle strength and tone normal. SPINE: No scoliosis or deformity SKIN: No rashes CENTRAL NERVOUS SYSTEM: Sedated No focal deficits, tone is normal in all 4 extremities. PSYCHIATRIC: Sedated. Intact judgment and insight. - Labs CBC & Chem 7: 11/12/21 09:13 11/12/21 00:45 Labs: Abnormal Lab Results - Last 24 Hours (Table) 11/12/21 11/12/21 11/12/21 Range/Units 09:13 09:13 09:13 WBC 18.8 H (3.8-10.6) k/uL Hgb 16.6 H (11.4-16.0) gm/dL Hct 52.2 H (34.0-46.0) % Plt Count 86 L (150-450) k/uL Neutrophils # (Manual) 16.30 H (1.3-7.7) k/uL Lymphocytes # (Manual) 0.75 L (1.0-4.8) k/uL Monocytes # (Manual) 1.69 H (0-1.0) k/uL Metamyelocytes # (Man) 0.19 H (0) k/uL D-Dimer 14.96 H (<0.60) mg/L FEU POC Glucose (mg/dL) (75-99) mg/dL Lactate Dehydrogenase 2504 H (313-618) U/L C-Reactive Protein 1.7 H (<1.0) mg/dL 11/12/21 11/12/21 11/12/21 Range/Units 11:29 12:33 13:43 WBC (3.8-10.6) k/uL Hgb (11.4-16.0) gm/dL Hct (34.0-46.0) % Plt Count (150-450) k/uL Neutrophils # (Manual) (1.3-7.7) k/uL Lymphocytes # (Manual) (1.0-4.8) k/uL Monocytes # (Manual) (0-1.0) k/uL Metamyelocytes # (Man) (0) k/uL D-Dimer (<0.60) mg/L FEU POC Glucose (mg/dL) 264 H 275 H 196 H (75-99) mg/dL Lactate Dehydrogenase (313-618) U/L C-Reactive Protein (<1.0) mg/dL 11/12/21 11/12/21 11/12/21 Range/Units 15:22 16:39 18:44 WBC (3.8-10.6) k/uL Hgb (11.4-16.0) gm/dL Hct (34.0-46.0) % Plt Count (150-450) k/uL Neutrophils # (Manual) (1.3-7.7) k/uL Lymphocytes # (Manual) (1.0-4.8) k/uL Monocytes # (Manual) (0-1.0) k/uL Metamyelocytes # (Man) (0) k/uL D-Dimer (<0.60) mg/L FEU POC Glucose (mg/dL) 153 H 163 H 111 H (75-99) mg/dL Lactate Dehydrogenase (313-618) U/L C-Reactive Protein (<1.0) mg/dL 11/12/21 11/12/21 11/12/21 Range/Units 20:20 21:07 22:49 WBC (3.8-10.6) k/uL Hgb (11.4-16.0) gm/dL Hct (34.0-46.0) % Plt Count (150-450) k/uL Neutrophils # (Manual) (1.3-7.7) k/uL Lymphocytes # (Manual) (1.0-4.8) k/uL Monocytes # (Manual) (0-1.0) k/uL Metamyelocytes # (Man) (0) k/uL D-Dimer (<0.60) mg/L FEU POC Glucose (mg/dL) 153 H 158 H 208 H (75-99) mg/dL Lactate Dehydrogenase (313-618) U/L C-Reactive Protein (<1.0) mg/dL 11/12/21 11/13/21 11/13/21 Range/Units 23:56 01:03 02:59 WBC (3.8-10.6) k/uL Hgb (11.4-16.0) gm/dL Hct (34.0-46.0) % Plt Count (150-450) k/uL Neutrophils # (Manual) (1.3-7.7) k/uL Lymphocytes # (Manual) (1.0-4.8) k/uL Monocytes # (Manual) (0-1.0) k/uL Metamyelocytes # (Man) (0) k/uL D-Dimer (<0.60) mg/L FEU POC Glucose (mg/dL) 188 H 189 H 166 H (75-99) mg/dL Lactate Dehydrogenase (313-618) U/L C-Reactive Protein (<1.0) mg/dL 11/13/21 11/13/21 11/13/21 Range/Units 04:45 06:56 07:57 WBC (3.8-10.6) k/uL Hgb (11.4-16.0) gm/dL Hct (34.0-46.0) % Plt Count (150-450) k/uL Neutrophils # (Manual) (1.3-7.7) k/uL Lymphocytes # (Manual) (1.0-4.8) k/uL Monocytes # (Manual) (0-1.0) k/uL Metamyelocytes # (Man) (0) k/uL D-Dimer (<0.60) mg/L FEU POC Glucose (mg/dL) 162 H 170 H 149 H (75-99) mg/dL Lactate Dehydrogenase (313-618) U/L C-Reactive Protein (<1.0) mg/dL 11/13/21 Range/Units 09:30 WBC (3.8-10.6) k/uL Hgb (11.4-16.0) gm/dL Hct (34.0-46.0) % Plt Count (150-450) k/uL Neutrophils # (Manual) (1.3-7.7) k/uL Lymphocytes # (Manual) (1.0-4.8) k/uL Monocytes # (Manual) (0-1.0) k/uL Metamyelocytes # (Man) (0) k/uL D-Dimer (<0.60) mg/L FEU POC Glucose (mg/dL) 102 H (75-99) mg/dL Lactate Dehydrogenase (313-618) U/L C-Reactive Protein (<1.0) mg/dL Assessment and Plan Plan: #1. Acute Hypoxic respiratory failure related to COVID 19 pneumonia. Symptom onset was greater than 10 days ago, patient is outside the window for Remdesivir or Sotrovimab. Patient had a recent hospitalization for COVID-19 infection with symptoms of nausea vomiting and diarrhea,. Patient's chest x-ray during her last admission showed no acute cardiopulmonary disease, she was discharged home on 10/21/2021 and did not require oxygen at discharge. Patient was discharged home to complete a day course of Decadron. Patient is a non-vaccinated adult. Patient had worsening in her breathing and was started on Baricitinib, which had to be discontinued in view of active urinary tract infection. On 11/11/2021 patient remains strictly BiPAP dependent for several days with FiO2 of 100% with O2 saturations in the mid 80s. Overall prognosis is extremely poor, chest x-ray continues to show bilateral airspace disease, patient remains on Precedex, and other sedatives to help her tolerate the BiPAP support and help her with feeling of breathlessness. Inflammatory markers continue to be elevated. Patient has not responded to medical treatment, and she continues to do poorly. #2. Weakness, fatigue, diarrhea related to recent history of COVID-19 infection #3. Limited inflammatory markers related to COVID-19 infection #4. Acute kidney injury related to dehydration and diarrhea #5. Mild lactic acidosis related to dehydration improved with fluid resuscitation #6. Morbid obesity with BMI 57.4 kg/m #7. Coronary artery disease with previous stenting #8. History of ovarian cancer status post total hysterectomy #9. Chronic back pain #10. History of compression fractures of lumbar vertebrae #11. Gait dysfunction, patient is wheelchair bound for the most part #12. HyperLipidemia #13. Remote history of smoking #14. GERD/reflux #15. Anxiety and depression #16. Acute urinary tract infection, related to Proteus mirabilis Plan: Patient continues to do poorly Remains BiPAP support dependent with FiO2 100%, with low O2 saturations Clinically patient is quite dyspneic, tachypneic, poorly responsive She has not been able to take any oral medications or take any oral feedings Despite maximized medical treatment patient has not made improvement Patient has made it quite clear her wishes for no aggressive medical treatment, no life support, and no BiPAP However she was given a trial of supportive care and she failed to respond Patient's family is expected to make a decision and hopefully will respect the patient's wishes to be made comfortable in case there is no response to medical treatment Overall prognosis is extremely poor I have personally seen and examined the patient, performed the documentation and the assessment and plan as written. Number of minutes spent on the visit: [10] Time with Patient: Less than 30
[2021-11-13 11:19] LABS: Glucose,Whole Blood 232 mg/dL (75-99)
[2021-11-13 12:17] LABS: Glucose,Whole Blood 218 mg/dL (75-99)
--- NOTE | 2021-11-13 12:55 | P.PN ---
Subjective Progress Note Date: 11/13/21 This is a 66-year-old female with past medical history of recent covid, , CAD, gastroesophageal reflux disease, morbid obesity, ovarian cancer, and multiple other medical issues presented to the ER with complaints of worsening shortness of breath. Recently admitted with Covid, respiratory status stable, did not require any oxygen ,discharged on Covid cocktail including Decadron. Reporting she had no help at home from her son, reporting multiple social issues being addressed by case management/social work. Shortness of breath worsened, loss of taste and smell with appetite decreased, developed diarrhea. Denies nausea vomiting or abdominal pain. EMS per ER reported O2 sat of the 70s. Chest x-ray reported progressive mild scattered bilateral lung infiltrates with possibility of atypical pneumonia. Chest CTA Limited study, reported negative for PE, bilateral diffuse moderate to marked patchy groundglass opacity's, no pleural effusion. Doppler pending. Afebrile, WBC WNL, hemoglobin 15.2, platelets 188, d-dimer 166, electrolytes WNL, BUN 26, creatinine 1.38( baseline 0.9), lactic acid 2.2, ferritin 883, AST 79, ALT 41, LDH 1713, CRP 32.8, pro- calcitonin 0.2. Greenberg virus PCR reported negative. Covid cocktail initiated including Decadron IV, IV fluid hydration. Currently maintaining O2 sats in the 90s on 10 L high flow nasal cannula. 11/01/2021 maintaining O2 sats in the high 80s on 15 L high flow nasal cannula with nonrebreather mask on standby, while attempting to eat bites of breakfast. Denies nausea, vomiting or diarrhea-none since admission. T-max 99.1, normal WB C. Renal function worsening, BUN 38, creatinine 1.54. Inflammatory markers : d-dimer, LDH and CRP elevated and decreasing with ferritin pending. ProBNP within normal limits. AST, ALT trending down. Denies chest pain, palpitations or chest pressure. Doppler of Lower extremities reviewed. 11/04/2021 remains on BiPAP support, 14/7, 100% FiO2, maintaining O2 sats currently in the low 80s. Tachypneic. Maintained on Precedex, covid regimine, Baricitinib . Empiric Rocephin, urine culture pending. Afebrile, WBC 11.3. Hemoglobin 16, platelets 218. Sodium 146, potassium 4.9, chloride 111, bicarb 28, BUN 41, creatinine 1.02. 11/05/2021 continues on Covid Cocktail. maintained on Airvo and 100% Ventimask, as patient unable to tolerate wearing BiPAP, maintaining O2 sats in the low 80s. Chest x-ray reporting bilateral multifocal, confluent increased opacities consistent with edema and/or infiltrates. Tachypneic, respiratory rate in the 30s, hypertensive, bradycardic-heart rates in the 50s. T-max 99.9, WBC 13.2, urine culture reporting Proteus Mirabilis. hemoglobin 16.8, platelets 164. Inflammatory markers increasing, D-dimer 31.31, LDH 2949, CRP 18.7. Pro- calcitonin 0.09. T bili increased to 1.9, AST 41 ALT 27, alk phos 145. 11/06/21 significant respiratory distress, currently maintained on Precedex, BiPAP 100%, Decadron, Rocephin ,morphine and Ativan.Chest x-ray reporting persistent unchanged diffuse bilateral airspace infiltrates. Family has been requested to come in for further discussion with shot blaster. 11/07/2021 BiPAP 100% dependent, maintaining O2 sats in the low to mid 80s. Significant agitation, requiring Ativan every 3 hours , prn Morphine, in addition to Precedex. Continues on Decadron, Lovenox. Blood sugars controlled Labs pending. 11/08/2021 PICC line placed with TPN initiated yesterday. Remains on 100% BiPAP, O2 sats mid 70s to low 80s. Chest x-ray reporting persistent coarse infiltrates throughout both lung polanco. Maintained on Precedex drip at maximum dose. Labs pending. Hospice consulted for informational meeting. 11/11/2021 clinically unchanged:BiPAP dependent, however percent FiO2, maintaining O2 sats in the mid 80s, tachypneic, bradycardic. Chest x-ray reporting bilateral airspace disease with no pneumothorax or pleural effusion. Maintained on Precedex drip ,additional prn Ativan and morphine and Covid cocktail. T-max 99.4. Receiving TPN, continue on insulin drip. LFT's mildly ternding up; T bili 2.2, AST 84, alk phos 125. 11/12/2021 clinically unchanged with the exception of chest x-ray worsening. Remains BiPAP dependent. Maintained on Precedex, Ativan, morphine. TPN via PICC. Staff reports patient has repeatedly stated she does not want life support including the BiPAP mask. Son updated by shot blaster, despite poor prognosis, recommendations of comfort care, he wishes to proceed with supportive care. 11/13/2021 remains BiPAP dependent, tachypnea, dyspneic, minimally responsive with O2 sats in the 80s. PCP, Dr. Pinedo discussed poor prognosis as well as patient's wishes of no aggressive medical treatment , wanted a no code, no CPR, no intubation, as well as not wanting to be maintained on BiPAP mask, with son and sisters on Thursday along with recommendations of comfort care. At that time they were waiting for additional family to arrive and expected to proceed with comfort care on Thursday, if no improvement. As mentioned previously, chest x- ray yesterday reported worsening. Unable to take oral medications secondary to being BiPAP dependent. Requires Precedex drip and prn sedatives to help her be maintained on BiPAP mask. Today sister at bedside and waiting for the sons to arrive. Patient remains on supportive care. Objective - Vital Signs Vital signs: Vital Signs Temp 98.5 F 11/13/21 08:00 Pulse 68 11/13/21 12:00 Resp 13 11/13/21 12:00 BP 113/55 11/13/21 12:00 Pulse Ox 87 L 11/13/21 10:00 Intake & Output 11/12/21 11/13/21 11/13/21 18:59 06:59 18:59 Intake Total 306.179 9238.051 1784.119 Output Total 3055 725 1100 Balance -2276.839 818.051 684.119 Weight 148.3 kg Intake: IV 220 220 120 Sodium Chloride 0.45% 1, 220 220 120 000 ml @ 20 mls/hr IV . Q24H [facility] Rx#:[id number] Intake, IV Titration 488.161 928.433 3383.119 Amount Dexmedetomidine/0.9% NaCl 399.761 494.067 200 (Pmx) 400 mcg In Empty Bag 1 bag @ 0.2 MCG/KG/HR 7.824 mls/hr IV .[id number] [facility] Rx#:[id number] Insulin Regular 100 unit 88.400 58.984 22.119 In Sodium Chloride 0.9% 100 ml @ Per Protocol IV .Q0M [facility] Rx#:[id number] Mvi, Adult No.4 with Vit 1022 K 10 ml Trace (Conc-1Ml/ Dose) 1 ml Potassium Chloride 16 meq Magnesium Sulfate gm 0.5 gm Calcium Gluconate 2 gm Sodium Phosphate 6 mmol In Amino Acids 5 %/ Dextrose 20 % 1,000 ml @ 70 mls/hr IV .BY DURATION [facility] Rx#:[id number] TPN/PPN 70 770 420 TPN 70 770 420 Output: Urine 3055 725 1100 Other: Voiding Method Indwelling Catheter Indwelling Catheter Indwelling Catheter - Exam PHYSICAL EXAM: Unchanged- VITAL SIGNS: [As above] GENERAL: Lethargic, sedated, minimally responsive, tachypneic with shallow breaths, BiPAP dependent HEENT: Conjunctivae normal. eyes normal. NECK: Supple,No JVD. CARDIOVASCULAR: S1, S2 regular. No murmur, no edema RESPIRATION:Labored respiratory effort , tachypneic , coarse, bilateral diminished bases with fine bibasilar crackles. ABDOMEN: Soft, nontender. No guarding. no masses palpable. Positive Bowel sounds. NERVOUS SYSTEM: Unable to assess at this time, patient sedated Skin: Warm and dry. - Labs CBC & Chem 7: 11/12/21 09:13 11/12/21 00:45 Labs: Abnormal Lab Results - Last 24 Hours (Table) 11/12/21 11/12/21 11/12/21 Range/Units 13:43 15:22 16:39 POC Glucose (mg/dL) 196 H 153 H 163 H (75-99) mg/dL 11/12/21 11/12/21 11/12/21 Range/Units 18:44 20:20 21:07 POC Glucose (mg/dL) 111 H 153 H 158 H (75-99) mg/dL 11/12/21 11/12/21 11/13/21 Range/Units 22:49 23:56 01:03 POC Glucose (mg/dL) 208 H 188 H 189 H (75-99) mg/dL 11/13/21 11/13/21 11/13/21 Range/Units 02:59 04:45 06:56 POC Glucose (mg/dL) 166 H 162 H 170 H (75-99) mg/dL 11/13/21 11/13/21 11/13/21 Range/Units 07:57 09:30 10:06 POC Glucose (mg/dL) 149 H 102 H 127 H (75-99) mg/dL 11/13/21 11/13/21 Range/Units 11:18 12:16 POC Glucose (mg/dL) 232 H 218 H (75-99) mg/dL Assessment and Plan Assessment: Acute hypoxic respiratory failure related to recent covid 19 pneumonia on . Nonvaccinated. Worsening, difficulty synchronizing with BiPAP, requiring additional sedatives along with Precedex drip. BiPAP dependent. Status post Picc placement for TPN Acute renal failure secondary to dehydration, Acute UTI with Proteus Mirabilis. Lactic acidosis, mild secondary to all the above, improved with IV fluids CAD, Hx of NV,stenting Chronic systolic heart failure Hypertension Hyperlipidemia Gastroesophageal reflux disease Morbid obesity, BMI 57.4 Osteoarthritis Former nicotine dependence History of ovarian cancer Gait dysfunction, wheelchair-bound No code, no CPR, no intubation. Declining BiPAP. Plan: Continue on current medication regime ,monitoring and symptomatic treatment. Patient is a no code, no CPR, no intubation .prognosis poor, worsening chest x-ray; recommending comfort care, sister at bedside, sons are in [facility]. Family decision pending the sons' arrival. The impression and plan of care has been dictated as directed. : I performed a history and examination of this patient, discussed the same with the dictator. I agree with the dictator's note ,documented as a scribe. Any additional findings or plans will be noted.
[2021-11-13] MEDS ORDERED: MORPHINE SULFATE (100 MG/2 ML) 100 MG in SODIUM CHLORIDE 0.9% 100 ML IV SCH (13:45)
[2021-11-13 16:32] VITALS: BP 112/81
[2021-11-13 17:25] VITALS: PULSE 107; RESP 4
--- NOTE | 2021-11-15 10:18 | CDI ---
Documentation Clarification Form Date: 11/15/21 From: Neeta Saunders Admit Date: 10/30/2021 05:24:00 PM Patient Name: Madai Du Visit Number: [id number] Discharge Date: 11/13/2021 10:00:00 PM ATTENTION: The Clinical Documentation Specialists (CDI) and [facility] Coding Staff appreciate your assistance in clarifying documentation. Please respond to the clarification below the line at the bottom and electronically sign. The CDI & [facility] Coding staff will review the response and follow-up if needed. Please note: Queries are made part of the Legal Health Record. If you have any questions, please contact the author of this message via ITS. Dr. Woody Pinedo, The patient has had a recent episode of COVID-19 infection on October 21 as documented in the H&P, and now presents with: worsening dyspnea, loss of taste and smell with decreased appetite and diarrhea. PCR came back negative on 10/30, day of admission. Treated with Dexamethasone and Baricitinib. 10/30 CT Chest: No acute PE. Findings consistent with atypical pneumonia including COVID. Please clarify the current status of the patients COVID-19 infection in the next progress note and/or discharge summary such as: ___ COVID-19 is not a current infection, and the stated condition is a residual effect/sequelae of COVID-19 (post COVID) ___XX COVID-19 continues to be a current and active infection, and the stated condition is a continuation of its symptoms ___ Other explanation of clinical findings (please specify): ___ Clinically unable to determine the current status of the patients COVID-19 infection ___ Unknown MTDD
== END 2021-11-13 22:00 | disposition expired | DRG 177 ==
LOC: EC 13:17 → 3SCARD 17:24 → 2SICU 11-02 22:32
PROVIDERS: ADMIT Family Medicine; ATTEND Family Medicine
PROC: 5A0945A Assistance with Respiratory Ventilation, 24-96 Consecutive Hours, High Flow/Velocity Cannula (ICD-10-PCS; 2021-10-30)
PROC: XW0DXM6 Introduction of Baricitinib into Mouth and Pharynx, External Approach, New Technology Group 6 (ICD-10-PCS; principal; 2021-11-02)
PROC: 5A09557 Assistance with Respiratory Ventilation, Greater than 96 Consecutive Hours, Continuous Positive Airway Pressure (ICD-10-PCS; 2021-11-03)
PROC: 05HF33Z Insertion of Infusion Device into Left Cephalic Vein, Percutaneous Approach (ICD-10-PCS; 2021-11-04 14:55)
PROC: 02H633Z Insertion of Infusion Device into Right Atrium, Percutaneous Approach (ICD-10-PCS; 2021-11-07)
PROC: 3E0436Z Introduction of Nutritional Substance into Central Vein, Percutaneous Approach (ICD-10-PCS; 2021-11-07)
DX: U07.1 COVID-19 (principal); J80 Acute respiratory distress syndrome; J12.82 Pneumonia due to coronavirus disease 2019; N17.9 Acute kidney failure, unspecified; E87.2 Acidosis; N39.0 Urinary tract infection, site not specified; Z68.43 Body mass index [BMI] 50.0-59.9, adult; I50.22 Chronic systolic (congestive) heart failure; E11.65 Type 2 diabetes mellitus with hyperglycemia; B96.4 Proteus (mirabilis) (morganii) as the cause of diseases classified elsewhere; I11.0 Hypertensive heart disease with heart failure; E66.01 Morbid (severe) obesity due to excess calories; Z51.5 Encounter for palliative care; Z66 Do not resuscitate; E86.0 Dehydration; E78.2 Mixed hyperlipidemia; K21.00 Gastro-esophageal reflux disease with esophagitis, without bleeding; T38.0X5A Adverse effect of glucocorticoids and synthetic analogues, initial encounter; I25.2 Old myocardial infarction; I25.10 Atherosclerotic heart disease of native coronary artery without angina pectoris; F41.9 Anxiety disorder, unspecified; F32.A Depression, unspecified; M48.56XS Collapsed vertebra, not elsewhere classified, lumbar region, sequela of fracture; M54.2 Cervicalgia; R00.1 Bradycardia, unspecified; R74.02 Elevation of levels of lactic acid dehydrogenase [LDH]; G89.29 Other chronic pain; K57.90 Diverticulosis of intestine, part unspecified, without perforation or abscess without bleeding; M19.90 Unspecified osteoarthritis, unspecified site; R32 Unspecified urinary incontinence; R26.9 Unspecified abnormalities of gait and mobility; N93.0 Postcoital and contact bleeding; Z91.19 Patient's noncompliance with other medical treatment and regimen; Z79.82 Long term (current) use of aspirin; Z79.899 Other long term (current) drug therapy; Z87.01 Personal history of pneumonia (recurrent); Z90.710 Acquired absence of both cervix and uterus; Z90.722 Acquired absence of ovaries, bilateral; Z90.79 Acquired absence of other genital organ(s); Z87.891 Personal history of nicotine dependence; Z85.43 Personal history of malignant neoplasm of ovary; Z95.5 Presence of coronary angioplasty implant and graft; Z96.643 Presence of artificial hip joint, bilateral; Z96.653 Presence of artificial knee joint, bilateral; Z87.2 Personal history of diseases of the skin and subcutaneous tissue; Z86.2 Personal history of diseases of the blood and blood-forming organs and certain disorders involving the immune mechanism; Z99.3 Dependence on wheelchair; Z98.1 Arthrodesis status; Z87.19 Personal history of other diseases of the digestive system; Z98.890 Other specified postprocedural states; Z71.3 Dietary counseling and surveillance; Z88.5 Allergy status to narcotic agent; Z88.0 Allergy status to penicillin; Z88.8 Allergy status to other drugs, medicaments and biological substances; Z91.048 Other nonmedicinal substance allergy status; Z82.3 Family history of stroke; Z83.79 Family history of other diseases of the digestive system; Z81.1 Family history of alcohol abuse and dependence; Z82.5 Family history of asthma and other chronic lower respiratory diseases; Z80.3 Family history of malignant neoplasm of breast
CPT/HCPCS: 36410; 36415; 36573; 36600; 71045; 71275; 76937; 80048; 80053; 81001; 82330; 82728; 82805; 83605; 83615; 83735; 83880; 84100; 84132; 84145; 84478; 85025; 85379; 85610; 85730; 86140; 87077; 87086; 87186; 87635; 93005; 93970; 94640; 94660; 94760; 99285